=== PATIENT | male | born 1940 | race Caucasian/White ===

== ENCOUNTER → 2017-03-02 | Day surgery (SDC) | payer OTHER ==
[2017-03-01 08:59] VITALS: Ht 170.2 cm; Wt 100.0 kg
[~2017-03-02] VITALS: Ht 170.2 cm; Wt 100.0 kg
[~2017-03-02] MED LIST: ASPI81TA28 PO; ATOR-22 PO; CHOL1000 PO; DOXA1TAB86 PO; FENO48TA9 PO; FINA5TAB PO; INSDGI SC; IPRA1AER2 INH; LIDOCAINE HCL 2% 2 ML VIAL (20MG/ML) ONE; METF500T PO; METO-551 PO; MIDAZOLAM HCL 1 MG/ML 2ML VIAL ONE; MULT-190 PO; MULT-506 PO; NRN/300 PO; NVLG SC; PROPOFOL IV EMULSION 10 MG/ML 20 ML VIAL IV ONE; SODIUM CHLORIDE 0.9% 500ML 500 ML IV ONE
--- NOTE | 2017-03-02 12:55 | Endo History and Physical ---
History & Physical Date of Service: March 02, 2017. Chief Complaint: screening Referring Physician: Dr Randhawa History of Present Illness Scenning colonoscopy average risk Past Surgical History Hx Cardiac Surgery: Yes (HEART CATH X2, NO STENTS; CABG X2-3 VESSLES) Hx Internal Defibrillator: No Hx Pacemaker: No Hx Abdominal Surgery: Yes (EJ) Hx of Implantable Prosthesis: No Hx Post-Op Nausea and Vomiting: No Hx Cancer Surgery: No Hx Thoracic Surgery: No Hx Orthopedic: Yes (RT ANKLE SURGERY) Hx Urinary Tract Surgery: Yes (TURP X2) Family History None Social History Smoking Status: Former Smoker Hx Substance Use: No Hx Alcohol Use: Yes (QUIT "YEARS AGO WHEN I WAS YOUNGER") Allergies Coded Allergies: NO KNOWN DRUG ALLERGIES (Verified Allergy, Unknown, ., 03/01/17) [place] (Verified Allergy, Unknown, hives, 03/01/17) Current Medications Reported Home Medications Medications Dose Route/Sig Max Daily Dose Days Date Category Novolog (Insulin Aspart) 100 Units/Ml Inj 22 Units SC TIDM 03/01/17 Reported Lantus (Insulin Glargine) 100 Unit/Ml Inj 38 Units SC HS 03/01/17 Reported Combivent Respimat (Ipratropium-Albuterol) 1 Aer Aer 1 Puffs INH QID 03/01/17 Reported Aspirin Ec (Aspirin) 81 Mg Tab 81 Mg PO QAM 03/01/17 Reported Multivitamin (Multivitamins) Tab 1 Tab PO QAM 03/01/17 Reported Vitamin D3 (Cholecalciferol) 1,000 Unit Tab 1 Tab PO BID 03/01/17 Reported Tricor (Fenofibrate) 48 Mg Tab 48 Mg PO BID 03/01/17 Reported Lopressor (Metoprolol Tartrate) 50 Mg Tab 0.5 Tab PO BID 03/01/17 Reported Neurontin (Gabapentin) 300 Mg Cap 300 Mg PO BID 03/01/17 Reported Lipitor (Atorvastatin Calcium) 20 Mg Tab 20 Mg PO QAM 03/01/17 Reported Doxazosin Mesylate 4 Mg Tab 1 Tab PO BID 03/01/17 Reported Ocuvite Preservision (Multivitamins/Minerals) 1 Tab Tab 1 Tab PO QPM 01/25/14 Reported Glucophage (Metformin Hcl) 500 Mg Tab 500 Mg PO BID 01/25/14 Reported Proscar (Finasteride) 5 Mg Tab 5 Mg PO QAM 12/28/13 Reported Vital Signs Weight (Kilograms): 100 Height (Feet): 5 Height (Inches): 7 Date Time Temp Pulse Resp B/P Pulse Ox O2 Delivery O2 Flow Rate FiO2 03/02/17 12:13 36.5 114 22 154/97 94 Room Air Physical Exam General Appearance: WD/WN, no apparent distress Respiratory/Chest: Auscultation: breath sounds normal Cardiovascular: Heart Auscultation: RRR, no murmurs Abdomen: Inspection & Palpation: soft, no tenderness, guarding & rebound Assessment and Plan Cleared for colonoscopy.
--- NOTE | 2017-03-02 13:41 | GI REPORT ---
Procedure Date: 03/02/2017 12:18 PM Procedure: Colonoscopy Indications: Screening for colorectal malignant neoplasm Medicines: Monitored Anesthesia Care Complications: No immediate complications. Estimated blood loss: None. Estimated Blood Loss: Estimated blood loss: none. Procedure: Pre-Anesthesia Assessment: - Prior to the procedure, a History and Physical was performed, and patient medications, allergies and sensitivities were reviewed. The patient's tolerance of previous anesthesia was reviewed. - ASA Grade Assessment: III - A patient with severe systemic disease. After I obtained informed consent, the scope was passed under direct vision. Throughout the procedure, the patient's blood pressure, pulse, and oxygen saturations were monitored continuously. The scope was introduced through the anus and advanced to the cecum, identified by appendiceal orifice and ileocecal valve. The colonoscopy was performed with ease. The patient tolerated the procedure well. The quality of the bowel preparation was good. The bowel preparation used was split dose MIralax. Findings: Two sessile polyps were found in the cecum. The polyps were 3 to 6 mm in size. These polyps were removed with a cold and hot snare respectively. Resection and retrieval were complete. Three sessile polyps were found in the ascending colon. The polyps were 5 to 7 mm in size. These polyps were removed with a hot snare. Resection and retrieval were complete. A 2 mm polyp was found in the transverse colon. The polyp was sessile. The polyp was removed with a cold snare. Resection and retrieval were complete. A 4 mm polyp was found in the rectum. The polyp was sessile. The polyp was removed with a cold snare. Resection and retrieval were complete. Diverticula were found in the sigmoid colon and in the transverse colon. Impression: - Two 3 to 6 mm polyps in the cecum, removed with a hot snare. Resected and retrieved. - Three 5 to 7 mm polyps in the ascending colon, removed with a hot snare. Resected and retrieved. - One 2 mm polyp in the transverse colon, removed with a cold snare. Resected and retrieved. - One 4 mm polyp in the rectum, removed with a cold snare. Resected and retrieved. - Diverticulosis in the sigmoid colon and in the transverse colon. Recommendation: - Repeat colonoscopy for surveillance based on pathology results. - Continue present medications. - Discharge patient to home (with escort). Efrain Cerda M.D. Efrain Cerda MD 03/02/2017 1:40:36 PM This report has been signed electronically. Note Initiated On: 03/02/2017 12:18 PM I attest to the content of the Intraoperative Record and orders documented therein, exceptions below
--- NOTE | 2017-03-02 13:43 | Anesthesiology Progress Note ---
Anesthesia Post Op Note Date & Time March 02, 2017 at 13:43 Vital Signs Pain Intensity: 0 Vital Signs Past 12 Hours Date Time Temp Pulse Resp B/P Pulse Ox O2 Delivery O2 Flow Rate FiO2 03/02/17 13:29 107 20 112/60 97 Room Air 03/02/17 12:13 36.5 114 22 154/97 94 Room Air Notes Mental Status: alert / awake / arousable, participated in evaluation Pt Amnestic to Procedure: Yes Nausea / Vomiting: adequately controlled Pain: adequately controlled Airway Patency, RR, SpO2: stable & adequate BP & HR: stable & adequate Hydration State: stable & adequate Anesthetic Complications: no major complications apparent
--- NOTE | 2017-03-02 13:44 | Discharge Instructions ---
Endoscopy Patient Instructions Date / Procedure(s) Performed March 02, 2017. Colonoscopy Allergy Information Coded Allergies: NO KNOWN DRUG ALLERGIES (Verified Allergy, Unknown, ., 03/01/17) [place] (Verified Allergy, Unknown, hives, 03/01/17) Discharge Date / Findings March 02, 2017. Multiple colon polyps, removed. Diverticulosis. Medication Instructions Stopped Medication(s): Metformin Restart Stopped Medication(s): Resume all medications today. Provider Instructions Activity Restrictions - No exercising or heavy lifting for 24 hours. - Do not drink alcohol the day of the procedure. - Do not drive a car or operate machinery until the day after the procedure. - Do not make any important decisions or sign important papers in 24 hours after the procedure. Following Day: - Return to full activity which may include returning to work/school. Diet Start your diet with liquids and light foods (jello, soup, juice, toast). Then eat your usual diet if not nauseated. Treatment For Common After Affects For mild abdominal pain, bloating, or excessive gas: - Rest - Eat lightly - Lie on right side Follow-Up Information Follow-up with Dr Randhawa as scheduled Anesthesia Information What You Should Know You have had a procedure that required some medicine to reduce anxiety and discomfort. This treatment is called moderate sedation. After receiving the treatment, you may be sleepy, but you will be able to breathe on your own. The effects of the treatment may last for several hours. Follow these instructions along with Activity/Diet recommendations noted above: * Do NOT do anything where dizziness or clumsiness would be dangerous. * Rest quietly at home today, then you can be up and about tomorrow. * Have a responsible person stay with you the rest of today. * You may have had an I.V. today. If so, you may take the dressing off later today. Recommendations Call your doctor if: * Trouble breathing * Continuous vomiting for more than 24 hours * Temperature above 101 degrees * Severe abdominal pain or bloating * Pain not relieved by pain medicine ordered * There is increased drainage or redness from any incision * A large amount of rectal bleeding greater than 2-3 tablespoons. (If you had a polyp/s removed or have hemorrhoids, a small amount of blood - from the rectum is to be expected.) * You have any unanswered questions or concerns. IN THE EVENT OF A SERIOUS EMERGENCY, GO TO THE NEAREST EMERGENCY ROOM Your discharge instructions were prepared by provider Efrain Cerda. Patient Instructions Signature Page Mc Garcia Patient (or Guardian) Signature/Date: I have read and understand the instructions given to me by my caregivers. Caregiver/RN/Doctor Signature/Date: The above-named patient and/or guardian has received patient instructions on this date. + Original Patient Signature Page (only) stays with chart. Please make copy for patient.
[2017-03-02 14:03] VITALS: BP 120/66; PULSE 88; O2SAT 98
== END | disposition home or self-care (01) ==
LOC: C.GI 11:41
PROVIDERS: ATTEND Internal Medicine Gastroenterology
DX: Z12.11 Encounter for screening for malignant neoplasm of colon (principal); D12.0 Benign neoplasm of cecum; D12.2 Benign neoplasm of ascending colon; D12.3 Benign neoplasm of transverse colon; K62.1 Rectal polyp; K57.30 Diverticulosis of large intestine without perforation or abscess without bleeding; E11.22 Type 2 diabetes mellitus with diabetic chronic kidney disease; I12.9 Hypertensive chronic kidney disease with stage 1 through stage 4 chronic kidney disease, or unspecified chronic kidney disease; N18.9 Chronic kidney disease, unspecified; F32.9 Major depressive disorder, single episode, unspecified; J44.9 Chronic obstructive pulmonary disease, unspecified; Z87.891 Personal history of nicotine dependence; Z95.1 Presence of aortocoronary bypass graft; Z68.34 Body mass index [BMI] 34.0-34.9, adult; Z90.89 Acquired absence of other organs; Z79.4 Long term (current) use of insulin; Z79.82 Long term (current) use of aspirin; Z79.899 Other long term (current) drug therapy

== ENCOUNTER → 2017-04-01 | Outpatient (CLI) | payer OTHER ==
[~2017-04-01] MED LIST changes: -LIDOCAINE HCL 2% 2 ML VIAL (20MG/ML) ONE; -MIDAZOLAM HCL 1 MG/ML 2ML VIAL ONE; -PROPOFOL IV EMULSION 10 MG/ML 20 ML VIAL IV ONE; -SODIUM CHLORIDE 0.9% 500ML 500 ML IV ONE
[2017-04-01 12:10] LABS: BASO % 1.1 %; BASO ABS # 0.07 K/uL (0-0.2); COMPLETE YES; EOS % 12.5 %; HEMATOCRIT 40.3 % (42-52); IG% 0.3 %; LYMPH % 22.3 %; LYMPH ABS # 1.39 K/uL (1.2-3.4); MEAN CORPUSCULAR HEMOGLOBIN 30.5 pg (25-34); MEAN CORPUSCULAR HGB CONC 33.5 g/dl (32-36); MEAN PLATELET VOLUME 12.1 fL (7.4-10.4); MONO % 11.2 %; NEUT % 52.6 %; PLATELET COUNT 140 K/uL (130-400); RED BLOOD COUNT 4.43 M/uL (4.7-6.1); WHITE BLOOD COUNT 6.23 K/uL (4.8-10.8)
[2017-04-01 12:23] LABS: URINE APPEARANCE CLEAR (CLEAR); URINE BILIRUBIN NEG (NEG); URINE COLOR YELLOW; URINE NITRITE NEG (NEG); URINE PH 5.5 (4.5-7.5); URINE SPECIFIC GRAVITY 1.016 (1.000-1.030); UROBILINOGEN NEG (NEG); ZZUR CULT IF INDIC CLEAN CATCH NO
[2017-04-01 12:30] LABS: CALCIUM 9.6 mg/dl (8.5-10.1)
[2017-04-01 12:36] LABS: BLOOD UREA NITROGEN 33 mg/dl (7-18); BUN/CREATININE RATIO 17.6 (10-20); CARBON DIOXIDE 24 mmol/L (21-32); CHLORIDE 107 mmol/L (98-107); GLUCOSE 223 mg/dl (70-99); MAGNESIUM 1.7 mg/dl (1.8-2.4); POTASSIUM 5.2 mmol/L (3.5-5.1); SODIUM 140 mmol/L (136-145)
[2017-04-01 12:37] LABS: MANUAL MICROSCOPIC REQUIRED? NO; REVIEW REQ? NO
[2017-04-01 12:37] LABS: PHOSPHORUS 3.6 mg/dl (2.5-4.9)
[2017-04-01 12:49] LABS: URINE PROTIEN/CREAT RATIO 0.2 (0-0.2); URINE TOTAL PROTEIN 10.6 mg/dl (0-11.9)
== END | disposition home or self-care (01) ==
LOC: C.LABPVFM 10:37
PROVIDERS: ATTEND Internal Medicine Nephrology
DX: N18.3 Chronic kidney disease, stage 3 (moderate) (principal)

== ENCOUNTER → 2017-04-05 | Outpatient (CLI) | payer OTHER ==
--- NOTE | 2017-04-05 14:04 | DIAGNOSTIC IMAGING REPORT ---
CHEST 2 VIEWS ROUTINE CLINICAL HISTORY: R06.09 Dyspnea on [id number] dyspnea COMPARISON STUDY: 01/25/2014 FINDINGS: Mild emphysematous and chronic interstitial change. No acute infiltrate. Prior median sternotomy. Diaphragms smooth but somewhat flattened. IMPRESSION: Chronic and postoperative change. No acute process. Electronically signed by: Garry Ortiz M.D. 04/05/2017 2:02 PM Dictated Date/Time: 04/05/2017 2:02 PM
== END | disposition home or self-care (01) ==
LOC: C.RAD1850 13:52
PROVIDERS: ATTEND Internal Medicine Nephrology
DX: R06.09 Other forms of dyspnea (principal)

== ENCOUNTER → 2017-04-23 | Outpatient (CLI) | payer OTHER ==
[2017-04-23 17:46] LABS: BLOOD UREA NITROGEN 29 mg/dl (7-18); BUN/CREATININE RATIO 17.2 (10-20); CALCIUM 9.8 mg/dl (8.5-10.1); CARBON DIOXIDE 27 mmol/L (21-32); CHLORIDE 107 mmol/L (98-107); GLUCOSE 183 mg/dl (70-99); PHOSPHORUS 3.6 mg/dl (2.5-4.9); POTASSIUM 4.7 mmol/L (3.5-5.1); SODIUM 140 mmol/L (136-145)
== END | disposition home or self-care (01) ==
LOC: C.LABPVFM 11:30
PROVIDERS: ATTEND Internal Medicine Nephrology
DX: E87.5 Hyperkalemia (principal); N18.3 Chronic kidney disease, stage 3 (moderate)

== ENCOUNTER → 2017-06-04 | Outpatient (CLI) | payer OTHER ==
--- NOTE | 2017-06-04 10:43 | DIAGNOSTIC IMAGING REPORT ---
SINUSES MIN 3 VIEWS ROUTINE CLINICAL HISTORY: CHRONIC SINUSITIS sinusitis COMPARISON STUDY: None FINDINGS: Negative study. All major sinuses are clear. IMPRESSION: Negative study The above report was generated using voice recognition software. It may contain grammatical, syntax or spelling errors. Electronically signed by: Garry Ortiz M.D. 06/04/2017 10:42 AM Dictated Date/Time: 06/04/2017 10:38 AM
[2017-06-04 12:48] LABS: BASO % 0.9 %; BASO ABS # 0.05 K/uL (0-0.2); COMPLETE YES; EOS % 7.4 %; HEMATOCRIT 39.9 % (42-52); IG% 0.6 %; LYMPH % 30.1 %; LYMPH ABS # 1.63 K/uL (1.2-3.4); MEAN CELL VOLUME 89.1 fL (80-100); MEAN CORPUSCULAR HEMOGLOBIN 29.9 pg (25-34); MEAN CORPUSCULAR HGB CONC 33.6 g/dl (32-36); MONO % 9.8 %; NEUT % 51.2 %; PLATELET COUNT 154 K/uL (130-400); RED BLOOD COUNT 4.48 M/uL (4.7-6.1); WHITE BLOOD COUNT 5.42 K/uL (4.8-10.8)
[2017-06-04 12:57] LABS: ALT/SGPT 34 U/L (12-78); BLOOD UREA NITROGEN 24 mg/dl (7-18); BUN/CREATININE RATIO 13.9 (10-20); CALCIUM 9.3 mg/dl (8.5-10.1); CARBON DIOXIDE 27 mmol/L (21-32); CHLORIDE 107 mmol/L (98-107); GLUCOSE 175 mg/dl (70-99); POTASSIUM 4.6 mmol/L (3.5-5.1); SODIUM 139 mmol/L (136-145)
[2017-06-04 13:00] LABS: ALB/GLOB RATIO 1.2 (0.9-2); ALKALINE PHOSPHATASE 36 U/L (45-117); AST/SGOT 20 U/L (15-37); PARTIAL THROMBOPLASTIN RATIO 0.9; PROTHROMBIN TIME (PATIENT) 10.7 SECONDS (9.0-12.0)
== END | disposition home or self-care (01) ==
LOC: C.LABPVFM 10:11
PROVIDERS: ATTEND Internal Medicine Pulmonary Disease
DX: J32.9 Chronic sinusitis, unspecified (principal); J84.9 Interstitial pulmonary disease, unspecified

== ENCOUNTER 2017-06-07 07:25 | Day surgery (SDC) | payer OTHER ==
--- NOTE | 2017-05-31 10:52 | DIAGNOSTIC IMAGING REPORT ---
CT SCAN OF THE CHEST WITHOUT IV CONTRAST CLINICAL HISTORY: Interstitial lung disease. Cough and dyspnea. COMPARISON STUDY: Chest radiographs dated 04/05/2017. Abdominal CT dated 12/28/2013. TECHNIQUE: CT scan of the thorax was performed from the thoracic inlet to the upper abdomen. Images are reviewed in the axial, sagittal, and coronal planes. IV contrast was not administered for this examination. A dose lowering technique was utilized adhering to the principles of ALARA. CT DOSE: 629.71 mGycm FINDINGS: Thyroid: Imaged portions of the thyroid gland are normal in size and attenuation. Thoracic aorta: There is atherosclerotic calcification of the thoracic aorta, which is normal in caliber and demonstrates standard 3-vessel arch anatomy. Heart: The patient is status post midline sternotomy. The heart is normal in size and without pericardial effusion. The coronary arteries are densely calcified. The pulmonary trunk is normal in caliber. Lungs and pleural spaces: There is no airspace consolidation or pleural effusion. Minimal dependent atelectasis is observed. There is no convincing CT evidence of interstitial lung disease. There are tiny calcified granulomas. There is a 6 mm focus of nodularity within the upper tracheal wall seen on image #25. The trachea and central airways are otherwise clear. 3 mm left lower lobe nodules seen on image #232 and #254 are unchanged from 2014 and of doubtful significance. Mediastinum: There are scattered subcentimeter mediastinal lymph nodes. These are not pathologically enlarged by size criteria. Zohra: Not well assessed without IV contrast. Axillae: There is no axillary lymphadenopathy. Upper abdomen: There is a tiny hiatal hernia. The liver is steatotic. Cholecystectomy clips are noted. The partially imaged kidneys demonstrate cortical atrophy and there is scarring in the right upper pole. Small renal cysts are partially imaged on the left. Skeletal structures: The skeletal structures are osteopenic. Degenerative change is seen throughout the thoracic spine and in the shoulders. No lytic or blastic bony lesions are seen. IMPRESSION: 1. There is no airspace consolidation or pleural effusion. 2. There is no convincing CT evidence of interstitial lung disease as clinically queried. 3. There is a 6 cm focus of nodularity seen nondependently within the upper trachea. This likely represents adherent secretions. A nodule/polyp is not excluded. 4. Additional findings as above. Electronically signed by: Joe Weber M.D. 05/31/2017 10:50 AM Dictated Date/Time: 05/31/2017 10:43 AM
[~2017-06-07] VITALS: Ht 170.2 cm; Wt 99.9 kg
[2017-06-07] VITALS (23 sets, daily range): BP systolic 103–172; BP diastolic 61–82; PULSE 68–97; TEMP 36.5–36.7; O2SAT 88–97; Ht 170.2 cm; Wt 99.9 kg
[~2017-06-07 07:25] MED LIST changes: +SODIUM CHLORIDE 0.9% 1000ML 1,000 ML IV SCH
[2017-06-07] MEDS ORDERED: MIDAZOLAM HCL 1 MG/ML 2ML VIAL IV ONE (07:26)
[2017-06-07] MEDS ORDERED: FENTANYL CITRATE 100 MCG 2 ML CARP IV ONE (07:26)
--- NOTE | 2017-06-07 08:06 | History and Physical ---
History & Physical Date Jun 07, 2017. 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 Maxim Gan by Dr. Yoandy Randhawa/division of Nephrology for pulmonary evaluation. Patient has history of ischemic cardiomyopathy, diabetes mellitus, urinary retention, and stage IIIB A1 chronic kidney disease. He has become progressively more dyspneic with exertion over the past year with a dry nonproductive cough that has not responded to any therapy. He has been placed on 2 inhalers but gives us a Combivent Respimat that he has used without efficacy. He has become progressively more dyspneic with exertion over the past year with a dry nonproductive cough that has not responded to any therapy. He has been placed on 2 inhalers but gives us a Combivent Respimat that he has used without efficacy. He can only walk short distances before he becomes fatigued and extremely dyspnea. He has smoked a pack of cigarettes a day for 40 years having quit 15 years ago. 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 He also has had exposure to Agent Citra while in [place] and receives benefits for such. Chest x-ray on 04/05/2017 suggest emphysematous and chronic interstitial changes. This was in comparison to 2013. PFTs on 11/22/2015 revealed a forced vital capacity of 2.91 liters or 73 percent of predicted with an FEV1 of 1.99 liters or 65 percent of predicted with a ratio of 68 percent without a significant response to bronchodilator. CT Thorax (06/03/17) compared to CT ABD (12/28/2013) Stable 3mm & 7mm LLL nodules Sinus Imaging (06/04/17) WNL Past Medical/Surgical History Medical Problems: (1) Coronary artery disease Arthritis BPH with obstruction/lower urinary tract symptoms Chronic sinusitis Cough Diabetes mellitus with chronic kidney disease (Cr: 1.7) Dyspnea on exertion Gout Hypercholesterolemia Hypertension Incomplete emptying of bladder Interstitial lung disease Neurogenic bladder Peripheral neuropathy Phimosis Stage III chronic kidney disease Surgical Problems: S/P CABG (coronary artery bypass graft) Cholecystectomy Laparoscopic Foot Surgery Prostate Surgery Allergies Coded Allergies: NO KNOWN DRUG ALLERGIES (Verified Allergy, Unknown, ., 03/01/17) [place] (Verified Allergy, Unknown, hives, 03/01/17) Home Medications Scheduled Aspirin (Aspirin Ec), 81 MG PO QAM Atorvastatin (Lipitor), 20 MG PO QAM Cholecalciferol (Vitamin D3), 1 TAB PO BID Doxazosin Mesylate (Doxazosin Mesylate), 1 TAB PO BID Fenofibrate (Tricor), 48 MG PO BID Finasteride (Proscar), 5 MG PO QAM Gabapentin (Neurontin), 300 MG PO BID Insulin Aspart (Novolog), 22 UNITS SC TIDM Insulin Glargine (Lantus), 38 UNITS SC HS Ipratropium-Albuterol (Combivent Respimat), 1 PUFFS INH QID Metformin Hcl (Glucophage), 500 MG PO BID Metoprolol Tartrate (Lopressor), 0.5 TAB PO BID Multivitamin (Multivitamin), 1 TAB PO QAM Ocuvite Preservision (Ocuvite Preservision), 1 TAB PO QPM Physical Examination Skin: warm/dry, no rash Eyes: normal inspection, EOMI, sclerae normal ENT: normal ENT inspection, pharynx normal Head: normocephalic, atraumatic Neck: supple, no adenopathy, trachea midline Respiratory/Chest: + pertinent finding (Scattered wheeze with crackles at the bases) Cardiovascular: regular rate, rhythm, no edema, no murmur Abdomen / GI: normal bowel sounds, non tender Back: normal inspection Extremities: normal inspection, normal range of motion Neurologic/Psych: no motor/sensory deficits, alert, normal reflexes, oriented x 3 Diagnosis Chronic Cough Plan of Treatment Bronchoscopy with BAL and possible intra-bronchial biopsy
--- NOTE | 2017-06-07 08:46 | History & Physical Bridge Note ---
H&P Re-Evaluation Bridge Note: I have examined the patient, reviewed the History & Physical and in the interval since the performance of the History & Physical I have noted the following changes of clinical significance: No changes noted
--- NOTE | 2017-06-07 08:47 | Procedure Note ---
Pre-Mod Sedation Assessment General Date of Moderate Sedation: Jun 07, 2017. Vital Signs: Vital Signs Past 12 Hours Date Time Temp Pulse Resp B/P (MAP) Pulse Ox O2 Delivery O2 Flow Rate FiO2 06/07/17 08:13 36.5 75 20 155/67 (96) 95 Room Air Review Cardiovascular: regular rate, rhythm, no edema, no gallop, no JVD Abdomen: normal bowel sounds, non tender, soft, no organomegaly Lungs: + wheezing Airway Class: III Pre-Sedation Airway Assessment Oral Cavity: Dental Abnormalities Short Thick Neck: Yes Hx of Sleep Apnea: No Smoking Status: Former Smoker Mallampati Classification: Class III ASA Classification: Class III Procedure Planning Contraindications-for Mod Sed: None Yes Notes The planned sedation has been discussed with the patient and consent obtained. I have identified the patient, determined the appropriateness of sedation and have assessed the patient immediately prior to the procedure. All medicine(s) and interventions are by my order.
[2017-06-07] MEDS ORDERED: NURSING VERBAL MED ORDER ONE ×2 (09:00→10:00)
--- NOTE | 2017-06-07 09:47 | Bronchoscopy Procedure Note ---
Bronchoscopy Procedure Note Procedure: Bronchoscopy, conscious sedation, Consent: Obtained through the patient placed into the chart Pre-procedural diagnosis: Chronic cough Post-procedural diagnosis: Chronic cough, possible obstructive sleep apnea, possible EDAC Start time: 915 End time: 934 Total time: 19 minutes Analgesia: 2% liquid lidocaine: Via nebulizer 4% gel lidocaine: Via right naris 2% liquid lidocaine: Via bronchoscopy Sedation: Versed IV: 50 mg Fentanyl IV: 2 g Procedure: The Olympus video bronchoscope was used for this procedure and passed down through the oropharynx. Oropharynx/posterior pharynx: Anatomically within normal limits, notable for Mallampati 3 Retroflexion posterior naris: No signs of chronic rhinitis acute infection Glottis: Anatomically within normal limits Vocal cords: Anatomically within normal limits but patient did not perform proper abduction/abduction maneuvers Subglottis/trachea/Heather: Anatomically within normal limits Right bronchial tree: Right mainstem bronchus: Anatomically within normal limits Right upper lobe: Anatomically within normal limits Bronchus intermedius: Multiple tracheal ring hypertrophies Right middle lobe: Anatomically within normal limits Right lower lobe: Anatomically within normal limits Findings: Bronchus intermedius with ventricular hypertrophy Left bronchial tree: Left mainstem bronchus: Anatomically within normal limits Left upper lobe: Anatomically within normal limits Lingula: Anatomically within normal limits Left lower lobe: Anatomically within normal limits Findings: No significant findings noted Bronchial alveolar lavage: Right middle lobe EBL: None Complications: None Follow-up: In the [facility]
--- NOTE | 2017-06-07 09:47 | Procedure Note ---
Post-Moderate Sedation Plan General Date of Moderate Sedation Jun 07, 2017. Vital Signs: Vital Signs Past 12 Hours Date Time Temp Pulse Resp B/P (MAP) Pulse Ox O2 Delivery O2 Flow Rate FiO2 06/07/17 09:05 69 20 160/79 96 Room Air 06/07/17 08:13 36.5 75 20 155/67 (96) 95 Room Air Review - Discharge Plan Post Moderate Sedation Plan: On clinical assessment, the patient appears to have tolerated the conscious sedation without complications. Patient is recovering as anticipated. Patient will continue to be monitored by nursing and may be discharged when conscious sedation discharge criteria are met.
--- NOTE | 2017-06-07 09:49 | Discharge Instructions ---
Discharge Instructions Date of Service Jun 07, 2017. Admission Reason for Admission: Cough, Shortness Of Breath Discharge Discharge Diagnosis / Problem: chronic cough, bronchus intermedius tracheal hypertrophy, possible EDAC Discharge Goals Goal(s): Diagnostic testing Activity Recommendations Activity Limitations: resume your previous activity . Instructions / Follow-Up Instructions / Follow-Up Follow-up in the [facility] pulmonary clinic Current Hospital Diet Patient's current hospital diet: Discharge Diet Recommended Diet: Regular Diet Procedures Procedures Performed: Bronchoscopy, bronchial lavage, conscious sedation Pending Studies Studies pending at discharge: no Medical Emergencies . Who to Call and When: Medical Emergencies: If at any time you feel your situation is an emergency, please call 911 immediately. . Non-Emergent Contact Non-Emergency issues call your: Per Diem Rn . . "Provider Documentation" section prepared by Rigo Qureshi. . VTE Core Measure Inpt VTE Proph given/why not?: Treatment not indicated
[2017-06-07] MEDS ORDERED: FENTANYL CITRATE INJ 50 MCG/1 ML 2 ML VIAL IV SCH (10:30)
[2017-06-07] MEDS ORDERED: MIDAZOLAM HCL 5 MG/ML 1 ML VIAL IV SCH (10:30)
== END 2017-06-07 14:29 | disposition home or self-care (01) ==
LOC: C.ACU 07:25
PROVIDERS: ATTEND Internal Medicine Pulmonary Disease
DX: R05 Cough (principal); R09.02 Hypoxemia; I25.5 Ischemic cardiomyopathy; I25.10 Atherosclerotic heart disease of native coronary artery without angina pectoris; E11.22 Type 2 diabetes mellitus with diabetic chronic kidney disease; I12.9 Hypertensive chronic kidney disease with stage 1 through stage 4 chronic kidney disease, or unspecified chronic kidney disease; N18.3 Chronic kidney disease, stage 3 (moderate); N40.1 Benign prostatic hyperplasia with lower urinary tract symptoms; N31.9 Neuromuscular dysfunction of bladder, unspecified; E11.42 Type 2 diabetes mellitus with diabetic polyneuropathy; E78.00 Pure hypercholesterolemia, unspecified; J84.9 Interstitial pulmonary disease, unspecified; N47.1 Phimosis; M10.9 Gout, unspecified; Z95.1 Presence of aortocoronary bypass graft; Z79.82 Long term (current) use of aspirin; Z79.4 Long term (current) use of insulin; Z79.899 Other long term (current) drug therapy

== ENCOUNTER → 2017-07-14 | Outpatient (CLI) | payer OTHER ==
[~2017-07-14] MED LIST changes: -SODIUM CHLORIDE 0.9% 1000ML 1,000 ML IV SCH
--- NOTE | 2017-07-14 16:32 | DIAGNOSTIC IMAGING REPORT ---
R HAND MIN 3 VIEWS ROUTINE CLINICAL HISTORY: Hand pain, not arthralgia, right pain COMPARISON: None. DISCUSSION: Considerable degenerative change first carpometacarpal joint. Findings consistent with old avulsion base proximal phalanx fifth finger. Moderate degenerative change of all remaining osseous structures. No acute bony abnormalities identified. There is no evidence for soft tissue swelling. IMPRESSION: Considerable degenerative change as described. No acute process. The above report was generated using voice recognition software. It may contain grammatical, syntax or spelling errors. Electronically signed by: Garry Ortiz M.D. 07/14/2017 4:30 PM Dictated Date/Time: 07/14/2017 4:29 PM
== END | disposition home or self-care (01) ==
LOC: C.RADPV 16:08
PROVIDERS: ATTEND Nurse Practitioner Family
DX: M79.641 Pain in right hand (principal)

== ENCOUNTER → 2017-10-27 | Outpatient (CLI) | payer OTHER ==
[2017-10-27 17:40] LABS: BASO % 0.4 %; BASO ABS # 0.03 K/uL (0-0.2); EOS ABS # 0.08 K/uL (0-0.5); HEMATOCRIT 40.8 % (42-52); HEMOGLOBIN 13.6 g/dL (14.0-18.0); IG# 0.04 K/uL (0.00-0.02); LYMPH % 12.4 %; LYMPH ABS # 0.96 K/uL (1.2-3.4); MEAN CELL VOLUME 90.1 fL (80-100); MEAN CORPUSCULAR HGB CONC 33.3 g/dl (32-36); MEAN PLATELET VOLUME 12.4 fL (7.4-10.4); MONO % 8.1 %; MONO ABS # 0.63 K/uL (0.11-0.59); NEUT % 77.6 %; PLATELET COUNT 149 K/uL (130-400); RED CELL DISTRIBUTION WIDTH CV 13.7 % (11.5-14.5); WHITE BLOOD COUNT 7.74 K/uL (4.8-10.8)
[2017-10-27 17:55] LABS: ALBUMIN 3.7 gm/dl (3.4-5.0); BLOOD UREA NITROGEN 28 mg/dl (7-18); CALCIUM 9.2 mg/dl (8.5-10.1); CARBON DIOXIDE 23 mmol/L (21-32); CREATININE 1.84 mg/dl (0.60-1.40); GLUCOSE 227 mg/dl (70-99); POTASSIUM 4.6 mmol/L (3.5-5.1); SODIUM 138 mmol/L (136-145)
[2017-10-27 17:56] LABS: PHOSPHORUS 2.2 mg/dl (2.5-4.9)
== END | disposition home or self-care (01) ==
LOC: C.LABPVFM 12:50
PROVIDERS: ATTEND Internal Medicine Nephrology
DX: N18.3 Chronic kidney disease, stage 3 (moderate) (principal)

== ENCOUNTER → 2017-12-08 | Outpatient (CLI) | payer OTHER ==
--- NOTE | 2017-12-08 13:21 | DIAGNOSTIC IMAGING REPORT ---
L WRIST MIN 3 VIEWS ROUTINE CLINICAL HISTORY: WRIST PAIN L COMPARISON: None. DISCUSSION: No fractures or dislocations are visualized. There are advanced osteoarthritic changes the level the first carpometacarpal joint. There is a small metallic foreign body within the volar soft tissues at the distal radial level. IMPRESSION: 1. No acute fractures 2. 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 Metallic foreign body within the distal volar soft tissues Electronically signed by: Marquise Kumar M.D. 12/08/2017 1:20 PM Dictated Date/Time: 12/08/2017 1:19 PM
== END | disposition home or self-care (01) ==
LOC: C.RADPV 13:03
PROVIDERS: ATTEND Family Medicine
DX: M19.042 Primary osteoarthritis, left hand (principal)

== ENCOUNTER → 2018-01-31 | Outpatient (CLI) | payer OTHER ==
[2018-01-31 17:43] LABS: ALBUMIN 3.8 gm/dl (3.4-5.0); BLOOD UREA NITROGEN 26 mg/dl (7-18); CALCIUM 9.4 mg/dl (8.5-10.1); CARBON DIOXIDE 25 mmol/L (21-32); CREATININE 1.88 mg/dl (0.60-1.40); GLUCOSE 178 mg/dl (70-99); POTASSIUM 4.6 mmol/L (3.5-5.1); SODIUM 141 mmol/L (136-145)
[2018-01-31 17:50] LABS: PHOSPHORUS 3.5 mg/dl (2.5-4.9)
== END | disposition home or self-care (01) ==
LOC: C.LABPVFM 14:41
PROVIDERS: ATTEND Internal Medicine Nephrology
DX: N18.3 Chronic kidney disease, stage 3 (moderate) (principal); M10.9 Gout, unspecified

== ENCOUNTER → 2018-05-24 | Day surgery (SDC) | payer OTHER ==
[2018-05-17 12:03] VITALS: Ht 170.2 cm; Wt 59.1 kg
[~2018-05-24] VITALS: Ht 170.2 cm; Wt 59.1 kg
[~2018-05-24] MED LIST changes: +ALBUTEROL NEB INH; +KETAMINE HCL INJ 50 MG/ML 10 ML VIAL ONE; +LIDOCAINE HCL 2% 2 ML VIAL (20MG/ML) ONE; +LISI-725 PO; +MECL1TAB42 PO; +OXGN; +PROPOFOL IV EMULSION 10 MG/ML 20 ML VIAL ONE; +SODIUM CHLORIDE 0.9% 500ML 500 ML IV ONE
[2018-05-24 12:22] VITALS: TEMP 36.6
--- NOTE | 2018-05-24 13:20 | Endo History and Physical ---
History & Physical Date of Service: May 24, 2018. Chief Complaint: Hx of polyps Referring Physician: DAIJA Romero History of Present Illness 77 yo with hx of multiple colonic polyps for colonoscopy Past Surgical History Hx Cardiac Surgery: Yes (CABG 3 VESSELS 2002) Hx Internal Defibrillator: No Hx Pacemaker: No Hx Abdominal Surgery: Yes (LAP GB SURG) Hx of Implantable Prosthesis: No Hx Post-Op Nausea and Vomiting: Yes (PONV X 1) Hx Cancer Surgery: No Hx Thoracic Surgery: Yes (BRONCHOSCOPY) Hx Orthopedic: Yes (ORIF R ANKLE) Hx Urinary Tract Surgery: Yes (TURP BIPOLAR) Family History Colon CA Social History Smoking Status: Former Smoker Hx Substance Use: No Hx Alcohol Use: No Allergies Coded Allergies: NO KNOWN DRUG ALLERGIES (Verified Allergy, Unknown, NONE, 05/17/18) [place] (Verified Allergy, Unknown, hives, 06/07/17) Current Medications Reported Home Medications Medications Dose Route/Sig Max Daily Dose Days Date Category Zestril (Lisinopril) 20 Mg Tab 20 Mg PO QAM 05/17/18 Reported Meclizine Hcl 25 Mg Tab 12.5 Mg PO TID PRN 10 05/17/18 Reported Oxygen Gas 2 Liters NA CONT 05/17/18 Reported [Albuterol Neb] 1 Puff INH QAM 05/17/18 Reported Novolog (Insulin Aspart) 100 Units/Ml Inj 22 Units SC TIDM 03/01/17 Reported Lantus (Insulin Glargine) 100 Unit/Ml Inj 38 Units SC HS 03/01/17 Reported Combivent Respimat (Ipratropium-Albuterol) 1 Aer Aer 1 Puffs INH QID 03/01/17 Reported Aspirin Ec (Aspirin) 81 Mg Tab 81 Mg PO QAM 03/01/17 Reported Multivitamin (Multivitamins) Tab 1 Tab PO QAM 03/01/17 Reported Vitamin D3 (Cholecalciferol) 1,000 Unit Tab 1 Tab PO BID 03/01/17 Reported Tricor (Fenofibrate) 48 Mg Tab 48 Mg PO BID 03/01/17 Reported Lopressor (Metoprolol Tartrate) 50 Mg Tab 0.5 Tab PO BID 03/01/17 Reported Neurontin (Gabapentin) 300 Mg Cap 300 Mg PO TID 03/01/17 Reported Lipitor (Atorvastatin Calcium) 20 Mg Tab 20 Mg PO HS 03/01/17 Reported Doxazosin Mesylate 4 Mg Tab 1 Tab PO BID 03/01/17 Reported Ocuvite Preservision (Multivitamins/Minerals) 1 Tab Tab 1 Tab PO QPM 01/25/14 Reported Glucophage (Metformin Hcl) 500 Mg Tab 500 Mg PO BID 01/25/14 Reported Proscar (Finasteride) 5 Mg Tab 5 Mg PO QAM 12/28/13 Reported Vital Signs Weight (Kilograms): 59.09 Height (Feet): 5 Height (Inches): 7 Date Time Temp Pulse Resp B/P (MAP) Pulse Ox O2 Delivery O2 Flow Rate FiO2 05/24/18 12:22 36.6 80 18 152/78 (102) 97 Nasal Cannula 2 Physical Exam General Appearance: WD/WN, no apparent distress Respiratory/Chest: Respiratory effort: no dyspnea Auscultation: breath sounds normal Cardiovascular: Apical Impulse: not displaced Heart Auscultation: RRR, normal S2 Abdomen: Inspection & Palpation: soft, non-distended Assessment and Plan 77 yo presenting for colonoscopy for colon polyp history
--- NOTE | 2018-05-24 14:05 | GI REPORT ---
Patient Name: Mc Garcia Procedure Date: 05/24/2018 1:25 PM Date of : 1940 Admit Type: Outpatient Age: 77 Gender: Male Attending MD: Efra Braun MD Procedure: Colonoscopy Providers: Efra Braun MD Referring MD: Katlyn Mares Indications: High risk colon cancer surveillance: Personal history of colonic polyps Medicines: Monitored Anesthesia Care Complications: No immediate complications. Estimated blood loss: None. Estimated Blood Loss: Estimated blood loss: none. Procedure: Pre-Anesthesia Assessment: - Pre-Anesthesia Assessment: - Prior to the procedure, a History and Physical was performed, and patient medications, allergies and sensitivities were reviewed. The patient's tolerance of previous anesthesia was reviewed. Please see [facility] for complete details. - The risks and benefits of the procedure and the sedation options and risks were discussed with the patient. All questions were answered and informed consent was obtained. - Patient identification and proposed procedure were verified prior to the procedure by the physician and the nurse. The procedure was verified in the pre-procedure area in the procedure room. After obtaining informed consent, the endoscope was passed carefully and meticuously under direct vision and only advanced when the lumen was clearly identified, C02 insuflation was utilized throughout the entirity of the procedure. Throughout the procedure, the patient's blood pressure, pulse, and oxygen saturations were monitored continuously. After I obtained informed consent, the scope was passed under direct vision. Throughout the procedure, the patient's blood pressure, pulse, and oxygen saturations were monitored continuously. The scope was introduced through the anus and advanced to the cecum, identified by appendiceal orifice and ileocecal valve. The quality of the bowel preparation was fair. Findings: Two sessile polyps were found in the ascending colon. The polyps were 3 to 4 mm in size. These polyps were removed with a cold snare. Resection and retrieval were complete. A 3 mm polyp was found in the cecum. The polyp was sessile. The polyp was removed with a cold snare. Resection and retrieval were complete. Two sessile polyps were found in the transverse colon. The polyps were 3 to 4 mm in size. These polyps were removed with a cold snare. Resection and retrieval were complete. A 4 mm polyp was found in the sigmoid colon. The polyp was sessile. The polyp was removed with a cold snare. Resection and retrieval were complete. Multiple small-mouthed diverticula were found in the sigmoid colon. The terminal ileum appeared normal. The exam was otherwise without abnormality on direct and retroflexion views. Internal hemorrhoids were found during retroflexion. Impression: - Preparation of the colon was fair. - Two 3 to 4 mm polyps in the ascending colon, removed with a cold snare. Resected and retrieved. - One 3 mm polyp in the cecum, removed with a cold snare. Resected and retrieved. - Two 3 to 4 mm polyps in the transverse colon, removed with a cold snare. Resected and retrieved. - One 4 mm polyp in the sigmoid colon, removed with a cold snare. Resected and retrieved. - Diverticulosis in the sigmoid colon. - The examined portion of the ileum was normal. - The examination was otherwise normal on direct and retroflexion views. - Internal hemorrhoids. Recommendation: - Discharge patient to home (with escort). - Repeat colonoscopy for surveillance based on pathology results. - Return to referring physician as previously scheduled. Efra Braun MD 05/24/2018 2:04:37 PM This report has been signed electronically. Note Initiated On: 05/24/2018 1:25 PM Number of Addenda: 0 I attest to the content of the Intraoperative Record and orders documented therein, exceptions below {[id number]}
--- NOTE | 2018-05-24 14:10 | Anesthesiology Progress Note ---
Anesthesia Post Op Note Date & Time May 24, 2018 at 14:10 Vital Signs Vital Signs Past 12 Hours Date Time Temp Pulse Resp B/P (MAP) Pulse Ox O2 Delivery O2 Flow Rate FiO2 05/24/18 14:04 82 16 117/74 (88) 98 Nasal Cannula 2 05/24/18 12:22 36.6 80 18 152/78 (102) 97 Nasal Cannula 2 Notes Mental Status: alert / awake / arousable, participated in evaluation Pt Amnestic to Procedure: Yes Nausea / Vomiting: adequately controlled Pain: adequately controlled Airway Patency, RR, SpO2: stable & adequate BP & HR: stable & adequate Hydration State: stable & adequate Anesthetic Complications: no major complications apparent
[2018-05-24 14:34] VITALS: BP 146/71; PULSE 69; O2SAT 98
--- NOTE | 2018-05-24 15:05 | Discharge Instructions ---
Endoscopy Patient Instructions Date / Procedure(s) Performed May 24, 2018. Colonoscopy Allergy Information Coded Allergies: NO KNOWN DRUG ALLERGIES (Verified Allergy, Unknown, NONE, 05/17/18) [place] (Verified Allergy, Unknown, hives, 06/07/17) Discharge Date / Findings May 24, 2018. Findings: Two sessile polyps were found in the ascending colon. The polyps were 3 to 4 mm in size. These polyps were removed with a cold snare. Resection and retrieval were complete. A 3 mm polyp was found in the cecum. The polyp was sessile. The polyp was removed with a cold snare. Resection and retrieval were complete. Two sessile polyps were found in the transverse colon. The polyps were 3 to 4 mm in size. These polyps were removed with a cold snare. Resection and retrieval were complete. A 4 mm polyp was found in the sigmoid colon. The polyp was sessile. The polyp was removed with a cold snare. Resection and retrieval were complete. Multiple small-mouthed diverticula were found in the sigmoid colon. The terminal ileum appeared normal. The exam was otherwise without abnormality on direct and retroflexion views. Internal hemorrhoids were found during retroflexion. Impression: - Preparation of the colon was fair. - Two 3 to 4 mm polyps in the ascending colon, removed with a cold snare. Resected and retrieved. - One 3 mm polyp in the cecum, removed with a cold snare. Resected and retrieved. - Two 3 to 4 mm polyps in the transverse colon, removed with a cold snare. Resected and retrieved. - One 4 mm polyp in the sigmoid colon, removed with a cold snare. Resected and retrieved. - Diverticulosis in the sigmoid colon. - The examined portion of the ileum was normal. - The examination was otherwise normal on direct and retroflexion views. - Internal hemorrhoids. Recommendation: - Discharge patient to home (with escort). - Repeat colonoscopy for surveillance based on pathology results. - Return to referring physician as previously scheduled. Medication Instructions Stopped Medication(s): ASA Provider Instructions Activity Restrictions - No exercising or heavy lifting for 24 hours. - Do not drink alcohol the day of the procedure. - Do not drive a car or operate machinery until the day after the procedure. - Do not make any important decisions or sign important papers in 24 hours after the procedure. Following Day: - Return to full activity which may include returning to work/school. Diet Start your diet with liquids and light foods (jello, soup, juice, toast). Then eat your usual diet if not nauseated. Treatment For Common After Affects For mild abdominal pain, bloating, or excessive gas: - Rest - Eat lightly - Lie on right side Follow-Up Information Follow-up with DAIJA Romero as scheduled Anesthesia Information What You Should Know You have had a procedure that required some medicine to reduce anxiety and discomfort. This treatment is called moderate sedation. After receiving the treatment, you may be sleepy, but you will be able to breathe on your own. The effects of the treatment may last for several hours. Follow these instructions along with Activity/Diet recommendations noted above: * Do NOT do anything where dizziness or clumsiness would be dangerous. * Rest quietly at home today, then you can be up and about tomorrow. * Have a responsible person stay with you the rest of today. * You may have had an I.V. today. If so, you may take the dressing off later today. Recommendations Call your doctor if: * Trouble breathing * Continuous vomiting for more than 24 hours * Temperature above 101 degrees * Severe abdominal pain or bloating * Pain not relieved by pain medicine ordered * There is increased drainage or redness from any incision * A large amount of rectal bleeding greater than 2-3 tablespoons. (If you had a polyp/s removed or have hemorrhoids, a small amount of blood - from the rectum is to be expected.) * You have any unanswered questions or concerns. IN THE EVENT OF A SERIOUS EMERGENCY, GO TO THE NEAREST EMERGENCY ROOM Your discharge instructions were prepared by provider Efra Braun. Patient Instructions Signature Page Mc Garcia Patient (or Guardian) Signature/Date: I have read and understand the instructions given to me by my caregivers. Caregiver/RN/Doctor Signature/Date: The above-named patient and/or guardian has received patient instructions on this date. + Original Patient Signature Page (only) stays with chart. Please make copy for patient.
== END | disposition home or self-care (01) ==
LOC: C.GI 11:48
PROVIDERS: ATTEND Internal Medicine
DX: Z12.11 Encounter for screening for malignant neoplasm of colon (principal); D12.0 Benign neoplasm of cecum; D12.2 Benign neoplasm of ascending colon; D12.3 Benign neoplasm of transverse colon; D12.5 Benign neoplasm of sigmoid colon; K64.8 Other hemorrhoids; K57.30 Diverticulosis of large intestine without perforation or abscess without bleeding; Z86.010 Personal history of colon polyps; Z80.0 Family history of malignant neoplasm of digestive organs; E11.9 Type 2 diabetes mellitus without complications; J44.9 Chronic obstructive pulmonary disease, unspecified; I25.10 Atherosclerotic heart disease of native coronary artery without angina pectoris; K21.9 Gastro-esophageal reflux disease without esophagitis; I10 Essential (primary) hypertension; Z95.1 Presence of aortocoronary bypass graft; Z90.49 Acquired absence of other specified parts of digestive tract; Z79.82 Long term (current) use of aspirin; Z87.891 Personal history of nicotine dependence

== ENCOUNTER 2022-09-15 17:42 | Inpatient (IN) ==
[2022-09-15] MEDS ORDERED: FUROSEMIDE 40 MG/4 ML VIAL IV ONE (17:57)
--- NOTE | 2022-09-15 18:03 | Emergency Department Note ---
History of Present Illness General Chief complaint: Shortness of Breath/Dyspnea Stated complaint: SHORT OF BREATH/FLUID RETENTION Time Seen by Provider: 09/15/22 17:45 History of Present Illness 10-year-old male presents to the ED with a chief complaint of some increased weight gain for the past several days. He states that he has gained about 15 pounds or so. He states that his breathing seems to be worse especially with exertion. Also with lying down. No fevers. No cough. No additional complaints at this time. No chest pains. 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 He is currently on hydrochlorothiazide but no stronger diuretic. Home Medications Medication Instructions Recorded Confirmed Type ASPIRIN (ASPIRIN EC) 81 mg PO QAM ##0 03/01/17 04/02/22 History Insulin Aspart (NOVOLOG) 22 unit SC TIDM ##0 03/01/17 04/02/22 History METOPROLOL TARTRATE (LOPRESSOR) 0.5 tab PO BID ##0 03/01/17 04/02/22 History HOME O2 THERAPY (Oxygen) 2 liters NA CONT #0 BTLS 05/17/18 04/02/22 History ATORVASTATIN (LIPITOR) 40 mg PO HS ##0 05/22/21 04/02/22 History CHOLECALCIFEROL (VITAMIN D3) 2 tab PO DAILY ##0 05/22/21 04/02/22 History DOXAZOSIN MESYLATE 1 tab PO DAILY ##0 05/22/21 04/02/22 History GABAPENTIN (NEURONTIN) 300 mg PO BID ##0 05/22/21 04/02/22 History MECLIZINE HCL 12.5 mg PO Q6H PRN DIZZINESS 10 05/22/21 04/02/22 History days #15 tabs METFORMIN HCL (GLUCOPHAGE) 1,000 mg PO DAILY #0 tabs 05/22/21 04/02/22 History Ocuvite Preservision 1 tab PO BID ##0 05/22/21 04/02/22 History acetaminophen 325 mg tablet 650 mg PO DAILY PRN 05/22/21 04/02/22 History (Tylenol) bismuth subsalicylate 262 mg 2 tab PO Q30M PRN 05/22/21 04/02/22 History chewable tablet carbamide peroxide 6.5 % ear drops 5 drp otic (ear) BID ear wax 05/22/21 04/02/22 History carboxymethylcellulose sodium 0.5 1 drp ophthalmic (eye) BID 05/22/21 04/02/22 History % eye drops cinnamon bark 500 mg capsule 1,000 mg PO DAILY 05/22/21 04/02/22 History colchicine 0.6 mg capsule 0.6 mg PO DAILY PRN 05/22/21 04/02/22 History colloidal oatmeal 1 % topical applic topical DAILY PRN for dry 05/22/21 04/02/22 History cream (Eucerin Eczema Relief) skin diphenhydramine HCl 25 mg capsule 25 mg PO Q6H PRN 05/22/21 04/02/22 History (Allergy (diphenhydramine)) fluticasone propionate 50 2 spray intranasal DAILY 05/22/21 04/02/22 History mcg/actuation nasal spray,suspension (Allergy Relief (fluticasone)) glucosamine sulfate 500 mg tablet 500 mg PO DAILY 05/22/21 04/02/22 History (Glucosamine) glucose 4 gram chewable tablet 4 g PO Q15M PRN 05/22/21 04/02/22 History (Dex4 Glucose) guaifenesin 200 mg capsule 200 mg PO TID PRN 05/22/21 04/02/22 History ibuprofen 400 mg tablet 400 mg PO Q8H PRN 05/22/21 04/02/22 History ipratropium 20 mcg-albuterol 100 1 puff inhalation QID for SOB 05/22/21 04/02/22 History mcg/actuation mist for inhalation lisinopril 20 2 tab PO DAILY 05/22/21 04/02/22 History mg-hydrochlorothiazide 12.5 mg tablet loperamide 2 mg capsule 2 mg PO Q6H PRN 05/22/21 04/02/22 History loratadine 10 mg tablet (Allergy 10 mg PO DAILY 05/22/21 04/02/22 History Relief (loratadine)) magnesium oxide 420 mg tablet 420 mg PO DAILY 05/22/21 04/02/22 History mometasone-formoterol HFA 200 2 puff inhalation BID 05/22/21 04/02/22 History mcg-5 mcg/actuation aerosol inhaler omega-3 fatty acids 1,000 mg 1,000 mg PO BID 05/22/21 04/02/22 History capsule (Fish Oil Concentrate) omeprazole 20 mg capsule,delayed 20 mg PO BID 05/22/21 04/02/22 History release sodium chloride 0.65 % nasal spray 2 spray intranasal QID PRN 05/22/21 04/02/22 History tamsulosin 0.4 mg capsule 0.4 mg PO DAILY 05/22/21 04/02/22 History tiotropium 2.5 mcg-olodaterol 2.5 2 puff inhalation DAILY 05/22/21 04/02/22 History mcg/actuation mist for inhalation Insulin Glargine (Lantus) See Rx Instructions SC HS ##0 12/30/21 04/02/22 History amlodipine 2.5 mg tablet 2.5 mg PO DAILY #90 tabs 08/05/22 08/05/22 Rx Allergies Allergy/AdvReac Type Severity Reaction Status Date / Time No Known Drug Allergies Allergy Unknown NONE Verified 12/30/21 11:05 strawberry Allergy Unknown hives Verified 12/30/21 11:05 Past Med/Surg History Medical History Age-related macular degeneration Blindness BPH (benign prostatic hyperplasia) COPD (chronic obstructive pulmonary disease) Hyperlipidemia Insulin dependent diabetes mellitus Vertigo Surgical History History of open heart surgery 2002 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 Hx of cholecystectomy 01/29/2014 Social History Smoking Status: Never smoker Tobacco Type: Cigarettes Hx Alcohol Use: Yes Alcohol Intake Frequency: Monthly or Less Alcohol Intake Frequency Comment: socially drank alcohol, quit in 2002 Preferred Language: Irish marital status: current occupational status: retired How many Children do You have: 2 Feels Safe at Home: Yes Review of Systems A total of 10 systems reviewed and were otherwise negative Physical Exam Vital Signs Vital Signs - 24 hr 09/15/22 17:56 09/15/22 17:56 09/15/22 17:56 Temperature 36.5 C Temperature Source Oral Pulse Rate 76 Pulse Rhythm Regular Pulse Strength Normal Respiratory Rate 18 Respiratory Effort / Characteristics Non-Labored Labored Respiratory Depth Normal Respiratory Pattern Regular Blood Pressure 143/86 H Blood Pressure Mean 105 Blood Pressure Position Lying Pulse Oximetry 96 Oxygen Delivery Method Room Air Room Air Room Air Sepsis Recent Fever Within 48 Hours No Sepsis New/Unexplained Change in Mental Status No Sepsis Action Taken by Nursing No Action Required 09/15/22 17:56 09/15/22 17:56 Temperature Temperature Source Pulse Rate 80 Pulse Rhythm Regular Pulse Strength Respiratory Rate 18 18 Respiratory Effort / Characteristics Non-Labored Respiratory Depth Normal Respiratory Pattern Regular Blood Pressure Blood Pressure Mean Blood Pressure Position Pulse Oximetry 96 Oxygen Delivery Method Room Air Sepsis Recent Fever Within 48 Hours Sepsis New/Unexplained Change in Mental Status Sepsis Action Taken by Nursing CONSTITUTIONAL/VITAL SIGNS: Reviewed / noted above. GENERAL: Non-toxic in appearance. INTEGUMENTARY: Warm, dry, and [place]. HEAD: Normocephalic. EYES: without scleral icterus or trauma. ENT/OROPHARYNX: clear and moist. LYMPHADENOPATHY/NECK: Is supple without lymphadenopathy or meningismus. RESPIRATORY: Clear but diminished to auscultation bilaterally. No increased work of breathing. CARDIOVASCULAR: Regular rate and rhythm. GI/ABDOMEN: Soft and nontender. No organomegaly or pulsatile mass. Abdominal distention EXTREMITIES: Warm and well perfused. Pitting pedal edema bilateral BACK: No CVA tenderness. NEUROLOGICAL: Intact without focal deficits. PSYCHIATRIC: normal affect. MUSCULOSKELETAL: Normally developed with good muscle tone. TRIAGE NURSING DOCUMENTATION REVIEWED. Course Administered Medications Discontinued Medications Furosemide (Furosemide 40 Mg/4 Ml Vial) 40 mg IV ONE ONE Stop: 09/15/22 17:58 Last Admin: 09/15/22 18:21 Dose: 40 mg Documented By: Medical Decision Making Differential Diagnosis Differential includes congestive heart failure, fluid overload, cirrhosis, electrolyte abnormality, anemia, other Medical Records Attestation: I reviewed the patient's medical records. Home Medications Current Medication List: was personally reviewed by me Laboratory Data Attestation: I reviewed the patient's lab results. Result diagrams: 09/15/22 Unknown 09/15/22 Unknown Lab Results 09/15/22 09/15/22 09/15/22 Range/Units 20:35 20:54 Unknown WBC (4.8-10.8) K/ul RBC (4.63-6.08) M/uL Hgb (14.0-18.0) g/dl Hct (40.1-51.0) % MCV (80.0-100.0) fL MCH (25.0-34.0) pg MCHC (32.0-36.0) g/dL RDW Std Deviation (36.4-46.3) fL RDW Coeff of [place] (11.5-14.5) % Plt Count (130-400) K/uL MPV (9.4-12.4) fL Immature Gran % (Auto) % Neut % (Auto) % Lymph % (Auto) % [place] % (Auto) % Eos % (Auto) % Baso % (Auto) % Neut # (Auto) (1.4-6.5) K/uL Lymph # (Auto) (1.2-3.4) K/uL [place] # (Auto) (0.24-0.82) K/uL Eos # (Auto) (0-0.50) K/uL Baso # (Auto) (0-0.2) K/uL Immature Gran # (Auto) (0.00-0.02) K/uL Sodium 142 (136-145) mmol/L Potassium 5.4 H (3.5-5.1) mmol/L Chloride 109 H (98-107) mmol/L Carbon Dioxide 27 (21-32) mmol/L Anion Gap 6 (3-11) BUN 42 H (6-23) mg/dl Creatinine 2.67 H (0.6-1.4) mg/dl Est Cr Clr Drug Dosing 28.3 ml/min Est GFR ( Amer) 25.0 ml/min Est GFR (Non-Af Amer) 21.6 ml/min BUN/Creatinine Ratio 15.7 (10-20) Glucose 120 H (70-99(Fasting)) mg/dl Calcium 9.2 (8.5-10.1) mg/dl Magnesium 1.9 (1.7-2.4) mg/dl Total Bilirubin 0.4 (0.2-1.0) mg/dl AST 12 L (13-39) U/L ALT 15 (7-52) U/L Alkaline Phosphatase 58 (34-104) U/L Total Creatine Kinase 216 (30-223) U/L Troponin I High Sens 4.1 (0-20) pg/ml Total Protein 6.4 (6.0-8.3) gm/dl Albumin 3.8 (3.4-5.0) gm/dl Globulin 2.6 (2.5-4.0) gm/dl Albumin/Globulin Ratio 1.5 (0.9-2) Urine Color Yellow Urine Appearance Clear (Clear) Urine pH 5.5 (4.5-7.5) Ur Specific [place] 1.013 (1.000-1.030) Urine Protein 3+ H (Negative) Urine Glucose (UA) Negative (Negative) Urine Ketones Negative (Negative) Urine Blood Negative (Negative) Urine Nitrite Negative (Negative) Urine Bilirubin Negative (Negative) Urine Urobilinogen Negative (Negative) Ur Leukocyte Esterase Negative (Negative) Urine WBC (Auto) 0 (0-5) /hpf Urine RBC (Auto) 0-4 (0-4) /hpf U Hyaline Cast (Auto) 1-5 (0-5) /lpf U Epithel Cells (Auto) 0-5 (0-5) /lpf Urine Bacteria (Auto) Negative (Negative) SARS-CoV-2, RNA, NAAT NEGATIVE (NEGATIVE) 09/15/22 Range/Units Unknown WBC 4.93 (4.8-10.8) K/ul RBC 3.58 L (4.63-6.08) M/uL Hgb 10.6 L (14.0-18.0) g/dl Hct 33.9 L (40.1-51.0) % MCV 94.7 (80.0-100.0) fL MCH 29.6 (25.0-34.0) pg MCHC 31.3 L (32.0-36.0) g/dL RDW Std Deviation 48.9 H (36.4-46.3) fL RDW Coeff of [place] 14.2 (11.5-14.5) % Plt Count 125 L (130-400) K/uL MPV 12.6 H (9.4-12.4) fL Immature Gran % (Auto) 0.4 % Neut % (Auto) 66.4 % Lymph % (Auto) 15.2 % [place] % (Auto) 14.2 % Eos % (Auto) 3.2 % Baso % (Auto) 0.6 % Neut # (Auto) 3.27 (1.4-6.5) K/uL Lymph # (Auto) 0.75 L (1.2-3.4) K/uL [place] # (Auto) 0.70 (0.24-0.82) K/uL Eos # (Auto) 0.16 (0-0.50) K/uL Baso # (Auto) 0.03 (0-0.2) K/uL Immature Gran # (Auto) 0.02 (0.00-0.02) K/uL Sodium (136-145) mmol/L Potassium (3.5-5.1) mmol/L Chloride (98-107) mmol/L Carbon Dioxide (21-32) mmol/L Anion Gap (3-11) BUN (6-23) mg/dl Creatinine (0.6-1.4) mg/dl Est Cr Clr Drug Dosing ml/min Est GFR ( Amer) ml/min Est GFR (Non-Af Amer) ml/min BUN/Creatinine Ratio (10-20) Glucose (70-99(Fasting)) mg/dl Calcium (8.5-10.1) mg/dl Magnesium (1.7-2.4) mg/dl Total Bilirubin (0.2-1.0) mg/dl AST (13-39) U/L ALT (7-52) U/L Alkaline Phosphatase (34-104) U/L Total Creatine Kinase (30-223) U/L Troponin I High Sens (0-20) pg/ml Total Protein (6.0-8.3) gm/dl Albumin (3.4-5.0) gm/dl Globulin (2.5-4.0) gm/dl Albumin/Globulin Ratio (0.9-2) Urine Color Urine Appearance (Clear) Urine pH (4.5-7.5) Ur Specific [place] (1.000-1.030) Urine Protein (Negative) Urine Glucose (UA) (Negative) Urine Ketones (Negative) Urine Blood (Negative) Urine Nitrite (Negative) Urine Bilirubin (Negative) Urine Urobilinogen (Negative) Ur Leukocyte Esterase (Negative) Urine WBC (Auto) (0-5) /hpf Urine RBC (Auto) (0-4) /hpf U Hyaline Cast (Auto) (0-5) /lpf U Epithel Cells (Auto) (0-5) /lpf Urine Bacteria (Auto) (Negative) SARS-CoV-2, RNA, NAAT (NEGATIVE) Imaging Data Radiologist's Impression: Chest X-Ray 09/15/22 17:56 XR chest 1V portable CLINICAL HISTORY: weakness COMPARISON STUDY: Chest radiograph April 05, 2017. Chest CT May 31, 2017. FINDINGS: Median sternotomy wires are noted. Cardiac size is at upper limits of normal. There is no pneumothorax. Suspected small bilateral pleural effusions are present. Interstitial thickening is noted with hazy bibasilar opacities. IMPRESSION: Interstitial thickening with small bilateral pleural effusions and bibasilar opacities. Pulmonary edema is favored. An infectious process is considered less likely but could appear similar. Radiographic follow-up is recommended to ensure resolution. ACT 112: Negative or not required by law. Electronically signed by: Anastacio Aguilar M.D. 09/15/2022 6:48 PM ECG Data Attestation: I personally reviewed and interpreted this ECG as follows: Additional Comments: Twelve-lead EKG: Per my interpretation shows a normal sinus rhythm at a rate of 65. No ST elevation. No PVCs. Normal QTC. MDM Narrative 82-year-old male presents with a chief complaint of increased weight gain of 15 pounds in the past few days with some shortness of breath is worse with exertion. Ox saturation 98% on room air. Vital signs are stable. Hypertension. The CBC and chemistry panel was obtained. Unremarkable CBC. BUN is 14 creatinine is 2.67. This is above his baseline. Potassium is 5.4. Chest x-ray suggest pulmonary edema. An EKG shows a normal sinus rhythm rate of 65. The patient was treated with IV Lasix. He states that he did not urinate much at all. A bladder scan was performed. He is greater than 1 L urine in the bladder. Berg catheter was placed. The patient put out more than 2 L of urine. The patient was seen by the hospitalist for further evaluation and care Impression & Plan Fluid overload, Urinary retention, Congestive heart failure, Acute kidney injury Discharge Plan Visit Data Chief Complaint: Shortness of Breath/Dyspnea Stated Complaint: SHORT OF BREATH/FLUID RETENTION ED Provider: Yoandy Perea Discharge Problem: Fluid overload, Urinary retention, Congestive heart failure, Acute kidney injury Patient Disposition: Being Evaluated by Hospitalist Forms Stand Alone Forms: My [facility] [place] [employer] Prescriptions Prescriptions: No Action ASPIRIN (ASPIRIN EC) 81 MG tablet 81 mg PO QAM Qty: 0 METOPROLOL TARTRATE (LOPRESSOR) 50 MG tablet 0.5 tab PO BID Qty: 0 Insulin Aspart (NOVOLOG) 100 UNITS/ML INJECTION 22 unit SC TIDM Qty: 0 HOME O2 THERAPY (Oxygen) gas 2 liters NA CONT Qty: 0 ATORVASTATIN (LIPITOR) 20 MG tablet 40 mg PO HS Qty: 0 CHOLECALCIFEROL (VITAMIN D3) 1,000 UNIT tablet 2 tab PO DAILY Qty: 0 DOXAZOSIN MESYLATE 4 MG tablet 1 tab PO DAILY Qty: 0 GABAPENTIN (NEURONTIN) 300 MG capsule 300 mg PO BID Qty: 0 MECLIZINE HCL 25 MG tablet 12.5 mg PO Q6H PRN (Reason: DIZZINESS) 10 Days Qty: 15 Rx Instructions: Take 2 tab Q6H prn for vertigo METFORMIN HCL (GLUCOPHAGE) 500 MG tablet 1,000 mg PO DAILY Qty: 0 Ocuvite Preservision 1 TAB tablet 1 tab PO BID Qty: 0 Insulin Glargine (Lantus) 100 UNIT/ML INJECTION See Rx Instructions SC HS Qty: 0 Rx Instructions: 42 units SC at bedtime; lisinopril-hydrochlorothiazide 20-12.5 mg tablet 2 tab PO DAILY acetaminophen [Tylenol] 325 mg tablet 650 mg PO DAILY PRN bismuth subsalicylate 262 mg tablet,chewable 2 tab PO Q30M PRN Rx Instructions: do not exceed 16 tabs per 24 hrs cinnamon bark 500 mg capsule 1,000 mg PO DAILY diphenhydramine HCl [Allergy (diphenhydramine)] 25 mg capsule 25 mg PO Q6H PRN glucosamine sulfate [Glucosamine] 500 mg tablet 500 mg PO DAILY Rx Instructions: administer with a meal ibuprofen 400 mg tablet 400 mg PO Q8H PRN loperamide 2 mg capsule 2 mg PO Q6H PRN tamsulosin 0.4 mg capsule 0.4 mg PO DAILY sodium chloride 0.65 % spray,non-aerosol 2 spray intranasal QID PRN omeprazole 20 mg capsule,delayed release(DR/EC) 20 mg PO BID tiotropium-olodaterol 2.5-2.5 mcg/actuation mist 2 puff inhalation DAILY mometasone-formoterol 200-5 mcg/actuation HFA aerosol inhaler 2 puff inhalation BID magnesium oxide 420 mg tablet 420 mg PO DAILY loratadine [Allergy Relief (loratadine)] 10 mg tablet 10 mg PO DAILY Eucerin Eczema Relief 1 % cream topical DAILY PRN (Reason: for dry skin) guaifenesin 200 mg capsule 200 mg PO TID PRN glucose [Dex4 Glucose] 4 gram tablet,chewable 4 g PO Q15M PRN Rx Instructions: until symptoms of low blood sugar are controlled 4 tab prn for low blood sugar or blood sugars less than 70 fluticasone propionate [Allergy Relief (fluticasone)] 50 mcg/actuation spray,suspension 2 spray intranasal DAILY Rx Instructions: administer into each nostril omega-3 fatty acids [Fish Oil Concentrate] 1,000 mg capsule 1,000 mg PO BID colchicine 0.6 mg capsule 0.6 mg PO DAILY PRN Rx Instructions: take 2 tab within 12 hr of gout flare, then take 1 tab one hour later. Max 3 tab in one hr. carboxymethylcellulose sodium 0.5 % drops 1 drp ophthalmic (eye) BID carbamide peroxide 6.5 % drops 5 drp otic (ear) BID Rx Instructions: instill 5 drops in both ears bid for up to 4 days ipratropium-albuterol 20-100 mcg/actuation mist 1 puff inhalation QID Rx Instructions: space evenly during waking hours amlodipine 2.5 mg tablet 2.5 mg PO DAILY Qty: 90 3RF Referrals Referrals: Katlyn Joel PA-C [Primary Care Provider] -
[2022-09-15 18:14] LABS: Basophils # (auto) 0.03 K/uL (0-0.2); Basophils % (auto) 0.6 %; Eosinophils # (auto) 0.16 K/uL (0-0.50); Eosinophils % (auto) 3.2 %; Hematocrit (blood only) 33.9 % (40.1-51.0); Hemoglobin 10.6 g/dl (14.0-18.0); Immature Granulocytes # (auto) 0.02 K/uL (0.00-0.02); Immature Granulocytes % (auto) 0.4 %; Lymphocytes # (auto) 0.75 K/uL (1.2-3.4); Lymphocytes % (auto) 15.2 %; Mean Platelet Volume 12.6 fL (9.4-12.4); Monocytes % (auto) 14.2 %; Neutrophils # (auto) 3.27 K/uL (1.4-6.5); Neutrophils % (auto) 66.4 %; Platelet Count 125 K/uL (130-400); White Blood Count 4.93 K/ul (4.8-10.8)
[2022-09-15 18:36] LABS: Albumin Globulin Ratio 1.5 (0.9-2); Albumin Level 3.8 gm/dl (3.4-5.0); BUN Creatinine Ratio 15.7 (10-20); Bilirubin,Total 0.4 mg/dl (0.2-1.0); Calcium 9.2 mg/dl (8.5-10.1); Creatinine Clr Calc Pharmacy 28.3 ml/min; Est GFR (Non-African American) 21.6 ml/min; Globulin 2.6 gm/dl (2.5-4.0); Magnesium 1.9 mg/dl (1.7-2.4); Potassium 5.4 mmol/L (3.5-5.1); Total Protein 6.4 gm/dl (6.0-8.3)
[2022-09-15 18:41] LABS: Mean Corpuscular Hemoglobin 29.6 pg (25.0-34.0); Mean Corpuscular Hgb Conc 31.3 g/dL (32.0-36.0); Mean Corpuscular Volume 94.7 fL (80.0-100.0); RDW Coefficient of Variation 14.2 % (11.5-14.5); RDW Standard Deviation 48.9 fL (36.4-46.3); Red Blood Count 3.58 M/uL (4.63-6.08)
[2022-09-15 18:42] LABS: Troponin I High Sensitivity 4.1 pg/ml (0-20)
--- NOTE | 2022-09-15 18:49 | XRay Report ---
XR chest 1V portable CLINICAL HISTORY: weakness COMPARISON STUDY: Chest radiograph April 05, 2017. Chest CT May 31, 2017. FINDINGS: Median sternotomy wires are noted. Cardiac size is at upper limits of normal. There is no p neumothorax. Suspected small bilateral pleural effusions are present. Interstitial thickening is note d with hazy bibasilar opacities. IMPRESSION: Interstitial thickening with small bilateral pleural effusions and bibasilar opacities. Pulmonary edema is favored. An infectious process is considered less likely but could appear similar. Radiographic follow-up is recommended to ensure resolution. ACT 112: Negative or not required by law. Electronically signed by: Anastacio Aguilar M.D. 09/15/2022 6:48 PM
[2022-09-15 20:53] LABS: Appearance Urine Clear (Clear); Bacteria Urine Automated Negative (Negative); Bilirubin Urine Negative (Negative); Blood Urine Negative (Negative); Color Urine Yellow; Epithelial Cell Urine Auto 0-5 /lpf (0-5); Glucose Urine UA Negative (Negative); Ketones Urine Negative (Negative); Leukocyte Esterase Urine Negative (Negative); Nitrite Urine Negative (Negative); Protein Urine 3+ (Negative); RBC Urine Automated 0-4 /hpf (0-4); Specific Gravity Urine 1.013 (1.000-1.030); Urobilinogen Urine Negative (Negative); WBC Urine Automated 0 /hpf (0-5); pH Urine 5.5 (4.5-7.5)
--- NOTE | 2022-09-15 21:47 | History & Physical Report ---
Date of Service September 15, 2022 Assessment & Plan (1) Fluid overload: Plan: 82yo male presenting with progressive edema and SOB. Suspect acute exacerbation of CHF with fluid overload contributing. Patient reports his dry weight being approximately 248#. Presently 257# Lasix 40mg IV given in ER. Patient has had over 2L UOP thus far -Repeat chemistry in AM with spot redosing Lasix as needed -Monitor I/Os -Monitor daily weights (2) Urinary retention: Plan: Patient with urinary retention, over 2L output with Berg placement. Increase in BUN and Cr possibly secondary to obstructive uropathy -Maintain Berg for now -Monitor I/Os -Repeat chemistry in AM and BID -Renal dosing where needed -Avoid nephrotoxic agents (3) Chronic kidney disease, stage 4 (severe): Plan: With increase in BUN and Cr -Monitor renal function -Avoid nephrotoxic agents (4) Insulin dependent diabetes mellitus: Plan: Blood sugar = 120. Last HgbA1C in February 2022 = 7.5 -Lantus 15u BID -ISS -Goal blood sugar 110 - 140 (5) BPH (benign prostatic hyperplasia): Plan: Chronic. Urinary retention noted today. Berg in place -Continue Doxazosin and Flomax (6) Hyperlipidemia: Plan: Chronic. Stable -Continue Atorvastatin (7) Coronary artery disease: Plan: Chronic. Stable. Patient denies chest pain -Continue ASA and Atorvastatin -Continue Metoprolol -HOld Lisinopril for now (8) Hypertension: Plan: Blood pressure elevated presently -Continue Metoprolol -Holding Lisinopril and HCTZ for now -Monitor BP History of Present Illness Chief Complaint: SOB, COONEY, weight gain, edema, orthopnea Primary Care Provider: Katlyn Joel PA-C Mc Garcia is a pleasant 82yo male with history of DM, HTN, CAD s/p CABG and COPD presenting with several days of progressive SOB, COONEY and edema. He reports a 15# weight gain over the last several days. He feels increased swelling and distention in his legs, as well as scrotum and abdomen. His skin feels tight and somewhat painful. Patient has been using his home O2 continuously over the last 3 days. Patient reported that he started gaining weight after he was started on a new medication. He is uncertain of which medication (per chart review, possibly Amlodipine?). [facility] Patient had worsening shortness of breath today and called [facility] and was instructed to come to the ER. Patient afebrile, mildly hypertensive in the ER. Found to have abdominal distention. Berg catheter placed with return of nearly 2L of urine. Allergies Allergy/AdvReac Type Severity Reaction Status Date / Time No Known Drug Allergies Allergy Unknown NONE Verified 09/15/22 22:25 strawberry Allergy Unknown hives Verified 09/15/22 22:25 Home Medications Medication Instructions Recorded Confirmed Type acetaminophen 325 mg tablet 650 mg PO DAILY PRN as directed 05/22/21 09/15/22 History (Tylenol) carboxymethylcellulose sodium 0.5 1 drp OPB BID 05/22/21 09/15/22 History % eye drops colchicine 0.6 mg capsule See Rx Instructions .Route .COMPLEX 05/22/21 09/15/22 History glucosamine sulfate 500 mg tablet 500 mg PO DAILY 05/22/21 09/15/22 History (Glucosamine) ipratropium 20 mcg-albuterol 100 1 puff inhalation QID for SOB 05/22/21 09/15/22 History mcg/actuation mist for inhalation lisinopril 20 2 tab PO DAILY 05/22/21 09/15/22 History mg-hydrochlorothiazide 12.5 mg tablet loratadine 10 mg tablet (Allergy 10 mg PO DAILY 05/22/21 09/15/22 History Relief (loratadine)) magnesium oxide 420 mg tablet 420 mg PO DAILY 05/22/21 09/15/22 History omeprazole 20 mg capsule,delayed 20 mg PO BID 05/22/21 09/15/22 History release tamsulosin 0.4 mg capsule 0.4 mg PO DAILY 05/22/21 09/15/22 History aspirin 81 mg tablet,delayed 81 mg PO DAILY 09/15/22 09/15/22 History release atorvastatin 80 mg tablet 80 mg PO HS 09/15/22 09/15/22 History cholecalciferol (vitamin D3) 25 50 mcg PO DAILY 09/15/22 09/15/22 History mcg (1,000 unit) tablet cinnamon bark 500 mg capsule 1,000 mg PO DAILY 09/15/22 09/15/22 History (Cinnamon) doxazosin 4 mg tablet 4 mg PO DAILY 09/15/22 09/15/22 History fluticasone propionate 50 2 spray intranasal DAILY 09/15/22 09/15/22 History mcg/actuation nasal spray,suspension gabapentin 300 mg capsule 600 mg PO BID 09/15/22 09/15/22 History guaifenesin 200 mg tablet 400 mg PO TID PRN help thin mucous 09/15/22 09/15/22 History insulin aspart U-100 100 unit/mL 22 unit subcut TIDM 09/15/22 09/15/22 History (3 mL) subcutaneous pen (Novolog Flexpen U-100 Insulin aspart) insulin glargine 100 unit/mL (3 44 unit subcut HS 09/15/22 09/15/22 History mL) subcutaneous pen (Lantus Solostar U-100 Insulin) lanolin alcohols-mineral 1 applic topical Q OTHER DAY 09/15/22 09/15/22 History oil-w.petrolatum-ceresin topical cream (Eucerin topical cream) lidocaine 5 % topical ointment 1 applic topical BID 09/15/22 09/15/22 History meclizine 12.5 mg tablet 25 mg PO Q6 PRN Vertigo 09/15/22 09/15/22 History metoprolol tartrate 50 mg tablet 25 mg PO BID 09/15/22 09/15/22 History mometasone 220 mcg/actuation(60 1 inh inhalation BID 09/15/22 09/15/22 History doses) breath activated powder inhaler omega 8-uwe-pri-fish oil 1,000 mg 2 cap PO BID 09/15/22 09/15/22 History (120 mg-180 mg) capsule (Fish Oil) tiotropium 2.5 mcg-olodaterol 2.5 2 puff inhalation DAILY 09/15/22 09/15/22 History mcg/actuation mist for inhalation vit C 250 mg-vit E 90 mg-zinc 40 1 tab PO BID 09/15/22 09/15/22 History mg-copper 1 gq-bnfhsz-iudszn capsule (PreserVision AREDS-2) Past Med/Surg History Medical History Age-related macular degeneration Blindness BPH (benign prostatic hyperplasia) COPD (chronic obstructive pulmonary disease) Hyperlipidemia Insulin dependent diabetes mellitus Vertigo Surgical History History of open heart surgery 2002 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 Hx of cholecystectomy 01/29/2014 Social History Smoking Status: Never smoker Tobacco Type: Cigarettes Hx Alcohol Use: No Hx Substance Use: No Preferred Language: D[employer] [employer] Inspector Required: No Beliefs That Will Affect Care: None marital status: Current Living Situation: Alone Current Living Situation Comment: 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 How many Children do You have: 2 Other Information That Helps Us Care for You: No Feels Safe at Home: Yes Safety Concerns: Feels Safe At This Time Assistive Devices Comment: PRN O2 at home Review of Systems Review of Systems: All systems reviewed & are unremarkable except as noted in HPI & below Physical Exam Physical Exam: General: patient resting comfortably, NAD, non-toxic in appearance, AA&O x 4 Skin: warm, dry, intact, no rashes or lesions HEENT: NC/AT, PERRL, EOMI, anicteric sclera, conjunctiva without injection, external ear normal to inspection and nontender, nares patent, moist mucus membranes, dentition intact, no oropharyngeal lesions, neck supple, trachea midline, no LAD, no thyromegaly, no JVD Heart: +S1/S2, regular, no m/r/g Lungs: equal air entry bilaterally, crackles present in bilateral bases Abd: +BS, soft, NT/ND, no masses/organomegaly/ascites, +abdominal wall edema Ext: warm, 2+ pulses in UE/LE bilaterally, no clubbing/cyanosis, 2+ pitting edema of bilateral LE Neuro: nonfocal, patient AA&O x 4, speech intact, no facial droop, moving all extremities on command with equal strength 5/5 Results & Data Results & Data ([facility]) Vital Signs (Past 12 Hours) Vital Signs Temp Pulse Resp BP Pulse Ox O2 Del Method 09/15/22 17:56 80 18 96 Room Air 09/15/22 17:56 18 09/15/22 17:56 Room Air 09/15/22 17:56 Room Air 09/15/22 17:56 36.5 C 76 18 143/86 H 96 Room Air Laboratory Results Laboratory Results WBC 4.93 K/ul (4.8-10.8) 09/15/22 Unknown RBC 3.58 M/uL (4.63-6.08) L 09/15/22 Unknown Hgb 10.6 g/dl (14.0-18.0) L 09/15/22 Unknown Hct 33.9 % (40.1-51.0) L 09/15/22 Unknown MCV 94.7 fL (80.0-100.0) 09/15/22 Unknown MCH 29.6 pg (25.0-34.0) 09/15/22 Unknown MCHC 31.3 g/dL (32.0-36.0) L 09/15/22 Unknown RDW Std Deviation 48.9 fL (36.4-46.3) H 09/15/22 Unknown RDW Coeff of [place] 14.2 % (11.5-14.5) 09/15/22 Unknown Plt Count 125 K/uL (130-400) L 09/15/22 Unknown MPV 12.6 fL (9.4-12.4) H 09/15/22 Unknown Immature Gran % (Auto) 0.4 % 09/15/22 Unknown Neut % (Auto) 66.4 % 09/15/22 Unknown Lymph % (Auto) 15.2 % 09/15/22 Unknown [place] % (Auto) 14.2 % 09/15/22 Unknown Eos % (Auto) 3.2 % 09/15/22 Unknown Baso % (Auto) 0.6 % 09/15/22 Unknown Neut # (Auto) 3.27 K/uL (1.4-6.5) 09/15/22 Unknown Lymph # (Auto) 0.75 K/uL (1.2-3.4) L 09/15/22 Unknown [place] # (Auto) 0.70 K/uL (0.24-0.82) 09/15/22 Unknown Eos # (Auto) 0.16 K/uL (0-0.50) 09/15/22 Unknown Baso # (Auto) 0.03 K/uL (0-0.2) 09/15/22 Unknown Immature Gran # (Auto) 0.02 K/uL (0.00-0.02) 09/15/22 Unknown Sodium 142 mmol/L (136-145) 09/15/22 Unknown Potassium 5.4 mmol/L (3.5-5.1) H 09/15/22 Unknown Chloride 109 mmol/L (98-107) H 09/15/22 Unknown Carbon Dioxide 27 mmol/L (21-32) 09/15/22 Unknown Anion Gap 6 (3-11) 09/15/22 Unknown BUN 42 mg/dl (6-23) H 09/15/22 Unknown Creatinine 2.67 mg/dl (0.6-1.4) H 09/15/22 Unknown Est Cr Clr Drug Dosing 28.3 ml/min 09/15/22 Unknown Est GFR ( Amer) 25.0 ml/min 09/15/22 Unknown Est GFR (Non-Af Amer) 21.6 ml/min 09/15/22 Unknown BUN/Creatinine Ratio 15.7 (10-20) 09/15/22 Unknown Glucose 120 mg/dl (70-99(Fasting)) H 09/15/22 Unknown Calcium 9.2 mg/dl (8.5-10.1) 09/15/22 Unknown Magnesium 1.9 mg/dl (1.7-2.4) 09/15/22 Unknown Total Bilirubin 0.4 mg/dl (0.2-1.0) 09/15/22 Unknown AST 12 U/L (13-39) L 09/15/22 Unknown ALT 15 U/L (7-52) 09/15/22 Unknown Alkaline Phosphatase 58 U/L (34-104) 09/15/22 Unknown Total Creatine Kinase 216 U/L (30-223) 09/15/22 Unknown Troponin I High Sens 4.1 pg/ml (0-20) 09/15/22 Unknown Total Protein 6.4 gm/dl (6.0-8.3) 09/15/22 Unknown Albumin 3.8 gm/dl (3.4-5.0) 09/15/22 Unknown Globulin 2.6 gm/dl (2.5-4.0) 09/15/22 Unknown Albumin/Globulin Ratio 1.5 (0.9-2) 09/15/22 Unknown Urine Color Yellow 09/15/22 20:35 Urine Appearance Clear (Clear) 09/15/22 20:35 Urine pH 5.5 (4.5-7.5) 09/15/22 20:35 Ur Specific [place] 1.013 (1.000-1.030) 09/15/22 20:35 Urine Protein 3+ (Negative) H 09/15/22 20:35 Urine Glucose (UA) Negative (Negative) 09/15/22 20:35 Urine Ketones Negative (Negative) 09/15/22 20:35 Urine Blood Negative (Negative) 09/15/22 20:35 Urine Nitrite Negative (Negative) 09/15/22 20:35 Urine Bilirubin Negative (Negative) 09/15/22 20:35 Urine Urobilinogen Negative (Negative) 09/15/22 20:35 Ur Leukocyte Esterase Negative (Negative) 09/15/22 20:35 Urine WBC (Auto) 0 /hpf (0-5) 09/15/22 20:35 Urine RBC (Auto) 0-4 /hpf (0-4) 09/15/22 20:35 U Hyaline Cast (Auto) 1-5 /lpf (0-5) 09/15/22 20:35 U Epithel Cells (Auto) 0-5 /lpf (0-5) 09/15/22 20:35 Urine Bacteria (Auto) Negative (Negative) 09/15/22 20:35 SARS-CoV-2, RNA, NAAT NEGATIVE (NEGATIVE) 09/15/22 20:54 Impressions Chest X-Ray 09/15/22 17:56 XR chest 1V portable CLINICAL HISTORY: weakness COMPARISON STUDY: Chest radiograph April 05, 2017. Chest CT May 31, 2017. FINDINGS: Median sternotomy wires are noted. Cardiac size is at upper limits of normal. There is no pneumothorax. Suspected small bilateral pleural effusions are present. Interstitial thickening is noted with hazy bibasilar opacities. IMPRESSION: Interstitial thickening with small bilateral pleural effusions and bibasilar opacities. Pulmonary edema is favored. An infectious process is considered less likely but could appear similar. Radiographic follow-up is recommended to ensure resolution. ACT 112: Negative or not required by law. Electronically signed by: Anastacio Aguilar M.D. 09/15/2022 6:48 PM PG Care Time/CCT Total # of Minutes Spent Total Time Spent with Patient: Total time spent is greater than 50% in coordination of care (as documented) at patient's floor/unit and/or counseling patient: Coding Level of Care Code 38821 Initial Inpt Care Lvl 3 Diagnoses Fluid overload E87.70 Urinary retention R33.9 Chronic kidney disease, stage 4 (severe) N18.4 Insulin dependent diabetes mellitus BPH (benign prostatic hyperplasia) N40.0 Hyperlipidemia E78.5 Coronary artery disease I25.10 Hypertension I10
[2022-09-16] MEDS ORDERED: ONDANSETRON INJ 2 MG/ML 2 ML VIAL IV PRN (00:16)
[2022-09-16] MEDS ORDERED: GLUCOSE 10 TAB/TUBE PO PRN (00:16)
[2022-09-16] MEDS ORDERED: DEXTROSE 50% 50 ML SYRINGE IV PRN (00:16)
[2022-09-16] MEDS ORDERED: GLUCOSE 40% GEL 15 GM TUBE PO PRN (00:16)
[2022-09-16] MEDS ORDERED: ACETAMINOPHEN 325 MG TAB PO PRN (00:16)
[2022-09-16] MEDS ORDERED: GLUCAGON FOR INJ 1 MG VIAL SQ PRN (00:16)
[2022-09-16] MEDS ORDERED: CARBOHYDRATES FOR HYPOGLYCEMIA PO PRN (00:16)
[2022-09-16] MEDS: FLUTICASONE FUROATE 200MCG 14 PUFFS/INHALER INH SCH (08:32)
[2022-09-16] MEDS: LORATADINE 10 MG TAB PO SCH (08:33)
[2022-09-16] MEDS: ASPIRIN 81 MG ECTAB PO SCH (08:33)
[2022-09-16] MEDS: PANTOprazole 40 MG TAB PO SCH ×2 (08:34→18:25)
[2022-09-16] MEDS: UMECLIDINIUM/VILANTEROL 62.5/25MCG 7 PUFFS/INHALER INH SCH (08:34)
[2022-09-16] MEDS: METOPROLOL TARTRATE 25 MG TAB PO SCH ×2 (08:34→20:35)
[2022-09-16] MEDS: FLUTICASONE PROPIONATE NA SPR 16 GM BTL SCH (08:35)
[2022-09-16] MEDS: GABAPENTIN 300 MG CAP PO SCH ×2 (08:35→20:35)
[2022-09-16] MEDS: INSULIN ASPART PER UNIT SC SCH ×4 (08:42→21:12)
[2022-09-16] MEDS: LANTUS PER UNIT CHARGE SQ SCH ×2 (08:45→21:12)
[2022-09-16] MEDS ORDERED: MOMETASONE INH SCH (09:00)
[2022-09-16] MEDS ORDERED: TIOTROPIUM OLODATEROL INH SCH (09:00)
[2022-09-16] MEDS ORDERED: [UNRECOGNIZED DRUG - OTHER] INH SCH (09:00)
[2022-09-16] MEDS ORDERED: IPRATROPIUM BROMIDE/ALBUTEROL respimat INH INH SCH (09:00)
[2022-09-16] MEDS ORDERED: ACTUATION MIST INH SCH (09:00)
[2022-09-16] MEDS ORDERED: DOXAZosin MESYLATE 4 MG TAB PO SCH (09:00)
[2022-09-16] MEDS ORDERED: TAMSULOSIN HCL 0.4 MG CAP PO SCH (09:00)
[2022-09-16 09:36] LABS: Hematocrit (blood only) 33.1 % (40.1-51.0); Hemoglobin 10.4 g/dl (14.0-18.0); Mean Corpuscular Hemoglobin 29.1 pg (25.0-34.0); Mean Corpuscular Hgb Conc 31.4 g/dL (32.0-36.0); Mean Corpuscular Volume 92.5 fL (80.0-100.0); Mean Platelet Volume 12.7 fL (9.4-12.4); Platelet Count 127 K/uL (130-400); RDW Coefficient of Variation 14.3 % (11.5-14.5); RDW Standard Deviation 48.5 fL (36.4-46.3); Red Blood Count 3.58 M/uL (4.63-6.08); White Blood Count 5.84 K/ul (4.8-10.8)
[2022-09-16] MEDS: Albuterol HFA 8 GM Inhaler (Combivent Respimat P&T Subs) INH SCH ×4 (09:50→19:15)
[2022-09-16] MEDS: Ipratropium HFA Inhaler (Combivent Respimat P&T Subs) INH SCH ×4 (09:50→19:15)
[2022-09-16 10:05] LABS: Est GFR (African American) 25.6 ml/min; Est GFR (Non-African American) 22.1 ml/min; Potassium 5.1 mmol/L (3.5-5.1)
--- NOTE | 2022-09-16 12:58 | Electrocardiogram Report ---
Test Reason : Blood Pressure : / mmHG Vent. Rate : 065 BPM Atrial Rate : 065 BPM P-R Int : 162 ms QRS Dur : 096 ms QT Int : 406 ms P-R-T Axes : 027 048 072 degrees QTc Int : 422 ms Normal sinus rhythm Low voltage QRS Borderline ECG When compared with ECG of 25-JAN-2014 12:01, No significant change was found Confirmed by Fan Briggs ([id number] on 09/16/2022 12:57:46 PM Referred By: REFERRED SELF Confirmed By:Winston Briggs
[2022-09-16] MEDS ORDERED: FUROSEMIDE 40 MG/4 ML VIAL IV ONE (14:06)
--- NOTE | 2022-09-16 16:40 | Hospitalist Progress Note ---
Date of Service September 16, 2022 Assessment & Plan (1) Fluid overload: Plan: 82yo male presenting with progressive edema and SOB. Suspect acute exacerbation due to urinary retention. Patient reports his dry weight being approximately 248lb. Admission weight 257lb Lasix 40mg IV given in ER. -3L yesterday. Given continued hypervolemia and stable Cr/BUN will dose additional Lasix 40mg IV today -Monitor I/Os -Monitor daily weights (2) Urinary retention: Plan: Patient with urinary retention, over 2L output with Berg placement. Increase in BUN and Cr possibly secondary to obstructive uropathy -Maintain Berg for now. On tamsulosin and doxazosin? HIM request placed for [employer] med list. Will increase his usual doxazosin and hold tamsulosin for now. -Monitor I/Os -Follow up with urology as outpatient (3) Chronic kidney disease, stage 4 (severe): Plan: With increase in BUN and Cr suspect due to urinary retention -Monitor renal function -Avoid nephrotoxic agents (4) Insulin dependent diabetes mellitus: Plan: Last HgbA1C in February 2022 = 7.5. HbA1C with AM labs -Lantus 15u BID -Novolog: --Goal BSG Range: Low 110_mg/dL, High 140_mg/dL --Correction Factor: 25_mg/dL/unit --Carbohydrate ratio = _13_ g/unit --BSGs ACHS if eating, q6h if npo (5) BPH (benign prostatic hyperplasia): Plan: Chronic. Urinary retention noted today. Berg in place -Increase Doxazosin and hold flomax as they are essentially the same medications (6) Hyperlipidemia: Plan: Chronic. Stable -Continue Atorvastatin (7) Coronary artery disease: Plan: Chronic. Stable. Patient denies chest pain -Continue ASA and Atorvastatin -Continue Metoprolol -Hold Lisinopril for now (8) Hypertension: Plan: Blood pressure elevated presently -Continue Metoprolol -Holding Lisinopril and HCTZ for now -Lasix as above Admission and Anticipated Discharge Date Admission Date: September 15, 2022 Subjective Reports significant improvement in his shortness of breath and abdominal distension after catheter placed. No change in his leg swelling which is far from his baseline. No fever or chills. Unable to tell me his medications and asks me to contact the [employer] in [facility] [place] but no answer on number on google. Will place HIM request for this. No cough. On oxygen PRN at home on exertion but not at rest. Currently on 2LPM O2 Review of Systems Review of Systems: All systems reviewed & are unremarkable except as noted in Subjective Physical Exam Constitutional: WD/WN, vitals as above Respiratory: normal respiratory effort; no respiratory distress Auscultation: + diminished lung sounds (bibasal); no crackles, no rales, no rhonchi and no wheezes Cardiovascular: Rate/Rhythm: regular rate and regular rhythm Extremities: + pedal edema (2+ bilateral equal) Gastrointestinal (Abdomen): normal bowel sounds, soft, nontender, no hepatosplenomegaly Inspection/Auscultation: + abdomen distended Psychiatric: A+Ox3, euthymic affect Results & Data Results & Data ([facility]) Vital Signs (Past 12 Hours) Vital Signs Temp Pulse Resp BP Pulse Ox O2 Del Method O2 Flow Rate 09/16/22 15:41 63 18 94 Nasal Cannula 1 09/16/22 15:35 36.6 C 59 L 16 160/71 H 96 Nasal Cannula 2 09/16/22 08:32 Nasal Cannula 09/16/22 10:37 68 18 96 Room Air 09/16/22 08:05 36.8 C 63 16 146/68 H 95 Nasal Cannula 2 PG Care Time/CCT Total # of Minutes Spent Total Time Spent with Patient: Total time spent is greater than 50% in coordination of care (as documented) at patient's floor/unit and/or counseling patient: Coding Level of Care Code 92734 Subseq Hosp Care Lvl 2 Diagnoses Fluid overload E87.70 Urinary retention R33.9 Chronic kidney disease, stage 4 (severe) N18.4 Insulin dependent diabetes mellitus BPH (benign prostatic hyperplasia) N40.0 Hyperlipidemia E78.5 Coronary artery disease I25.10 Hypertension I10
[2022-09-16] MEDS: ATORVASTATIN 40 MG TAB PO SCH (20:35)
[2022-09-16] MEDS: DOXAZosin MESYLATE 4 MG TAB PO SCH (20:35)
[2022-09-17] MEDS: Albuterol HFA 8 GM Inhaler (Combivent Respimat P&T Subs) INH SCH ×4 (05:21→19:45)
[2022-09-17] MEDS: Ipratropium HFA Inhaler (Combivent Respimat P&T Subs) INH SCH ×4 (05:21→19:45)
[2022-09-17 08:49] LABS: BUN Creatinine Ratio 16.1 (10-20); Calcium 9.2 mg/dl (8.5-10.1); Creatinine Clr Calc Pharmacy 28.8 ml/min; Est GFR (African American) 26.6 ml/min; Est GFR (Non-African American) 22.9 ml/min; Potassium 4.3 mmol/L (3.5-5.1)
[2022-09-17] MEDS: GABAPENTIN 300 MG CAP PO SCH ×2 (09:06→21:07)
[2022-09-17] MEDS: PANTOprazole 40 MG TAB PO SCH ×2 (09:06→16:54)
[2022-09-17] MEDS: METOPROLOL TARTRATE 25 MG TAB PO SCH ×2 (09:06→21:07)
[2022-09-17] MEDS: LORATADINE 10 MG TAB PO SCH (09:07)
[2022-09-17] MEDS: UMECLIDINIUM/VILANTEROL 62.5/25MCG 7 PUFFS/INHALER INH SCH (09:07)
[2022-09-17] MEDS: FLUTICASONE FUROATE 200MCG 14 PUFFS/INHALER INH SCH (09:07)
[2022-09-17] MEDS: DOXAZosin MESYLATE 4 MG TAB PO SCH ×2 (09:07→21:41)
[2022-09-17] MEDS: ASPIRIN 81 MG ECTAB PO SCH (09:07)
[2022-09-17] MEDS: FLUTICASONE PROPIONATE NA SPR 16 GM BTL SCH (09:09)
[2022-09-17] MEDS: LANTUS PER UNIT CHARGE SQ SCH ×2 (09:12→21:04)
[2022-09-17] MEDS: INSULIN ASPART PER UNIT SC SCH ×4 (09:12→21:03)
[2022-09-17 09:18] LABS: Estimated Average Glucose 148 mg/dl; Hemoglobin A1C 6.8 % (4.5-5.6)
[2022-09-17] MEDS ORDERED: HEPARIN SOD 5,000 UNIT/0.5 ML VIAL SQ STA (17:19)
[2022-09-17] MEDS ORDERED: FUROSEMIDE 40 MG/4 ML VIAL IV ONE (17:21)
--- NOTE | 2022-09-17 19:48 | Hospitalist Progress Note ---
Date of Service September 17, 2022 Assessment & Plan (1) Fluid overload: Plan: 82yo male presenting with progressive edema and SOB. Suspect acute exacerbation due to urinary retention. Patient reports his dry weight being approximately 248lb. Admission weight 257lb Lasix 40mg IV given in ER. Continues to be hypervolemic on 09/17 and stable Cr/BUN will dose additional Lasix 40mg IV on 09/17 -Monitor I/Os -Monitor daily weights (2) Urinary retention: Plan: Patient with urinary retention, over 2L output with Berg placement. Increase in BUN and Cr possibly secondary to obstructive uropathy -Maintain Berg for now. On tamsulosin and doxazosin? HIM request placed for [employer]. Will increase his usual doxazosin and hold tamsulosin for now. -Monitor I/Os -Follow up with urology as outpatient (3) Chronic kidney disease, stage 4 (severe): Plan: With increase in BUN and Cr suspect due to urinary retention -Monitor renal function -Avoid nephrotoxic agents (4) Insulin dependent diabetes mellitus: Plan: Last HgbA1C in February 2022 = 7.5. HbA1C with AM labs -Lantus 15u BID -Novolog: --Goal BSG Range: Low 110_mg/dL, High 140_mg/dL --Correction Factor: 25_mg/dL/unit --Carbohydrate ratio = _13_ g/unit --BSGs ACHS if eating, q6h if npo (5) BPH (benign prostatic hyperplasia): Plan: Chronic. Urinary retention noted today. Berg in place -Increase Doxazosin and hold flomax as they are essentially the same medications (6) Hyperlipidemia: Plan: Chronic. Stable -Continue Atorvastatin (7) Coronary artery disease: Plan: Chronic. Stable. Patient denies chest pain -Continue ASA and Atorvastatin -Continue Metoprolol -Hold Lisinopril for now (8) Hypertension: Plan: Blood pressure elevated presently -Continue Metoprolol -Holding Lisinopril and HCTZ for now -Lasix as above Admission and Anticipated Discharge Date Admission Date: September 15, 2022 Subjective 82 yo male reports mild improvement in regards to his breathing. Review of Systems Review of Systems: All systems reviewed & are unremarkable except as noted in HPI & below Physical Exam Physical Exam: Constitutional: WD/WN, vitals as above Respiratory: normal respiratory effort; no respiratory distress Auscultation: + diminished lung sounds (bibasal); no crackles, no rales, no rhonchi and no wheezes Cardiovascular: Rate/Rhythm: regular rate and regular rhythm Extremities: + pedal edema (2+ bilateral equal) Gastrointestinal (Abdomen): normal bowel sounds, soft, nontender, no hepatosplenomegaly Inspection/Auscultation: + abdomen distended Psychiatric: A+Ox3, euthymic affect Results & Data Results & Data ([facility]) Vital Signs (Past 12 Hours) Vital Signs Temp Pulse Resp BP Pulse Ox O2 Del Method O2 Flow Rate 09/17/22 15:39 64 18 97 Nasal Cannula 1 09/17/22 15:34 36.9 C 79 18 179/48 H 96 Nasal Cannula 2 09/17/22 12:15 64 18 95 Room Air 09/17/22 08:57 Nasal Cannula 2 09/17/22 07:56 37.2 C 72 18 145/82 H 93 Room Air PG Care Time/CCT Total # of Minutes Spent Total Time Spent with Patient: Total time spent is greater than 50% in coordination of care (as documented) at patient's floor/unit and/or counseling patient: Coding Level of Care Code 87884 Subseq Hosp Care Lvl 2 Diagnoses Fluid overload E87.70 Urinary retention R33.9 Chronic kidney disease, stage 4 (severe) N18.4 Insulin dependent diabetes mellitus BPH (benign prostatic hyperplasia) N40.0 Hyperlipidemia E78.5 Coronary artery disease I25.10 Hypertension I10 Time Spent (min) 25
[2022-09-17] MEDS: ATORVASTATIN 40 MG TAB PO SCH (21:04)
[2022-09-18] MEDS ORDERED: MELATONIN 3 MG TAB PO ONE (01:55)
[2022-09-18] MEDS: Ipratropium HFA Inhaler (Combivent Respimat P&T Subs) INH SCH ×4 (05:51→18:10)
[2022-09-18] MEDS: Albuterol HFA 8 GM Inhaler (Combivent Respimat P&T Subs) INH SCH ×4 (05:51→18:11)
[2022-09-18] MEDS: METOPROLOL TARTRATE 25 MG TAB PO SCH ×2 (08:55→20:12)
[2022-09-18] MEDS: DOXAZosin MESYLATE 4 MG TAB PO SCH ×2 (08:55→20:11)
[2022-09-18] MEDS: ASPIRIN 81 MG ECTAB PO SCH (08:55)
[2022-09-18] MEDS: LORATADINE 10 MG TAB PO SCH (08:55)
[2022-09-18] MEDS: FLUTICASONE PROPIONATE NA SPR 16 GM BTL SCH (08:56)
[2022-09-18] MEDS: UMECLIDINIUM/VILANTEROL 62.5/25MCG 7 PUFFS/INHALER INH SCH (08:56)
[2022-09-18] MEDS: HEPARIN SOD 5,000 UNIT/0.5 ML VIAL SQ SCH ×3 (08:56→20:13)
[2022-09-18] MEDS: FLUTICASONE FUROATE 200MCG 14 PUFFS/INHALER INH SCH (08:56)
[2022-09-18] MEDS: PANTOprazole 40 MG TAB PO SCH ×2 (08:56→18:03)
[2022-09-18] MEDS: GABAPENTIN 300 MG CAP PO SCH ×2 (08:56→20:12)
[2022-09-18] MEDS: INSULIN ASPART PER UNIT SC SCH ×4 (08:59→20:12)
[2022-09-18] MEDS: LANTUS PER UNIT CHARGE SQ SCH ×2 (08:59→20:13)
[2022-09-18 09:04] LABS: Hematocrit (blood only) 34.2 % (40.1-51.0); Hemoglobin 11.1 g/dl (14.0-18.0); Mean Corpuscular Hemoglobin 29.5 pg (25.0-34.0); Mean Corpuscular Hgb Conc 32.5 g/dL (32.0-36.0); Mean Platelet Volume 12.2 fL (9.4-12.4); Platelet Count 146 K/uL (130-400); RDW Coefficient of Variation 13.9 % (11.5-14.5); RDW Standard Deviation 46.4 fL (36.4-46.3); Red Blood Count 3.76 M/uL (4.63-6.08); White Blood Count 5.81 K/ul (4.8-10.8)
[2022-09-18 09:25] LABS: BUN Creatinine Ratio 14.4 (10-20); Calcium 9.4 mg/dl (8.5-10.1); Creatinine Clr Calc Pharmacy 27.7 ml/min; Est GFR (African American) 25.4 ml/min; Est GFR (Non-African American) 21.9 ml/min; Potassium 4.2 mmol/L (3.5-5.1)
--- NOTE | 2022-09-18 12:14 | XRay Report ---
XR chest 2V PA/lateral CLINICAL HISTORY: hypoxia COMPARISON STUDY: Chest radiograph September 15, 2022. FINDINGS: Median sternotomy wires and mediastinal surgical clips are incidentally noted. Cardiomegaly is unchanged. There is no pneumothorax. Interstitial thickening has improved. Small bilateral pleura l effusions and bibasilar opacities have improved as well. There is no lobar consolidation. IMPRESSION: Cardiomegaly. Interval improvement suspected pulmonary edema with small bilateral pleura l effusions and bibasilar opacities. ACT 112: Negative or not required by law. Electronically signed by: Anastacio Aguilar M.D. 09/18/2022 12:13 PM
[2022-09-18] MEDS ORDERED: FUROSEMIDE 40 MG/4 ML VIAL IV ONE (14:14)
--- NOTE | 2022-09-18 19:27 | XCELERA ---
[id number]
[2022-09-18] MEDS: ATORVASTATIN 40 MG TAB PO SCH (20:11)
--- NOTE | 2022-09-18 21:30 | Hospitalist Progress Note ---
Date of Service September 18, 2022 Assessment & Plan (1) Fluid overload: Plan: 82yo male presenting with progressive edema and SOB. Suspect acute exacerbation due to urinary retention. Patient reports his dry weight being approximately 248lb. Admission weight 257lb Lasix 40mg IV given in ER. Continues to be hypervolemic on 09/17 and stable Cr/BUN will dose additional Lasix 40mg IV on 09/17 -ordered an additional dose of lasix on 09/18 -Monitor I/Os -Monitor daily weights (2) Urinary retention: Plan: Patient with urinary retention, over 2L output with Berg placement. Increase in BUN and Cr possibly secondary to obstructive uropathy -Maintain Berg for now. On tamsulosin and doxazosin? HIM request placed for [facility] [facility] list. Will increase his usual doxazosin and hold tamsulosin for now. -Monitor I/Os -Follow up with urology as outpatient (3) Chronic kidney disease, stage 4 (severe): Plan: With increase in BUN and Cr suspect due to urinary retention -Monitor renal function -Avoid nephrotoxic agents (4) Insulin dependent diabetes mellitus: Plan: Last HgbA1C in February 2022 = 7.5. HbA1C with AM labs -Lantus 15u BID -Novolog: --Goal BSG Range: Low 110_mg/dL, High 140_mg/dL --Correction Factor: 25_mg/dL/unit --Carbohydrate ratio = _13_ g/unit --BSGs ACHS if eating, q6h if npo (5) BPH (benign prostatic hyperplasia): Plan: Chronic. Urinary retention noted today. Berg in place -Increase Doxazosin and hold flomax as they are essentially the same medications (6) Hyperlipidemia: Plan: Chronic. Stable -Continue Atorvastatin (7) Coronary artery disease: Plan: Chronic. Stable. Patient denies chest pain -Continue ASA and Atorvastatin -Continue Metoprolol -Hold Lisinopril for now (8) Hypertension: Plan: Blood pressure elevated presently -Continue Metoprolol -Holding Lisinopril and HCTZ for now -Lasix as above Admission and Anticipated Discharge Date Admission Date: September 15, 2022 Subjective 82 yo male reports feeling better. Patient is breathing better. Review of Systems Review of Systems: All systems reviewed & are unremarkable except as noted in HPI & below Physical Exam Physical Exam: Constitutional: WD/WN, vitals as above Respiratory: normal respiratory effort; no respiratory distress Auscultation: + diminished lung sounds (bibasal); no crackles, no rales, no rhonchi and no wheezes Cardiovascular: Rate/Rhythm: regular rate and regular rhythm Extremities: decreased pedal edema. Gastrointestinal (Abdomen): normal bowel sounds, soft, nontender, no hepatosplenomegaly Inspection/Auscultation: + abdomen distended Psychiatric: A+Ox3, euthymic affect Results & Data Results & Data ([facility]) Vital Signs (Past 12 Hours) Vital Signs Temp Pulse Resp BP Pulse Ox O2 Del Method O2 Flow Rate 09/18/22 20:00 Room Air 09/18/22 18:11 75 16 93 Room Air 09/18/22 16:28 36.5 C 83 16 162/73 H 92 Room Air 09/18/22 14:48 75 18 97 Nasal Cannula 2 09/18/22 10:57 68 18 93 Room Air PG Care Time/CCT Total # of Minutes Spent Total Time Spent with Patient: Total time spent is greater than 50% in coordination of care (as documented) at patient's floor/unit and/or counseling patient: Coding Level of Care Code 58314 Subseq Hosp Care Lvl 2 Diagnoses Fluid overload E87.70 Urinary retention R33.9 Chronic kidney disease, stage 4 (severe) N18.4 Insulin dependent diabetes mellitus BPH (benign prostatic hyperplasia) N40.0 Hyperlipidemia E78.5 Coronary artery disease I25.10 Hypertension I10 Time Spent (min) 25
[2022-09-19] MEDS: HEPARIN SOD 5,000 UNIT/0.5 ML VIAL SQ SCH ×3 (05:45→20:02)
[2022-09-19] MEDS: Ipratropium HFA Inhaler (Combivent Respimat P&T Subs) INH SCH ×4 (07:56→20:14)
[2022-09-19] MEDS: Albuterol HFA 8 GM Inhaler (Combivent Respimat P&T Subs) INH SCH ×4 (07:56→20:14)
[2022-09-19] MEDS: ASPIRIN 81 MG ECTAB PO SCH (08:38)
[2022-09-19] MEDS: UMECLIDINIUM/VILANTEROL 62.5/25MCG 7 PUFFS/INHALER INH SCH (08:38)
[2022-09-19] MEDS: DOXAZosin MESYLATE 4 MG TAB PO SCH ×2 (08:38→20:00)
[2022-09-19] MEDS: GABAPENTIN 300 MG CAP PO SCH ×2 (08:38→20:00)
[2022-09-19] MEDS: FLUTICASONE PROPIONATE NA SPR 16 GM BTL SCH (08:38)
[2022-09-19] MEDS: PANTOprazole 40 MG TAB PO SCH ×2 (08:38→17:57)
[2022-09-19] MEDS: LORATADINE 10 MG TAB PO SCH (08:38)
[2022-09-19] MEDS: METOPROLOL TARTRATE 25 MG TAB PO SCH ×2 (08:38→20:01)
[2022-09-19] MEDS: FLUTICASONE FUROATE 200MCG 14 PUFFS/INHALER INH SCH (08:40)
[2022-09-19] MEDS: INSULIN ASPART PER UNIT SC SCH ×4 (09:14→20:08)
[2022-09-19] MEDS: LANTUS PER UNIT CHARGE SQ SCH ×2 (09:15→20:08)
[2022-09-19 09:43] LABS: BUN Creatinine Ratio 17.5 (10-20); Calcium 9.3 mg/dl (8.5-10.1); Creatinine Clr Calc Pharmacy 29.1 ml/min; Est GFR (African American) 26.8 ml/min; Est GFR (Non-African American) 23.2 ml/min; Potassium 4.2 mmol/L (3.5-5.1)
[2022-09-19] MEDS ORDERED: FUROSEMIDE 40 MG/4 ML VIAL IV STA (14:07)
[2022-09-19] MEDS: ATORVASTATIN 40 MG TAB PO SCH (20:01)
--- NOTE | 2022-09-19 23:24 | Hospitalist Progress Note ---
Date of Service September 19, 2022 Assessment & Plan (1) Fluid overload: Plan: 82yo male presenting with progressive edema and SOB. Suspect acute exacerbation due to urinary retention. Patient reports his dry weight being approximately 248lb. Admission weight 257lb Lasix 40mg IV given in ER. Continues to be hypervolemic on 09/17 and stable Cr/BUN will dose additional Lasix 40mg IV on 09/17 -ordered an additional dose of IV lasix on 09/19 -Monitor I/Os -Monitor daily weights -removed jovel cathter, will assess his urine output (2) Urinary retention: Plan: Patient with urinary retention, over 2L output with Jovel placement. Increase in BUN and Cr possibly secondary to obstructive uropathy -Maintain Jovel for now. On tamsulosin and doxazosin? HIM request placed for [employer]. Will increase his usual doxazosin and hold tamsulosin for now. -Monitor I/Os -Follow up with urology as outpatient (3) Chronic kidney disease, stage 4 (severe): Plan: With increase in BUN and Cr suspect due to urinary retention -Monitor renal function -Avoid nephrotoxic agents (4) Insulin dependent diabetes mellitus: Plan: Last HgbA1C in February 2022 = 7.5. HbA1C with AM labs -Lantus 15u BID -Novolog: --Goal BSG Range: Low 110_mg/dL, High 140_mg/dL --Correction Factor: 25_mg/dL/unit --Carbohydrate ratio = _13_ g/unit --BSGs ACHS if eating, q6h if npo (5) BPH (benign prostatic hyperplasia): Plan: Chronic. Urinary retention noted today. Jovel in place -Increase Doxazosin and hold flomax as they are essentially the same medications (6) Hyperlipidemia: Plan: Chronic. Stable -Continue Atorvastatin (7) Coronary artery disease: Plan: Chronic. Stable. Patient denies chest pain -Continue ASA and Atorvastatin -Continue Metoprolol -Hold Lisinopril for now (8) Hypertension: Plan: Blood pressure elevated presently -Continue Metoprolol -Holding Lisinopril and HCTZ for now -Lasix as above Admission and Anticipated Discharge Date Admission Date: September 15, 2022 Subjective 82 yo male reports feeling well. Review of Systems Review of Systems: All systems reviewed & are unremarkable except as noted in HPI & below Physical Exam Physical Exam: Constitutional: WD/WN, vitals as above Respiratory: normal respiratory effort; no respiratory distress Auscultation: + diminished lung sounds (bibasal); no crackles, no rales, no rhonchi and no wheezes Cardiovascular: Rate/Rhythm: regular rate and regular rhythm Extremities: decreased pedal edema. Gastrointestinal (Abdomen): normal bowel sounds, soft, nontender, no hepatosplenomegaly Inspection/Auscultation: + abdomen distended Psychiatric: A+Ox3, euthymic affect Results & Data Results & Data ([facility]) Vital Signs (Past 12 Hours) Vital Signs Temp Pulse Pulse Pulse Resp BP Pulse Ox 09/19/22 22:26 36.5 C 85 18 163/73 H 94 09/19/22 21:04 09/19/22 19:50 82 18 96 09/19/22 16:00 36.6 C 77 20 136/73 95 09/19/22 15:32 80 16 97 O2 Del Method O2 Flow Rate 09/19/22 22:26 Room Air 09/19/22 21:04 Room Air 09/19/22 19:50 Nasal Cannula 2 09/19/22 16:00 Nasal Cannula 1.5 09/19/22 15:32 Nasal Cannula 1 PG Care Time/CCT Total # of Minutes Spent Total Time Spent with Patient: Total time spent is greater than 50% in coordination of care (as documented) at patient's floor/unit and/or counseling patient: Coding Level of Care Code 32261 Subseq Hosp Care Lvl 2 Diagnoses Fluid overload E87.70 Urinary retention R33.9 Chronic kidney disease, stage 4 (severe) N18.4 Insulin dependent diabetes mellitus BPH (benign prostatic hyperplasia) N40.0 Hyperlipidemia E78.5 Coronary artery disease I25.10 Hypertension I10
[2022-09-20] MEDS ORDERED: diazePAM 2 MG TABLET PO ONE ×2 (05:42→10:54)
[2022-09-20] MEDS: HEPARIN SOD 5,000 UNIT/0.5 ML VIAL SQ SCH ×2 (05:59→15:03)
--- NOTE | 2022-09-20 06:23 | Communication Note ---
Date of Service: September 20, 2022 worsening urinary retention overnight, bladder scanning for >1L no urge, no pain throughout the night and on bedside history straight cath was attempted 2x by nursing with no success he was then given valium 2mg po with his permission with an objective of relieving anxiety and relaxing muscles -- successful straight cath with coude yielding >950cc with 750cc PVR urology consulted given ongoing urinary retention while here -- noted he is on alpha blockers at present
[2022-09-20] MEDS: Albuterol HFA 8 GM Inhaler (Combivent Respimat P&T Subs) INH SCH ×3 (07:42→15:01)
[2022-09-20] MEDS: Ipratropium HFA Inhaler (Combivent Respimat P&T Subs) INH SCH ×3 (07:42→15:00)
--- NOTE | 2022-09-20 08:53 | Urology Consultation ---
Date of Consultation September 20, 2022 Assessment & Plan (1) Urinary retention: He appears to have chronic urinary retention. I would recommend he continue tamsulosin and suggest that he start finasteride 5 mg daily. If he is able to get up out of bed and ambulate, he may be able to urinate somewhat more nor jayy, however I suspect he will have persistent elevated PVRs. I recommend bladder scanning after every void or every 6 hours and straight cathing for volumes greater than 300 mL. If he does not tolerate straight catheterization, Berg catheter could be replaced. We discussed that further evaluation could be performed in the office with cystoscopy. Depending on findings, there may be a role to repeat an outlet procedure such as a TURP or Rezum. He expressed understanding and was willing to proceed with this plan. (2) Acute kidney injury: With the atrophy seen on the ultrasound from 2020, I suspect his INGRID is related to progressive renal atrophy. There is, however, a possibility this is related to outlet obstruction. I would recommend renal ultrasound to further evaluate the kidneys for hydronephrosis or ongoing renal atrophy. Plan -Recommend obtaining a retroperitoneal ultrasound to evaluate for hydronephrosis -Bladder scan after every void or every 6 hours, straight cath for volumes >300 ml -If he does not tolerate straight caths, Berg can be replaced. -Consider starting finasteride, 5 mg daily. Continue tamsulosin History of Present Illness Attending Physician: Garth Smart History of Present Illness This is an 82-year-old male currently admitted to the hospital with suspected CHF exacerbation. While in the hospital he had a catheter until 09/19/2022 for high PVR/incomplete emptying. The catheter was removed on 09/19 and he was unable to void. Straight catheterization was attempted and eventually successful for approximately 1 L of urine output. Urology was consulted for evaluation of urinary retention. He reports that he has seen urology in the past and had an outlet procedure, likely a TURP several years ago. He does not currently follow-up with a urologist. He is currently on tamsulosin and doxazosin, it does not appear that he is on finasteride. He reports a sense of several years of incomplete emptying. He does not typically strain to void. Family history is noncontributory. Labs reviewed: Urinalysis from 09/15/2022, negative for nitrites, leukocyte esterase, negative bacteria, negative blood. Creatinine (09/19/2022 was 2.5, in October, it was 2.1, back in 2018 it was 1.84). He had a renal ultrasound performed in May,. I reviewed these images. He has bilateral renal atrophy. There was no hydronephrosis at that time. There were some small renal cysts. His bladder was somewhat large, but no tumors or suspicious masses were seen. Allergies Allergy/AdvReac Type Severity Reaction Status Date / Time No Known Drug Allergies Allergy Unknown NONE Verified 09/15/22 22:25 strawberry Allergy Unknown hives Verified 09/15/22 22:25 Home Medications Medication Instructions Recorded Confirmed Type acetaminophen 325 mg tablet 650 mg PO DAILY PRN as directed 05/22/21 09/15/22 History (Tylenol) carboxymethylcellulose sodium 0.5 1 drp OPB BID 05/22/21 09/15/22 History % eye drops colchicine 0.6 mg capsule See Rx Instructions .Route .COMPLEX 05/22/21 09/15/22 History glucosamine sulfate 500 mg tablet 500 mg PO DAILY 05/22/21 09/15/22 History (Glucosamine) ipratropium 20 mcg-albuterol 100 1 puff inhalation QID for SOB 05/22/21 09/15/22 History mcg/actuation mist for inhalation lisinopril 20 2 tab PO DAILY 05/22/21 09/15/22 History mg-hydrochlorothiazide 12.5 mg tablet loratadine 10 mg tablet (Allergy 10 mg PO DAILY 05/22/21 09/15/22 History Relief (loratadine)) magnesium oxide 420 mg tablet 420 mg PO DAILY 05/22/21 09/15/22 History omeprazole 20 mg capsule,delayed 20 mg PO BID 05/22/21 09/15/22 History release tamsulosin 0.4 mg capsule 0.4 mg PO DAILY 05/22/21 09/15/22 History aspirin 81 mg tablet,delayed 81 mg PO DAILY 09/15/22 09/15/22 History release atorvastatin 80 mg tablet 80 mg PO HS 09/15/22 09/15/22 History cholecalciferol (vitamin D3) 25 50 mcg PO DAILY 09/15/22 09/15/22 History mcg (1,000 unit) tablet cinnamon bark 500 mg capsule 1,000 mg PO DAILY 09/15/22 09/15/22 History (Cinnamon) doxazosin 4 mg tablet 4 mg PO DAILY 09/15/22 09/15/22 History fluticasone propionate 50 2 spray intranasal DAILY 09/15/22 09/15/22 History mcg/actuation nasal spray,suspension gabapentin 300 mg capsule 600 mg PO BID 09/15/22 09/15/22 History guaifenesin 200 mg tablet 400 mg PO TID PRN help thin mucous 09/15/22 09/15/22 History insulin aspart U-100 100 unit/mL 22 unit subcut TIDM 09/15/22 09/15/22 History (3 mL) subcutaneous pen (Novolog Flexpen U-100 Insulin aspart) insulin glargine 100 unit/mL (3 44 unit subcut HS 09/15/22 09/15/22 History mL) subcutaneous pen (Lantus Solostar U-100 Insulin) lanolin alcohols-mineral 1 applic topical Q OTHER DAY 09/15/22 09/15/22 History oil-w.petrolatum-ceresin topical cream (Eucerin topical cream) lidocaine 5 % topical ointment 1 applic topical BID 09/15/22 09/15/22 History meclizine 12.5 mg tablet 25 mg PO Q6 PRN Vertigo 09/15/22 09/15/22 History metoprolol tartrate 50 mg tablet 25 mg PO BID 09/15/22 09/15/22 History mometasone 220 mcg/actuation(60 1 inh inhalation BID 09/15/22 09/15/22 History doses) breath activated powder inhaler omega 0-yco-rxg-fish oil 1,000 mg 2 cap PO BID 09/15/22 09/15/22 History (120 mg-180 mg) capsule (Fish Oil) tiotropium 2.5 mcg-olodaterol 2.5 2 puff inhalation DAILY 09/15/22 09/15/22 History mcg/actuation mist for inhalation vit C 250 mg-vit E 90 mg-zinc 40 1 tab PO BID 09/15/22 09/15/22 History mg-copper 1 [id number]-voofhq capsule (PreserVision AREDS-2) furosemide 40 mg tablet 40 mg PO Q OTHER DAY #30 tabs 09/19/22 Rx lisinopril 10 mg tablet 10 mg PO PM #30 tabs 12/03/22 Rx Patient History Medical History Age-related macular degeneration Blindness BPH (benign prostatic hyperplasia) COPD (chronic obstructive pulmonary disease) Hyperlipidemia Insulin dependent diabetes mellitus Vertigo Surgical History History of open heart surgery 2002 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 Hx of cholecystectomy 01/29/2014 Social History Smoking Status: Never smoker Tobacco Type: Cigarettes Hx Alcohol Use: No Hx Substance Use: No Preferred Language: Pry[place]in[place] Communication Ability: Effective Visual Educator Required: No Beliefs That Will Affect Care: None marital status: Single Current Living Situation: Alone Current Living Situation Comment: pt has caretakers come in 2x/week 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 Physical Exam Constitutional: well developed and well nourished; no acute distress Eyes: + anicteric sclerae; pupils not irregular Respiratory: Breathing comfortably on supplemental oxygen by nasal cannula Cardiovascular: well perfused Gastrointestinal (Abdomen): Inspection/Auscultation: abdomen normal to inspection; abdomen not distended Musculoskeletal: Extremities: extremities normal to inspection Skin: normal turgor; no rashes and no lesions Neurologic: moves all extremities and awake Psychiatric: Orientation: alert and oriented x 3 Results & Data ([facility]) Vital Signs (Past 12 Hours) Vital Signs Temp Pulse Pulse Resp BP Pulse Ox O2 Del Method 09/20/22 08:00 Nasal Cannula 09/20/22 07:42 88 16 96 Nasal Cannula 09/20/22 07:18 36.9 C 89 20 155/75 H 95 Nasal Cannula 09/19/22 22:26 36.5 C 85 18 163/73 H 94 Room Air 09/19/22 21:04 Room Air O2 Flow Rate 09/20/22 08:00 2 09/20/22 07:42 2 09/20/22 07:18 1 09/19/22 22:26 09/19/22 21:04 PG Care Time/CCT Total # of Minutes Spent Total Time Spent with Patient: Total time spent is greater than 50% in coordination of care (as documented) at patient's floor/unit and/or counseling patient: Coding Level of Care Code 03839 Initial Inpt Care Lvl 2 Diagnoses Urinary retention R33.9 Acute kidney injury N17.9
[2022-09-20] MEDS: DOXAZosin MESYLATE 4 MG TAB PO SCH (08:54)
[2022-09-20] MEDS: METOPROLOL TARTRATE 25 MG TAB PO SCH (08:55)
[2022-09-20] MEDS: LORATADINE 10 MG TAB PO SCH (08:55)
[2022-09-20] MEDS: GABAPENTIN 300 MG CAP PO SCH (08:55)
[2022-09-20] MEDS: ASPIRIN 81 MG ECTAB PO SCH (08:56)
[2022-09-20] MEDS: UMECLIDINIUM/VILANTEROL 62.5/25MCG 7 PUFFS/INHALER INH SCH (08:56)
[2022-09-20] MEDS: FLUTICASONE FUROATE 200MCG 14 PUFFS/INHALER INH SCH (08:56)
[2022-09-20] MEDS: PANTOprazole 40 MG TAB PO SCH (08:56)
[2022-09-20] MEDS: FLUTICASONE PROPIONATE NA SPR 16 GM BTL SCH (08:57)
[2022-09-20] MEDS: LANTUS PER UNIT CHARGE SQ SCH (08:58)
[2022-09-20] MEDS: INSULIN ASPART PER UNIT SC SCH ×2 (08:58→12:58)
[2022-09-20 09:40] LABS: Hematocrit (blood only) 35.8 % (40.1-51.0); Hemoglobin 11.6 g/dl (14.0-18.0); Mean Corpuscular Hemoglobin 29.1 pg (25.0-34.0); Mean Corpuscular Hgb Conc 32.4 g/dL (32.0-36.0); Mean Corpuscular Volume 89.9 fL (80.0-100.0); Mean Platelet Volume 12.2 fL (9.4-12.4); Platelet Count 139 K/uL (130-400); RDW Coefficient of Variation 13.5 % (11.5-14.5); RDW Standard Deviation 44.1 fL (36.4-46.3); Red Blood Count 3.98 M/uL (4.63-6.08); White Blood Count 6.05 K/ul (4.8-10.8)
[2022-09-20 10:18] LABS: BUN Creatinine Ratio 18.8 (10-20); Calcium 9.2 mg/dl (8.5-10.1); Creatinine Clr Calc Pharmacy 28.1 ml/min; Est GFR (African American) 27.1 ml/min; Est GFR (Non-African American) 23.4 ml/min; Potassium 4.2 mmol/L (3.5-5.1)
[2022-09-20] MEDS ORDERED: FINASTERIDE 5 MG TAB PO SCH (10:45)
--- NOTE | 2022-09-26 23:26 | Discharge Summary ---
Date of Service September 20, 2022 Admission HPI Per Admitting Provider Mc Garcia is a pleasant 82yo male with history of DM, HTN, CAD s/p CABG and COPD presenting with several days of progressive SOB, COONEY and edema. He reports a 15# weight gain over the last several days. He feels increased swelling and distention in his legs, as well as scrotum and abdomen. His skin feels tight and somewhat painful. Patient has been using his home O2 continuously over the last 3 days. Patient reported that he started gaining weight after he was started on a new medication. He is uncertain of which medication (per chart review, possibly Amlodipine?). This medication has since been discontinued by the [facility]. Patient had worsening shortness of breath today and called the [facility] nurse and was instructed to come to the ER. Patient afebrile, mildly hypertensive in the ER. Found to have abdominal distention. Jovel catheter placed with return of nearly 2L of urine. Principal Diagnosis fluid overload Discharge Exam Constitutional: WD/WN, vitals as above Respiratory: normal respiratory effort; no respiratory distress Auscultation: + diminished lung sounds (bibasal); no crackles, no rales, no rhonchi and no wheezes Cardiovascular: Rate/Rhythm: regular rate and regular rhythm Extremities: decreased pedal edema. Gastrointestinal (Abdomen): normal bowel sounds, soft, nontender, no hepatosplenomegaly Inspection/Auscultation: + abdomen distended Psychiatric: A+Ox3, euthymic affect Discharge Data Allergies Allergy/AdvReac Type Severity Reaction Status Date / Time No Known Drug Allergies Allergy Unknown NONE Verified 09/15/22 22:25 strawberry Allergy Unknown hives Verified 09/15/22 22:25 Consultations 09/15/22 20:48 ED Decision to Admit Stat 09/16/22 14:08 HIM [Consult Health Information Management] Routine 09/20/22 06:21 Consult Urology Routine Hospital Course (1) Fluid overload: 82yo male presenting with progressive edema and SOB. Suspect acute exacerbation due to urinary retention. Patient reports his dry weight being approximately 248lb. Admission weight 257lb treated with IV diuretics. discharge weight 237 -failed voiding trial. will discharge with jovel cathter, patient will followup with urology as an outpatient. will add finasteride. (2) Urinary retention: Patient with urinary retention, over 2L output with Jovel placement. Increase in BUN and Cr possibly secondary to obstructive uropathy -Maintain Jovel for now. On tamsulosin and doxazosin? HIM request placed for [employer] med list. Will increase his usual doxazosin and hold tamsulosin for now. -Monitor I/Os -Follow up with urology as outpatient (3) Chronic kidney disease, stage 4 (severe): With increase in BUN and Cr suspect due to urinary retention -Monitor renal function -Avoid nephrotoxic agents (4) Insulin dependent diabetes mellitus: Last HgbA1C in February 2022 = 7.5. HbA1C with AM labs -resume home meds (5) BPH (benign prostatic hyperplasia): Chronic. Urinary retention noted today. Jovel in place -will defer to PCP if patient should hold flomax. (6) Hyperlipidemia: Chronic. Stable -Continue Atorvastatin (7) Coronary artery disease: Chronic. Stable. Patient denies chest pain -Continue ASA and Atorvastatin -Continue Metoprolol (8) Hypertension: Blood pressure elevated presently -Continue Metoprolol -Lasix as above Total Time Total Time Spent Total Time Spent (In Minutes): 35 Discharge Plan Discharge Items Patient Disposition: Home - Self-Care Reason For Visit: SOB Discharge Diagnosis: fluid overload Activity: Resume your previous activity Non-emergency contact: Primary Care Provider Call non-emergency contact if: you have any medication questions Follow-up/Referrals: Katlyn Joel PA-C [Primary Care Provider] - Diet: Carb Consistent or DM2 and Low Sodium (2gm) Addtl Attending Provider Instructions: Urology will call you for a followup appointment Recommend checking blood work in 1 week to reassess your kidney numbers : BMP. Recommend close followup with your PCP in 1 week. Loop Diuretic Sliding Scale (uses daily weights) Based on weight variation from maintenance weight Weight gain 1-3 pounds: No change to Diuretic dose Weight gain 3-5 pounds: Take extra Diuretic dose and let your doctor know Weight gain >5 pounds: Call your doctor immediately Call your doctor if any of the following symptoms or problems start or get worse: * Shortness of breath or difficulty breathing * Wake up at night short of breath * Chest pain * Cough * Swelling of your hands, fee, or legs * More fatigued or tired with your normal activity * Palpitations - sudden fast heart beats WEIGHT * Weigh yourself every morning after using the bathroom. * Use the same scale. * Wear the same amount of clothing. * Write your weight down on your chart. * Call your doctor if you gain more than 2-3 pounds in 1-2 days. MEDICATIONS * Use this discharge instruction sheet for instructions. * Take your medications at the time your doctor ordered. * Do not skip a dose of your medicines. * If you miss a dose of medicine, take as soon as possible, but DO NOT DOUBLE A DOSE. * Read your medicine information when you get home. * Know all of the side effects of your medicine. * Call your doctor's office if you have any side effects. * Be sure all of your doctors know what medicine and herbs you take (including cold, flu, and herbal medicine). * Pain Medicine: If you do not get relief from your pain, please call your doctor for help. Take the following with you to your follow-up doctor appointments: * Weight Chart * Medication List * List of questions Do not drink excessive alcohol, beer or wine. Pending Studies at Discharge: No Stand-Alone Forms: My [facility] [employer], Smoking Cessation Medications and DC Order Prescriptions: New lisinopril 10 mg tablet 10 mg PO PM Qty: 30 0RF furosemide 40 mg tablet 40 mg PO Q OTHER DAY Qty: 30 0RF finasteride 5 mg tablet 5 mg PO DAILY Qty: 30 0RF Continued acetaminophen [Tylenol] 325 mg tablet 650 mg PO DAILY PRN (Reason: as directed) glucosamine sulfate [Glucosamine] 500 mg tablet 500 mg PO DAILY Rx Instructions: administer with a meal tamsulosin 0.4 mg capsule 0.4 mg PO DAILY omeprazole 20 mg capsule,delayed release(DR/EC) 20 mg PO BID Rx Instructions: take 30 min before a meal magnesium oxide 420 mg tablet 420 mg PO DAILY loratadine [Allergy Relief (loratadine)] 10 mg tablet 10 mg PO DAILY colchicine 0.6 mg capsule See Rx Instructions .ROUTE .COMPLEX Rx Instructions: take 1 tablet by mouth every day as directed. take 2 tablets within 12 hours of gout flare, then take 1 tablet 1 hour latermax 3 tablets in 1 hour after the initial tablets on day 1 then starting day #2 take 1 tablet daily for 5 days for gout carboxymethylcellulose sodium 0.5 % drops 1 drp OPB BID ipratropium-albuterol 20-100 mcg/actuation mist 1 puff inhalation QID Rx Instructions: space evenly during waking hours doxazosin 4 mg Tablet 4 mg PO DAILY cholecalciferol (vitamin D3) 25 mcg (1,000 unit) Tablet 50 mcg PO DAILY atorvastatin 80 mg Tablet 80 mg PO HS aspirin 81 mg Tablet,Delayed Release (Dr/Ec) 81 mg PO DAILY gabapentin 300 mg Capsule 600 mg PO BID fluticasone propionate 50 mcg/actuation [place],Suspension 2 spray INTRANASAL DAILY Rx Instructions: administer into each nostril omega 5-jxw-lei-fish oil [Fish Oil] 1,000 mg (120 mg-180 mg) Capsule 2 cap PO BID mometasone 220 mcg/ actuation (60) Aerosol Powdr Breath Activated 1 inh INHALATION BID cinnamon bark [Cinnamon] 500 mg Capsule 1,000 mg PO DAILY tiotropium-olodaterol 2.5-2.5 mcg/actuation Mist 2 puff INHALATION DAILY meclizine 12.5 mg Tablet 25 mg PO Q6 PRN (Reason: Vertigo) metoprolol tartrate 50 mg Tablet 25 mg PO BID PreserVision AREDS-2 250-90-40-1 mg Capsule 1 tab PO BID insulin aspart U-100 [Novolog Flexpen U-100 Insulin] 100 unit/mL (3 mL) Insu joe Pen 22 unit SUBCUT TIDM insulin glargine [Lantus Solostar U-100 Insulin] 100 unit/mL (3 mL) Insulin Pen 44 unit SUBCUT HS lidocaine 5 % Ointment 1 applic TOPICAL BID guaifenesin 200 mg Tablet 400 mg PO TID PRN (Reason: help thin mucous) Eucerin Cream 1 applic TOPICAL Q OTHER DAY Rx Instructions: apply small amount to dry skin Discontinued lisinopril-hydrochlorothiazide 20-12.5 mg tablet 2 tab PO DAILY Discharge Orders: Discharge Order (Routine); Ordered 09/20/22 Ordered By: Garth Scott/Other Patient Handouts: Managing Type 2 Diabetes, [facility] for Diabetes Admission Data Admit Date/Time: 09/15/22 21:46 Attending Provider: Garth Smart Admit Provider: Michelle Gunter Primary Care Provider: Katlyn Joel Other Providers: Michelle Gunter ; [facility] ; Ran Cheng ; Matt Mccullough ; Fan Marquez ; Dunia Chen ; Vijay Bhakta ; Jeanine Robertson ; Emily Stark ; Tremaine Cantu ; Genny Gallagher ; Ksenia Braxton ; Rigo Anderson ; Prasanth Florian Other Interventions: Discharge Summary Assessment (RN) Last Done: 09/20/22 14:43 Coding Level of Care Code D/C DAY MANAGEMENT >30 MINS Diagnoses Fluid overload E87.70 Urinary retention R33.9 Chronic kidney disease, stage 4 (severe) N18.4 Insulin dependent diabetes mellitus BPH (benign prostatic hyperplasia) N40.0 Hyperlipidemia E78.5 Coronary artery disease I25.10 Hypertension I10
== END 2022-09-20 15:53 | disposition home or self-care (01) | DRG 641 ==
LOC: ED 17:42 → SUATTDRO 21:46 → 3N 21:46

== ENCOUNTER 2024-06-19 02:36 | Inpatient (IN) ==
[2024-06-19 03:17] LABS: HCO3 VBG 27 mmol/L; Oxygen Saturation VBG 91.2 %; PCO2 VBG 44 mmHg (38-50); PO2 VBG 65 mmHg
[2024-06-19 03:25] LABS: Basophils # (auto) 0.02 K/uL (0.00-0.20); Basophils % (auto) 0.2 %; Eosinophils # (auto) 0.09 K/uL (0.00-0.50); Hematocrit (blood only) 31.4 % (42.0-52.0); Immature Granulocytes # (auto) 0.04 K/uL (0.01-0.20); Immature Granulocytes % (auto) 0.4 %; Lymphocytes # (auto) 0.68 K/uL (1.20-3.40); Lymphocytes % (auto) 7.3 %; Mean Corpuscular Hemoglobin 29.7 pg (25.0-34.0); Mean Corpuscular Hgb Conc 31.8 g/dL (32.0-36.0); Mean Corpuscular Volume 93.2 fL (80.0-100.0); Mean Platelet Volume 12.1 fL (9.4-12.4); Monocytes # (auto) 1.47 K/uL (0.11-0.59); Monocytes % (auto) 15.7 %; Neutrophils # (auto) 7.04 K/uL (1.40-6.50); Neutrophils % (auto) 75.4 %; Platelet Count 100 K/uL (130-400); RDW Coefficient of Variation 14.4 % (11.5-14.5); RDW Standard Deviation 48.4 fL (36.4-46.3); Red Blood Count 3.37 M/uL (4.70-6.10); White Blood Count 9.34 K/ul (4.8-10.8)
[2024-06-19 03:38] LABS: Appearance Urine Turbid (Clear); Bacteria Urine Automated 4+ (None Seen); Bilirubin Urine Negative (Negative); Blood Urine 2+ (Negative); Color Urine Yellow; Epithelial Cell Urine Auto 0-2 /hpf (0-2); Glucose Urine UA Negative (Negative); Ketones Urine Negative (Negative); Leukocyte Esterase Urine 3+ (Negative); Nitrite Urine Negative (Negative); Protein Urine 4+ (Negative); Specific Gravity Urine 1.019 (1.000-1.030); Urobilinogen Urine Negative (Negative); WBC Urine Automated >50 /hpf (0-5)
[2024-06-19 03:41] LABS: Albumin Level 3.5 gm/dl (3.4-5.0); BUN Creatinine Ratio 11.3 (10-20); Bilirubin Direct 0.1 mg/dl (0-0.2); Bilirubin,Total 0.4 mg/dl (0.2-1.0); Calcium 8.2 mg/dl (8.6-10.3); Creatinine Clr Calc Pharmacy 20.2 ml/min; Est GFR (African American) 18.2 ml/min; Est GFR (Non-African American) 15.7 ml/min; Magnesium 1.7 mg/dl (1.7-2.4); Potassium 4.5 mmol/L (3.5-5.1); Total Protein 6.1 gm/dl (6.0-8.3)
[2024-06-19 03:52] LABS: Troponin I High Sensitivity 108.1 pg/ml (0-20)
[2024-06-19] MEDS: CEFEPIME 2,000 MG/20 ML VIAL IV STA (04:06)
[2024-06-19] MEDS: SODIUM CHLORIDE 0.9% 500 ML IV SCH (04:06)
[2024-06-19 04:08] LABS: Adenovirus PCR Not Detected (NotDetected); Bordetella parapertussis PCR Not Detected (NotDetected); Bordetella pertussis PCR Not Detected (NotDetected); Chlamydia pneumoniae PCR Not Detected (NotDetected); Coronavirus 229E PCR Not Detected (NotDetected); Coronavirus CoV-2 (COVID19)PCR Not Detected (NotDetected); Coronavirus HKU1 PCR Not Detected (NotDetected); Coronavirus NL63 PCR Not Detected (NotDetected); Coronavirus OC43PCR Not Detected (NotDetected); Human Metapneumovirus PCR Not Detected (NotDetected); Influenza A PCR Not Detected (NotDetected); Influenza B PCR Not Detected (NotDetected); Mycoplasma pneumoniae PCR Not Detected (NotDetected); Parainfluenza Virus 1 PCR Not Detected (NotDetected); Parainfluenza Virus 2 PCR Not Detected (NotDetected); Parainfluenza Virus 3 PCR Not Detected (NotDetected); Parainfluenza Virus 4 PCR Not Detected (NotDetected); Respiratory Syncytial VirusPCR Not Detected (NotDetected); Rhinovirus/Enterovirus PCR Not Detected (NotDetected)
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
--- NOTE | 2024-06-19 05:51 | CT Scan Report ---
Exam(s): CT ABDOMEN + PELVIS Without Contrast EXAM: CT Abdomen and Pelvis Without Intravenous Contrast CLINICAL HISTORY: Reason for exam: ember, uti. TECHNIQUE: Axial computed tomography images of the abdomen and pelvis without intravenous contrast. Automated exposure control was utilized for the study. A dose lowering technique was utilized adhering to the principles of ALARA. COMPARISON: No relevant prior studies available. FINDINGS: Limitations: Limited evaluation in the absence of contrast. Lung bases: Coronary artery calcifications. Sternotomy changes. ABDOMEN: Liver: Unremarkable. Gallbladder and bile ducts: Cholecystectomy changes. No ductal dilation. Pancreas: Unremarkable. No ductal dilation. Spleen: Unremarkable. No splenomegaly. Adrenals: Unremarkable. No mass. Kidneys and ureters: No evidence of radiopaque renal calculi or signs of collecting system dilatation. Atrophic appearance of the right kidney. Cortical defects in the kidneys which likely relate to sequela of prior infection. Simple bilateral renal cysts. No follow-up of these simple cysts is necessary. Stomach and bowel: No evidence of bowel obstruction. No mucosal thickening. PELVIS: Appendix: Normal appendix. Bladder: Diffuse bladder wall thickening with intervening Berg and gas in the bladder dome. Findings may be due to recent placement with decompression. Cystitis is also possible. Consider correlation with laboratory values. No stones. Reproductive: Unremarkable as visualized. ABDOMEN and PELVIS: Intraperitoneal space: Unremarkable. No free air. No significant fluid collection. Bones/joints: Degenerative changes in the spine. 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 No acute fracture. No dislocation. Soft tissues: Unremarkable. Vasculature: Atherosclerotic disease. No abdominal aortic aneurysm. Lymph nodes: Unremarkable. No enlarged lymph nodes. IMPRESSION: 1. Limited evaluation in the absence of contrast. 2. No evidence of radiopaque renal calculi or signs of collecting system dilatation. 3. Diffuse bladder wall thickening with intervening Berg and gas in the bladder dome. Findings may be due to recent placement with decompression. Cystitis is also possible. Consider correlation with laboratory values. 4. No other acute findings. 5. Incidental findings as described. Electronically signed by: Felix Ng MD 06/19/24 05:50 AM
[2024-06-19] MEDS ORDERED: ALBUT/IPRATROP 3MG/0.5MG NEB 3 ML VIAL NEB PRN ×2 (06:19→08:27)
--- NOTE | 2024-06-19 06:28 | Emergency Department Note ---
Impression & Plan Dyspnea, INGRID (acute kidney injury), Acute UTI (urinary tract infection), Elevated troponin ED Provider Note ED Provider Note NAME: NAYA DOHERTY AGE:83 SEX: Male : 1940 ARRIVES VIA: EMS INFORMANT: Patient ED PROVIDER(s): Kym Mcleod DO CHIEF COMPLAINT: Shortness of breath, fatigue, fever HPI: This is an 83-year-old male presents emergency room via EMS due to concern for increased fatigue and weakness, increased shortness of breath, and fever. Patient states symptoms began yesterday as he began noticing that he was more fatigued than usual. States he had a slight drop in his appetite but was still eating and drinking and taking his usual medications. He states he then noticed yesterday evening that he had chills to the point where his teeth were chattering. He states he did not take his temperature at home. He denies any known sick contacts or recent illness. EMS called prior to arrival and reported patient had a temperature upon their arrival of 102.7 F, was hypertensive, was initially 89% on room air however oxygen came up to the mid 90s on 2 L via nasal cannula. He was noted to be tachycardic. Patient given Tylenol en route as well as nitro which seemed to help his breathing. Patient states he does take Lasix daily. He states he also has an indwelling Berg catheter that he only empties "as needed". Patient states he has had a prior CABG, and does follow with cardiology through [facility]. He states he was told several months ago he did have additional blockages however he was not a surgical candidate. PAST MEDICAL HISTORY:See Below PAST SURGICAL HISTORY:See Below FAMILY HISTORY:See Below SOCIAL HISTORY:See Below HOME MEDICATIONS:See Below ALLERGIES:See Below VITALS:See Below PHYSICAL EXAMINATION: GENERAL: alert, well appearing, well nourished, no distress, non-toxic EYE EXAM: normal conjunctiva, PERRL and EOM's grossly intact OROPHARYNX: no exudate, no erythema, lips, buccal mucosa, and tongue normal and mucous membranes are dry NECK: supple, no nuchal rigidity, no adenopathy, non-tender LUNGS: Decreased to auscultation. Normal chest wall mechanics, no w/r/r, nasal cannula in place HEART: no murmurs, S1 normal and S2 normal, well-healed midline sternotomy scar ABDOMEN: abdomen soft, non-tender, normo-active bowel sounds, no masses, no rebound or guarding. : Catheter noted, no attached bag BACK: Back is symmetrical on inspection and there is no deformity, no midline tenderness, no CVA tenderness. SKIN: no rashes, petechiae, orbruising UPPER EXTREMITIES: upper extremities are grossly normal. FROM, nml pulses b/l. LOWER EXTREMITIES: 1+ b/l pitting edema. FROM, nml pulses b/l. NEURO EXAM: Normal sensorium, cranial nerves II-XII grossly intact, normal speech, no facial droop,nogross weakness of arms, no gross weakness of legs. Gross sensation intact. No ataxia. Vital Signs: reviewed and remarkable Differential Diagnosis: pneumonia, bronchitis, COPD/Asthma exacerbation, pneumothorax, pulmonary embolism, congestive heart failure, acute coronary syndrome, as well as others were considered MEDICAL DECISION MAKING: This is an 83-year-old male presents emergency department via EMS due to concern for shortness of breath. Patient also noted to be febrile in the field as well as significantly hypertensive. He was given Tylenol and nitro prehospital with improvement of her symptoms. On arrival here patient borderline febrile but improved compared to that recorded by EMS. Patient still hypertensive although improved compared to EMS readings additionally. Patient reported feeling improved and stated his breathing was better as was his chest pain. Patient was maintained on oxygen via nasal cannula in order to maintain oxygen saturations in the low to mid 90s, however patient does not routinely wear oxygen at home. Labs drawn and sent, IV established, EKG and chest x-ray performed at bedside interpreted by me and patient monitored on telemetry. Due to concern for fever, blood culture was obtained additionally. Patient did not receive 30 mL/KG of IV fluids per sepsis guidelines due to history of congestive heart failure and chronic kidney disease and concern for evolving pulmonary edema. Chest x-ray did not show significant evolving pulmonary edema and EKG without significant acute change. Patient started on very low gentle IV fluid hydration. Patient was noted to have an indwelling Berg catheter which he drains periodically at home. A specimen from this was sent and does appear to be the source of his infection. Patient continued to feel improved here with fever control. Patient's nasal swab for viral respiratory panel was negative. Patient noted to have acute kidney injury on top of his chronic kidney disease. Patient remained hypertensive in the emergency department however improving without any additional medication. Patient noted to have an elevated troponin additionally and does have a history of coronary artery disease and CABG. It is unclear if this is from infection, additional insult to his kidney function, or demand given his history of CAD and increased work of breathing earlier this evening. Patient covered with IV antibiotics after review of prior urine cultures. He was sent for CT of the abdomen pelvis additionally to rule out other obstructive uropathy or evidence of ascending infection. CT was reassuring. Case discussed with the hospitalist team for additional evaluation and management. I suspect some of patient's initial dyspnea related to the tachypnea from his fever and increased work of breathing due to history of COPD additionally. Consultation(s): 0335: Discussed with Dr. Gonzales for additional evaluation and mgmt. ER Treatment Provided: See below Diagnostics Interpreted By Me: -ECG: Sinus tachycardia at 105, normal axis, normal intervals, ST depression noted V3 through V6, as well as II and aVF -Cardiac Monitoring: An order was placed for continuous cardiac monitoring. The monitor shows a rate of 88 with normal sinus rhythm. -Laboratory studies: As stated above and show below. -Imaging studies: X-ray Chest: A single view study of the chest was reviewed and was negative for focal infiltrate, effusion, or wide mediastinum. Cardiomegaly noted, midline sternotomy wires, increased interstitial markings bilaterally however similar compared to prior Triage Nursing Note Reviewed Prior/Outside Records Reviewed Critical Care: Critical care of 39 min performed to assess and manage high likelihood of life- threatening sepsis, involving labs and imaging performed with assessment to evaluate fever and dyspnea diagnosis with frequent reassessment. This time includes bedside time, treatment discussions with patient/family/consultants, documentation time and excludes procedure time. Past Med/Surg History Problem List (Updated 06/19/24 @ 14:51 by Jeff Fuentes MD) Chronic heart failure with preserved ejection fraction Elevated troponin (Acute) Acute UTI (urinary tract infection) (Acute) INGRID (acute kidney injury) (Acute) Dyspnea (Acute) Chronic indwelling Berg catheter BPH loc w urin obs/LUTS NSTEMI (non-ST elevated myocardial infarction) Cardiomyopathy Acute kidney injury superimposed on CKD Sepsis due to urinary tract infection Fluid overload (Acute) Urinary retention (Acute) Congestive heart failure (Acute) Acute kidney injury (Acute) Vitamin D deficiency Chronic kidney disease, stage 4 (severe) BPH (benign prostatic hyperplasia) Age-related macular degeneration Vertigo Insulin dependent diabetes mellitus Blindness COPD (chronic obstructive pulmonary disease) Hyperlipidemia Coronary artery disease (Chronic) Diabetes (Chronic) Hypertension (Chronic) Abdominal pain (Acute) Acute cholecystitis (Acute 12/28/13) Urinary retention (Acute) Medical History Macular degeneration Surgical History History of open heart surgery 2002 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 Hx of cholecystectomy 01/29/2014 Social History Smoking Status: Former smoker Tobacco Type: Cigarettes Hx Alcohol Use: No Hx Substance Use: No Preferred Language: Italian Communication Ability: Effective Visual Impairment: Limited Hearing Ability: Normal Medical Associate Required: Yes Beliefs That Will Affect Care: None marital status: Single Current Living Situation: Alone Current Living Situation Comment: 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 How many Children do You have: 2 Other Information That Helps Us Care for You: No Feels Safe at Home: Yes and Hesitant to Answer Safety Concerns: Feels Safe At This Time Diet: diabetic caffeine: Yes Physical Activity Frequency: Does not Exercise Do you think of yourself as: straight/heterosexual Gender Identity: Male Assistive Devices: Cane, Glasses, Oxygen - Continuous and Walker Allergies Allergies Allergy/AdvReac Type Severity Reaction Status Date / Time strawberry Allergy Intermediate hives Verified 06/19/24 02:54 Home Meds Home Medications Medication Instructions Recorded Confirmed carboxymethylcellulose sodium 0.5 1 drp OPB BID 05/22/21 06/19/24 % eye drops colchicine 0.6 mg capsule See Rx Instructions .Route .COMPLEX 05/22/21 06/19/24 loratadine 10 mg tablet (Allergy 10 mg PO Q OTHER DAY 05/22/21 06/19/24 Relief (loratadine)) magnesium oxide 420 mg tablet 420 mg PO DAILY 05/22/21 06/19/24 omeprazole 20 mg capsule,delayed 20 mg PO BID 05/22/21 06/19/24 release aspirin 81 mg tablet,delayed 81 mg PO DAILY 09/15/22 06/19/24 release atorvastatin 80 mg tablet 80 mg PO HS 09/15/22 06/19/24 doxazosin 4 mg tablet 4 mg PO DAILY 09/15/22 06/19/24 fluticasone propionate 50 2 spray intranasal DAILY 09/15/22 06/19/24 mcg/actuation nasal spray,suspension gabapentin 300 mg capsule 300 mg PO BID 09/15/22 06/19/24 guaifenesin 200 mg tablet 400 mg PO TID PRN help thin mucous 09/15/22 06/19/24 insulin aspart U-100 100 unit/mL 22 unit subcut TIDM 09/15/22 06/19/24 (3 mL) subcutaneous pen (Novolog FlexPen U-100 Insulin aspart) meclizine 12.5 mg tablet 25 mg PO Q6H PRN Vertigo 09/15/22 06/19/24 mometasone 220 mcg/actuation(60 1 inh inhalation BID 09/15/22 06/19/24 doses) breath activated powder inhaler omega 9-hig-pdo-fish oil 1,000 mg 2 cap PO BID 09/15/22 06/19/24 (120 mg-180 mg) capsule (Fish Oil) tiotropium 2.5 mcg-olodaterol 2.5 2 puff inhalation DAILY 09/15/22 06/19/24 mcg/actuation mist for inhalation vit C 250 mg-vit E 90 mg-zinc 40 1 tab PO BID 09/15/22 06/19/24 mg-copper 1 gu-mmyyyy-yustpy capsule (PreserVision AREDS-2) carvedilol 25 mg tablet 12.5 mg PO BID 01/19/24 06/19/24 furosemide 80 mg tablet 80 mg PO DAILY 01/19/24 06/19/24 glucose 4 gram chewable tablet 4 g PO UD PRN hypoglycemia 01/19/24 06/19/24 zinc oxide 20 % topical ointment 1 applic topical DAILY PRN Penile 01/19/24 06/19/24 Irritation/Excoriation albuterol sulfate 90 mcg/actuation 2 puff inhalation Q4H PRN 02/14/24 06/19/24 aerosol inhaler Shortness Of Breath Or Wheezing cholecalciferol (vitamin D3) 25 50 mcg PO DAILY 02/14/24 06/19/24 mcg (1,000 unit) capsule furosemide 40 mg tablet 40 mg PO Q OTHER DAY 02/14/24 06/19/24 levofloxacin 250 mg tablet 250 mg PO DAILY 02/14/24 06/19/24 lidocaine 5 % topical cream 1 applic topical BID PRN Pain 02/14/24 06/19/24 lisinopril 10 mg tablet 10 mg PO DAILY 02/14/24 06/19/24 metoprolol tartrate 50 mg tablet 50 mg PO BID 02/14/24 06/19/24 insulin glargine-yfgn 100 unit/mL 46 unit subcut HS 03/14/24 06/19/24 (3 mL) subcutaneous pen Results & Data (ED) Vital Signs Vital Signs - 24 hr 06/19/24 02:37 06/19/24 02:42 06/19/24 03:05 Temperature 37.8 C H Temperature Source Oral Pulse Rate 104 H 105 H Pulse Rate [Right] Respiratory Rate 16 Respiratory Effort / Characteristics Non-Labored Spontaneous Respiratory Depth Normal Blood Pressure [Right Arm] Blood Pressure Mean [Right Arm] Pulse Oximetry 92 Oxygen Delivery Method Room Air Room Air Oxygen Flow Rate Sepsis Recent Fever Within 48 Hours Yes Sepsis New/Unexplained Change in Mental Status No Sepsis Action Taken by Nursing No Action Required 06/19/24 03:23 06/19/24 03:34 06/19/24 05:36 Temperature 37.1 C Temperature Source Oral Pulse Rate Pulse Rate [Right] 93 H 80 Respiratory Rate 18 21 Respiratory Effort / Characteristics Non-Labored Spontaneous Respiratory Depth Normal Blood Pressure [Right Arm] 153/71 H 161/70 H Blood Pressure Mean [Right Arm] 98 100 Pulse Oximetry 95 99 Oxygen Delivery Method Room Air Room Air Oxygen Flow Rate Sepsis Recent Fever Within 48 Hours Sepsis New/Unexplained Change in Mental Status Sepsis Action Taken by Nursing 06/19/24 06:00 Temperature Temperature Source Pulse Rate Pulse Rate [Right] 82 Respiratory Rate 16 Respiratory Effort / Characteristics Respiratory Depth Blood Pressure [Right Arm] 178/89 H Blood Pressure Mean [Right Arm] 118 Pulse Oximetry 96 Oxygen Delivery Method Nasal Cannula Oxygen Flow Rate 2 Sepsis Recent Fever Within 48 Hours Sepsis New/Unexplained Change in Mental Status Sepsis Action Taken by Nursing Laboratory Data 06/20/24 04:20 06/20/24 04:20 Lab Results 06/19/24 06/19/24 06/19/24 Range/Units 02:53 03:00 03:44 WBC 9.34 (4.8-10.8) K/ul RBC 3.37 L (4.70-6.10) M/uL Hgb 10.0 L (14.0-18.0) g/dl Hct 31.4 L (42.0-52.0) % MCV 93.2 (80.0-100.0) fL MCH 29.7 (25.0-34.0) pg MCHC 31.8 L (32.0-36.0) g/dL RDW Std Deviation 48.4 H (36.4-46.3) fL RDW Coeff of Mariana 14.4 (11.5-14.5) % Plt Count 100 L (130-400) K/uL MPV 12.1 (9.4-12.4) fL Immature Gran % (Auto) 0.4 % Neut % (Auto) 75.4 % Lymph % (Auto) 7.3 % [place] % (Auto) 15.7 % Eos % (Auto) 1.0 % Baso % (Auto) 0.2 % Neut # (Auto) 7.04 H (1.40-6.50) K/uL Lymph # (Auto) 0.68 L (1.20-3.40) K/uL [place] # (Auto) 1.47 H (0.11-0.59) K/uL Eos # (Auto) 0.09 (0.00-0.50) K/uL Baso # (Auto) 0.02 (0.00-0.20) K/uL Immature Gran # (Auto) 0.04 (0.01-0.20) K/uL VBG pH 7.40 (7.36-7.41) VBG pCO2 44 (38-50) mmHg VBG pO2 65 mmHg VBG HCO3 27 mmol/L VBG O2 Saturation 91.2 % VBG Base Excess 2.0 mEq/L Sodium 143 (136-145) mmol/L Potassium 4.5 (3.5-5.1) mmol/L Chloride 109 H (98-107) mmol/L Carbon Dioxide 26 (21-32) mmol/L Anion Gap 8 (3-11) BUN 39 H (6-23) mg/dl Creatinine 3.46 H (0.6-1.4) mg/dl Est Cr Clr Drug Dosing 20.2 ml/min Est GFR ( Amer) 18.2 ml/min Est GFR (Non-Af Amer) 15.7 ml/min BUN/Creatinine Ratio 11.3 (10-20) Glucose 182 H (70-99(Fasting)) mg/dl Lactate 1.1 (0.4-2.0) mmol/L Calcium 8.2 L (8.6-10.3) mg/dl Magnesium 1.7 (1.7-2.4) mg/dl Total Bilirubin 0.4 (0.2-1.0) mg/dl Direct Bilirubin 0.1 (0-0.2) mg/dl AST 10 L (13-39) U/L ALT 13 (7-52) U/L Alkaline Phosphatase 54 (34-104) U/L Troponin I High Sens 108.1 H* (0-20) pg/ml B-Natriuretic Peptide 279 H (0-100) pg/ml Total Protein 6.1 (6.0-8.3) gm/dl Albumin 3.5 (3.4-5.0) gm/dl Procalcitonin 0.56 H (0-0.5) ng/ml Urine Color Yellow Urine Appearance Turbid A (Clear) Urine pH 6.0 (4.5-7.5) Ur Specific [place] 1.019 (1.000-1.030) Urine Protein 4+ H (Negative) Urine Glucose (UA) Negative (Negative) Urine Ketones Negative (Negative) Urine Blood 2+ H (Negative) Urine Nitrite Negative (Negative) Urine Bilirubin Negative (Negative) Urine Urobilinogen Negative (Negative) Ur Leukocyte Esterase 3+ H (Negative) Urine WBC (Auto) >50 H (0-5) /hpf Urine RBC (Auto) 11-20 H (0-2) /hpf U Hyaline Cast (Auto) 3-5 H (0-2) /lpf U Epithel Cells (Auto) 0-2 (0-2) /hpf Urine Bacteria (Auto) 4+ H (None Seen) Adenovirus (PCR) Not Detected (NotDetected) B. pertussis DNA (PCR) Not Detected (NotDetected) B.parapertussis DNA PCR Not Detected (NotDetected) C. pneumoniae DNA (PCR) Not Detected (NotDetected) Coronavirus OC43 (PCR) Not Detected (NotDetected) Coronavirus HKU1 (PCR) Not Detected (NotDetected) Coronavirus 229E (PCR) Not Detected (NotDetected) SARS-CoV-2 (PCR) Not Detected (NotDetected) Coronavirus NL63 (PCR) Not Detected (NotDetected) Enterobacterales (PCR) DETECTED A (NotDetected) Human Metapneumovir PCR Not Detected (NotDetected) Influenza Type A (PCR) Not Detected (NotDetected) Influenza Type B (PCR) Not Detected (NotDetected) Klebsiella oxytoca PCR DETECTED A (NotDetected) M. pneumoniae (PCR) Not Detected (NotDetected) Parainfluenza 1 (PCR) Not Detected (NotDetected) Parainfluenza 2 (PCR) Not Detected (NotDetected) Parainfluenza 3 (PCR) Not Detected (NotDetected) Parainfluenza 4 (PCR) Not Detected (NotDetected) RSV (PCR) Not Detected (NotDetected) Entero/Rhino (PCR) Not Detected (NotDetected) mcr-1 Colistin Res Gene PCR Not Detected (NotDetected) blaIMP Car res Gene PCR Not Detected (NotDetected) KPC-Carbap Res Gene PCR Not Detected (NotDetected) blaNDM Car Res Gene PCR Not Detected (NotDetected) OXA-48 Carbapenem Resis Gene (PCR) Not Detected (NotDetected) blaVIM Car Res Gene PCR Not Detected (NotDetected) CTX-M Gene Resistance (PCR) Not Detected (NotDetected) Bld Cult ID Panel PCR See PCR Comment (NotDetected) Administered Medications Acetaminophen (Acetaminophen 325 Mg Tab) 650 mg PO Q4H PRN PRN Reason: Pain or Fever Stop: 07/19/24 08:26 Last Admin: 06/19/24 15:23 Dose: 650 mg Documented By: MAGDI Aspirin (Aspirin 81 Mg Ectab) 81 mg PO DAILY [facility] Stop: 07/19/24 08:59 Last Admin: 06/20/24 08:22 Dose: 81 mg Documented By: Admin: 06/19/24 09:42 Dose: 81 mg Documented By: MAGDI Atorvastatin Calcium (Atorvastatin 40 Mg Tab) 80 mg PO HS [facility] Stop: 07/19/24 20:59 Last Admin: 06/19/24 20:41 Dose: 80 mg Documented By: JULIÁN Benzocaine (Benzocaine 20% (Orajel) 11.9 Gm Tube) 1 appln MT TID PRN PRN Reason: oral pain Stop: 07/19/24 15:21 Last Admin: 06/19/24 15:54 Dose: 1 appln Documented By: MAGDI Carvedilol (Carvedilol 25 Mg Tab) 25 mg PO BIDM [facility] Stop: 07/19/24 16:59 Last Admin: 06/20/24 08:22 Dose: 25 mg Documented By: Admin: 06/19/24 16:26 Dose: 25 mg Documented By: MAGDI Doxazosin Mesylate (Doxazosin Mesylate 4 Mg Tab) 4 mg PO DAILY [facility] Stop: 07/19/24 08:59 Last Admin: 06/20/24 08:22 Dose: 4 mg Documented By: Admin: 06/19/24 09:43 Dose: 4 mg Documented By: MAGDI Fluticasone Furoate (Fluticasone Furoate 200mcg 14 Puffs/Inhaler) 1 puffs INH DAILY [facility]; Protocol Stop: 07/19/24 08:59 Last Admin: 06/20/24 08:24 Dose: 1 puffs Documented By: Admin: 06/19/24 09:44 Dose: 1 puffs Documented By: MAGDI Fluticasone Propionate (Fluticasone Propionate Na Spr 16 Gm Btl) 2 sprays MARK DAILY [facility] Stop: 07/19/24 08:59 Last Admin: 06/20/24 08:24 Dose: 2 sprays Documented By: Admin: 06/19/24 09:44 Dose: 2 sprays Documented By: MAGDI Gabapentin (Gabapentin 300 Mg Cap) 300 mg PO QAM [facility] Stop: 07/20/24 08:59 Last Admin: 06/20/24 08:23 Dose: 300 mg Documented By: NADIR Guaifenesin (Guaifenesin 200 Mg Tab) 400 mg PO TID PRN PRN Reason: help thin mucous Stop: 07/19/24 08:26 Last Admin: 06/19/24 20:41 Dose: 400 mg Documented By: JULIÁN Heparin Sodium (Porcine) (Heparin Sod 5,000 Unit/0.5 Ml Vial) 5,000 units SQ Q12 [facility] Stop: 07/20/24 08:59 Last Admin: 06/20/24 08:41 Dose: 5,000 units Documented By: NADIR Cefepime HCl 1,000 mg/ Syringe 10 mls @ 5 mls/min IV Q12H [facility] Stop: 06/29/24 15:59 Last Admin: 06/20/24 04:32 Dose: 5 mls/min Documented By: Admin: 06/19/24 15:23 Dose: 5 mls/min Documented By: MAGDI Insulin Aspart (Insulin Aspart Per Unit Charge) 0 units SC ACHS [facility] Stop: 07/19/24 08:26 Last Admin: 06/20/24 08:21 Dose: 8 units Documented By: NADIR Co-signed By: UZMA Admin: 06/19/24 20:40 Dose: 3 units Documented By: JULIÁN Co-signed By: MANJIT Admin: 06/19/24 16:25 Dose: 13 units Documented By: MAGDI Co-signed By: RAFA Admin: 06/19/24 12:33 Dose: 7 units Documented By: MAGDI Co-signed By: STEFFI Admin: 06/19/24 09:49 Dose: 4 units Documented By: MAGDI Co-signed By: FLORENCIA Insulin Glargine (Lantus Per Unit Charge) 45 units SC HS [facility] Stop: 07/19/24 15:44 Last Admin: 06/19/24 16:26 Dose: 45 units Documented By: MAGDI Co-signed By: RAFA Loratadine (Loratadine 10 Mg Tab) 10 mg PO Q2D [facility] Stop: 07/20/24 08:59 Last Admin: 06/20/24 08:23 Dose: 10 mg Documented By: NADIR Magnesium Oxide (Magnesium Oxide 400 Mg Tab) 400 mg PO DAILY [facility] Stop: 07/19/24 08:59 Last Admin: 06/20/24 08:23 Dose: 400 mg Documented By: Admin: 06/19/24 09:45 Dose: 400 mg Documented By: MAGDI Multivitamins/Minerals (Cerovite Adv Formula Tab) 1 tab PO DAILY [facility] Stop: 07/20/24 08:59 Last Admin: 06/20/24 08:23 Dose: 1 tab Documented By: NADIR Ondansetron HCl (Ondansetron Inj 2 Mg/Ml 2 Ml Vial) 4 mg IV Q6H PRN PRN Reason: Nausea And Vomiting Stop: 07/20/24 01:46 Last Admin: 06/20/24 02:03 Dose: 4 mg Documented By: MaximT Oxycodone HCl (Oxycodone Hcl Ir 5 Mg Tab (Immediate Release)) 5 mg PO Q6H PRN PRN Reason: moderate-severe Pain Stop: 07/03/24 15:21 Last Admin: 06/19/24 21:10 Dose: 5 mg Documented By: MaximT Pantoprazole Sodium (Pantoprazole 40 Mg Tab) 40 mg PO BID [facility]; Protocol Stop: 07/19/24 08:59 Last Admin: 06/20/24 08:24 Dose: 40 mg Documented By: Admin: 06/19/24 20:41 Dose: 40 mg Documented By: Admin: 06/19/24 09:45 Dose: 40 mg Documented By: MAGDI Umeclidinium/Vilanterol (Umeclidinium/Vilanterol 62.5/25mcg 7 Puffs/Inhaler) 1 puffs INH DAILY [facility]; Protocol Stop: 07/19/24 08:59 Last Admin: 06/20/24 08:24 Dose: 1 puffs Documented By: Admin: 06/19/24 09:44 Dose: 1 puffs Documented By: MAGDI Vitamin D (Cholecalciferol 25 Mcg (1000 Units) Tab) 50 mcg PO DAILY [facility] Stop: 07/19/24 08:59 Last Admin: 06/20/24 08:22 Dose: 50 mcg Documented By: Admin: 06/19/24 09:43 Dose: 50 mcg Documented By: MAGDI Discontinued Medications Carvedilol (Carvedilol 12.5 Mg Tab) 12.5 mg PO BIDM [facility] Stop: 07/19/24 08:59 Last Admin: 06/19/24 09:42 Dose: 12.5 mg Documented By: MAGDI Enoxaparin Sodium (Enoxaparin Inj 30 Mg/0.3 Ml Syr) 30 mg SQ Q24H [facility] Stop: 07/19/24 08:59 Last Admin: 06/19/24 09:43 Dose: 30 mg Documented By: MAGDI Gabapentin (Gabapentin 300 Mg Cap) 300 mg PO BID [facility] Stop: 07/19/24 08:59 Last Admin: 06/19/24 09:46 Dose: 300 mg Documented By: MAGDI Hydralazine HCl (Hydralazine Hcl 20 Mg/Ml Vial) 10 mg IV NOW STA Stop: 06/19/24 17:28 Last Admin: 06/19/24 17:41 Dose: 10 mg Documented By: MAGDI Cefepime HCl (Maxipime) 2,000 mg in 20 mls @ 5 mls/min IV NOW STA; Protocol Stop: 06/19/24 04:01 Last Admin: 06/19/24 04:06 Dose: 5 mls/min Documented By: YASIR Sodium Chloride (Nss) 500 mls @ 80 mls/hr IV .Q6H15M [facility] Stop: 07/19/24 04:14 Last Infusion: 06/19/24 09:09 Dose: Infused Documented By: Infusion: 06/19/24 09:06 Dose: 0 mls/hr Documented By: Admin: 06/19/24 04:06 Dose: 80 mls/hr Documented By: YASIR Sodium Chloride (Nss) 1,000 mls @ 80 mls/hr IV .[id number] [facility] Stop: 06/20/24 09:26 Last Infusion: 06/20/24 07:33 Dose: Infused Documented By: Admin: 06/19/24 18:07 Dose: 80 mls/hr Documented By: Infusion: 06/19/24 18:06 Dose: Infused Documented By: Admin: 06/19/24 08:48 Dose: 80 mls/hr Documented By: MAGDI Metoprolol Tartrate (Metoprolol Tartrate 50 Mg Tab) 50 mg PO BID [facility] Stop: 07/19/24 08:59 Last Admin: 06/19/24 09:45 Dose: 50 mg Documented By: MAGDI Imaging Data Radiologist's Impression: Abdomen/Pelvis CT 06/19/24 04:22 Exam(s): CT ABDOMEN + PELVIS Without Contrast EXAM: CT Abdomen and Pelvis Without Intravenous Contrast CLINICAL HISTORY: Reason for exam: ingrid, uti. TECHNIQUE: Axial computed tomography images of the abdomen and pelvis without intravenous contrast. Automated exposure control was utilized for the study. A dose lowering technique was utilized adhering to the principles of ALARA. COMPARISON: No relevant prior studies available. FINDINGS: Limitations: Limited evaluation in the absence of contrast. Lung bases: Coronary artery calcifications. Sternotomy changes. ABDOMEN: Liver: Unremarkable. Gallbladder and bile ducts: Cholecystectomy changes. No ductal dilation. Pancreas: Unremarkable. No ductal dilation. Spleen: Unremarkable. No splenomegaly. Adrenals: Unremarkable. No mass. Kidneys and ureters: No evidence of radiopaque renal calculi or signs of collecting system dilatation. Atrophic appearance of the right kidney. Cortical defects in the kidneys which likely relate to sequela of prior infection. Simple bilateral renal cysts. No follow-up of these simple cysts is necessary. Stomach and bowel: No evidence of bowel obstruction. No mucosal thickening. PELVIS: Appendix: Normal appendix. Bladder: Diffuse bladder wall thickening with intervening Berg and gas in the bladder dome. Findings may be due to recent placement with decompression. Cystitis is also possible. Consider correlation with laboratory values. No stones. Reproductive: Unremarkable as visualized. ABDOMEN and PELVIS: Intraperitoneal space: Unremarkable. No free air. No significant fluid collection. Bones/joints: Degenerative changes in the spine. 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 No acute fracture. No dislocation. Soft tissues: Unremarkable. Vasculature: Atherosclerotic disease. No abdominal aortic aneurysm. Lymph nodes: Unremarkable. No enlarged lymph nodes. IMPRESSION: 1. Limited evaluation in the absence of contrast. 2. No evidence of radiopaque renal calculi or signs of collecting system dilatation. 3. Diffuse bladder wall thickening with intervening Berg and gas in the bladder dome. Findings may be due to recent placement with decompression. Cystitis is also possible. Consider correlation with laboratory values. 4. No other acute findings. 5. Incidental findings as described. Electronically signed by: Felix Ng MD 06/19/24 05:50 AM Discharge Plan Visit Data Chief Complaint: Fever Stated Complaint: SHORTNESS OF BREATH, ABD DISTENSION, CHF/COPD ED Provider: Kym Mcleod Discharge Problem: Dyspnea, INGRID (acute kidney injury), Acute UTI (urinary tract infection), Elevated troponin Patient Disposition: Admitted As Inpatient Discharge Instructions Interventions: ED Discharge Assessment Last Done: 06/19/24 07:48
[2024-06-19] MEDS ORDERED: ALBUTEROL HFA 8 GM INHALER INH PRN (08:27)
[2024-06-19] MEDS ORDERED: GLUCAGON FOR INJ 1 MG VIAL SQ PRN (08:27)
[2024-06-19] MEDS ORDERED: MECLIZINE HCL 25 MG TAB PO PRN (08:27)
[2024-06-19] MEDS ORDERED: GLUCOSE 40% GEL 15 GM TUBE PO PRN (08:27)
[2024-06-19] MEDS ORDERED: GLUCOSE 10 TAB/TUBE PO PRN (08:27)
[2024-06-19] MEDS ORDERED: CARBOHYDRATES FOR HYPOGLYCEMIA PO PRN (08:27)
[2024-06-19] MEDS ORDERED: DEXTROSE 50% 50 ML SYRINGE IV PRN (08:27)
--- NOTE | 2024-06-19 08:30 | XRay Report ---
XR chest 1V portable HISTORY: Sepsis COMPARISON: Chest 09/18/2022. FINDINGS: No pneumothorax. No pleural effusions. The cardiac silhouette is normal in size. There are poststernotomy changes and aortic knob calcifications. There is mild central pulmonary vascular conge stion without overt edema. No focal lung consolidations to suggest a pneumonia. IMPRESSION: Mild central pulmonary vascular congestion without overt edema. ACT 112: Negative or not required by law. Electronically signed by: Cristhian Paulino M.D. 06/19/2024 8:29 AM
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
[2024-06-19] MEDS: SODIUM CHLORIDE 0.9% 1,000 ML IV SCH (08:48)
[2024-06-19] MEDS ORDERED: LIDOCAINE 4% CREAM 15 GM TUBE EXT PRN (08:55)
[2024-06-19] MEDS ORDERED: ARTIFICIAL TEARS OPB PRN (08:56)
[2024-06-19] MEDS ORDERED: lisinopril 10 MG TAB PO SCH (09:00)
[2024-06-19] MEDS: carvediloL 12.5 MG TAB PO SCH (09:42)
[2024-06-19] MEDS: ASPIRIN 81 MG ECTAB PO SCH (09:42)
[2024-06-19] MEDS: CHOLECALCIFEROL 25 MCG (1000 UNITS) TAB PO SCH (09:43)
[2024-06-19] MEDS: ENOXAPARIN INJ 30 MG/0.3 ML SYR SQ SCH (09:43)
[2024-06-19] MEDS: DOXAZosin MESYLATE 4 MG TAB PO SCH (09:43)
[2024-06-19] MEDS: FLUTICASONE PROPIONATE NA SPR 16 GM BTL NAE SCH (09:44)
[2024-06-19] MEDS: UMECLIDINIUM/VILANTEROL 62.5/25MCG 7 PUFFS/INHALER INH SCH (09:44)
[2024-06-19] MEDS: FLUTICASONE FUROATE 200MCG 14 PUFFS/INHALER INH SCH (09:44)
[2024-06-19] MEDS: PANTOprazole 40 MG TAB PO SCH (09:45)
[2024-06-19] MEDS: METOPROLOL TARTRATE 50 MG TAB PO SCH (09:45)
[2024-06-19] MEDS: MAGNESIUM OXIDE 400 MG TAB PO SCH (09:45)
[2024-06-19] MEDS: GABAPENTIN 300 MG CAP PO SCH (09:46)
--- NOTE | 2024-06-19 09:48 | Cardiology Consultation ---
Date of Consultation June 19, 2024 Assessment & Plan (1) NSTEMI (non-ST elevated myocardial infarction): (2) Coronary artery disease: (3) S/P CABG (coronary artery bypass graft): (4) Elevated troponin: (5) Chronic heart failure with preserved ejection fraction: (6) Sepsis due to urinary tract infection: (7) Hypertension: Plan ASSESSMENT/PLAN: 1. NSTEMI/elevated troponin: He did not present with acute coronary syndrome, but rather signs/symptoms from UTI/sepsis. Recent cardiac catheterization for which revascularization was not necessary as he has patent bypass grafts. Continue medical therapy for underlying CAD. Further ischemic evaluation is not necessary. Elevated troponin likely due to demand ischemia in the setting of infection and also hypertension. Echo ordered by hospitalist service, pending review. 2. CAD s/p CABG x 2: No angina. Patent bypass grafts based on cardiac catheterization done earlier this year at outside facility. Continue aspirin 81 mg daily. Continue high intensity statin therapy. 3. Hypertension: Blood pressure elevated. According to [facility] records, metoprolol was being transition to carvedilol. Would recommend discontinuation of metoprolol and can further titrate carvedilol as necessary. Can use amlodipine as necessary. ASTON inhibitor currently on hold given INGRID. 4. Chronic heart failure with preserved EF: He is not hypervolemic on examination. Outpatient diuretic currently on hold given INGRID. Low-sodium diet. Strict I's and O's. No SGLT2 inhibitor given INGRID and UTI. 5. Sepsis/UTI: As per primary hospitalist service. 6. Disposition: Cardiology will sign off. Please call with any other questions or concerns. Follow-up with his primary director ship through the [facility] system. Patient care communicated with primary hospitalist, Dr. Tom. Dr. Briggs will be covering tomorrow if further assistance is needed. Thank you for allowing me to participate in the care of your patient. Please call for any other questions or concerns. Sincerely, Zhang Fuentes M.D. History of Present Illness Reason for Consultation: NSTEMI, abnormal ECG, sepsis Requesting Physician: Alexis Gonzales MD Attending Physician: Kendal Tom MD History of Present Illness Mr. Garcia is a very pleasant 83-year-old gentleman with a history significant for CAD s/p CABG x 2, heart failure with preserved EF, hypertension, dyslipidemia, CKD, diabetes, macular degeneration, legally blind (totally blind left eye with 50% visual loss in the right), peripheral neuropathy, COPD, and BPH with urinary obstruction [facility]. He has had the following studies/procedures: 1. CABG 04/01/2004 (MCHUGH to LAD. Radial graft to right PDA (s/p left radial artery harvest). 2. Echo 09/08/2023 [facility]: Normal LV systolic function and wall motion. EF 60 to 65%. Moderate left atrial dilation. Trace AI. 3. Myocardial perfusion study 11/18/2023: Mild apical ischemia. 4. Cardiac cath 12/09/2023 LAD 40%. OM1 30%. OM 270% (very small vessel). RCA 90% with diffuse disease. Patent MCHUGH to LAD. Patent radial to PDA. PCWP 25; CO 4.4; CI 2.1. He was admitted on 06/19/2024 for sepsis due to UTI. On 06/18/2024, he reports having fevers as high as 102 F with shaking chills, shortness of breath, and nausea but no vomiting. He felt very tired/worn out. He was not certain if he had edema. He denied chest discomfort. He is not aware if he has issues such as hematuria, hematochezia, or melena. He denies syncope or palpitations. He has a history of left-sided chest discomfort with exertion and associated shortness of breath and has undergone evaluation from an outside facility as noted above. He is not sure of his medications. [facility] and states that a nurse visits him on a monthly basis to take care of his indwelling urinary catheter and at that time fills his daily medication boxes. Review of systems: As above. Review of systems otherwise negative/unremarkable. Family history: Father had CAD. Social history: Quit smoking approximately 25 years ago. Denies alcohol or drug abuse. and his ex- has since . Had a son and a daughter but his daughter at 52 with a blood disorder, similar to her mother's. His son is not active in his life. He lives alone. He was unaccompanied. Allergies Allergy/AdvReac Type Severity Reaction Status Date / Time strawberry Allergy Intermediate hives Verified 06/19/24 02:54 Home Medications Medication Instructions Recorded Confirmed Type carboxymethylcellulose sodium 0.5 1 drp OPB BID 05/22/21 06/19/24 History % eye drops colchicine 0.6 mg capsule See Rx Instructions .Route .COMPLEX 05/22/21 06/19/24 History loratadine 10 mg tablet (Allergy 10 mg PO Q OTHER DAY 05/22/21 06/19/24 History Relief (loratadine)) magnesium oxide 420 mg tablet 420 mg PO DAILY 05/22/21 06/19/24 History omeprazole 20 mg capsule,delayed 20 mg PO BID 05/22/21 06/19/24 History release aspirin 81 mg tablet,delayed 81 mg PO DAILY 09/15/22 06/19/24 History release atorvastatin 80 mg tablet 80 mg PO HS 09/15/22 06/19/24 History doxazosin 4 mg tablet 4 mg PO DAILY 09/15/22 06/19/24 History fluticasone propionate 50 2 spray intranasal DAILY 09/15/22 06/19/24 History mcg/actuation nasal spray,suspension gabapentin 300 mg capsule 300 mg PO BID 09/15/22 06/19/24 History guaifenesin 200 mg tablet 400 mg PO TID PRN help thin mucous 09/15/22 06/19/24 History insulin aspart U-100 100 unit/mL 22 unit subcut TIDM 09/15/22 06/19/24 History (3 mL) subcutaneous pen (Novolog FlexPen U-100 Insulin aspart) meclizine 12.5 mg tablet 25 mg PO Q6H PRN Vertigo 09/15/22 06/19/24 History mometasone 220 mcg/actuation(60 1 inh inhalation BID 09/15/22 06/19/24 History doses) breath activated powder inhaler omega 8-sjw-ban-fish oil 1,000 mg 2 cap PO BID 09/15/22 06/19/24 History (120 mg-180 mg) capsule (Fish Oil) tiotropium 2.5 mcg-olodaterol 2.5 2 puff inhalation DAILY 09/15/22 06/19/24 History mcg/actuation mist for inhalation vit C 250 mg-vit E 90 mg-zinc 40 1 tab PO BID 09/15/22 06/19/24 History mg-copper 1 so-naqcth-izmbxt capsule (PreserVision AREDS-2) carvedilol 25 mg tablet 12.5 mg PO BID 01/19/24 06/19/24 History furosemide 80 mg tablet 80 mg PO DAILY 01/19/24 06/19/24 History glucose 4 gram chewable tablet 4 g PO UD PRN hypoglycemia 01/19/24 06/19/24 History zinc oxide 20 % topical ointment 1 applic topical DAILY PRN Penile 01/19/24 06/19/24 History Irritation/Excoriation albuterol sulfate 90 mcg/actuation 2 puff inhalation Q4H PRN 02/14/24 06/19/24 History aerosol inhaler Shortness Of Breath Or Wheezing cholecalciferol (vitamin D3) 25 50 mcg PO DAILY 02/14/24 06/19/24 History mcg (1,000 unit) capsule furosemide 40 mg tablet 40 mg PO Q OTHER DAY 02/14/24 06/19/24 History levofloxacin 250 mg tablet 250 mg PO DAILY 02/14/24 06/19/24 History lidocaine 5 % topical cream 1 applic topical BID PRN Pain 02/14/24 06/19/24 History lisinopril 10 mg tablet 10 mg PO DAILY 02/14/24 06/19/24 History metoprolol tartrate 50 mg tablet 50 mg PO BID 02/14/24 06/19/24 History insulin glargine-yfgn 100 unit/mL 46 unit subcut HS 03/14/24 06/19/24 History (3 mL) subcutaneous pen Problem List (Updated 06/19/24 @ 14:51 by Jeff Fuentes MD) Chronic heart failure with preserved ejection fraction Elevated troponin (Acute) Acute UTI (urinary tract infection) (Acute) INGRID (acute kidney injury) (Acute) Dyspnea (Acute) Chronic indwelling Berg catheter BPH loc w urin obs/LUTS NSTEMI (non-ST elevated myocardial infarction) Cardiomyopathy Acute kidney injury superimposed on CKD Sepsis due to urinary tract infection Fluid overload (Acute) Urinary retention (Acute) Congestive heart failure (Acute) Acute kidney injury (Acute) Vitamin D deficiency Chronic kidney disease, stage 4 (severe) BPH (benign prostatic hyperplasia) Age-related macular degeneration Vertigo Insulin dependent diabetes mellitus Blindness COPD (chronic obstructive pulmonary disease) Hyperlipidemia Coronary artery disease (Chronic) Diabetes (Chronic) Hypertension (Chronic) Abdominal pain (Acute) Acute cholecystitis (Acute 12/28/13) Urinary retention (Acute) Patient History Medical History Macular degeneration Surgical History History of open heart surgery 2002 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 Hx of cholecystectomy 01/29/2014 Social History Smoking Status: Former smoker Tobacco Type: Cigarettes Hx Alcohol Use: No Hx Substance Use: No Preferred Language: Bots[place] Communication Ability: Effective Visual Impairment: Limited Hearing Ability: Normal Weaver Apprentice Required: Yes Beliefs That Will Affect Care: None marital status: Single Current Living Situation: Alone Current Living Situation Comment: pt has caretakers come in 2x/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 Alert. HEENT: Anicteric sclera. Neck: Thick neck. No bruits. Normal carotid upstrokes bilaterally. Cardiac: Regular. Normal S1-S2. No murmurs, rubs, or gallops. Pulmonary: Clear to auscultation bilaterally without wheezes, rales, or rhonchi. Abdomen: Soft, nontender, nondistended, with normoactive bowel sounds. No bruits noted. Extremities: 2+ right radial pulse. s/p left radial artery harvest. 1+ posterior tibialis pulses bilaterally. Trace bilateral lower extremity edema. No cyanosis. Results & Data Vital Signs (Past 12 Hours) Vital Signs Temp Pulse Pulse Resp BP BP Pulse Ox 06/19/24 08:33 37.1 C 06/19/24 08:30 84 06/19/24 08:27 06/19/24 08:21 80 18 171/71 H 94 06/19/24 08:18 84 24 96 06/19/24 08:15 09/02/24 08:00 84 06/19/24 07:30 82 16 197/90 H 99 06/19/24 06:00 82 16 178/89 H 96 06/19/24 05:36 80 21 161/70 H 99 06/19/24 03:34 37.1 C 06/19/24 03:23 93 H 18 153/71 H 95 06/19/24 03:05 92 06/19/24 02:42 105 H 06/19/24 02:37 37.8 C H 104 H 16 Pulse Ox O2 Del Method O2 Del Method O2 Flow Rate O2 Flow Rate 06/19/24 08:33 06/19/24 08:30 06/19/24 08:27 100 Nasal Cannula 2 06/19/24 08:21 Nasal Cannula 2 06/19/24 08:18 06/19/24 08:15 Nasal Cannula 2 06/19/24 08:00 06/19/24 07:30 Nasal Cannula 2 06/19/24 06:00 Nasal Cannula 2 06/19/24 05:36 Room Air 06/19/24 03:34 06/19/24 03:23 Room Air 06/19/24 03:05 Room Air 06/19/24 02:42 06/19/24 02:37 Room Air Intake & Output 06/17/24 06/18/24 06/19/24 06/20/24 06:59 06:59 06:59 06:59 Intake Total 120 / 120 1200 / 1200 Output Total 1225 / 1225 Balance 120 / -605 -25 / -25 Weight 250 lb 14.177 oz 242 lb 8.136 oz Laboratory Results Laboratory Results - last 24 hr 06/19/24 06/19/24 06/19/24 02:53 03:00 03:44 WBC 9.34 RBC 3.37 L Hgb 10.0 L Hct 31.4 L MCV 93.2 MCH 29.7 MCHC 31.8 L RDW Std Deviation 48.4 H RDW Coeff of Mariana 14.4 Plt Count 100 L MPV 12.1 Immature Gran % (Auto) 0.4 Neut % (Auto) 75.4 Lymph % (Auto) 7.3 Leon % (Auto) 15.7 Eos % (Auto) 1.0 Baso % (Auto) 0.2 Neut # (Auto) 7.04 H Lymph # (Auto) 0.68 L Leon # (Auto) 1.47 H Eos # (Auto) 0.09 Baso # (Auto) 0.02 Immature Gran # (Auto) 0.04 VBG pH 7.40 VBG pCO2 44 VBG pO2 65 VBG HCO3 27 VBG O2 Saturation 91.2 VBG Base Excess 2.0 Sodium 143 Potassium 4.5 Chloride 109 H Carbon Dioxide 26 Anion Gap 8 BUN 39 H Creatinine 3.46 H Est Cr Clr Drug Dosing 20.2 Est GFR ( Amer) 18.2 Est GFR (Non-Af Amer) 15.7 BUN/Creatinine Ratio 11.3 Glucose 182 H POC Glucose Lactate 1.1 Calcium 8.2 L Magnesium 1.7 Total Bilirubin 0.4 Direct Bilirubin 0.1 AST 10 L ALT 13 Alkaline Phosphatase 54 Troponin I High Sens 108.1 H* B-Natriuretic Peptide 279 H Total Protein 6.1 Albumin 3.5 Procalcitonin 0.56 H Urine Color Yellow Urine Appearance Turbid A Urine pH 6.0 Ur Specific Mccaulley 1.019 Urine Protein 4+ H Urine Glucose (UA) Negative Urine Ketones Negative Urine Blood 2+ H Urine Nitrite Negative Urine Bilirubin Negative Urine Urobilinogen Negative Ur Leukocyte Esterase 3+ H Urine WBC (Auto) >50 H Urine RBC (Auto) 11-20 H U Hyaline Cast (Auto) 3-5 H U Epithel Cells (Auto) 0-2 Urine Bacteria (Auto) 4+ H Nasal Screen MRSA (PCR) Adenovirus (PCR) Not Detected B. pertussis DNA (PCR) Not Detected B.parapertussis DNA PCR Not Detected C. pneumoniae DNA (PCR) Not Detected Coronavirus OC43 (PCR) Not Detected Coronavirus HKU1 (PCR) Not Detected Coronavirus 229E (PCR) Not Detected SARS-CoV-2 (PCR) Not Detected Coronavirus NL63 (PCR) Not Detected Human Metapneumovir PCR Not Detected Influenza Type A (PCR) Not Detected Influenza Type B (PCR) Not Detected M. pneumoniae (PCR) Not Detected Parainfluenza 1 (PCR) Not Detected Parainfluenza 2 (PCR) Not Detected Parainfluenza 3 (PCR) Not Detected Parainfluenza 4 (PCR) Not Detected RSV (PCR) Not Detected Entero/Rhino (PCR) Not Detected 06/19/24 06/19/24 06/19/24 05:19 08:15 08:57 WBC RBC Hgb Hct MCV MCH MCHC RDW Std Deviation RDW Coeff of Mariana Plt Count MPV Immature Gran % (Auto) Neut % (Auto) Lymph % (Auto) Leon % (Auto) Eos % (Auto) Baso % (Auto) Neut # (Auto) Lymph # (Auto) Leon # (Auto) Eos # (Auto) Baso # (Auto) Immature Gran # (Auto) VBG pH VBG pCO2 VBG pO2 VBG HCO3 VBG O2 Saturation VBG Base Excess Sodium Potassium Chloride Carbon Dioxide Anion Gap BUN Creatinine Est Cr Clr Drug Dosing Est GFR ( Amer) Est GFR (Non-Af Amer) BUN/Creatinine Ratio Glucose POC Glucose 174 H Lactate Calcium Magnesium Total Bilirubin Direct Bilirubin AST ALT Alkaline Phosphatase Troponin I High Sens 123.1 H* 160.6 H* D B-Natriuretic Peptide Total Protein Albumin Procalcitonin Urine Color Urine Appearance Urine pH Ur Specific [place] Urine Protein Urine Glucose (UA) Urine Ketones Urine Blood Urine Nitrite Urine Bilirubin Urine Urobilinogen Ur Leukocyte Esterase Urine WBC (Auto) Urine RBC (Auto) U Hyaline Cast (Auto) U Epithel Cells (Auto) Urine Bacteria (Auto) Nasal Screen MRSA (PCR) Pending Adenovirus (PCR) B. pertussis DNA (PCR) B.parapertussis DNA PCR C. pneumoniae DNA (PCR) Coronavirus OC43 (PCR) Coronavirus HKU1 (PCR) Coronavirus 229E (PCR) SARS-CoV-2 (PCR) Coronavirus NL63 (PCR) Human Metapneumovir PCR Influenza Type A (PCR) Influenza Type B (PCR) M. pneumoniae (PCR) Parainfluenza 1 (PCR) Parainfluenza 2 (PCR) Parainfluenza 3 (PCR) Parainfluenza 4 (PCR) RSV (PCR) Entero/Rhino (PCR) Diagnostic Findings Labs reviewed and notable for mildly elevated high-sensitivity troponin, initially 108 and trended upward to 160; mildly elevated BNP; abnormal renal function, above baseline, normal potassium, nonelevated transaminase levels, chr onic anemia, mild thrombocytopenia. ECG personally reviewed 06/19/2024: Sinus tachycardia [address]/T wave abnormality. History and physical report reviewed. CT abdomen/pelvis 06/19/2024: Diffuse bladder wall thickening per radiology. Outside echo report reviewed as noted above in HPI. Outside cath report reviewed as noted above in HPI. Medications Administered Current Inpatient Medications Acetaminophen (Acetaminophen 325 Mg Tab) 650 mg PO Q4H PRN PRN Reason: Pain or Fever Stop: 07/19/24 08:26 Albuterol (Albut/Ipratrop 3mg/0.5mg Neb 3 Ml Vial) 3 ml NEB Q2H PRN; Protocol PRN Reason: dyspnea Stop: 07/19/24 06:18 Albuterol (Albuterol Hfa 8 Gm Inhaler) 2 puffs INH Q4H PRN PRN Reason: Shortness Of Breath Or Wheezing Stop: 07/19/24 08:26 Albuterol (Albut/Ipratrop 3mg/0.5mg Neb 3 Ml Vial) 3 ml NEB Q2H PRN; Protocol PRN Reason: dyspnea Stop: 07/19/24 08:26 Artificial Tears (Artificial Tears) 1 drops OPB Q4H PRN; Protocol PRN Reason: Dryness Stop: 07/19/24 08:55 Aspirin (Aspirin 81 Mg Ectab) 81 mg PO DAILY AUDRA Stop: 07/19/24 08:59 Atorvastatin Calcium (Atorvastatin 40 Mg Tab) 80 mg PO HS AUDRA Stop: 07/19/24 20:59 Carvedilol (Carvedilol 12.5 Mg Tab) 12.5 mg PO BIDM AUDRA Stop: 07/19/24 08:59 Dextrose (Dextrose 50% 50 Ml Syringe) 25 - 50 ml IV UD PRN; Protocol PRN Reason: Hypoglycemia Protocol Stop: 07/19/24 08:26 Doxazosin Mesylate (Doxazosin Mesylate 4 Mg Tab) 4 mg PO DAILY AUDRA Stop: 07/19/24 08:59 Enoxaparin Sodium (Enoxaparin Inj 30 Mg/0.3 Ml Syr) 30 mg SQ Q24H AUDRA Stop: 07/19/24 08:59 Fluticasone Furoate (Fluticasone Furoate 200mcg 14 Puffs/Inhaler) 1 puffs INH DAILY AUDRA; Protocol Stop: 07/19/24 08:59 Fluticasone Propionate (Fluticasone Propionate Na Spr 16 Gm Btl) 2 sprays MRAK DAILY AUDRA Stop: 07/19/24 08:59 Gabapentin (Gabapentin 300 Mg Cap) 300 mg PO BID AUDRA Stop: 07/19/24 08:59 Glucagon (Glucagon For Inj 1 Mg Vial) 1 mg SQ UD PRN; Protocol PRN Reason: Hypoglycemia Protocol Stop: 07/19/24 08:26 Glucose (Glucose 40% Gel 15 Gm Tube) 15 - 30 gm PO UD PRN; Protocol PRN Reason: Hypoglycemia Protocol Stop: 07/19/24 08:26 Glucose (Glucose 10 Tab/Tube) 4 - 8 tab PO UD PRN; Protocol PRN Reason: Hypoglycemia Treatment Stop: 07/19/24 08:26 Guaifenesin (Guaifenesin 200 Mg Tab) 400 mg PO TID PRN PRN Reason: help thin mucous Stop: 07/19/24 08:26 Sodium Chloride (Nss) 1,000 mls @ 80 mls/hr IV .[id number] AUDRA Stop: 06/19/24 20:56 Last Admin: 06/19/24 08:48 Dose: 80 mls/hr Cefepime HCl 1,000 mg/ Syringe 10 mls @ 5 mls/min IV Q12H AUDRA Stop: 06/29/24 15:59 Insulin Aspart (Insulin Aspart Per Unit Charge) 0 units SC ACHS AUDRA Stop: 07/19/24 08:26 Insulin Glargine (Lantus Per Unit Charge) 35 units SC HS AUDRA Stop: 07/19/24 20:59 Lidocaine (Lidocaine 4% Cream 15 Gm Tube) 1 appln EXT BID PRN; Protocol PRN Reason: Pain Stop: 07/19/24 08:54 Loratadine (Loratadine 10 Mg Tab) 10 mg PO Q2D AUDRA Stop: 07/20/24 08:59 Magnesium Oxide (Magnesium Oxide 400 Mg Tab) 400 mg PO DAILY AUDRA Stop: 07/19/24 08:59 Meclizine HCl (Meclizine Hcl 25 Mg Tab) 25 mg PO Q6H PRN PRN Reason: Vertigo Stop: 07/19/24 08:26 Metoprolol Tartrate (Metoprolol Tartrate 50 Mg Tab) 50 mg PO BID AUDRA Stop: 07/19/24 08:59 Miscellaneous (Carbohydrates For Hypoglycemia ) 15 - 30 gm PO UD PRN PRN Reason: Hypoglycemia Protocol Stop: 07/19/24 08:26 Multivitamins/Minerals (Cerovite Adv Formula Tab) 1 tab PO DAILY AUDRA Stop: 07/20/24 08:59 Pantoprazole Sodium (Pantoprazole 40 Mg Tab) 40 mg PO BID AUDRA; Protocol Stop: 07/19/24 08:59 Petrolatum (Butt Paste (Zinc Oxide 16%) 171 Appln/57 Gm Jar) 1 appln EXT DAILY PRN PRN Reason: Penile Irritation/Excoriation Stop: 07/19/24 09:01 Umeclidinium/Vilanterol (Umeclidinium/Vilanterol 62.5/25mcg 7 Puffs/Inhaler) 1 puffs INH DAILY AUDRA; Protocol Stop: 07/19/24 08:59 Vitamin D (Cholecalciferol 25 Mcg (1000 Units) Tab) 50 mcg PO DAILY AUDRA Stop: 07/19/24 08:59 PG Care Time/CCT Total # of Minutes Spent Total Time Spent with Patient: Total time spent is greater than 50% in coordination of care (as documented) at patient's floor/unit and/or counseling patient: Coding Level of Care Code 04057 INT INP/OBS CARE 3/75MIN Diagnoses NSTEMI (non-ST elevated myocardial infarction) I21.4 Coronary artery disease I25.10 S/P CABG (coronary artery bypass graft) Z95.1 Elevated troponin R79.89 Chronic heart failure with preserved ejection fraction I50.32 Sepsis due to urinary tract infection A41.9; N39.0 Hypertension I10
[2024-06-19] MEDS: INSULIN ASPART PER UNIT CHARGE SC SCH (09:49)
--- NOTE | 2024-06-19 15:05 | History & Physical Bridge Note ---
Date of Service June 19, 2024 History & Physical Bridge Note I have examined the patient, reviewed the History & Physical and in the interval since the performance of the History & Physical I have noted the following changes of clinical significance: Pt having myalgias all over and reports he had significant chills at home prior to admission. Asking for pain medication. ALso with a sore on right side of tongue x 2 days-asking for pain med for that. Alejo exchanged on admission-counseled on not clamping his Alejo and using a leg bag instead when out and about. BPs have been elevated and Coreg uptitrated by Cardiology, metoprolol stopped given duplicate medicine. Gets what sounds like stable angina at times but had cath in 11/2023 with patent bypass grafts. Vitals reviewed NAD, AAOx3 Right tongue with 5mm white ulceration on side RRR no mgr CTAB no wcr ABd +BS soft NT mild distension Ext no edema SKin no rashes -Alejo inplace with clear yellow urine serial trop reviewed, repeat BMP this afternoon pending 83 yo male here with sepsis, POA, UTI, and INGRID on CKD stage 4, myocardial demand ischemia Continue current abx, follow cultures, Alejo exchanged and counseled on not clamping Alejo at home-can use leg bag instead ECHO pending, increasing Coreg dose for accelerated HTN Appreciate Cardiology and Nephrology consults COntinue 1LNC and follow repeat BMP Add oxycodone prn mod-severe myalgias, continue tylenol for mild pain Add OraJel for right tongue ulcer Will need PT/OT evals
[2024-06-19] MEDS: CEFEPIME 1,000 MG in SYRINGE 0 ML IV SCH (15:23)
[2024-06-19] MEDS: ACETAMINOPHEN 325 MG TAB PO PRN (15:23)
[2024-06-19 15:33] LABS: BUN Creatinine Ratio 10.8 (10-20); Calcium 8.2 mg/dl (8.6-10.3); Creatinine Clr Calc Pharmacy 17.7 ml/min; Est GFR (African American) 15.8 ml/min; Est GFR (Non-African American) 13.6 ml/min; Potassium 4.3 mmol/L (3.5-5.1)
--- NOTE | 2024-06-19 15:37 | XCELERA ---
[id number] [id number]
[2024-06-19] MEDS: BENZOCAINE 20% (ORAJEL) 11.9 GM TUBE MT PRN (15:54)
[2024-06-19] MEDS: LANTUS PER UNIT CHARGE SC SCH (16:26)
[2024-06-19] MEDS: carvediloL 25 MG TAB PO SCH (16:26)
[2024-06-19] MEDS ORDERED: CEFEPIME 2,000 MG in SYRINGE 0 ML IV SCH (16:30)
[2024-06-19] MEDS: hydrALAZINE HCL 20 MG/ML VIAL IV STA (17:41)
[2024-06-19 18:31] LABS: A calco-baum cmplx NotReported Not Detected (NotDetected); Bact fragilis Not Reported Not Detected (NotDetected); Blood Culture Id Panel See PCR Comment (NotDetected); C auris Not Reported Not Detected (NotDetected); CTX-M Resistant Gene Not Detected (NotDetected); Calbicans Not Reported Not Detected (NotDetected); Candida glabrata Not Reported Not Detected (NotDetected); Candida krusei Not Reported Not Detected (NotDetected); Cneoformans/gatti Not Reported Not Detected (NotDetected); Cparapsilosis Not Reported Not Detected (NotDetected); E cloacae compx Not Reported Not Detected (NotDetected); Efaecalis Not Reported Not Detected (NotDetected); Efaecium Not Reported Not Detected (NotDetected); Enterobacterales Not Reported DETECTED (NotDetected); Escherichia coli Not Reported Not Detected (NotDetected); H influenzae Not Reported Not Detected (NotDetected); IMP Resistant Gene Not Detected (NotDetected); K aerogenes Not Reported Not Detected (NotDetected); KPC Resistant Gene Not Detected (NotDetected); Koxytoca Not Reported DETECTED (NotDetected); Kpneumoniae grp Not Reported Not Detected (NotDetected); Lmonocyt Not Reported Not Detected (NotDetected); N meningitidis Not Reported Not Detected (NotDetected); NDM Resistant Gene Not Detected (NotDetected); OXA 48 Like Resistant Gene Not Detected (NotDetected); P aeruginosa Not Reported Not Detected (NotDetected); Proteus spp Not Reported Not Detected (NotDetected); Salmonella spp Not Reported Not Detected (NotDetected); Staph lugdunensis Not Reported Not Detected (NotDetected); Staph spp. Not Reported Not Detected (NotDetected); Staphaureus Not Reported Not Detected (NotDetected); Staphepi Not Reported Not Detected (NotDetected); Stenmaltophilia Not Reported Not Detected (NotDetected); Strep agal(GrpB) Not Reported Not Detected (NotDetected); Strep pneum Not Reported Not Detected (NotDetected); Strep pyog (GrpA) Not Reported Not Detected (NotDetected); Strep spp Not Reported Not Detected (NotDetected); VIM Resistant Gene Not Detected (NotDetected); mcr-1 Colistin Resistant Gene Not Detected (NotDetected)
[2024-06-19 18:42] LABS: Enterobacterales DETECTED (NotDetected)
[2024-06-19] MEDS: guaiFENesin 200 MG TAB PO PRN (20:41)
[2024-06-19] MEDS: ATORVASTATIN 40 MG TAB PO SCH (20:41)
[2024-06-19] MEDS ORDERED: LANTUS PER UNIT CHARGE SC SCH (21:00)
[2024-06-19] MEDS: oxyCODONE HCL IR 5 MG TAB (IMMEDIATE RELEASE) PO PRN (21:10)
--- NOTE | 2024-06-19 21:32 | Electrocardiogram Report ---
Test Reason : Blood Pressure : */* mmHG Vent. Rate : 105 BPM Atrial Rate : 105 BPM P-R Int : 162 ms QRS Dur : 92 ms QT Int : 350 ms P-R-T Axes : 53 77 83 degrees QTcB Int : 462 ms Sinus tachycardia Nonspecific ST and T wave abnormality Abnormal ECG When compared with ECG of 15-Sep-2022 17:51, Vent. rate has increased by [address] now depressed in Anterolateral leads Confirmed by Jeff Fuentes ([id number]) on 06/19/2024 9:32:22 PM Referred By: REFERRED SELF Confirmed By: Jeff Fuentes
[2024-06-20] MEDS: ONDANSETRON INJ 2 MG/ML 2 ML VIAL IV PRN (02:03)
[2024-06-20 04:59] LABS: Albumin Globulin Ratio 1.2 (0.9-2); Albumin Level 3.2 gm/dl (3.4-5.0); Bilirubin,Total 0.5 mg/dl (0.2-1.0); Calcium 8.4 mg/dl (8.6-10.3); Creatinine Clr Calc Pharmacy 18.3 ml/min; Est GFR (African American) 16.5 ml/min; Est GFR (Non-African American) 14.2 ml/min; Globulin 2.6 gm/dl (2.5-4.0); Potassium 4.4 mmol/L (3.5-5.1); Total Protein 5.8 gm/dl (6.0-8.3)
[2024-06-20 05:31] LABS: Hematocrit (blood only) 27.9 % (42.0-52.0); Mean Corpuscular Hemoglobin 29.7 pg (25.0-34.0); Mean Corpuscular Hgb Conc 32.3 g/dL (32.0-36.0); Mean Corpuscular Volume 92.1 fL (80.0-100.0); Mean Platelet Volume 12.7 fL (9.4-12.4); Platelet Count 91 K/uL (130-400); RDW Coefficient of Variation 14.5 % (11.5-14.5); RDW Standard Deviation 48.8 fL (36.4-46.3); Red Blood Count 3.03 M/uL (4.70-6.10); White Blood Count 9.11 K/ul (4.8-10.8)
[2024-06-20 05:32] LABS: Basophils # (auto) 0.03 K/uL (0.00-0.20); Basophils % (auto) 0.3 %; Eosinophils # (auto) 0.11 K/uL (0.00-0.50); Eosinophils % (auto) 1.2 %; Immature Granulocytes # (auto) 0.06 K/uL (0.01-0.20); Immature Granulocytes % (auto) 0.7 %; Lymphocytes # (auto) 0.96 K/uL (1.20-3.40); Lymphocytes % (auto) 10.5 %; Monocytes # (auto) 1.14 K/uL (0.11-0.59); Monocytes % (auto) 12.5 %; Neutrophils # (auto) 6.81 K/uL (1.40-6.50); Neutrophils % (auto) 74.8 %; Platelet Estimate Decreased (Normal); Polychromasia 1+
[2024-06-20 07:50] LABS: Estimated Average Glucose 197 mg/dl; Hemoglobin A1C 8.5 % (4.5-5.6)
[2024-06-20] MEDS: LORATADINE 10 MG TAB PO SCH (08:23)
[2024-06-20] MEDS: CEROVITE ADV FORMULA TAB PO SCH (08:23)
[2024-06-20] MEDS: GABAPENTIN 300 MG CAP PO SCH (08:23)
[2024-06-20] MEDS: HEPARIN SOD 5,000 UNIT/0.5 ML VIAL SQ SCH (08:41)
--- NOTE | 2024-06-20 11:24 | Nephrology Progress Note ---
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 Initially started on IV fluid which was stopped yesterday. Now continued on cefepime. On admission creatinine was 3.5 with baseline creatinine 2.5, creatinine peaked to 3.9 which slightly improved to 3.8 this morning. IV fluid was stopped. Blood pressure has been running high, lisinopril has been on hold. Troponin was mildly elevated, evaluated by cardiology, thought to be demand ischemia in the setting of sepsis. 2D echo showed normal ejection fraction. Overall reports feeling better this morning. Blood pressure remain elevated. Has been having decent urine output. -- Continue to monitor blood pressure, as IV fluid was stopped hopefully blood pressure will improve, if not, recommend starting on amlodipine 5 mg daily. Continue to hold lisinopril for now. If kidney function continues to improve, will consider restarting back on lisinopril. -- Monitor intake and output. Admission and Anticipated Discharge Date Admission Date: June 19, 2024 Braulio Bentley was seen and evaluated this morning. Overall he reports feeling well, denies shortness of breath or chest pain. No fever or chills. Reports decent appetite. Has Berg catheter in place with decent urine output. Blood pressure continues to be quite elevated. Review of Systems Review of Systems: Detailed review of system was done and pertinent positives and negatives are mentioned above. Physical Exam Constitutional: WD/WN, vitals as above no acute distress Neck: normal visual inspection Respiratory: Auscultation: lungs clear to auscultation bilaterally Cardiovascular: Rate/Rhythm: regular rate and regular rhythm Heart Sounds: normal S1 and normal S2 Extremities: + edema Gastrointestinal (Abdomen): Inspection/Auscultation: + abdomen distended and normal bowel sounds Percussion/Palpation: abdomen soft; abdomen nontender and no guarding Skin: no rashes, warm and dry Neurologic: no focal motor deficits and not confused Psychiatric: Orientation: alert and oriented x 3 Results & Data Vital Signs (Past 12 Hours) Vital Signs Temp Pulse Pulse Resp BP Pulse Ox O2 Del Method 06/20/24 11:07 36.8 C 87 21 185/72 H 97 Nasal Cannula 06/20/24 08:00 82 06/20/24 08:00 36.7 C 06/20/24 07:25 77 17 154/99 H 97 Nasal Cannula 06/20/24 02:45 37.5 C 77 18 160/58 H 97 Nasal Cannula 06/20/24 00:00 78 06/19/24 23:20 37.3 C 79 22 184/79 H 96 Room Air O2 Flow Rate 06/20/24 11:07 2 06/20/24 08:00 06/20/24 08:00 06/20/24 07:25 2 06/20/24 02:45 2 06/20/24 00:00 06/19/24 23:20 PG Care Time/CCT Total # of Minutes Spent Total Time Spent with Patient: Total time spent is greater than 50% in coordination of care (as documented) at patient's floor/unit and/or counseling patient: Coding Level of Care Code 59948 SUB INP/OBS CARE 2/35MIN Diagnoses INGRID (acute kidney injury) N17.9 Acute UTI (urinary tract infection) N39.0 Chronic indwelling Berg catheter Z97.8 Sepsis due to urinary tract infection A41.9; N39.0 Chronic heart failure with preserved ejection fraction I50.32
[2024-06-20] MEDS: SODIUM CHLORIDE 0.9% 1,000 ML IV SCH (15:27)
--- NOTE | 2024-06-20 15:43 | Hospitalist Progress Note ---
Date of Service June 20, 2024 Assessment & Plan (1) Sepsis due to urinary tract infection: Plan: Present on admission. Bacteremia noted with gram-negative bacilli. Gram- negative bacilli also present in urine culture. Await final identification and sensitivities. Continue cefepime for now, day 2. (2) Acute kidney injury superimposed on CKD: Plan: Monitor intake and output. Serial labs. Continue IV fluids for now (3) NSTEMI (non-ST elevated myocardial infarction): Plan: Ruled out. Mild troponin elevation appears to be due to demand ischemia. Cardiology consultation and recommendations appreciated. Telemetry (4) Urinary retention: Plan: Berg catheter in place. No hematuria (5) Chronic kidney disease, stage 4 (severe): Plan: Monitor intake and output. Serial labs (6) Insulin dependent diabetes mellitus: Plan: ADA diet. Sliding scale coverage. (7) COPD (chronic obstructive pulmonary disease): Plan: Stable. Continue current medical management (8) Coronary artery disease: Plan: Stable. History of coronary artery bypass grafting. Continue current medical management (9) Hypertension: Plan: Stable. Lisinopril is currently on hold due to acute kidney injury. (10) BPH loc w urin obs/LUTS: Plan: With chronic indwelling Berg catheter. CAUTI present on admission. Gram- negative bacilli isolated Plan Hopeful discharge to home on oral antibiotic within the next 48 to 72 hours. Admission and Anticipated Discharge Date Admission Date: June 19, 2024 Subjective Alert and oriented. No acute problems. He is complaining of constipation. MiraLAX has been ordered. Glucose is elevated due to acute infection. Sliding- scale coverage has been adjusted. Blood cultures and urine cultures both positive for gram-negative bacilli. He remains on cefepime, day 2. Will await final identification and sensitivities and tailor antibiotics accordingly. Nephrology consultation and recommendations appreciated. Lisinopril is currently on hold. Creatinine remains elevated at 3.7. Baseline creatinine is around 2.5. Continue IV fluids for now. Cardiology consultation noted. He appears to have demand ischemia causing mild elevation of troponin. No evidence of acute coronary syndrome. Review of Systems 2 Review of Systems: Constitutionalno fever or chills ENTno blurred vision, no double vision, no epistaxis, no sore throat Respiratoryno cough, no wheezing, no shortness of breath Cardiacno palpitations, no chest pain, no syncope Gia nausea, vomiting, diarrhea, melena, hematochezia GUno urinary retention, no urinary incontinence, no dysuria, no hematuria Musculoskeletalno joint pain, no muscle tenderness GYNchronic Berg catheter in place Skinno bruising, no rashes, no pruritus Neurono isolated weakness, no paresthesia, no weakness Psychno depression, no anxiety Physical Exam 2 Physical Exam: General-alert and oriented x3, no fever, no chills HEENT-head atraumatic and normocephalic, pupils equal and reactive to light, extraocular muscles intact. Legally blind Neck-no lymphadenopathy or thyromegaly, trachea midline Chest-clear to auscultation. No rales, wheezing or rhonchi Cardiac-regular rate and rhythm, normal S1 and S2 Abdomen-normal bowel sounds, no hepatosplenomegaly GUFoley catheter in place. No hematuria Extremities-no cyanosis, clubbing, or edema Neuro-cranial nerves II through XII intact, motor and sensory function within normal limits, strength symmetrical, no focal deficits Psych-normal affect, normal mood Results & Data Results & Data Vital Signs (Past 12 Hours) Vital Signs Temp Pulse Pulse Resp BP Pulse Ox Pulse Ox 06/20/24 13:42 97 06/20/24 11:07 36.8 C 87 21 185/72 H 97 06/20/24 08:00 06/20/24 08:00 82 06/20/24 08:00 36.7 C 06/20/24 07:25 77 17 154/99 H 97 O2 Del Method O2 Flow Rate O2 Flow Rate 06/20/24 13:42 2 06/20/24 11:07 Nasal Cannula 2 06/20/24 08:00 Nasal Cannula 2 06/20/24 08:00 06/20/24 08:00 06/20/24 07:25 Nasal Cannula 2 Laboratory Results 06/20/24 04:20 06/20/24 04:20 PG Care Time/CCT Total # of Minutes Spent Total Time Spent with Patient: Total time spent is greater than 50% in coordination of care (as documented) at patient's floor/unit and/or counseling patient: Coding Level of Care Code 31867 SUB INP/OBS CARE 3/50MIN Diagnoses Sepsis due to urinary tract infection A41.9; N39.0 Acute kidney injury superimposed on CKD N17.9; N18.9 NSTEMI (non-ST elevated myocardial infarction) I21.4 Urinary retention R33.9 Chronic kidney disease, stage 4 (severe) N18.4 Insulin dependent diabetes mellitus COPD (chronic obstructive pulmonary disease) J44.9 Coronary artery disease I25.10 Hypertension I10 BPH loc w urin obs/LUTS N40.1
[2024-06-20] MEDS: POLYETHYLENE (MIRALAX) 17 GM PACK PO SCH (16:25)
--- NOTE | 2024-06-20 17:55 | Electrocardiogram Report ---
Test Reason : Blood Pressure : */* mmHG Vent. Rate : 78 BPM Atrial Rate : 78 BPM P-R Int : 166 ms QRS Dur : 88 ms QT Int : 396 ms P-R-T Axes : 41 59 64 degrees QTcB Int : 451 ms Sinus rhythm with Premature atrial complexes Nonspecific ST abnormality Abnormal ECG When compared with ECG of 19-Jun-2024 02:41, Premature atrial complexes are now Present Confirmed by Fan Briggs ([id number] on 06/20/2024 5:54:52 PM Referred By: REFERRED SELF Confirmed By: Fan Briggs
[2024-06-21 04:49] LABS: Basophils # (auto) 0.03 K/uL (0.00-0.20); Basophils % (auto) 0.4 %; Eosinophils # (auto) 0.28 K/uL (0.00-0.50); Eosinophils % (auto) 4.1 %; Hematocrit (blood only) 28.8 % (42.0-52.0); Hemoglobin 9.1 g/dl (14.0-18.0); Immature Granulocytes # (auto) 0.03 K/uL (0.01-0.20); Immature Granulocytes % (auto) 0.4 %; Lymphocytes # (auto) 1.02 K/uL (1.20-3.40); Lymphocytes % (auto) 14.8 %; Mean Corpuscular Hemoglobin 29.3 pg (25.0-34.0); Mean Corpuscular Hgb Conc 31.6 g/dL (32.0-36.0); Mean Corpuscular Volume 92.6 fL (80.0-100.0); Mean Platelet Volume 11.7 fL (9.4-12.4); Monocytes # (auto) 1.02 K/uL (0.11-0.59); Monocytes % (auto) 14.8 %; Neutrophils # (auto) 4.51 K/uL (1.40-6.50); Neutrophils % (auto) 65.5 %; Platelet Count 86 K/uL (130-400); RDW Coefficient of Variation 14.2 % (11.5-14.5); RDW Standard Deviation 48.2 fL (36.4-46.3); Red Blood Count 3.11 M/uL (4.70-6.10); White Blood Count 6.89 K/ul (4.8-10.8)
[2024-06-21 05:05] LABS: Albumin Globulin Ratio 1.2 (0.9-2); Albumin Level 3.2 gm/dl (3.4-5.0); BUN Creatinine Ratio 12.5 (10-20); Bilirubin,Total 0.4 mg/dl (0.2-1.0); Calcium 8.4 mg/dl (8.6-10.3); Est GFR (African American) 17.3 ml/min; Est GFR (Non-African American) 14.9 ml/min; Globulin 2.7 gm/dl (2.5-4.0); Magnesium 2.2 mg/dl (1.7-2.4); Potassium 4.4 mmol/L (3.5-5.1); Total Protein 5.9 gm/dl (6.0-8.3)
[2024-06-21] MEDS: amLODIPine BESYLATE 5 MG TAB PO SCH (10:19)
[2024-06-21] MEDS: cefTRIAXone SODIUM 2,000 MG/50 ML BAG IV SCH (10:19)
--- NOTE | 2024-06-21 10:47 | Nephrology Progress Note ---
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 Initially started on IV fluid which was stopped yesterday. Now continued on cefepime. On admission creatinine was 3.5 with baseline creatinine 2.5, creatinine peaked to 3.9 which slightly improved to 3.8 this morning. IV fluid was stopped. Blood pressure has been running high, lisinopril has been on hold. Troponin was mildly elevated, evaluated by cardiology, thought to be demand ischemia in the setting of sepsis. 2D echo showed normal ejection fraction. Overall reports feeling better this morning. Blood pressure remain elevated. Has been having decent urine output. --Just started on amlodipine 5 mg daily this morning. Continue to hold lisinopril for now. If kidney function continues to improve, will consider restarting back on lisinopril. -- Monitor intake and output. Admission and Anticipated Discharge Date Admission Date: June 19, 2024 Braulio Bentley was seen and evaluated this morning. Overall he reports feeling well, denies shortness of breath or chest pain. No fever or chills. Reports decent appetite. Has Berg catheter in place with decent urine output. Blood pressure continues to be quite elevated. Kidney function improving slowly, creatinine down to 3.6, electrolyte acceptable. Review of Systems Review of Systems: Delivery of system otherwise unremarkable except mentioned above. Physical Exam Constitutional: WD/WN, vitals as above + obese; no acute distress Neck: normal visual inspection Respiratory: Auscultation: lungs clear to auscultation bilaterally Cardiovascular: Rate/Rhythm: regular rate and regular rhythm Heart Sounds: normal S1 and normal S2 Extremities: + edema Gastrointestinal (Abdomen): Inspection/Auscultation: + abdomen distended Percussion/Palpation: abdomen soft; abdomen nontender and no guarding Skin: no rashes, warm and dry Neurologic: no focal motor deficits Psychiatric: Orientation: alert and oriented x 3 Results & Data Vital Signs (Past 12 Hours) Vital Signs Temp Pulse Pulse Resp BP Pulse Ox O2 Del Method 06/21/24 08:00 Nasal Cannula 06/21/24 08:00 85 06/21/24 07:30 36.6 C 85 21 176/84 H 97 Nasal Cannula 06/21/24 04:00 36.7 C 77 17 167/77 H 94 Room Air 06/21/24 00:00 74 06/20/24 23:57 36.6 C 74 17 150/62 H 92 Room Air O2 Flow Rate 06/21/24 08:00 2 06/21/24 08:00 06/21/24 07:30 2 06/21/24 04:00 06/21/24 00:00 06/20/24 23:57 PG Care Time/CCT Total # of Minutes Spent Total Time Spent with Patient: Total time spent is greater than 50% in coordination of care (as documented) at patient's floor/unit and/or counseling patient: Coding Level of Care Code 24421 SUB INP/OBS CARE 2/35MIN Diagnoses INGRID (acute kidney injury) N17.9 Acute UTI (urinary tract infection) N39.0 Chronic indwelling Berg catheter Z97.8 Sepsis due to urinary tract infection A41.9; N39.0 Chronic heart failure with preserved ejection fraction I50.32
--- NOTE | 2024-06-21 12:45 | Hospitalist Progress Note ---
Date of Service June 21, 2024 Assessment & Plan (1) Sepsis due to urinary tract infection: Plan: Present on admission. Klebsiella bacteremia noted. Gram-negative in urine is also probably Klebsiella. Cefepime switched to Rocephin. Day 4 of antibiotic therapy. (2) Acute kidney injury superimposed on CKD: Plan: Monitor intake and output. Serial labs. Continue IV fluids for now. Creatinine is down slightly to 3.6. Baseline is around 2.5. Serial labs (3) NSTEMI (non-ST elevated myocardial infarction): Plan: Ruled out. Mild troponin elevation appears to be due to demand ischemia. Cardiology consultation and recommendations appreciated. Telemetry (4) Urinary retention: Plan: Berg catheter in place. No hematuria (5) Chronic kidney disease, stage 4 (severe): Plan: Monitor intake and output. Serial labs (6) Insulin dependent diabetes mellitus: Plan: ADA diet. Sliding scale coverage. (7) COPD (chronic obstructive pulmonary disease): Plan: Stable. Continue current medical management (8) Coronary artery disease: Plan: Stable. History of coronary artery bypass grafting. Continue current medical management (9) Hypertension: Plan: Stable. Lisinopril has been discontinued due to advanced kidney disease and hyperkalemia. Amlodipine started today, June 21, in addition to Coreg. (10) BPH loc w urin obs/LUTS: Plan: With chronic indwelling Berg catheter. CAUTI present on admission. Gram- negative bacilli isolated in urine. Probably Klebsiella which was identified in the blood cultures Plan Hopeful discharge to [facility] within the next 24 to 72 hours Admission and Anticipated Discharge Date Admission Date: June 19, 2024 Subjective Alert and oriented. No distress. Creatinine is down slightly to 3.6. Amlodipine started for better blood pressure control. Klebsiella isolated in blood cultures. Cefepime switched to Rocephin, day 4 of antibiotic therapy. Infectious disease consultation requested. [facility] apparently is not an option. Hopefully he can go to [facility] at the time of discharge. Review of Systems 2 Review of Systems: Constitutionalno fever or chills ENTno blurred vision, no double vision, no epistaxis, no sore throat Respiratoryno cough, no wheezing, no shortness of breath Cardiacno palpitations, no chest pain, no syncope Gia nausea, vomiting, diarrhea, melena, hematochezia GUno urinary retention, no urinary incontinence, no dysuria, no hematuria Musculoskeletalno joint pain, no muscle tenderness GYNchronic Berg catheter in place Skinno bruising, no rashes, no pruritus Neurono isolated weakness, no paresthesia, no weakness Psychno depression, no anxiety Physical Exam 2 Physical Exam: General-alert and oriented x3, no fever, no chills HEENT-head atraumatic and normocephalic, pupils equal and reactive to light, extraocular muscles intact. Legally blind Neck-no lymphadenopathy or thyromegaly, trachea midline Chest-clear to auscultation. No rales, wheezing or rhonchi Cardiac-regular rate and rhythm, normal S1 and S2 Abdomen-normal bowel sounds, no hepatosplenomegaly GUFoley catheter in place. No hematuria Extremities-no cyanosis, clubbing, or edema Neuro-cranial nerves II through XII intact, motor and sensory function within normal limits, strength symmetrical, no focal deficits Psych-normal affect, normal mood Results & Data Results & Data Vital Signs (Past 12 Hours) Vital Signs Temp Pulse Pulse Resp BP Pulse Ox O2 Del Method 06/21/24 08:00 Nasal Cannula 06/21/24 08:00 85 06/21/24 07:30 36.6 C 85 21 176/84 H 97 Nasal Cannula 06/21/24 04:00 36.7 C 77 17 167/77 H 94 Room Air O2 Flow Rate 06/21/24 08:00 2 06/21/24 08:00 06/21/24 07:30 2 06/21/24 04:00 Laboratory Results 06/21/24 04:23 06/21/24 04:23 PG Care Time/CCT Total # of Minutes Spent Total Time Spent with Patient: Total time spent is greater than 50% in coordination of care (as documented) at patient's floor/unit and/or counseling patient: Coding Level of Care Code 11956 SUB INP/OBS CARE 3/50MIN Diagnoses Sepsis due to urinary tract infection A41.9; N39.0 Acute kidney injury superimposed on CKD N17.9; N18.9 NSTEMI (non-ST elevated myocardial infarction) I21.4 Urinary retention R33.9 Chronic kidney disease, stage 4 (severe) N18.4 Insulin dependent diabetes mellitus COPD (chronic obstructive pulmonary disease) J44.9 Coronary artery disease I25.10 Hypertension I10 BPH loc w urin obs/LUTS N40.1
--- NOTE | 2024-06-21 15:08 | Infectious Disease Consult ---
Date of Consultation June 21, 2024 Assessment & Plan (1) Acute UTI (urinary tract infection): (2) INGRID (acute kidney injury): (3) Chronic indwelling Jovel catheter: Plan This is an 83-year-old male with a past medical history of CAD, cardiomyopathy, HFpEF, CABG x 2, hypertension, hyperlipidemia, CKD stage IV, DM2, BPH with LUTS, chronic Jovel catheter, COPD on 2 L O2 presents with chills, sweats, dyspnea on exertion, generalized fatigue with muscle aches. Per EMS had a temperature of 102.7. He has some nausea but no vomiting. .Patient noted to have a chronic Jovel in place without bag attached. Was clipped to his shorts. In the ED, afebrile temp 37.8, pulse 104, RR 16, O2 sats 96% on 2 L nasal cannula BP 153/71> Labs: WBC 9.1, hemoglobin 9, hematocrit 27.9, platelets 91, BUN 45, creatinine 3.75, lactate 1.1. UA 50 WBC, 4+ bacteria. Respiratory viral panel negative. Blood cultureBCID with Klebsiella oxytoca. Urine culture> 100 K gram-negative rods. CTAP with diffuse bladder wall thickening with intervening Jovel and gas in the bladder dome. Findings may be due to recent placement with decompression. Cystitis also possible. Chest x-ray with mild central pulmonary vascular congestion. He is currently on cefepime. ID consulted for Klebsiella bacteremia. On exam patient comfortable. He feels better since admission. No longer having chills or sweats. He denies any suprapubic pain, change in urine or bladder habits. He usually has his Jovel catheter changed once a month. It was last changed 2 weeks ago prior to admission. He reports Jovel changed since admission. Microbiology: Blood cultures 06/19 Klebsiella oxytoca Antibiotics Urine culture >100k GNR # Klebsiella oxytoca bacteremia in setting of chronic jovel # UC with GNR from chronic jovel # Chronic Jovel s/p exchange this admission Bacteremia possibly from a urinary source. Patient with chronic Jovel which was exchanged this admission. Urine culture with GNR pending identification. Denies GI symptoms Recommendations:, Continue Ceftriaxone 2 g iv daily Follow up Klebsiella susceptibilities ( BCx) FU GNR Identification and susceptibilities from UCx Thank you for this consult. ID will continue to follow Rishi Sunshine MD, MPH Infectious Disease [facility], [facility] Call [phone] with questions i Consultation Information Consultation was provided via telemedicine using two-way real-time interactive telecommunication between the patient and the telemedicine provider. For the duration of the visit, the provider was performing the assessment from a different facility than the patient. This includesuse of bluetooth stethoscope forauscultationperformed by the telepresenter that the telemedicine provider can hear if described in the physical exam. Bilingual Office Assistant contact information: Please call [facility] . (Phone Number For Physician Use Only) After establishing a telemedicine visit, patient was: Patient was verified with two unique identifiers Time Spent with Patient: Initial => 75 min History of Present Illness Reason for Consultation: Klebsiella Bacteremia Requesting Physician: Mc Barrett MD Attending Physician: Mc Barrett MD History of Present Illness This is an 83-year-old male with a past medical history of CAD, cardiomyopathy, HFpEF, CABG x 2, hypertension, hyperlipidemia, CKD stage IV, DM2, BPH with LUTS, chronic Jovel catheter, COPD on 2 L O2 presents with chills, sweats, dyspnea on exertion, generalized fatigue with muscle aches. Per EMS had a temperature of 102.7. He has some nausea but no vomiting. .Patient noted to have a chronic Jovel in place without bag attached. Was clipped to his shorts. In the ED, afebrile temp 37.8, pulse 104, RR 16, O2 sats 96% on 2 L nasal cannula BP 153/71> Labs: WBC 9.1, hemoglobin 9, hematocrit 27.9, platelets 91, BUN 45, creatinine 3.75, lactate 1.1. UA 50 WBC, 4+ bacteria. Respiratory viral panel negative. Blood cultureBCID with Klebsiella oxytoca. Urine culture> 100 K gram-negative rods. CTAP with diffuse bladder wall thickening with intervening Jovel and gas in the bladder dome. Findings may be due to recent placement with decompression. Cystitis also possible. Chest x-ray with mild central pulmonary vascular congestion. He is currently on cefepime. ID consulted for Klebsiella bacteremia. On exam patient comfortable. He feels better since admission. No longer having chills or sweats. He denies any suprapubic pain, change in urine or bladder duval bits. He usually has his Jovel catheter changed once a month. It was last changed 2 weeks ago prior to admission. He reports Jovel changed since admission. Allergies Allergy/AdvReac Type Severity Reaction Status Date / Time strawberry Allergy Intermediate hives Verified 06/19/24 02:54 Home Medications Medication Instructions Recorded Confirmed Type carboxymethylcellulose sodium 0.5 1 drp OPB BID 05/22/21 06/19/24 History % eye drops colchicine 0.6 mg capsule See Rx Instructions .Route .COMPLEX 05/22/21 06/19/24 History loratadine 10 mg tablet (Allergy 10 mg PO Q OTHER DAY 05/22/21 06/19/24 History Relief (loratadine)) magnesium oxide 420 mg tablet 420 mg PO DAILY 05/22/21 06/19/24 History omeprazole 20 mg capsule,delayed 20 mg PO BID 05/22/21 06/19/24 History release aspirin 81 mg tablet,delayed 81 mg PO DAILY 09/15/22 06/19/24 History release atorvastatin 80 mg tablet 80 mg PO HS 09/15/22 06/19/24 History doxazosin 4 mg tablet 4 mg PO DAILY 09/15/22 06/19/24 History fluticasone propionate 50 2 spray intranasal DAILY 09/15/22 06/19/24 History mcg/actuation nasal spray,suspension gabapentin 300 mg capsule 300 mg PO BID 09/15/22 06/19/24 History guaifenesin 200 mg tablet 400 mg PO TID PRN help thin mucous 09/15/22 06/19/24 History insulin aspart U-100 100 unit/mL 22 unit subcut TIDM 09/15/22 06/19/24 History (3 mL) subcutaneous pen (Novolog FlexPen U-100 Insulin aspart) meclizine 12.5 mg tablet 25 mg PO Q6H PRN Vertigo 09/15/22 06/19/24 History mometasone 220 mcg/actuation(60 1 inh inhalation BID 09/15/22 06/19/24 History doses) breath activated powder inhaler omega 1-xwh-uqq-fish oil 1,000 mg 2 cap PO BID 09/15/22 06/19/24 History (120 mg-180 mg) capsule (Fish Oil) tiotropium 2.5 mcg-olodaterol 2.5 2 puff inhalation DAILY 09/15/22 06/19/24 History mcg/actuation mist for inhalation vit C 250 mg-vit E 90 mg-zinc 40 1 tab PO BID 09/15/22 06/19/24 History mg-copper 1 [id number] capsule (PreserVision AREDS-2) carvedilol 25 mg tablet 12.5 mg PO BID 01/19/24 06/19/24 History furosemide 80 mg tablet 80 mg PO DAILY 01/19/24 06/19/24 History glucose 4 gram chewable tablet 4 g PO UD PRN hypoglycemia 01/19/24 06/19/24 History zinc oxide 20 % topical ointment 1 applic topical DAILY PRN Penile 01/19/24 06/19/24 History Irritation/Excoriation albuterol sulfate 90 mcg/actuation 2 puff inhalation Q4H PRN 02/14/24 06/19/24 History aerosol inhaler Shortness Of Breath Or Wheezing cholecalciferol (vitamin D3) 25 50 mcg PO DAILY 02/14/24 06/19/24 History mcg (1,000 unit) capsule furosemide 40 mg tablet 40 mg PO Q OTHER DAY 02/14/24 06/19/24 History levofloxacin 250 mg tablet 250 mg PO DAILY 02/14/24 06/19/24 History lidocaine 5 % topical cream 1 applic topical BID PRN Pain 02/14/24 06/19/24 History lisinopril 10 mg tablet 10 mg PO DAILY 02/14/24 06/19/24 History metoprolol tartrate 50 mg tablet 50 mg PO BID 02/14/24 06/19/24 History insulin glargine-yfgn 100 unit/mL 46 unit subcut HS 03/14/24 06/19/24 History (3 mL) subcutaneous pen Patient History Medical History Macular degeneration Surgical History History of open heart surgery 2002 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 Hx of cholecystectomy 01/29/2014 Social History Smoking Status: Former smoker Tobacco Type: Cigarettes Hx Alcohol Use: No Hx Substance Use: No Preferred Language: Bulgarian Communication Ability: Effective Visual Impairment: Limited Hearing Ability: Normal 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 Beliefs That Will Affect Care: None marital status: Single Current Living Situation: Alone Current Living Situation Comment: pt has caretakers come in 2x/week 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 Pertinent positives as per HPI. Physical Exam Physical Exam: NAD, comfortable NCAT, Anicteric sclera No increased work of breathing Soft abdomen, mildly distended,, No tenderness No suprapubic or CVA tenderness, Jovel in place draining clear yellow urine. BL Pitting LE edema AAO*3 Normal mood Results & Data Vital Signs (Past 12 Hours) Vital Signs Temp Pulse Pulse Resp BP Pulse Ox O2 Del Method 06/21/24 13:34 36.8 C 82 21 164/67 H 92 Room Air 06/21/24 08:00 Nasal Cannula 06/21/24 08:00 85 06/21/24 07:30 36.6 C 85 21 176/84 H 97 Nasal Cannula 06/21/24 04:00 36.7 C 77 17 167/77 H 94 Room Air O2 Flow Rate 06/21/24 13:34 06/21/24 08:00 2 06/21/24 08:00 06/21/24 07:30 2 06/21/24 04:00 Laboratory Results Laboratory Results - last 48 hr 06/19/24 06/19/24 06/19/24 03:00 15:05 15:33 WBC RBC Hgb Hct MCV MCH MCHC RDW Std Deviation RDW Coeff of [place] Plt Count MPV Immature Gran % (Auto) Neut % (Auto) Lymph % (Auto) [place] % (Auto) Eos % (Auto) Baso % (Auto) Neut # (Auto) Lymph # (Auto) [place] # (Auto) Eos # (Auto) Baso # (Auto) Immature Gran # (Auto) Platelet Estimate Polychromasia Sodium 139 Potassium 4.3 Chloride 106 Carbon Dioxide 27 Anion Gap 6 BUN 42 H Creatinine 3.88 H D Est Cr Clr Drug Dosing 17.7 Est GFR ( Amer) 15.8 Est GFR (Non-Af Amer) 13.6 BUN/Creatinine Ratio 10.8 Glucose 290 H POC Glucose 309 H* Estimat Average Glucose Hemoglobin A1c Calcium 8.2 L Magnesium Total Bilirubin AST ALT Alkaline Phosphatase Total Protein Albumin Globulin Albumin/Globulin Ratio Enterobacterales (PCR) DETECTED A Klebsiella oxytoca PCR DETECTED A mcr-1 Colistin Res Gene PCR Not Detected blaIMP Car res Gene PCR Not Detected KPC-Carbap Res Gene PCR Not Detected blaNDM Car Res Gene PCR Not Detected OXA-48 Carbapenem Resis Gene (PCR) Not Detected blaVIM Car Res Gene PCR Not Detected CTX-M Gene Resistance (PCR) Not Detected Bld Cult ID Panel PCR See PCR Comment 06/19/24 06/19/24 06/20/24 15:34 20:32 04:20 WBC 9.11 RBC 3.03 L Hgb 9.0 L Hct 27.9 L MCV 92.1 MCH 29.7 MCHC 32.3 RDW Std Deviation 48.8 H RDW Coeff of [place] 14.5 Plt Count 91 L MPV 12.7 H Immature Gran % (Auto) 0.7 Neut % (Auto) 74.8 Lymph % (Auto) 10.5 [place] % (Auto) 12.5 Eos % (Auto) 1.2 Baso % (Auto) 0.3 Neut # (Auto) 6.81 H Lymph # (Auto) 0.96 L [place] # (Auto) 1.14 H Eos # (Auto) 0.11 Baso # (Auto) 0.03 Immature Gran # (Auto) 0.06 Platelet Estimate Decreased L Polychromasia 1+ Sodium 139 Potassium 4.4 Chloride 107 Carbon Dioxide 27 Anion Gap 5 BUN 45 H Creatinine 3.75 H Est Cr Clr Drug Dosing 18.3 Est GFR ( Amer) 16.5 Est GFR (Non-Af Amer) 14.2 BUN/Creatinine Ratio 12.0 Glucose 176 H POC Glucose 318 H* 212 H Estimat Average Glucose 197 Hemoglobin A1c 8.5 H Calcium 8.4 L Magnesium 2.0 Total Bilirubin 0.5 AST 8 L ALT 10 Alkaline Phosphatase 53 Total Protein 5.8 L Albumin 3.2 L Globulin 2.6 Albumin/Globulin Ratio 1.2 Enterobacterales (PCR) Klebsiella oxytoca PCR mcr-1 Colistin Res Gene PCR blaIMP Car res Gene PCR KPC-Carbap Res Gene PCR blaNDM Car Res Gene PCR OXA-48 Carbapenem Resis Gene (PCR) blaVIM Car Res Gene PCR CTX-M Gene Resistance (PCR) Bld Cult ID Panel PCR 06/20/24 06/20/24 06/20/24 07:14 11:13 15:59 WBC RBC Hgb Hct MCV MCH MCHC RDW Std Deviation RDW Coeff of [place] Plt Count MPV Immature Gran % (Auto) Neut % (Auto) Lymph % (Auto) [place] % (Auto) Eos % (Auto) Baso % (Auto) Neut # (Auto) Lymph # (Auto) [place] # (Auto) Eos # (Auto) Baso # (Auto) Immature Gran # (Auto) Platelet Estimate Polychromasia Sodium Potassium Chloride Carbon Dioxide Anion Gap BUN Creatinine Est Cr Clr Drug Dosing Est GFR ( Amer) Est GFR (Non-Af Amer) BUN/Creatinine Ratio Glucose POC Glucose 201 H 267 H 212 H Estimat Average Glucose Hemoglobin A1c Calcium Magnesium Total Bilirubin AST ALT Alkaline Phosphatase Total Protein Albumin Globulin Albumin/Globulin Ratio Enterobacterales (PCR) Klebsiella oxytoca PCR mcr-1 Colistin Res Gene PCR blaIMP Car res Gene PCR KPC-Carbap Res Gene PCR blaNDM Car Res Gene PCR OXA-48 Carbapenem Resis Gene (PCR) blaVIM Car Res Gene PCR CTX-M Gene Resistance (PCR) Bld Cult ID Panel PCR 06/20/24 06/21/24 06/21/24 19:51 04:23 07:18 WBC 6.89 RBC 3.11 L Hgb 9.1 L Hct 28.8 L MCV 92.6 MCH 29.3 MCHC 31.6 L RDW Std Deviation 48.2 H RDW Coeff of [place] 14.2 Plt Count 86 L MPV 11.7 Immature Gran % (Auto) 0.4 Neut % (Auto) 65.5 Lymph % (Auto) 14.8 [place] % (Auto) 14.8 Eos % (Auto) 4.1 Baso % (Auto) 0.4 Neut # (Auto) 4.51 Lymph # (Auto) 1.02 L [place] # (Auto) 1.02 H Eos # (Auto) 0.28 Baso # (Auto) 0.03 Immature Gran # (Auto) 0.03 Platelet Estimate Polychromasia Sodium 140 Potassium 4.4 Chloride 107 Carbon Dioxide 29 Anion Gap 4 BUN 45 H Creatinine 3.61 H Est Cr Clr Drug Dosing 19.0 Est GFR ( Amer) 17.3 Est GFR (Non-Af Amer) 14.9 BUN/Creatinine Ratio 12.5 Glucose 120 H POC Glucose 206 H 135 H Estimat Average Glucose Hemoglobin A1c Calcium 8.4 L Magnesium 2.2 Total Bilirubin 0.4 AST 15 ALT 17 Alkaline Phosphatase 69 Total Protein 5.9 L Albumin 3.2 L Globulin 2.7 Albumin/Globulin Ratio 1.2 Enterobacterales (PCR) Klebsiella oxytoca PCR mcr-1 Colistin Res Gene PCR blaIMP Car res Gene PCR KPC-Carbap Res Gene PCR blaNDM Car Res Gene PCR OXA-48 Carbapenem Resis Gene (PCR) blaVIM Car Res Gene PCR CTX-M Gene Resistance (PCR) Bld Cult ID Panel PCR 06/21/24 11:28 WBC RBC Hgb Hct MCV MCH MCHC RDW Std Deviation RDW Coeff of [place] Plt Count MPV Immature Gran % (Auto) Neut % (Auto) Lymph % (Auto) [place] % (Auto) Eos % (Auto) Baso % (Auto) Neut # (Auto) Lymph # (Auto) [place] # (Auto) Eos # (Auto) Baso # (Auto) Immature Gran # (Auto) Platelet Estimate Polychromasia Sodium Potassium Chloride Carbon Dioxide Anion Gap BUN Creatinine Est Cr Clr Drug Dosing Est GFR ( Amer) Est GFR (Non-Af Amer) BUN/Creatinine Ratio Glucose POC Glucose 185 H Estimat Average Glucose Hemoglobin A1c Calcium Magnesium Total Bilirubin AST ALT Alkaline Phosphatase Total Protein Albumin Globulin Albumin/Globulin Ratio Enterobacterales (PCR) Klebsiella oxytoca PCR mcr-1 [place] Res Gene PCR blaIMP Car res Gene PCR KPC-Carbap Res Gene PCR blaNDM Car Res Gene PCR OXA-48 Carbapenem Resis Gene (PCR) blaVIM Car Res Gene PCR CTX-M Gene Resistance (PCR) Bld Cult ID Panel PCR Diagnostic Findings Microbiology 06/19/24 02:53 Urine,Straight Cath Urine Culture - Preliminary Gram negative bacilli 06/19/24 03:00 Blood Aerobic Blood Culture - Preliminary No growth in Aerobic bottle after 48 hours. 06/19/24 03:00 Blood Anaerobic Blood Culture - Preliminary Klebsiella oxytoca Chest X-Ray 06/19/24 02:46 XR chest 1V portable HISTORY: Sepsis COMPARISON: Chest 09/18/2022. FINDINGS: No pneumothorax. No pleural effusions. The cardiac silhouette is normal in size. There are poststernotomy changes and aortic knob calcifications. There is mild central pulmonary vascular congestion without overt edema. No focal lung consolidations to suggest a pneumonia. IMPRESSION: Mild central pulmonary vascular congestion without overt edema. ACT 112: Negative or not required by law. Electronically signed by: Cristhian Paulino M.D. 06/19/2024 8:29 AM Abdomen/Pelvis CT 06/19/24 04:22 Exam(s): CT ABDOMEN + PELVIS Without Contrast EXAM: CT Abdomen and Pelvis Without Intravenous Contrast CLINICAL HISTORY: Reason for exam: ingrid, uti. TECHNIQUE: Axial computed tomography images of the abdomen and pelvis without intravenous contrast. Automated exposure control was utilized for the study. A dose lowering technique was utilized adhering to the principles of ALARA. COMPARISON: No relevant prior studies available. FINDINGS: Limitations: Limited evaluation in the absence of contrast. Lung bases: Coronary artery calcifications. Sternotomy changes. ABDOMEN: Liver: Unremarkable. Gallbladder and bile ducts: Cholecystectomy changes. No ductal dilation. Pancreas: Unremarkable. No ductal dilation. Spleen: Unremarkable. No splenomegaly. Adrenals: Unremarkable. No mass. Kidneys and ureters: No evidence of radiopaque renal calculi or signs of collecting system dilatation. Atrophic appearance of the right kidney. Cortical defects in the kidneys which likely relate to sequela of prior infection. Simple bilateral renal cysts. No follow-up of these simple cysts is necessary. Stomach and bowel: No evidence of bowel obstruction. No mucosal thickening. PELVIS: Appendix: Normal appendix. Bladder: Diffuse bladder wall thickening with intervening Jovel and gas in the bladder dome. Findings may be due to recent placement with decompression. Cystitis is also possible. Consider correlation with laboratory values. No stones. Reproductive: Unremarkable as visualized. ABDOMEN and PELVIS: Intraperitoneal space: Unremarkable. No free air. No significant fluid collection. Bones/joints: Degenerative changes in the spine. 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 No acute fracture. No dislocation. Soft tissues: Unremarkable. Vasculature: Atherosclerotic disease. No abdominal aortic aneurysm. Lymph nodes: Unremarkable. No enlarged lymph nodes. IMPRESSION: 1. Limited evaluation in the absence of contrast. 2. No evidence of radiopaque renal calculi or signs of collecting system dilatation. 3. Diffuse bladder wall thickening with intervening Jovel and gas in the bladder dome. Findings may be due to recent placement with decompression. Cystitis is also possible. Consider correlation with laboratory values. 4. No other acute findings. 5. Incidental findings as described. Electronically signed by: Felix Ng MD 06/19/24 05:50 AM Medications Administered Home Medications Medication Instructions Recorded Confirmed Last Taken carboxymethylcellulose sodium 0.5 1 drp OPB BID 05/22/21 06/19/24 06/18/24 08:00 % eye drops colchicine 0.6 mg capsule See Rx Instructions .Route .COMPLEX 05/22/21 06/19/24 06/18/24 loratadine 10 mg tablet (Allergy 10 mg PO Q OTHER DAY 05/22/21 06/19/24 06/18/24 Relief (loratadine)) magnesium oxide 420 mg tablet 420 mg PO DAILY 05/22/21 06/19/24 06/18/24 omeprazole 20 mg capsule,delayed 20 mg PO BID 05/22/21 06/19/24 06/18/24 08:00 release aspirin 81 mg tablet,delayed 81 mg PO DAILY 09/15/22 06/19/24 06/18/24 release atorvastatin 80 mg tablet 80 mg PO HS 09/15/22 06/19/24 06/17/24 doxazosin 4 mg tablet 4 mg PO DAILY 09/15/22 06/19/24 06/18/24 fluticasone propionate 50 2 spray intranasal DAILY 09/15/22 06/19/24 06/18/24 mcg/actuation nasal spray,suspension gabapentin 300 mg capsule 300 mg PO BID 09/15/22 06/19/24 06/18/24 08:00 guaifenesin 200 mg tablet 400 mg PO TID PRN help thin mucous 09/15/22 06/19/24 Unknown insulin aspart U-100 100 unit/mL 22 unit subcut TIDM 09/15/22 06/19/24 06/18/24 (3 mL) subcutaneous pen (Novolog FlexPen U-100 Insulin aspart) meclizine 12.5 mg tablet 25 mg PO Q6H PRN Vertigo 09/15/22 06/19/24 Unknown mometasone 220 mcg/actuation(60 1 inh inhalation BID 09/15/22 06/19/24 06/18/24 08:00 doses) breath activated powder inhaler omega 3-qom-dsb-fish oil 1,000 mg 2 cap PO BID 09/15/22 06/19/24 06/18/24 08:00 (120 mg-180 mg) capsule (Fish Oil) tiotropium 2.5 mcg-olodaterol 2.5 2 puff inhalation DAILY 09/15/22 06/19/24 06/18/24 mcg/actuation mist for inhalation vit C 250 mg-vit E 90 mg-zinc 40 1 tab PO BID 09/15/22 06/19/24 06/18/24 08:00 mg-copper 1 [id number]-[id number] capsule (PreserVision AREDS-2) carvedilol 25 mg tablet 12.5 mg PO BID 01/19/24 06/19/24 06/18/24 08:00 furosemide 80 mg tablet 80 mg PO DAILY 01/19/24 06/19/24 06/18/24 glucose 4 gram chewable tablet 4 g PO UD PRN hypoglycemia 01/19/24 06/19/24 Unk nown zinc oxide 20 % topical ointment 1 applic topical DAILY PRN Penile 01/19/24 06/19/24 Unknown Irritation/Excoriation albuterol sulfate 90 mcg/actuation 2 puff inhalation Q4H PRN 02/14/24 06/19/24 Unknown aerosol inhaler Shortness Of Breath Or Wheezing cholecalciferol (vitamin D3) 25 50 mcg PO DAILY 02/14/24 06/19/24 06/18/24 mcg (1,000 unit) capsule furosemide 40 mg tablet 40 mg PO Q OTHER DAY 02/14/24 06/19/24 06/17/24 levofloxacin 250 mg tablet 250 mg PO DAILY 02/14/24 06/19/24 06/18/24 lidocaine 5 % topical cream 1 applic topical BID PRN Pain 02/14/24 06/19/24 Unknown lisinopril 10 mg tablet 10 mg PO DAILY 02/14/24 06/19/24 06/18/24 metoprolol tartrate 50 mg tablet 50 mg PO BID 02/14/24 06/19/24 06/18/24 08:00 insulin glargine-yfgn 100 unit/mL 46 unit subcut HS 03/14/24 06/19/24 06/17/24 (3 mL) subcutaneous pen Active Medications Generic Name Dose Route Start Last Admin Trade Name Freq PRN Reason Stop Dose Admin Acetaminophen 650 mg 06/19/24 08:27 06/19/24 15:23 Acetaminophen 325 Mg Tab PO 07/19/24 08:26 650 mg Q4H PRN Administration Pain or Fever Amlodipine Besylate 5 mg 06/21/24 09:15 06/21/24 10:19 Amlodipine Besylate 5 Mg Tab PO 07/21/24 09:14 5 mg QAM AUDRA Administration Aspirin 81 mg 06/19/24 09:00 06/21/24 08:40 Aspirin 81 Mg Ectab PO 07/19/24 08:59 81 mg DAILY AUDRA Administration Atorvastatin Calcium 80 mg 06/19/24 21:00 06/20/24 20:29 Atorvastatin 40 Mg Tab PO 07/19/24 20:59 80 mg HS AUDRA Administration Benzocaine 1 appln 06/19/24 15:22 06/19/24 15:54 Benzocaine 20% (Orajel) 11.9 Gm Tube MT 07/19/24 15:21 1 appln TID PRN Administration oral pain Carvedilol 25 mg 06/19/24 17:00 06/21/24 08:38 Carvedilol 25 Mg Tab PO 07/19/24 16:59 25 mg BIDM AUDRA Administration Doxazosin Mesylate 4 mg 06/19/24 09:00 06/21/24 08:41 Doxazosin Mesylate 4 Mg Tab PO 07/19/24 08:59 4 mg DAILY AUDRA Administration Fluticasone Furoate 1 puffs 06/19/24 09:00 06/21/24 08:42 Fluticasone Furoate 200mcg 14 Puffs/Inhaler INH 07/19/24 08:59 1 puffs DAILY AUDRA Administration Protocol Fluticasone Propionate 2 sprays 06/19/24 09:00 06/21/24 08:43 Fluticasone Propionate Na Spr 16 Gm Btl MARK 07/19/24 08:59 2 sprays DAILY AUDRA Administration Gabapentin 300 mg 06/20/24 09:00 06/21/24 08:40 Gabapentin 300 Mg Cap PO 07/20/24 08:59 300 mg QAM AUDRA Administration Guaifenesin 400 mg 06/19/24 08:27 06/19/24 20:41 Guaifenesin 200 Mg Tab PO 07/19/24 08:26 400 mg TID PRN Administration help thin mucous Heparin Sodium (Porcine) 5,000 units 06/20/24 09:00 06/21/24 08:43 Heparin Sod 5,000 Unit/0.5 Ml Vial SQ 07/20/24 08:59 5,000 units Q12 AUDRA Administration Sodium Chloride 1,000 mls @ 80 mls/hr 06/20/24 14:30 06/21/24 03:56 Nss IV 07/20/24 14:29 80 mls/hr .[id number] AUDRA Administration Ceftriaxone Sodium 2,000 mg in 50 mls @ 100 mls/hr 06/21/24 09:15 06/21/24 10:49 Rocephin IV 07/05/24 09:14 Infused Q24H AUDRA Infusion Insulin Aspart 0 units 06/19/24 08:27 06/21/24 11:57 Insulin Aspart Per Unit Charge SC 07/19/24 08:26 9 units ACHS AUDRA Administration Insulin Glargine 45 units 06/19/24 15:45 06/20/24 20:27 Lantus Per Unit Charge SC 07/19/24 15:44 45 units HS AUDRA Administration Loratadine 10 mg 06/20/24 09:00 06/20/24 08:23 Loratadine 10 Mg Tab PO 07/20/24 08:59 10 mg Q2D AUDRA Administration Magnesium Oxide 400 mg 06/19/24 09:00 06/21/24 08:39 Magnesium Oxide 400 Mg Tab PO 07/19/24 08:59 400 mg DAILY AUDRA Administration Multivitamins/Minerals 1 tab 06/20/24 09:00 06/21/24 08:41 Cerovite Adv Formula Tab PO 07/20/24 08:59 1 tab DAILY AUDRA Administration Ondansetron HCl 4 mg 06/20/24 01:47 06/20/24 02:03 Ondansetron Inj 2 Mg/Ml 2 Ml Vial IV 07/20/24 01:46 4 mg Q6H PRN Administration Nausea And Vomiting Oxycodone HCl 5 mg 06/19/24 15:22 06/19/24 21:10 Oxycodone Hcl Ir 5 Mg Tab (Immediate Release) PO 07/03/24 15:21 5 mg Q6H PRN Administration moderate-severe Pain Pantoprazole Sodium 40 mg 06/19/24 09:00 06/21/24 08:38 Pantoprazole 40 Mg Tab PO 07/19/24 08:59 40 mg BID AUDRA Administration Protocol Polyethylene Glycol 17 gm 06/20/24 15:45 06/21/24 08:45 Polyethylene (Miralax) 17 Gm Pack PO 07/20/24 15:44 17 gm BID AUDRA Administration Umeclidinium/Vilanterol 1 puffs 06/19/24 09:00 06/21/24 08:42 Umeclidinium/Vilanterol 62.5/25mcg 7 Puffs/Inhaler INH 07/19/24 08:59 1 puffs DAILY AUDRA Administration Protocol Vitamin D 50 mcg 06/19/24 09:00 06/21/24 08:39 Cholecalciferol 25 Mcg (1000 Units) Tab PO 07/19/24 08:59 50 mcg DAILY AUDRA Administration
[2024-06-22] MEDS: BUTT PASTE (ZINC OXIDE 16%) 171 APPLN/57 GM JAR EXT PRN (08:16)
[2024-06-22] MEDS: amLODIPine BESYLATE 5 MG TAB PO ONE (10:27)
--- NOTE | 2024-06-22 11:00 | Electrocardiogram Report ---
Test Reason : Blood Pressure : */* mmHG Vent. Rate : 70 BPM Atrial Rate : 70 BPM P-R Int : 154 ms QRS Dur : 92 ms QT Int : 442 ms P-R-T Axes : 27 60 69 degrees QTcB Int : 477 ms Sinus rhythm with Premature atrial complexes Nonspecific ST abnormality Abnormal ECG When compared with ECG of 20-Jun-2024 04:27, Nonspecific T wave abnormality now evident in Inferior leads Confirmed by Fan Briggs ([id number]) on 06/22/2024 11:00:34 AM Referred By: REFERRED SELF Confirmed By: Fan Briggs
--- NOTE | 2024-06-22 11:04 | Nephrology Progress Note ---
Date of Service June 22, 2024 Assessment & Plan (1) INGRID (acute kidney injury): (2) Acute UTI (urinary tract infection): (3) Chronic indwelling Berg catheter: (4) Sepsis due to urinary tract infection: (5) Chronic heart failure with preserved ejection fraction: Plan 83 year-old male with PMH of CAD s/p CABG, stage 4 CKD b/l cr 2.5 mg/dL, PCR 1.5 g/g, attributed to DKD and arterionephrosclerosis, follows in the [facility] nephrology clinic with Dr. 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 Initially started on IV fluid which was stopped yesterday. Now continued on cefepime. On admission creatinine was 3.5 with baseline creatinine 2.5, creatinine peaked to 3.9 which slightly improved to 3.8 this morning. IV fluid was stopped. Blood pressure has been running high, lisinopril has been on hold. Troponin was mildly elevated, evaluated by cardiology, thought to be demand ischemia in the setting of sepsis. 2D echo showed normal ejection fraction. Overall clinically doing well. Blood pressure remain elevated. Has been having decent urine output. --Increase amlodipine to 10 mg daily this morning. Continue to hold lisinopril for now. If kidney function continues to improve, will consider restarting back on lisinopril. --Monitor intake and output. Admission and Anticipated Discharge Date Admission Date: June 19, 2024 Braulio Bentley was seen this morning, he looked comfortable. Blood pressure remained elevated. Lab from this morning currently pending. Review of Systems Review of Systems: Delivery of system otherwise unremarkable except mentioned above. Physical Exam Constitutional: WD/WN, vitals as above + obese; no acute distress Results & Data Vital Signs (Past 12 Hours) Vital Signs Temp Pulse Pulse Resp BP BP Pulse Ox 06/22/24 07:46 06/22/24 07:45 63 06/22/24 07:12 36.5 C 66 164/78 H 95 06/22/24 06:00 68 13 06/22/24 05:03 68 13 06/22/24 04:06 73 20 06/22/24 04:01 151/63 H 06/22/24 04:01 151/63 H 06/22/24 04:00 36.9 C 06/22/24 04:00 73 15 06/22/24 03:55 153/65 H 06/22/24 03:55 153/65 H 06/22/24 03:55 153/65 H 06/22/24 03:39 74 20 06/22/24 03:03 73 14 06/22/24 02:12 68 12 06/22/24 01:12 68 18 06/22/24 00:03 72 16 06/22/24 00:01 162/59 H 06/22/24 00:01 162/59 H 06/22/24 00:00 36.9 C 06/22/24 00:00 70 06/21/24 23:48 73 18 06/21/24 23:19 174/68 H 06/21/24 23:06 69 17 06/21/24 23:03 69 15 O2 Del Method 06/22/24 07:46 Room Air 06/22/24 07:45 06/22/24 07:12 Room Air 06/22/24 06:00 06/22/24 05:03 06/22/24 04:06 06/22/24 04:01 06/22/24 04:01 06/22/24 04:00 06/22/24 04:00 06/22/24 03:55 06/22/24 03:55 06/22/24 03:55 06/22/24 03:39 06/22/24 03:03 06/22/24 02:12 06/22/24 01:12 06/22/24 00:03 06/22/24 00:01 06/22/24 00:01 06/22/24 00:00 06/22/24 00:00 06/21/24 23:48 06/21/24 23:19 06/21/24 23:06 06/21/24 23:03 PG Care Time/CCT Total # of Minutes Spent Total Time Spent with Patient: Total time spent is greater than 50% in coordination of care (as documented) at patient's floor/unit and/or counseling patient: Coding Level of Care Code 54350 SUB INP/OBS CARE Diagnoses INGRID (acute kidney injury) N17.9 Acute UTI (urinary tract infection) N39.0 Chronic indwelling Berg catheter Z97.8 Sepsis due to urinary tract infection A41.9; N39.0 Chronic heart failure with preserved ejection fraction I50.32
[2024-06-22 13:19] LABS: Albumin Level 3.1 gm/dl (3.4-5.0); Calcium 8.4 mg/dl (8.6-10.3)
[2024-06-22 13:25] LABS: BUN Creatinine Ratio 13.3 (10-20); Creatinine Clr Calc Pharmacy 20.8 ml/min; Est GFR (African American) 19.7 ml/min; Phosphorus 3.6 mg/dl (2.5-4.9)
--- NOTE | 2024-06-22 13:59 | Infectious Disease Progress Nt ---
Date of Service June 22, 2024 Assessment & Plan (1) Acute UTI (urinary tract infection): (2) INGRID (acute kidney injury): (3) Chronic indwelling Jovel catheter: Plan This is an 83-year-old male with a past medical history of CAD, cardiomyopathy, HFpEF, CABG x 2, hypertension, hyperlipidemia, CKD stage IV, DM2, BPH with LUTS, chronic Jovel catheter, COPD on 2 L O2 presents with chills, sweats, dyspnea on exertion, generalized fatigue with muscle aches. Per EMS had a temperature of 102.7. He has some nausea but no vomiting. In the ED, patient noted to have a chronic Jovel in place without bag attached. Was clipped to his shorts. In the ED, afebrile temp 37.8, pulse 104, RR 16, O2 sats 96% on 2 L nasal cannula BP 153/71> Labs: WBC 9.1, hemoglobin 9, hematocrit 27.9, platelets 91, BUN 45, creatinine 3.75, lactate 1.1. UA 50 WBC, 4+ bacteria. Respiratory dacia l panel negative. Blood cultureBCID with Klebsiella oxytoca. Urine culture> 100 K gram-negative rods. CTAP with diffuse bladder wall thickening with intervening Jovel and gas in the bladder dome. Findings may be due to recent placement with decompression. Cystitis also possible. Chest x-ray with mild central pulmonary vascular congestion. He is was started on cefepime. ID consulted for Klebsiella bacteremia. On exam patient is comfortable. He feels better since admission. No longer having chills or sweats. He denies any suprapubic pain, change in urine/ bladder or bowel habits. He usually has his Jovel catheter changed once a month. It was last changed 2 weeks ago prior to admission. He reports Jovel changed since admission. Microbiology: Blood cultures 06/19 Klebsiella oxytoca( Kendrick S) Urine culture >100k Klebsiella oxytoca( R cefazolin)) Antibiotics: Cefepime 06/19-06/21 Ceftriaxone 06/21-ongoing # Klebsiella oxytoca bacteremia in setting of chronic jovel # CauTi: Klebsiella Oxytoca from chronic jovel # Chronic Jovel s/p exchange this admission # CKD IV Bacteremia possibly from a urinary source. Patient with chronic Jovel which was exchanged this admission. Denies GI symptoms. WBc 6.89 (06/21) cr 3.23 9/5 Recommendations:, Continue Ceftriaxone 2 g iv daily When ready for discharge, Can consider transition to Levaquin 750 mg times ONE dose followed by 500 mg po q48hrs ( crcl 20.8) as source for bacteremia likely urinary , jovel has been changed, is afebrile, not hypotensive and without leukocytosis. Anticipate 10 total days of antibiotics ( 06/19- 06/29) QTc 477 (06/22), 451 (06/20) ID will sign off. Call with questions. Rishi Sunshine MD, MPH Infectious Disease [facility] Call [phone] with questions Admission and Anticipated Discharge Date Admission Date: June 19, 2024 Subjective This patient recommendation is based on a telemedicine consult request which was completed asynchronously through chart review and information provided by the primary physician. The patient was not seen or examined today. The evaluation is consultative in nature and all patient care and treatment decisions can either be accepted or rejected by the patient's primary hospital-based treating physi jered using their own independent medical judgment for their patient. Time Spent Reviewing Chart: 21 - 30 minutes Afebrile WBC 6.89 -9/ cr 3.23 UCX + klebsiella oxytoca Results & Data Vital Signs (Past 12 Hours) Vital Signs Temp Pulse Pulse Resp BP BP Pulse Ox 06/22/24 12:00 36.5 C 67 15 149/67 H 96 06/22/24 07:46 06/22/24 07:45 63 06/22/24 07:12 36.5 C 66 164/78 H 95 06/22/24 06:00 68 13 06/22/24 05:03 68 13 06/22/24 04:06 73 20 06/22/24 04:01 151/63 H 06/22/24 04:01 151/63 H 06/22/24 04:00 36.9 C 06/22/24 04:00 73 15 06/22/24 03:55 153/65 H 06/22/24 03:55 153/65 H 06/22/24 03:55 153/65 H 06/22/24 03:39 74 20 06/22/24 03:03 73 14 06/22/24 02:12 68 12 O2 Del Method 06/22/24 12:00 Room Air 06/22/24 07:46 Room Air 06/22/24 07:45 06/22/24 07:12 Room Air 06/22/24 06:00 06/22/24 05:03 06/22/24 04:06 06/22/24 04:01 06/22/24 04:01 06/22/24 04:00 06/22/24 04:00 06/22/24 03:55 06/22/24 03:55 06/22/24 03:55 06/22/24 03:39 06/22/24 03:03 06/22/24 02:12 Laboratory Results Laboratory Results - last 48 hr 06/20/24 06/20/24 06/21/24 15:59 19:51 04:23 WBC 6.89 RBC 3.11 L Hgb 9.1 L Hct 28.8 L MCV 92.6 MCH 29.3 MCHC 31.6 L RDW Std Deviation 48.2 H RDW Coeff of [place] 14.2 Plt Count 86 L MPV 11.7 Immature Gran % (Auto) 0.4 Neut % (Auto) 65.5 Lymph % (Auto) 14.8 [place] % (Auto) 14.8 Eos % (Auto) 4.1 Baso % (Auto) 0.4 Neut # (Auto) 4.51 Lymph # (Auto) 1.02 L [place] # (Auto) 1.02 H Eos # (Auto) 0.28 Baso # (Auto) 0.03 Immature Gran # (Auto) 0.03 Sodium 140 Potassium 4.4 Chloride 107 Carbon Dioxide 29 Anion Gap 4 BUN 45 H Creatinine 3.61 H Est Cr Clr Drug Dosing 19.0 Est GFR ( Amer) 17.3 Est GFR (Non-Af Amer) 14.9 BUN/Creatinine Ratio 12.5 Glucose 120 H POC Glucose 212 H 206 H Calcium 8.4 L Phosphorus Magnesium 2.2 Total Bilirubin 0.4 AST 15 ALT 17 Alkaline Phosphatase 69 Total Protein 5.9 L Albumin 3.2 L Globulin 2.7 Albumin/Globulin Ratio 1.2 06/21/24 06/21/24 06/21/24 07:18 11:28 16:21 WBC RBC Hgb Hct MCV MCH MCHC RDW Std Deviation RDW Coeff of [place] Plt Count MPV Immature Gran % (Auto) Neut % (Auto) Lymph % (Auto) [place] % (Auto) Eos % (Auto) Baso % (Auto) Neut # (Auto) Lymph # (Auto) [place] # (Auto) Eos # (Auto) Baso # (Auto) Immature Gran # (Auto) Sodium Potassium Chloride Carbon Dioxide Anion Gap BUN Creatinine Est Cr Clr Drug Dosing Est GFR ( Amer) Est GFR (Non-Af Amer) BUN/Creatinine Ratio Glucose POC Glucose 135 H 185 H 186 H Calcium Phosphorus Magnesium Total Bilirubin AST ALT Alkaline Phosphatase Total Protein Albumin Globulin Albumin/Globulin Ratio 06/21/24 06/22/24 06/22/24 20:48 04:32 07:06 WBC RBC Hgb Hct MCV MCH MCHC RDW Std Deviation RDW Coeff of [place] Plt Count MPV Immature Gran % (Auto) Neut % (Auto) Lymph % (Auto) [place] % (Auto) Eos % (Auto) Baso % (Auto) Neut # (Auto) Lymph # (Auto) [place] # (Auto) Eos # (Auto) Baso # (Auto) Immature Gran # (Auto) Sodium Potassium Chloride Carbon Dioxide Anion Gap BUN Creatinine Est Cr Clr Drug Dosing Est GFR ( Amer) Est GFR (Non-Af Amer) BUN/Creatinine Ratio Glucose POC Glucose 183 H 91 Calcium Phosphorus Magnesium 2.3 Total Bilirubin AST ALT Alkaline Phosphatase Total Protein Albumin Globulin Albumin/Globulin Ratio 06/22/24 06/22/24 09:21 11:22 WBC RBC Hgb Hct MCV MCH MCHC RDW Std Deviation RDW Coeff of [place] Plt Count MPV Immature Gran % (Auto) Neut % (Auto) Lymph % (Auto) [place] % (Auto) Eos % (Auto) Baso % (Auto) Neut # (Auto) Lymph # (Auto) [place] # (Auto) Eos # (Auto) Baso # (Auto) Immature Gran # (Auto) Sodium 140 Potassium 4.0 Chloride 108 H Carbon Dioxide 24 Anion Gap 8 BUN 43 H Creatinine 3.23 H D Est Cr Clr Drug Dosing 20.8 Est GFR ( Amer) 19.7 Est GFR (Non-Af Amer) 17.0 BUN/Creatinine Ratio 13.3 Glucose 92 POC Glucose 144 H Calcium 8.4 L Phosphorus 3.6 Magnesium Total Bilirubin AST ALT Alkaline Phosphatase Total Protein Albumin 3.1 L Globulin Albumin/Globulin Ratio Diagnostic Findings Microbiology 06/19/24 02:53 Urine,Straight Cath Urine Culture - Final Klebsiella oxytoca 06/19/24 03:00 Blood Aerobic Blood Culture - Preliminary No growth in Aerobic bottle after 48 hours. 06/19/24 03:00 Blood Anaerobic Blood Culture - Preliminary Klebsiella oxytoca Medications Administered Home Medications Medication Instructions Recorded Confirmed Last Taken carboxymethylcellulose sodium 0.5 1 drp OPB BID 05/22/21 06/19/24 06/18/24 08:00 % eye drops colchicine 0.6 mg capsule See Rx Instructions .Route .COMPLEX 05/22/21 06/19/24 06/18/24 loratadine 10 mg tablet (Allergy 10 mg PO Q OTHER DAY 05/22/21 06/19/24 06/18/24 Relief (loratadine)) magnesium oxide 420 mg tablet 420 mg PO DAILY 05/22/21 06/19/24 06/18/24 omeprazole 20 mg capsule,delayed 20 mg PO BID 05/22/21 06/19/24 06/18/24 08:00 release aspirin 81 mg tablet,delayed 81 mg PO DAILY 09/15/22 06/19/24 06/18/24 release atorvastatin 80 mg tablet 80 mg PO HS 09/15/22 06/19/24 06/17/24 doxazosin 4 mg tablet 4 mg PO DAILY 09/15/22 06/19/24 06/18/24 fluticasone propionate 50 2 spray intranasal DAILY 09/15/22 06/19/24 06/18/24 mcg/actuation nasal spray,suspension gabapentin 300 mg capsule 300 mg PO BID 09/15/22 06/19/24 06/18/24 08:00 guaifenesin 200 mg tablet 400 mg PO TID PRN help thin mucous 09/15/22 06/19/24 Unknown insulin aspart U-100 100 unit/mL 22 unit subcut TIDM 09/15/22 06/19/24 06/18/24 (3 mL) subcutaneous pen (Novolog FlexPen U-100 Insulin aspart) meclizine 12.5 mg tablet 25 mg PO Q6H PRN Vertigo 09/15/22 06/19/24 Unknown mometasone 220 mcg/actuation(60 1 inh inhalation BID 09/15/22 06/19/24 06/18/24 08:00 doses) breath activated powder inhaler omega 6-yym-cdl-fish oil 1,000 mg 2 cap PO BID 11/06/19/24 06/18/24 08:00 (120 mg-180 mg) capsule (Fish Oil) tiotropium 2.5 mcg-olodaterol 2.5 2 puff inhalation DAILY 09/15/22 06/19/24 06/18/24 mcg/actuation mist for inhalation vit C 250 mg-vit E 90 mg-zinc 40 1 tab PO BID 09/15/22 06/19/24 06/18/24 08:00 mg-copper 1 [id number]-kahkgr capsule (PreserVision AREDS-2) carvedilol 25 mg tablet 12.5 mg PO BID 01/19/24 06/19/24 06/18/24 08:00 furosemide 80 mg tablet 80 mg PO DAILY 01/19/24 06/19/24 06/18/24 glucose 4 gram chewable tablet 4 g PO UD PRN hypoglycemia 01/19/24 06/19/24 Unknown zinc oxide 20 % topical ointment 1 applic topical DAILY PRN Penile 01/19/24 06/19/24 Unknown Irritation/Excoriation albuterol sulfate 90 mcg/actuation 2 puff inhalation Q4H PRN 02/14/24 06/19/24 Unknown aerosol inhaler Shortness Of Breath Or Wheezing cholecalciferol (vitamin D3) 25 50 mcg PO DAILY 02/14/24 06/19/24 06/18/24 mcg (1,000 unit) capsule furosemide 40 mg tablet 40 mg PO Q OTHER DAY 02/14/24 06/19/24 06/17/24 levofloxacin 250 mg tablet 250 mg PO DAILY 02/14/24 06/19/24 06/18/24 lidocaine 5 % topical cream 1 applic topical BID PRN Pain 02/14/24 06/19/24 Unknown lisinopril 10 mg tablet 10 mg PO DAILY 02/14/24 06/19/24 06/18/24 metoprolol tartrate 50 mg tablet 50 mg PO BID 02/14/24 06/19/24 06/18/24 08:00 insulin glargine-yfgn 100 unit/mL 46 unit subcut HS 03/14/24 06/19/24 06/17/24 (3 mL) subcutaneous pen Active Medications Generic Name Dose Route Start Last Admin Trade Name Freq PRN Reason Stop Dose Admin Acetaminophen 650 mg 06/19/24 08:27 06/22/24 10:30 Acetaminophen 325 Mg Tab PO 07/19/24 08:26 650 mg Q4H PRN Administration Pain or Fever Aspirin 81 mg 06/19/24 09:00 06/22/24 08:12 Aspirin 81 Mg Ectab PO 07/19/24 08:59 81 mg DAILY AUDRA Administration Atorvastatin Calcium 80 mg 06/19/24 21:00 06/21/24 20:44 Atorvastatin 40 Mg Tab PO 07/19/24 20:59 80 mg HS AUDRA Administration Benzocaine 1 appln 06/19/24 15:22 06/19/24 15:54 Benzocaine 20% (Orajel) 11.9 Gm Tube MT 07/19/24 15:21 1 appln TID PRN Administration oral pain Carvedilol 25 mg 06/19/24 17:00 06/22/24 08:12 Carvedilol 25 Mg Tab PO 07/19/24 16:59 25 mg BIDM AUDRA Administration Doxazosin Mesylate 4 mg 06/19/24 09:00 06/22/24 08:14 Doxazosin Mesylate 4 Mg Tab PO 07/19/24 08:59 4 mg DAILY AUDRA Administration Fluticasone Furoate 1 puffs 06/19/24 09:00 06/22/24 08:16 Fluticasone Furoate 200mcg 14 Puffs/Inhaler INH 07/19/24 08:59 1 puffs DAILY AUDRA Administration Protocol Fluticasone Propionate 2 sprays 06/19/24 09:00 06/22/24 08:15 Fluticasone Propionate Na Spr 16 Gm Btl MARK 07/19/24 08:59 2 sprays DAILY AUDRA Administration Gabapentin 300 mg 06/20/24 09:00 06/22/24 08:12 Gabapentin 300 Mg Cap PO 07/20/24 08:59 300 mg QAM AUDRA Administration Guaifenesin 400 mg 06/19/24 08:27 06/19/24 20:41 Guaifenesin 200 Mg Tab PO 07/19/24 08:26 400 mg TID PRN Administration help thin mucous Heparin Sodium (Porcine) 5,000 units 06/20/24 09:00 06/22/24 08:09 Heparin Sod 5,000 Unit/0.5 Ml Vial SQ 07/20/24 08:59 5,000 units Q12 AUDRA Administration Sodium Chloride 1,000 mls @ 80 mls/hr 06/20/24 14:30 06/22/24 05:13 Nss IV 07/20/24 14:29 80 mls/hr .[id number] AUDRA Administration Ceftriaxone Sodium 2,000 mg in 50 mls @ 100 mls/hr 06/21/24 09:15 06/22/24 08:45 Rocephin IV 07/05/24 09:14 Infused Q24H AUDRA Infusion Insulin Aspart 0 units 06/19/24 08:27 06/22/24 11:48 Insulin Aspart Per Unit Charge SC 07/19/24 08:26 8 units ACHS AUDRA Administration Insulin Glargine 45 units 06/19/24 15:45 06/21/24 20:53 Lantus Per Unit Charge SC 07/19/24 15:44 45 units HS AUDRA Administration Loratadine 10 mg 06/20/24 09:00 06/22/24 08:15 Loratadine 10 Mg Tab PO 07/20/24 08:59 10 mg Q2D AUDRA Administration Magnesium Oxide 400 mg 06/19/24 09:00 06/22/24 08:12 Magnesium Oxide 400 Mg Tab PO 07/19/24 08:59 400 mg DAILY AUDRA Administration Multivitamins/Minerals 1 tab 06/20/24 09:00 06/22/24 08:14 Cerovite Adv Formula Tab PO 07/20/24 08:59 1 tab DAILY AUDRA Administration Ondansetron HCl 4 mg 06/20/24 01:47 06/20/24 02:03 Ondansetron Inj 2 Mg/Ml 2 Ml Vial IV 07/20/24 01:46 4 mg Q6H PRN Administration Nausea And Vomiting Oxycodone HCl 5 mg 06/19/24 15:22 06/19/24 21:10 Oxycodone Hcl Ir 5 Mg Tab (Immediate Release) PO 07/03/24 15:21 5 mg Q6H PRN Administration moderate-severe Pain Pantoprazole Sodium 40 mg 06/19/24 09:00 06/22/24 08:09 Pantoprazole 40 Mg Tab PO 07/19/24 08:59 40 mg BID AUDRA Administration Protocol Petrolatum 1 appln 06/19/24 09:02 06/22/24 08:16 Butt Paste (Zinc Oxide 16%) 171 Appln/57 Gm Jar EXT 07/19/24 09:01 1 appln DAILY PRN Administration Penile Irritation/Excoriation Polyethylene Glycol 17 gm 06/20/24 15:45 06/22/24 08:34 Polyethylene (Miralax) 17 Gm Pack PO 07/20/24 15:44 17 gm BID AUDRA Administration Umeclidinium/Vilanterol 1 puffs 06/19/24 09:00 06/22/24 08:16 Umeclidinium/Vilanterol 62.5/25mcg 7 Puffs/Inhaler INH 07/19/24 08:59 1 puffs DAILY AUDRA Administration Protocol Vitamin D 50 mcg 06/19/24 09:00 06/22/24 08:12 Cholecalciferol 25 Mcg (1000 Units) Tab PO 07/19/24 08:59 50 mcg DAILY AUDRA Administration
--- NOTE | 2024-06-22 14:20 | Hospitalist Progress Note ---
Date of Service June 22, 2024 Assessment & Plan (1) Sepsis due to urinary tract infection: Plan: Present on admission. Klebsiella bacteremia noted. Urine culture also positive for Klebsiella. Cefepime has been switched to Rocephin. Day 5 of antibiotic therapy. He will be switched to an oral antibiotic at the time of discharge. (2) Acute kidney injury superimposed on CKD: Plan: Improving. Monitor intake and output. Serial labs. Continue IV fluids for now. Creatinine continues to trend downward. Now 3.2, June 22. Baseline is around 2.5. (3) NSTEMI (non-ST elevated myocardial infarction): Plan: Ruled out. Mild troponin elevation appears to be due to demand ischemia. Cardiology consultation and recommendations appreciated. Telemetry (4) Urinary retention: Plan: Berg catheter in place. No hematuria (5) Chronic kidney disease, stage 4 (severe): Plan: Monitor intake and output. Serial labs (6) Insulin dependent diabetes mellitus: Plan: ADA diet. Sliding scale coverage. (7) COPD (chronic obstructive pulmonary disease): Plan: Stable. Continue current medical management (8) Coronary artery disease: Plan: Stable. History of coronary artery bypass grafting. Continue current medical management (9) Hypertension: Plan: Stable. Lisinopril has been discontinued due to advanced kidney disease and hyperkalemia. Amlodipine was started on June 21 and uptitrated today, June 22. Continue Coreg (10) BPH loc w urin obs/LUTS: Plan: With chronic indwelling Berg catheter. CAUTI present on admission. Klebsiella isolated in the urine. Plan Hopeful discharge to [facility] tomorrow, June 23 Admission and Anticipated Discharge Date Admission Date: June 19, 2024 Subjective Alert and oriented. No distress. Creatinine continues to drop, currently down to 3.2 todayJune 22. Baseline is 2.5. Potassium stable at 4.0. He remains on intravenous Rocephin, day 5, for the Klebsiella cauti and bacteremia. He will be switched to an oral antibiotic at discharge. Review of Systems 2 Review of Systems: Constitutionalno fever or chills ENTno blurred vision, no double vision, no epistaxis, no sore throat Respiratoryno cough, no wheezing, no shortness of breath Cardiacno palpitations, no chest pain, no syncope Gia nausea, vomiting, diarrhea, melena, hematochezia GUno urinary retention, no urinary incontinence, no dysuria, no hematuria Musculoskeletalno joint pain, no muscle tenderness GYNchronic Berg catheter in place Skinno bruising, no rashes, no pruritus Neurono isolated weakness, no paresthesia, no weakness Psychno depression, no anxiety Physical Exam 2 Physical Exam: General-alert and oriented x3, no fever, no chills HEENT-head atraumatic and normocephalic, pupils equal and reactive to light, extraocular muscles intact. Legally blind Neck-no lymphadenopathy or thyromegaly, trachea midline Chest-clear to auscultation. No rales, wheezing or rhonchi Cardiac-regular rate and rhythm, normal S1 and S2 Abdomen-normal bowel sounds, no hepatosplenomegaly GUFoley catheter in place. No hematuria Extremities-no cyanosis, clubbing, or edema Neuro-cranial nerves II through XII intact, motor and sensory function within normal limits, strength symmetrical, no focal deficits Psych-normal affect, normal mood Results & Data Results & Data Vital Signs (Past 12 Hours) Vital Signs Temp Pulse Pulse Resp BP BP Pulse Ox 06/22/24 12:00 36.5 C 67 15 149/67 H 96 06/22/24 07:46 06/22/24 07:45 63 06/22/24 07:12 36.5 C 66 164/78 H 95 06/22/24 06:00 68 13 06/22/24 05:03 68 13 06/22/24 04:06 73 20 06/22/24 04:01 151/63 H 06/22/24 04:01 151/63 H 06/22/24 04:00 36.9 C 06/22/24 04:00 73 15 06/22/24 03:55 153/65 H 06/22/24 03:55 153/65 H 06/22/24 03:55 153/65 H 06/22/24 03:39 74 20 06/22/24 03:03 73 14 O2 Del Method 06/22/24 12:00 Room Air 06/22/24 07:46 Room Air 06/22/24 07:45 06/22/24 07:12 Room Air 06/22/24 06:00 06/22/24 05:03 06/22/24 04:06 06/22/24 04:01 06/22/24 04:01 06/22/24 04:00 06/22/24 04:00 06/22/24 03:55 06/22/24 03:55 06/22/24 03:55 06/22/24 03:39 06/22/24 03:03 Laboratory Results 06/21/24 04:23 06/22/24 09:21 PG Care Time/CCT Total # of Minutes Spent Total Time Spent with Patient: Total time spent is greater than 50% in coordination of care (as documented) at patient's floor/unit and/or counseling patient: Coding Level of Care Code 00266 SUB INP/OBS CARE 3/50MIN Diagnoses Sepsis due to urinary tract infection A41.9; N39.0 Acute kidney injury superimposed on CKD N17.9; N18.9 NSTEMI (non-ST elevated myocardial infarction) I21.4 Urinary retention R33.9 Chronic kidney disease, stage 4 (severe) N18.4 Insulin dependent diabetes mellitus COPD (chronic obstructive pulmonary disease) J44.9 Coronary artery disease I25.10 Hypertension I10 BPH loc w urin obs/LUTS N40.1
[2024-06-22 16:47] LABS: Basophils # (auto) 0.03 K/uL (0.00-0.20); Basophils % (auto) 0.6 %; Eosinophils # (auto) 0.23 K/uL (0.00-0.50); Eosinophils % (auto) 4.2 %; Hematocrit (blood only) 29.7 % (42.0-52.0); Hemoglobin 9.3 g/dl (14.0-18.0); Immature Granulocytes # (auto) 0.06 K/uL (0.01-0.20); Immature Granulocytes % (auto) 1.1 %; Lymphocytes # (auto) 1.15 K/uL (1.20-3.40); Lymphocytes % (auto) 21.2 %; Mean Corpuscular Hgb Conc 31.3 g/dL (32.0-36.0); Mean Corpuscular Volume 92.5 fL (80.0-100.0); Mean Platelet Volume 12.7 fL (9.4-12.4); Monocytes # (auto) 0.87 K/uL (0.11-0.59); Neutrophils # (auto) 3.09 K/uL (1.40-6.50); Neutrophils % (auto) 56.9 %; Platelet Count 106 K/uL (130-400); RDW Coefficient of Variation 14.1 % (11.5-14.5); RDW Standard Deviation 48.3 fL (36.4-46.3); Red Blood Count 3.21 M/uL (4.70-6.10); White Blood Count 5.43 K/ul (4.8-10.8)
[2024-06-22] MEDS: MELATONIN 3 MG TAB PO PRN (23:32)
[2024-06-23 06:11] LABS: Hematocrit (blood only) 28.9 % (42.0-52.0); Hemoglobin 9.1 g/dl (14.0-18.0); Mean Corpuscular Hgb Conc 31.5 g/dL (32.0-36.0); Mean Platelet Volume 12.6 fL (9.4-12.4); Platelet Count 121 K/uL (130-400); RDW Coefficient of Variation 14.1 % (11.5-14.5); RDW Standard Deviation 47.8 fL (36.4-46.3); Red Blood Count 3.14 M/uL (4.70-6.10)
[2024-06-23 06:30] LABS: Albumin Level 3.2 gm/dl (3.4-5.0); BUN Creatinine Ratio 11.9 (10-20); Calcium 8.5 mg/dl (8.6-10.3); Creatinine Clr Calc Pharmacy 21.1 ml/min; Est GFR (African American) 20.1 ml/min; Est GFR (Non-African American) 17.4 ml/min; Phosphorus 3.8 mg/dl (2.5-4.9); Potassium 4.2 mmol/L (3.5-5.1)
[2024-06-23] MEDS: amLODIPine BESYLATE 5 MG TAB PO SCH (08:45)
[2024-06-23] MEDS: levoFLOXacin 750 MG TAB PO ONE (10:17)
[2024-06-23 11:07] VITALS: PULSE 69; RESP 16; TEMP 97.9; O2SAT 95
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
--- NOTE | 2024-06-23 11:19 | Hospitalist Progress Note ---
Date of Service June 23, 2024 Assessment & Plan (1) Sepsis due to urinary tract infection: Plan: Present on admission. Klebsiella bacteremia noted. Urine culture also positive for Klebsiella. Cefepime has been switched to Rocephin. Day 6 of antibiotic therapy. He will receive Levaquin 750 mg today, June 23, then take Levaquin 500 mg every 48 hours through June 29 per ID recommendations. (2) Bacteremia: Plan: Klebsiella isolated in blood cultures. He was treated with intravenous Rocephin while hospitalized. He will continue Levaquin through June 29 per ID recommendations (3) Acute kidney injury superimposed on CKD: Plan: Improving. Creatinine now down to 3.1 today, June 23. Monitor intake and output. Serial labs. He was treated with IV fluids while hospitalized. (4) NSTEMI (non-ST elevated myocardial infarction): Plan: Ruled out. Mild troponin elevation appears to be due to demand ischemia. Cardiology consultation and recommendations appreciated. Telemetry (5) Urinary retention: Plan: Berg catheter in place. No hematuria (6) Chronic kidney disease, stage 4 (severe): Plan: Monitor intake and output. Serial labs (7) Insulin dependent diabetes mellitus: Plan: ADA diet. Sliding scale coverage. (8) COPD (chronic obstructive pulmonary disease): Plan: Stable. Continue current medical management (9) Coronary artery disease: Plan: Stable. History of coronary artery bypass grafting. Continue current medical management (10) Hypertension: Plan: Stable. Lisinopril has been discontinued due to advanced kidney disease and hyperkalemia. Amlodipine was started on June 21 and uptitrated today, June 22. Continue Coreg (11) BPH loc w urin obs/LUTS: Plan: With chronic indwelling Berg catheter. CAUTI present on admission. Klebsiella isolated in the urine and the blood Plan Discharge to [facility] when arrangements are finalized Admission and Anticipated Discharge Date Admission Date: June 19, 2024 Subjective Alert and oriented. No distress. Intravenous Rocephin has been switched to oral Levaquin. Creatinine has improved further to 3.1. Potassium stable at 4.2. Blood pressure remains mildly elevated. Continue amlodipine at 10 mg daily for now in addition to Coreg Review of Systems 2 Review of Systems: Constitutionalno fever or chills ENTno blurred vision, no double vision, no epistaxis, no sore throat Respiratoryno cough, no wheezing, no shortness of breath Cardiacno palpitations, no chest pain, no syncope Gia nausea, vomiting, diarrhea, melena, hematochezia GUno urinary retention, no urinary incontinence, no dysuria, no hematuria Musculoskeletalno joint pain, no muscle tenderness GYNchronic Berg catheter in place Skinno bruising, no rashes, no pruritus Neurono isolated weakness, no paresthesia, no weakness Psychno depression, no anxiety Physical Exam 2 Physical Exam: General-alert and oriented x3, no fever, no chills HEENT-head atraumatic and normocephalic, pupils equal and reactive to light, extraocular muscles intact. Legally blind Neck-no lymphadenopathy or thyromegaly, trachea midline Chest-clear to auscultation. No rales, wheezing or rhonchi Cardiac-regular rate and rhythm, normal S1 and S2 Abdomen-normal bowel sounds, no hepatosplenomegaly GUFoley catheter in place. No hematuria Extremities-no cyanosis, clubbing, or edema Neuro-cranial nerves II through XII intact, motor and sensory function within normal limits, strength symmetrical, no focal deficits Psych-normal affect, normal mood Results & Data Results & Data Vital Signs (Past 12 Hours) Vital Signs Temp Pulse Pulse Resp BP BP Pulse Ox 06/23/24 11:05 36.6 C 69 16 184/81 H 95 06/23/24 07:24 36.9 C 71 18 178/73 H 93 06/23/24 06:55 67 06/23/24 02:27 36.5 C 68 16 172/95 H 92 O2 Del Method 06/23/24 11:05 Room Air 06/23/24 07:24 Room Air 06/23/24 06:55 06/23/24 02:27 Room Air Laboratory Results 06/23/24 05:33 06/23/24 05:33 PG Care Time/CCT Total # of Minutes Spent Total Time Spent with Patient: Total time spent is greater than 50% in coordination of care (as documented) at patient's floor/unit and/or counseling patient: Coding Level of Care Code 02792 SUB INP/OBS CARE 3/50MIN Diagnoses Sepsis due to urinary tract infection A41.9; N39.0 Bacteremia R78.81 Acute kidney injury superimposed on CKD N17.9; N18.9 NSTEMI (non-ST elevated myocardial infarction) I21.4 Urinary retention R33.9 Chronic kidney disease, stage 4 (severe) N18.4 Insulin dependent diabetes mellitus COPD (chronic obstructive pulmonary disease) J44.9 Coronary artery disease I25.10 Hypertension I10 BPH loc w urin obs/LUTS N40.1
--- NOTE | 2024-06-23 12:17 | Nephrology Progress Note ---
Date of Service June 23, 2024 Assessment & Plan (1) INGRID (acute kidney injury): (2) Acute UTI (urinary tract infection): (3) Chronic indwelling Berg catheter: (4) Sepsis due to urinary tract infection: (5) Chronic heart failure with preserved ejection fraction: Plan 83 year-old male with PMH of CAD s/p CABG, stage 4 CKD b/l cr 2.5 mg/dL, PCR 1.5 g/g, attributed to DKD and arterionephrosclerosis, follows in the [facility] nephrology clinic with Dr. 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 Initially started on IV fluid which was stopped yesterday. Now continued on cefepime. On admission creatinine was 3.5 with baseline creatinine 2.5, creatinine peaked to 3.9 which slightly improved to 3.8 this morning. IV fluid was stopped. Blood pressure has been running high, lisinopril has been on hold. Troponin was mildly elevated, evaluated by cardiology, thought to be demand ischemia in the setting of sepsis. 2D echo showed normal ejection fraction. Overall clinically doing well. Blood pressure remain elevated. Has been having decent urine output. Kidney function continues to improve very slowly, electrolyte acceptable. --Resume lisinopril at 10 mg daily, continue other antihypertensive medications. --Monitor intake and output. Admission and Anticipated Discharge Date Admission Date: June 19, 2024 Braulio Bentley was seen and evaluated this morning. Overall he reports feeling well, denies shortness of breath or chest pain. No fever or chills. Reports decent appetite. Has Berg catheter in place with decent urine output. Blood pressure continues to be quite elevated. Kidney function improving slowly, creatinine down to 3.2, electrolyte acceptable. Review of Systems Review of Systems: Delivery of system otherwise unremarkable except mentioned above. Physical Exam Constitutional: WD/WN, vitals as above + obese; no acute distress Respiratory: Auscultation: lungs clear to auscultation bilaterally Cardiovascular: Rate/Rhythm: regular rate and regular rhythm Heart Sounds: normal S1 and normal S2 Extremities: + edema Skin: no rashes, warm and dry Neurologic: no focal motor deficits Psychiatric: Orientation: alert and oriented x 3 Results & Data Vital Signs (Past 12 Hours) Vital Signs Temp Pulse Pulse Resp BP BP Pulse Ox 06/23/24 11:05 36.6 C 69 16 184/81 H 95 06/23/24 07:24 36.9 C 71 18 178/73 H 93 06/23/24 06:55 67 06/23/24 02:27 36.5 C 68 16 172/95 H 92 O2 Del Method 06/23/24 11:05 Room Air 06/23/24 07:24 Room Air 06/23/24 06:55 06/23/24 02:27 Room Air PG Care Time/CCT Total # of Minutes Spent Total Time Spent with Patient: Total time spent is greater than 50% in coordination of care (as documented) at patient's floor/unit and/or counseling patient: Coding Level of Care Code 75038 SUB INP/OBS CARE 2/35MIN Diagnoses INGRID (acute kidney injury) N17.9 Acute UTI (urinary tract infection) N39.0 Chronic indwelling Berg catheter Z97.8 Sepsis due to urinary tract infection A41.9; N39.0 Chronic heart failure with preserved ejection fraction I50.32
[2024-06-23] MEDS: lisinopril 10 MG TAB PO SCH (12:25)
[2024-06-23 13:04] VITALS: BP 178/73
== END 2024-06-23 14:03 | DRG 698 ==
LOC: SUATTDRO → ED 02:36 → 1E 04:30 → SUATTDRO 04:30 → 1E 07:48 → 2S 06-22 15:03

== ENCOUNTER 2024-12-14 16:07 | Inpatient (IN) ==
[2024-12-14 16:29] LABS: Basophils # (auto) 0.02 K/uL (0.00-0.20); Basophils % (auto) 0.4 %; Eosinophils # (auto) 0.21 K/uL (0.00-0.50); Hematocrit (blood only) 28.3 % (42.0-52.0); Hemoglobin 8.6 g/dl (14.0-18.0); Immature Granulocytes # (auto) 0.02 K/uL (0.01-0.20); Immature Granulocytes % (auto) 0.4 %; Lymphocytes # (auto) 0.95 K/uL (1.20-3.40); Lymphocytes % (auto) 18.3 %; Mean Corpuscular Hemoglobin 27.4 pg (25.0-34.0); Mean Corpuscular Hgb Conc 30.4 g/dL (32.0-36.0); Mean Corpuscular Volume 90.1 fL (80.0-100.0); Mean Platelet Volume 11.4 fL (9.4-12.4); Monocytes # (auto) 0.78 K/uL (0.11-0.59); Neutrophils # (auto) 3.21 K/uL (1.40-6.50); Neutrophils % (auto) 61.9 %; Platelet Count 137 K/uL (130-400); RDW Coefficient of Variation 15.5 % (11.5-14.5); RDW Standard Deviation 50.8 fL (36.4-46.3); Red Blood Count 3.14 M/uL (4.70-6.10); White Blood Count 5.19 K/ul (4.8-10.8)
--- NOTE | 2024-12-14 16:37 | Emergency Department Note ---
Impression & Plan Acute exacerbation of CHF (congestive heart failure), Anemia, Acute kidney injury superimposed on CKD ED Provider Note NAME: NAYA DOHERTY AGE: 84 SEX: M : 1940 ARRIVES VIA: Ambulance INFORMANT: Patient, nursing report ED PROVIDER(S): Ruben Zavala MD CHIEF COMPLAINT: Leg swelling, shortness of breath MEDICAL DECISION MAKING: Patient presents due to concern for worsening lower extremity edema. IV was established and blood work was obtained. Patient states that he is compliant with his medications. Reviewed medication list shows the patient takes 3 mg of Bumex in the morning. Blood work today shows a white count of 5. Hemoglobin 8.6 with a platelet count of 137. Kidney function today with a creat of 4.45 which has trended up. BNP of 319. Chest x- ray does show pulmonary edema. I did speak with on-call gusset maker Dr. Everett stated does not have a specific dose that he would start with but would initially give a dose anywhere from 2 to 4 mg of Bumex IV and see how the patient responds. Patient was ordered to Bumex IV. I did speak the on-call hospitalist service Dr. Case and the patient was admitted to medicine service. Discussion w/ other healthcare providers: Dr. Ospina nephrology Dr. Case inpatient medicine service Prior /Outside records reviewed: I reviewed the patient's medication list which showed 3 mg of Bumex to be taken each morning. Reviewed part of an echo from June 19, 2024 showed normal left regular size and systolic function with EF of 55 to 60%. No significant valvular abnormalities. Differential diagnosis: Reactive airway disease, pneumonia, pneumothorax, COPD, CHF, ACS, pulmonary embolism, musculoskeletal, GERD as well as other pathologies were considered. Diagnostics, as interpreted by me: ECG: Normal sinus rhythm, rate of 66, normal intervals, normal axis nonspecific ST changes in the lateral leads. This may be slightly worse but appears to be present on prior EKG from June 22, 2024. Cardiac monitoring: An order was placed for continuous cardiac monitoring. The monitor shows a rate of 67 with sinus rhythm. Patient was placed on pulse oximetry Medical decision rules: None Imaging studies: I informally interpreted the patient's chest x-ray shows likely pulmonary edema with formal report to follow. HPI: Patient presents due to concern for shortness of breath. Patient does wear oxygen as needed but has been requiring this more. He is primarily concerned that he has had some increasing leg swelling and fluid retention ongoing the last 2 weeks. 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 He reports that they did increase his diuretics initially after the first couple of days he seemed to have improvement in the swelling and seem to be urinating quite well. The patient states that that seemed to plateau and that he had worsening fluid retention. The patient denies any increase in salt or processed foods in the diet. Does complain of dyspnea on exertion and states that he has to use his oxygen virtually at all times. He does feel as though his legs are very swollen. No chest pain or abdominal pain. Patient reports that he did take his morning medications. PAST MEDICAL HISTORY: See Below PAST SURGICAL HISTORY: See Below SOCIAL HISTORY: See Below HOME MEDICATIONS: See Below ALLERGIES: See Below VITALS: See Below PHYSICAL EXAMINATION: GENERAL: NAD, non-toxic. Wearing glasses. EYE EXAM: Normal conjunctiva. PERRL, no anisocoria and EOM's grossly intact w/o pain. OROPHARYNX: Moist mucus membranes, grossly normal dentition. NECK: Trachea midline, no stridor. Supple, no nuchal rigidity, no adenopathy, non-tender. No signs of meningismus. FROM of the neck with good chin to chest and neck extension. LUNGS: Clear to auscultation. Normal chest wall mechanics. HEART: NSR, no MRG. ABDOMEN: Mildly distended but soft and nontender. No masses, no rebound or guarding. BACK: No CVA TTP. SKIN: No rashes and no bruising. UPPER EXTREMITIES: Upper extremities are grossly normal. LOWER EXTREMITIES: Grossly normal, 2-3+ symmetric lower extremity edema without calf pain or erythema. NEURO EXAM: A&O x3, cranial nerves II-XII grossly intact, normal speech, moves all 4 extremities. Past Med/Surg History Problem List (Updated 12/15/24 @ 07:07 by Ruben Zavala MD) Acute kidney injury superimposed on CKD (Acute) Anemia (Acute) Acute exacerbation of CHF (congestive heart failure) (Acute) T2DM (type 2 diabetes mellitus) Acute CHF Anemia Essential hypertension Bacteremia Elevated troponin (Acute) INGRID (acute kidney injury) (Acute) Dyspnea (Acute) Acute kidney injury superimposed on CKD Sepsis due to urinary tract infection Fluid overload (Acute) Urinary retention (Acute) Congestive heart failure (Acute) Acute kidney injury (Acute) Vitamin D deficiency BPH (benign prostatic hyperplasia) Age-related macular degeneration Vertigo Blindness Abdominal pain (Acute) Acute cholecystitis (Acute 12/28/13) Urinary retention (Acute) Medical History Chronic heart failure with preserved ejection fraction Chronic indwelling Berg catheter BPH loc w urin obs/LUTS NSTEMI (non-ST elevated myocardial infarction) Cardiomyopathy Chronic kidney disease, stage 4 (severe) Insulin dependent diabetes mellitus COPD (chronic obstructive pulmonary disease) Hyperlipidemia Hypertension Diabetes Coronary artery disease Macular degeneration Surgical History S/P CABG (coronary artery bypass graft) History of open heart surgery 2002 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 Hx of cholecystectomy 01/29/2014 Social History Smoking Status: Former smoker Tobacco Type: Cigarettes Smoking End Date: quit 20 yrs ago; Hx Alcohol Use: No Hx Substance Use: No Preferred Language: [place]i Communication Ability: Effective Visual Impairment: Limited Hearing Ability: Normal Warrant Server Required: No Beliefs That Will Affect Care: None marital status: Single Current Living Situation: Alone Current Living Situation Comment: Has caregiver through [facility] current occupational status: retired How many Children do You have: 2 Other Information That Helps Us Care for You: No Feels Safe at Home: Yes Safety Concerns: Feels Safe At This Time Diet: diabetic caffeine: Yes Physical Activity Frequency: Does not Exercise Do you think of yourself as: straight/heterosexual Gender Identity: Male Assistive Devices: Cane, Glasses, Oxygen - Continuous and Walker Allergies Allergies Allergy/AdvReac Type Severity Reaction Status Date / Time strawberry Allergy Intermediate hives Verified 06/19/24 02:54 Home Meds Home Medications Medication Instructions Recorded Confirmed colchicine 0.6 mg capsule 0.6 mg PO UD 05/22/21 12/14/24 loratadine 10 mg tablet (Allergy 10 mg PO Q OTHER DAY 05/22/21 12/14/24 Relief (loratadine)) magnesium oxide 420 mg tablet 420 mg PO DAILY 05/22/21 12/14/24 omeprazole 20 mg capsule,delayed 20 mg PO BID 05/22/21 12/14/24 release aspirin 81 mg tablet,delayed 81 mg PO DAILY 09/15/22 12/14/24 release atorvastatin 80 mg tablet 80 mg PO HS 09/15/22 12/14/24 doxazosin 4 mg tablet 8 mg PO DAILY 09/15/22 12/14/24 fluticasone propionate 50 2 spray intranasal DAILY 09/15/22 12/14/24 mcg/actuation nasal spray,suspension gabapentin 300 mg capsule 300 mg PO BID 09/15/22 12/14/24 guaifenesin 200 mg tablet 400 mg PO TID PRN help thin mucous 09/15/22 12/14/24 insulin aspart U-100 100 unit/mL 27 unit subcut TIDM 09/15/22 12/14/24 (3 mL) subcutaneous pen (Novolog FlexPen U-100 Insulin aspart) meclizine 12.5 mg tablet 25 mg PO Q6H PRN Vertigo 09/15/22 12/14/24 mometasone 220 mcg/actuation(60 2 inh inhalation BID 09/15/22 12/14/24 doses) breath activated powder inhaler omega 4-cxd-pde-fish oil 1,000 mg 2 cap PO UD 09/15/22 12/14/24 (120 mg-180 mg) capsule (Fish Oil) tiotropium 2.5 mcg-olodaterol 2.5 2 puff inhalation DAILY 09/15/22 12/14/24 mcg/actuation mist for inhalation vit C 250 mg-vit E 90 mg-zinc 40 1 tab PO BID 09/15/22 12/14/24 mg-copper 1 [id number] capsule (PreserVision AREDS-2) carvedilol 25 mg tablet 37.5 mg PO BID 01/19/24 12/14/24 glucose 4 gram chewable tablet 4 g PO UD PRN hypoglycemia 01/19/24 12/14/24 zinc oxide 20 % topical ointment 1 applic topical DAILY PRN Penile 01/19/24 12/14/24 Irritation/Excoriation albuterol sulfate 90 mcg/actuation 2 puff inhalation Q4H PRN 02/14/24 12/14/24 aerosol inhaler Shortness Of Breath Or Wheezing cholecalciferol (vitamin D3) 25 50 mcg PO DAILY 02/14/24 12/14/24 mcg (1,000 unit) capsule insulin glargine-yfgn 100 unit/mL 50 unit subcut HS 03/14/24 12/14/24 (3 mL) subcutaneous pen Glucosamine 1 cap PO DAILY 12/14/24 12/14/24 acetaminophen 325 mg tablet 650 mg PO DAILY PRN Pain 12/14/24 12/14/24 amlodipine 10 mg tablet 10 mg PO DAILY 12/14/24 12/14/24 ascorbic acid (vitamin C) 500 mg 500 mg PO DAILY 12/14/24 12/14/24 tablet bumetanide 1 mg tablet 3 mg PO DAILY 12/14/24 12/14/24 carboxymethylcellulose sodium 0.5 1 drp ophthalmic (eye) BID 12/14/24 12/14/24 % eye drops cinnamon bark 500 mg capsule 1,000 mg PO DAILY 12/14/24 12/14/24 (Cinnamon) nitroglycerin 0.4 mg sublingual 0.4 mg sublingual DIRECTED PRN 12/14/24 12/14/24 tablet Chest Pain Results & Data (ED) Vital Signs Vital Signs - 24 hr 12/14/24 16:11 12/14/24 16:17 12/14/24 17:30 Temperature 36.5 C Temperature Source Oral Pulse Rate 68 69 Pulse Rate [Left Finger] 68 Pulse Rhythm [Left Finger] Regular Pulse Strength [Left Finger] Normal Respiratory Rate 24 16 Respiratory Effort / Characteristics Non-Labored Spontaneous Respiratory Depth Normal Respiratory Pattern Regular Blood Pressure 150/82 H Blood Pressure [Left Arm] 141/62 H Blood Pressure Mean 104 Blood Pressure Mean [Left Arm] 88 Blood Pressure Position Sitting Blood Pressure Position [Left Arm] Pulse Oximetry 94 94 Oxygen Delivery Method Nasal Cannula Nasal Cannula Oxygen Flow Rate 2 2 Sepsis Recent Fever Within 48 Hours No Sepsis New/Unexplained Change in Mental Status No Sepsis Action Taken by Nursing No Action Required 12/14/24 18:30 Temperature Temperature Source Pulse Rate Pulse Rate [Left Finger] 73 Pulse Rhythm [Left Finger] Pulse Strength [Left Finger] Respiratory Rate 20 Respiratory Effort / Characteristics Respiratory Depth Respiratory Pattern Blood Pressure Blood Pressure [Left Arm] 140/85 Blood Pressure Mean Blood Pressure Mean [Left Arm] 103 Blood Pressure Position Blood Pressure Position [Left Arm] Sitting Pulse Oximetry 95 Oxygen Delivery Method Nasal Cannula Oxygen Flow Rate 2 Sepsis Recent Fever Within 48 Hours Sepsis New/Unexplained Change in Mental Status Sepsis Action Taken by [facility] Medications Current Medication List: was personally reviewed by me Laboratory Data Attestation: I reviewed the patient's lab results. 12/15/24 06:38 12/14/24 16:15 Lab Results 12/14/24 12/14/24 Range/Units 15:16 16:15 WBC 5.19 (4.8-10.8) K/ul RBC 3.14 L (4.70-6.10) M/uL Hgb 8.6 L (14.0-18.0) g/dl Hct 28.3 L (42.0-52.0) % MCV 90.1 (80.0-100.0) fL MCH 27.4 (25.0-34.0) pg MCHC 30.4 L (32.0-36.0) g/dL RDW Std Deviation 50.8 H (36.4-46.3) fL RDW Coeff of [place] 15.5 H (11.5-14.5) % Plt Count 137 (130-400) K/uL MPV 11.4 (9.4-12.4) fL Immature Gran % (Auto) 0.4 % Neut % (Auto) 61.9 % Lymph % (Auto) 18.3 % Boundary % (Auto) 15.0 % Eos % (Auto) 4.0 % Baso % (Auto) 0.4 % Neut # (Auto) 3.21 (1.40-6.50) K/uL Lymph # (Auto) 0.95 L (1.20-3.40) K/uL Boundary # (Auto) 0.78 H (0.11-0.59) K/uL Eos # (Auto) 0.21 (0.00-0.50) K/uL Baso # (Auto) 0.02 (0.00-0.20) K/uL Immature Gran # (Auto) 0.02 (0.01-0.20) K/uL PT 10.8 (9.0-12.0) Seconds INR 1.0 (0.9-1.1) APTT 25 (21-31) Seconds PTT Ratio 0.9 Sodium 141 (136-145) mmol/L Potassium 4.4 (3.5-5.1) mmol/L Chloride 104 (98-107) mmol/L Carbon Dioxide 30 (21-32) mmol/L Anion Gap 7 (3-11) BUN 63 H (6-23) mg/dl Creatinine 4.45 H (0.6-1.4) mg/dl Est Cr Clr Drug Dosing 15.4 ml/min eGFR 12.53 BUN/Creatinine Ratio 14.2 (10-20) Glucose 105 H (70-99(Fasting)) mg/dl Calcium 8.9 (8.6-10.3) mg/dl Total Bilirubin 0.3 (0.2-1.0) mg/dl AST 9 L (13-39) U/L ALT 11 (7-52) U/L Alkaline Phosphatase 69 (34-104) U/L Troponin I High Sens 6.1 (0-20) pg/ml B-Natriuretic Peptide 319 H (0-100) pg/ml Total Protein 6.6 (6.0-8.3) gm/dl Albumin 3.9 (3.4-5.0) gm/dl Globulin 2.7 (2.5-4.0) gm/dl Albumin/Globulin Ratio 1.4 (0.9-2) Vitamin B12 193 (180-914) pg/ml Folate 13.02 (>5.38) ng/ml Administered Medications Atorvastatin Calcium (Atorvastatin 40 Mg Tab) 80 mg PO HS [facility] Stop: 01/13/25 21:25 Last Admin: 12/14/24 22:25 Dose: 80 mg Documented By: ABY Carvedilol (Carvedilol 25 Mg Tab) 25 mg PO BID AUDRA Stop: 01/13/25 21:25 Last Admin: 12/14/24 22:25 Dose: 25 mg Documented By: ABY Gabapentin (Gabapentin 300 Mg Cap) 300 mg PO BID AUDRA Stop: 01/13/25 21:25 Last Admin: 12/14/24 22:24 Dose: 300 mg Documented By: ABY Insulin Aspart (Insulin Aspart Per Unit Charge) 0 units SC ACHS AUDRA Stop: 01/13/25 21:25 Last Admin: 12/14/24 22:24 Dose: 1 units Documented By: ABY Co-signed By: KD Insulin Glargine (Lantus Per Unit Charge) 20 units SQ BID AUDRA Stop: 01/13/25 21:25 Last Admin: 12/14/24 22:24 Dose: 20 units Documented By: ABY Co-signed By: AMS Melatonin (Melatonin 3 Mg Tab) 6 mg PO HS PRN PRN Reason: Sleep Stop: 01/13/25 22:32 Last Admin: 12/14/24 22:59 Dose: 6 mg Documented By: ABY Pantoprazole Sodium (Pantoprazole 40 Mg Tab) 40 mg PO BID AUDRA Stop: 01/13/25 21:25 Last Admin: 12/14/24 22:25 Dose: 40 mg Documented By: ABY Sodium Chloride (Sodium Chloride 0.65% Na Soln 45 Ml ([place])) 2 sprays NA Q4H PRN PRN Reason: Nasal Congestion Stop: 01/14/25 03:51 Last Admin: 12/15/24 05:36 Dose: 2 sprays Documented By: ABY Discontinued Medications Hydroxyzine HCl (Hydroxyzine Hcl 25 Mg Tab) 25 mg PO NOW STA Stop: 12/14/24 22:34 Last Admin: 12/14/24 22:59 Dose: 25 mg Documented By: ABY Bumetanide 2 mg/ Syringe 8 mls @ 4 mls/min IV ONE ONE Stop: 12/14/24 16:58 Last Admin: 12/14/24 17:50 Dose: 4 mls/min Documented By: YAKUTAT Imaging Data Radiologist's Impression: Chest X-Ray 12/14/24 16:14 Clinical History: Chest pain Technique: A frontal view of the chest was obtained Findings: There is diffuse interstitial prominence, concerning for pulmonary edema. The heart size is at the upper limit of normal. No pleural effusion or pneumothorax is seen. No fracture is noted. Sternal wires are present Impression: Suspected pulmonary edema Electronically signed by Rupesh Perales 12-14-2024 4:51 PM Discharge Plan Visit Data Chief Complaint: Edema To Extremity Stated Complaint: LEG PAIN, FLUID BUILD U ED Provider: Ruben Zavala Discharge Problem: Acute exacerbation of CHF (congestive heart failure), Anemia, Acute kidney injury superimposed on CKD Patient Disposition: Admitted As Inpatient Discharge Instructions Interventions: ED Discharge Assessment Last Done: 12/14/24 20:42 Discharge Problem: Acute exacerbation of CHF (congestive heart failure) Qualifiers: Heart failure type: unspecified Qualified Code(s): I50.9 - Heart failure, unspecified Anemia Qualifiers: Anemia type: unspecified type Qualified Code(s): D64.9 - Anemia, unspecified
[2024-12-14 16:47] LABS: Albumin Globulin Ratio 1.4 (0.9-2); Albumin Level 3.9 gm/dl (3.4-5.0); BUN Creatinine Ratio 14.2 (10-20); Bilirubin,Total 0.3 mg/dl (0.2-1.0); Calcium 8.9 mg/dl (8.6-10.3); Creatinine Clr Calc Pharmacy 15.4 ml/min; Globulin 2.7 gm/dl (2.5-4.0); Potassium 4.4 mmol/L (3.5-5.1); Total Protein 6.6 gm/dl (6.0-8.3)
[2024-12-14 16:54] LABS: Troponin I High Sensitivity 6.1 pg/ml (0-20)
[2024-12-14 16:56] LABS: Partial Thromboplastin Ratio 0.9; Partial Thromboplastin Time 25 Seconds (21-31); Prothrombin Time 10.8 Seconds (9.0-12.0)
--- NOTE | 2024-12-14 17:11 | XRay Report ---
Clinical History: Chest pain Technique: A frontal view of the chest was obtained Findings: There is diffuse interstitial prominence, concerning for pulmonary edema. The heart size is at the upper limit of normal. No pleural effusion or pneumothorax is seen. No fracture is noted. Sternal wires are present Impression: Suspected pulmonary edema Electronically signed by Rupesh Perales 12-14-2024 4:51 PM
[2024-12-14] MEDS: BUMETANIDE 2 MG in SYRINGE 0 ML IV ONE (17:50)
--- NOTE | 2024-12-14 17:58 | History & Physical Report ---
Date of Service December 14, 2024 Assessment & Plan (1) Acute CHF: (2) Acute kidney injury superimposed on CKD: (3) T2DM (type 2 diabetes mellitus): Lissy Mc is an 84-year-old male with PMH of urinary retention, cholecystitis, BPH, CHF, and bacteremia. He presented on 12/14 for worsening fluid buildup x 2 weeks in the lower extremities and abdomen leading to ambulatory dysfunction. Patient lives by himself. [facility] Over the past 2 weeks, his legs have become so swollen that they are painful and he is unable to walk. While there is been no recent change in diet, he endorses increased weight over the past 2 weeks from 230 pounds to 250. #Acute CHF Echocardiogram on 06/19/2024 with LVEF at 55 to 60% CXR with suspected pulmonary edema BNP mildly elevated at 319 Patient is normally on Bumex 3 mg p.o. daily Trial of Bumex 2 mg IV x 1 and will see how his kidneys react Recheck a.m. BMP Repeat echocardiogram ordered, pending Daily weights Strict I&O monitoring Will plan on Bumex 2 mg IV BID17 + K supplementation #Acute on chronic kidney disease BUN 63, creatinine 4.45 (baseline 3.6) Avoid nephrotoxic agents where possible Nephrology consult appreciated #T2DM Last A1c at 7.9% on 07/11/2024 Patient is normally on Lantus 50u HS Dose reduce Lantus to 20u BID while inpatient in the setting of acute renal failure SSI; with target BSG range 110-140mg/dL, CF 20, carb ratio 8 T2DM diet BSG ACHS Adjust regimen as needed AM A1c #Anemia Hgb 8.6 on arrival Clinically, no signs of active bleed on physical exam; denies melena or blood in his urine or stool Fe panel, ferritin, B12, and folate ordered, pending Guaiac test all stool for now Trend CBCs Disposition: Admit to [facility] telemetry DNR/DNI Heart healthy, low-sodium, T2DM diet VTE PPx: Teds; will defer chemical DVT PPx in the setting of anemia History of Present Illness Chief Complaint: Edema to extremity Primary Care Provider: Anahi Casanova Mc is an 84-year-old male with PMH of urinary retention, cholecystitis, BPH, CHF, and bacteremia. He presented on 12/14 for worsening fluid buildup x 2 weeks in the lower extremities and abdomen leading to ambulatory dysfunction. Patient lives by himself. He reports [facility] Over the past 2 weeks, his legs have become so swollen that they are painful and he is unable to walk. While there is been no recent change in diet, he endorses increased weight over the past 2 weeks from 230 pounds to 250. He does watch his salt intake at home. Patient uses submental oxygen (2L NC) as needed when he is up walking around. He has COONEY on exertion (can barely walk 10 yards without getting out of breath), but denies SOB at rest. No CPAP at night. Additionally, patient is unsure if he has had any changes in urinary habits, as he uses a urinary catheter at baseline; a OR nurse helps to manage this. Patient has smoking, tobacco use, recent alcohol use. Patient is hypertensive at 141/62 at time admission; SpO2 94% on 2L NC; vitals otherwise stable. ED course: Bumex 2 mg IV ROS: Patient endorses LE edema, abdominal edema, ambulatory dysfunction, COONEY, dry cough, orthopnea, and abdominal bloating. Patient denies fever, night-sweats, chest pain, abdominal pain, N/V/D, burning with urination, melena, or blood in the urine/stool. Allergies Allergy/AdvReac Type Severity Reaction Status Date / Time strawberry Allergy Intermediate hives Verified 06/19/24 02:54 Home Medications Medication Instructions Recorded Confirmed Type colchicine 0.6 mg capsule 0.6 mg PO UD 05/22/21 12/14/24 History loratadine 10 mg tablet (Allergy 10 mg PO Q OTHER DAY 05/22/21 12/14/24 History Relief (loratadine)) magnesium oxide 420 mg tablet 420 mg PO DAILY 05/22/21 12/14/24 History omeprazole 20 mg capsule,delayed 20 mg PO BID 05/22/21 12/14/24 History release aspirin 81 mg tablet,delayed 81 mg PO DAILY 09/15/22 12/14/24 History release atorvastatin 80 mg tablet 80 mg PO HS 09/15/22 12/14/24 History doxazosin 4 mg tablet 8 mg PO DAILY 09/15/22 12/14/24 History fluticasone propionate 50 2 spray intranasal DAILY 09/15/22 12/14/24 History mcg/actuation nasal spray,suspension gabapentin 300 mg capsule 300 mg PO BID 09/15/22 12/14/24 History guaifenesin 200 mg tablet 400 mg PO TID PRN help thin mucous 09/15/22 12/14/24 History insulin aspart U-100 100 unit/mL 27 unit subcut TIDM 09/15/22 12/14/24 History (3 mL) subcutaneous pen (Novolog FlexPen U-100 Insulin aspart) meclizine 12.5 mg tablet 25 mg PO Q6H PRN Vertigo 09/15/22 12/14/24 History mometasone 220 mcg/actuation(60 2 inh inhalation BID 09/15/22 12/14/24 History doses) breath activated powder inhaler omega [id number]-lxx-fish oil 1,000 mg 2 cap PO UD 09/15/22 12/14/24 History (120 mg-180 mg) capsule (Fish Oil) tiotropium 2.5 mcg-olodaterol 2.5 2 puff inhalation DAILY 09/15/22 12/14/24 History mcg/actuation mist for inhalation vit C 250 mg-vit E 90 mg-zinc 40 1 tab PO BID 09/15/22 12/14/24 History mg-copper 1 [id number]-eyfwkj capsule (PreserVision AREDS-2) carvedilol 25 mg tablet 37.5 mg PO BID 01/19/24 12/14/24 History glucose 4 gram chewable tablet 4 g PO UD PRN hypoglycemia 01/19/24 12/14/24 History zinc oxide 20 % topical ointment 1 applic topical DAILY PRN Penile 01/19/24 12/14/24 History Irritation/Excoriation albuterol sulfate 90 mcg/actuation 2 puff inhalation Q4H PRN 02/14/24 12/14/24 History aerosol inhaler Shortness Of Breath Or Wheezing cholecalciferol (vitamin D3) 25 50 mcg PO DAILY 02/14/24 12/14/24 History mcg (1,000 unit) capsule insulin glargine-yfgn 100 unit/mL 50 unit subcut HS 03/14/24 12/14/24 History (3 mL) subcutaneous pen Glucosamine 1 cap PO DAILY 12/14/24 12/14/24 History acetaminophen 325 mg tablet 650 mg PO DAILY PRN Pain 12/14/24 12/14/24 History amlodipine 10 mg tablet 10 mg PO DAILY 12/14/24 12/14/24 History ascorbic acid (vitamin C) 500 mg 500 mg PO DAILY 12/14/24 12/14/24 History tablet bumetanide 1 mg tablet 3 mg PO DAILY 12/14/24 12/14/24 History carboxymethylcellulose sodium 0.5 1 drp ophthalmic (eye) BID 12/14/24 12/14/24 History % eye drops cinnamon bark 500 mg capsule 1,000 mg PO DAILY 12/14/24 12/14/24 History (Cinnamon) nitroglycerin 0.4 mg sublingual 0.4 mg sublingual DIRECTED PRN 12/14/24 12/14/24 History tablet Chest Pain Past Med/Surg History Problem List (Updated 12/14/24 @ 19:01 by Cristhian Michael PA-C) T2DM (type 2 diabetes mellitus) Acute CHF Anemia Essential hypertension Bacteremia Elevated troponin (Acute) INGRID (acute kidney injury) (Acute) Dyspnea (Acute) Acute kidney injury superimposed on CKD Sepsis due to urinary tract infection Fluid overload (Acute) Urinary retention (Acute) Congestive heart failure (Acute) Acute kidney injury (Acute) Vitamin D deficiency BPH (benign prostatic hyperplasia) Age-related macular degeneration Vertigo Blindness Abdominal pain (Acute) Acute cholecystitis (Acute 12/28/13) Urinary retention (Acute) Medical History Chronic heart failure with preserved ejection fraction Chronic indwelling Berg catheter BPH loc w urin obs/LUTS NSTEMI (non-ST elevated myocardial infarction) Cardiomyopathy Chronic kidney disease, stage 4 (severe) Insulin dependent diabetes mellitus COPD (chronic obstructive pulmonary disease) Hyperlipidemia Hypertension Diabetes Coronary artery disease Macular degeneration Surgical History S/P CABG (coronary artery bypass graft) History of open heart surgery Hx of CABG Hx of cholecystectomy Social History Smoking Status: Never smoker Tobacco Type: Cigarettes Hx Alcohol Use: No Hx Substance Use: No Preferred Language: Luxembourger Communication Ability: Effective Visual Impairment: Limited Hearing Ability: Normal Oil Burner Required: Yes Beliefs That Will Affect Care: None marital status: Single Current Living Situation: Alone Current Living Situation Comment: 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 How many Children do You have: 2 Feels Safe at Home: Yes Diet: diabetic caffeine: Yes Physical Activity Frequency: Does not Exercise Do you think of yourself as: straight/heterosexual Gender Identity: Male Assistive Devices: Cane and Walker Review of Systems Review of Systems: See HPI above Physical Exam Physical Exam: General: no acute distress; pleasant affect; non-toxic appearing; well- nourished; cooperative; SpO2 95% on 2L NC HEENT: normocephalic, atraumatic; no scleral icterus; PERRLA w/ EOMs intact; vision and hearing grossly intact Neck: supple; no lymphadenopathy; trachea midline Skin: warm, dry without signs of tenting; no cyanosis; no rashes, bruising, lesions, or erythema noted CV: chest wall NTP; RRR; S1/S2 normal; no murmurs/rubs/gallops; pulses intact and symmetric at radial, DP, and PT Lungs: Mild respiratory distress; conversational dyspnea; symmetrical chest wall expansion; clear breath sounds across all lung bird w/o adventitious sounds; no wheezing ABD: Soft, abdomen is mildly TTP; BS present; no rebound/guarding; distention secondary to body habitus MSK: no tics or fasciculations; +3 pitting edema noted in the LEs b/l, nonerythematous; legs are tender bilaterally Neuro: A&Ox3; normal mood and affect; fluent speech; no focal deficits; diminished sensation in the lower extremities bilaterally Results & Data Results & Data Vital Signs (Past 12 Hours) Vital Signs Temp Pulse Pulse Resp BP BP Pulse Ox 12/14/24 17:30 68 16 141/62 H 94 12/14/24 16:17 69 12/14/24 16:11 36.5 C 68 24 150/82 H 94 O2 Del Method O2 Flow Rate 12/14/24 17:30 Nasal Cannula 2 12/14/24 16:17 12/14/24 16:11 Nasal Cannula 2 Laboratory Results Abnormal lab results 12/14/24 12/14/24 Range/Units 15:16 16:15 RBC 3.14 L (4.70-6.10) M/uL Hgb 8.6 L (14.0-18.0) g/dl Hct 28.3 L (42.0-52.0) % MCHC 30.4 L (32.0-36.0) g/dL RDW Std Deviation 50.8 H (36.4-46.3) fL RDW Coeff of [place] 15.5 H (11.5-14.5) % Lymph # (Auto) 0.95 L (1.20-3.40) K/uL [place] # (Auto) 0.78 H (0.11-0.59) K/uL BUN 63 H (6-23) mg/dl Creatinine 4.45 H (0.6-1.4) mg/dl Glucose 105 H (70-99(Fasting)) mg/dl AST 9 L (13-39) U/L B-Natriuretic Peptide 319 H (0-100) pg/ml Diagnostic Findings Chest X-Ray 12/14/24 16:14 Clinical History: Chest pain Technique: A frontal view of the chest was obtained Findings: There is diffuse interstitial prominence, concerning for pulmonary edema. The heart size is at the upper limit of normal. No pleural effusion or pneumothorax is seen. No fracture is noted. Sternal wires are present Impression: Suspected pulmonary edema Electronically signed by Rupesh Perales 12-14-2024 4:51 PM ECG Additional Comments: ECG revealed NSR at 66 bpm; QTc 457 Code Status & VTE Plan Code Status DNR/DNI VTE Prophylaxis Plan VTE Prophylaxis will be ordered: Yes Supervising Physician Co-Signing Physician Notes I have personally seen, evaluated and examined the patient. I have also personally discussed the management of the patient with the resident physician/RIA and I agree with the exam findings documented in the history and physical examination and the documented assessment and plan unless otherwise stated below. Brief Exam: In general pleasant 84-year-old male was alert and oriented x 3 at the time my exam he appears his stated age. He is resting comfortably on his oxygen. But does have some conversational dyspnea approximately 4 words at a time. HEENT: Normocephalic atraumatic. Heart: Regular faint 2 out of 6 systolic ejection murmur best heard at the left sternal border. Lungs: Cardiac rales bilaterally. Abdomen: Protuberant soft nontender. Extremities intact with 2-3+ pitting edema bilaterally. Neurologically: Alert and oriented x 3 with no focal deficit. Assessment/plan: As discussed above. Begin with IV diuresis tonight. Reassess creatinine in the morning. Nephrology has been consulted. I did discuss with the patient if he needed dialysis if he would be willing to proceed if he would. Will see how he does but I do suspect he is approaching end-stage renal disease and may require hemodialysis for volume control. We will trend his creatinine as well as his H&H. He is on iron studies. Stools for occult blood. Please refer to orders for further planning. PG Care Time/CCT Total # of Minutes Spent Total Time Spent with Patient: Total time spent is greater than 50% in coordination of care (as documented) at patient's floor/unit and/or counseling patient: C[place] [address] INT INP/OBS CARE 3/75MIN Patient Type Established Medical Decision Making High Complexity Diagnoses Acute CHF I50.9 Acute kidney injury superimposed on CKD N17.9; N18.9 T2DM (type 2 diabetes mellitus) E11.9
[2024-12-14 19:34] LABS: Folate (Folic Acid),Ser orPlas 13.02 ng/ml (>5.38)
[2024-12-14 19:46] LABS: Troponin I High Sensitivity 5.1 pg/ml (0-20)
[2024-12-14 20:00] LABS: Ferritin 40.6 ng/ml (8-388)
[2024-12-14] MEDS ORDERED: GLUCAGON FOR INJ 1 MG VIAL SQ PRN (21:26)
[2024-12-14] MEDS ORDERED: ALBUTEROL HFA 8 GM INHALER INH PRN (21:26)
[2024-12-14] MEDS ORDERED: ONDANSETRON INJ 2 MG/ML 2 ML VIAL IV PRN (21:26)
[2024-12-14] MEDS ORDERED: CARBOHYDRATES FOR HYPOGLYCEMIA PO PRN (21:26)
[2024-12-14] MEDS ORDERED: GLUCOSE 40% GEL 15 GM TUBE PO PRN (21:26)
[2024-12-14] MEDS ORDERED: DEXTROSE 50% 50 ML SYRINGE IV PRN (21:26)
[2024-12-14] MEDS ORDERED: GLUCOSE 10 TAB/TUBE PO PRN (21:26)
[2024-12-14] MEDS: GABAPENTIN 300 MG CAP PO SCH (22:24)
[2024-12-14] MEDS: INSULIN ASPART PER UNIT CHARGE SC SCH (22:24)
[2024-12-14] MEDS: LANTUS PER UNIT CHARGE SQ SCH (22:24)
[2024-12-14] MEDS: carvediloL 25 MG TAB PO SCH (22:25)
[2024-12-14] MEDS: ATORVASTATIN 40 MG TAB PO SCH (22:25)
[2024-12-14] MEDS: PANTOprazole 40 MG TAB PO SCH (22:25)
[2024-12-14] MEDS: hydrOXYzine HCl 25 MG TAB PO STA (22:59)
[2024-12-14] MEDS: MELATONIN 3 MG TAB PO PRN (22:59)
[2024-12-15] MEDS: SODIUM CHLORIDE 0.65% NA SOLN 45 ML (OCEAN) PRN (05:36)
[2024-12-15 06:59] LABS: Basophils # (auto) 0.03 K/uL (0.00-0.20); Basophils % (auto) 0.5 %; Eosinophils # (auto) 0.24 K/uL (0.00-0.50); Eosinophils % (auto) 4.1 %; Hematocrit (blood only) 25.9 % (42.0-52.0); Hemoglobin 8.3 g/dl (14.0-18.0); Immature Granulocytes # (auto) 0.02 K/uL (0.01-0.20); Immature Granulocytes % (auto) 0.3 %; Lymphocytes # (auto) 1.09 K/uL (1.20-3.40); Lymphocytes % (auto) 18.5 %; Mean Corpuscular Hemoglobin 28.3 pg (25.0-34.0); Mean Corpuscular Volume 88.4 fL (80.0-100.0); Monocytes # (auto) 0.91 K/uL (0.11-0.59); Monocytes % (auto) 15.5 %; Neutrophils # (auto) 3.59 K/uL (1.40-6.50); Neutrophils % (auto) 61.1 %; Platelet Count 140 K/uL (130-400); RDW Coefficient of Variation 15.4 % (11.5-14.5); RDW Standard Deviation 49.3 fL (36.4-46.3); Red Blood Count 2.93 M/uL (4.70-6.10); White Blood Count 5.88 K/ul (4.8-10.8)
[2024-12-15] MEDS: BUMETANIDE 2 MG in SYRINGE 0 ML IV SCH (07:53)
[2024-12-15] MEDS: DOXAZosin MESYLATE 4 MG TAB PO SCH (07:53)
[2024-12-15] MEDS: ASPIRIN 81 MG ECTAB PO SCH (07:53)
[2024-12-15] MEDS: MAGNESIUM OXIDE 400 MG TAB PO SCH (07:53)
[2024-12-15] MEDS: guaiFENesin 200 MG TAB PO PRN (07:54)
[2024-12-15] MEDS: FLUTICASONE PROPIONATE NA SPR 16 GM BTL SCH (07:57)
[2024-12-15] MEDS: UMECLIDINIUM/VILANTEROL 62.5/25MCG 7 PUFFS/INHALER INH SCH (07:57)
[2024-12-15] MEDS: FLUTICASONE FUROATE 200MCG 14 PUFFS/INHALER INH SCH (07:58)
[2024-12-15] MEDS: ACETAMINOPHEN 325 MG TAB PO PRN (08:03)
[2024-12-15 08:04] LABS: BUN Creatinine Ratio 14.3 (10-20); Calcium 8.6 mg/dl (8.6-10.3); Creatinine Clr Calc Pharmacy 16.4 ml/min; Potassium 4.3 mmol/L (3.5-5.1)
--- NOTE | 2024-12-15 08:50 | Nephrology Consultation ---
Date of Consultation December 15, 2024 Assessment & Plan (1) INGRID (acute kidney injury): Non-oliguric. Creatinine slightly improved. Electrolytes acceptable. Negative fluid balance with diuretics. No emergent indication for dialysis at this time. UA/microscopy requested. Renal US requested. Clinical presentation suggestive of hemodynamically mediated INGRID/CRS and progression of CKD. Medications are appropriate for kidney function. Gabapentin reduced to 300 mg once daily. Document strict I/O's. Repeat metabolic profile tomorrow AM. Renal diet. (2) Chronic kidney disease, stage 4 (severe): CKD IV-V A3 attributed to DKD and arteriosclerosis. Baseline creatinine ~3.5 mg/dL. PCR 1.5 g/g. Follows with Dr. Ching as outpatient. Advanced care planning ongoing but Mc has indicated that he would likely not pursue dialysis. (3) Acute exacerbation of CHF (congestive heart failure): Fluid retention can largely be attributed to advanced CKD. Continue Bumex to encourage a negative fluid balance. Currently 2 mg IV BID. Avoid RAASi due to kidney dysfunction. Low sodium diet and daily weights. (4) Anemia: Tsat 8% and ferritin 40%. Stool occult blood testing pending. No melena or hematochezia reported. Venofer 200 mg IV and Epogen 54116 units x 1 provided now. Repeat H/H in the AM. History of Present Illness Reason for Consultation: INGRID, CHF Requesting Physician: Ruben Zavala MD Attending Physician: Kendal Tom MD History of Present Illness Mr. Mc Garcia is an 84 year-old male with CKD IV-V A3 who presented to the ER at [facility] yesterday with progressive fluid retention and edema. Edema noted in the lower extremities and abdomen which is affecting his ability to walk. Mc lives by himself in [place]. He follows in the [facility] nephrology clinic in [place] with Dr. Ching. Baseline creatinine has been ~3.5 mg/dL. PCR 1.5 g/g. During recent clinic visits, advanced care planning for CKD has been discussed and Mc had indicated that he would not likely pursue dialysis. He had declined referral for vascular access placement. He is DNR/DNI. Mc had been managing his volume status with Bumex 3 mg daily. [facility] He reported an ~20 lbs weight gain in the past 2 weeks despite diuretics and dietary modification. Medical history is notable for ASCV (CABG 2002; hospitalized 03/10 at [facility] and told that CVD was not amenable to PTCA and there were no good targets for bypass), HFmrEF, DMII, hypertension, hyperlipidemia, chronic anemia, OA/DJD, macular degeneration (L eye blind, 50% visual loss in the R eye), peripheral neuropathy, COPD (home O2 PRN), BPH with chronic indwelling Berg (changed our by visiting [facility] RN), and gout. Bumex 2 mg IV was provided yesterday in the ER. An additional 2 mg IV was provided this AM. Mc is non-oliguric. A fluid balance of -1.7 L has been documented since admission. Serum creatinine on admission 4.5 mg/dL. Creatinine this AM 4.15 mg/dL. Electrolytes are normal. Mc notes that edema in his legs notably worsened after his cloth bleaching range back tender through the CT increased amlodipine for hypertension. He also stated that his blood pressure did improve and he was happy about that. Allergies Allergy/AdvReac Type Severity Reaction Status Date / Time strawberry Allergy Intermediate hives Verified 06/19/24 02:54 Home Medications Medication Instructions Recorded Confirmed Type colchicine 0.6 mg capsule 0.6 mg PO UD 05/22/21 12/14/24 History loratadine 10 mg tablet (Allergy 10 mg PO Q OTHER DAY 05/22/21 12/14/24 History Relief (loratadine)) magnesium oxide 420 mg tablet 420 mg PO DAILY 05/22/21 12/14/24 History omeprazole 20 mg capsule,delayed 20 mg PO BID 05/22/21 12/14/24 History release aspirin 81 mg tablet,delayed 81 mg PO DAILY 09/15/22 12/14/24 History release atorvastatin 80 mg tablet 80 mg PO HS 09/15/22 12/14/24 History doxazosin 4 mg tablet 8 mg PO DAILY 09/15/22 12/14/24 History fluticasone propionate 50 2 spray intranasal DAILY 09/15/22 12/14/24 History mcg/actuation nasal spray,suspension gabapentin 300 mg capsule 300 mg PO BID 09/15/22 12/14/24 History guaifenesin 200 mg tablet 400 mg PO TID PRN help thin mucous 09/15/22 12/14/24 History insulin aspart U-100 100 unit/mL 27 unit subcut TIDM 09/15/22 12/14/24 History (3 mL) subcutaneous pen (Novolog FlexPen U-100 Insulin aspart) meclizine 12.5 mg tablet 25 mg PO Q6H PRN Vertigo 09/15/22 12/14/24 History mometasone 220 mcg/actuation(60 2 inh inhalation BID 09/15/22 12/14/24 History doses) breath activated powder inhaler omega 4-puu-tvk-fish oil 1,000 mg 2 cap PO UD 09/15/22 12/14/24 History (120 mg-180 mg) capsule (Fish Oil) tiotropium 2.5 mcg-olodaterol 2.5 2 puff inhalation DAILY 09/15/22 12/14/24 History mcg/actuation mist for inhalation vit C 250 mg-vit E 90 mg-zinc 40 1 tab PO BID 09/15/22 12/14/24 History mg-copper 1 up-ciwwir-eqrkpz capsule (PreserVision AREDS-2) carvedilol 25 mg tablet 37.5 mg PO BID 01/19/24 12/14/24 History glucose 4 gram chewable tablet 4 g PO UD PRN hypoglycemia 01/19/24 12/14/24 History zinc oxide 20 % topical ointment 1 applic topical DAILY PRN Penile 01/19/24 12/14/24 History Irritation/Excoriation albuterol sulfate 90 mcg/actuation 2 puff inhalation Q4H PRN 02/14/24 12/14/24 History aerosol inhaler Shortness Of Breath Or Wheezing cholecalciferol (vitamin D3) 25 50 mcg PO DAILY 02/14/24 12/14/24 History mcg (1,000 unit) capsule insulin glargine-yfgn 100 unit/mL 50 unit subcut HS 03/14/24 12/14/24 History (3 mL) subcutaneous pen Glucosamine 1 cap PO DAILY 12/14/24 12/14/24 History acetaminophen 325 mg tablet 650 mg PO DAILY PRN Pain 12/14/24 12/14/24 History amlodipine 10 mg tablet 10 mg PO DAILY 12/14/24 12/14/24 History ascorbic acid (vitamin C) 500 mg 500 mg PO DAILY 12/14/24 12/14/24 History tablet bumetanide 1 mg tablet 3 mg PO DAILY 12/14/24 12/14/24 History carboxymethylcellulose sodium 0.5 1 drp ophthalmic (eye) BID 12/14/24 12/14/24 History % eye drops cinnamon bark 500 mg capsule 1,000 mg PO DAILY 12/14/24 12/14/24 History (Cinnamon) nitroglycerin 0.4 mg sublingual 0.4 mg sublingual DIRECTED PRN 12/14/24 History tablet Chest Pain Patient History Medical History Chronic heart failure with preserved ejection fraction Chronic indwelling Berg catheter BPH loc w urin obs/LUTS NSTEMI (non-ST elevated myocardial infarction) Cardiomyopathy Chronic kidney disease, stage 4 (severe) Insulin dependent diabetes mellitus COPD (chronic obstructive pulmonary disease) Hyperlipidemia Hypertension Diabetes Coronary artery disease Macular degeneration Surgical History S/P CABG (coronary artery bypass graft) History of open heart surgery 2002 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 Hx of cholecystectomy 01/29/2014 Social History Smoking Status: Former smoker Tobacco Type: Cigarettes Smoking End Date: quit 20 yrs ago; Hx Alcohol Use: No Hx Substance Use: No Preferred Language: Ukrainian Communication Ability: Effective Visual Impairment: Limited Hearing Ability: Normal 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: No Beliefs That Will Affect Care: None marital status: Single Current Living Situation: Alone Current Living Situation Comment: [facility] current occupational status: retired How many Children do You have: 2 Other Information That Helps Us Care for You: No Feels Safe at Home: Yes Safety Concerns: Feels Safe At This Time Diet: diabetic caffeine: Yes Physical Activity Frequency: Does not Exercise Do you think of yourself as: straight/heterosexual Gender Identity: Male Assistive Devices: Cane, Glasses, Oxygen - Continuous and Walker Review of Systems Review of Systems: All systems reviewed & are unremarkable except as noted in HPI & below Physical Exam Constitutional: well developed and + morbidly obese; no acute distress Eyes: + anicteric sclerae; no conjunctival abn ormality ENMT: Mouth: oral mucous membranes not dry Neck: normal visual inspection, trachea midline and + thick neck Respiratory: normal respiratory effort Auscultation: lungs clear to auscultation bilaterally and + diminished lung sounds Cardiovascular: Rate/Rhythm: regular rate Heart Sounds: normal S1 and normal S2 Extremities: + edema Musculoskeletal: Extremities: no cyanosis and no clubbing Skin: normal turgor; no lesions Neurologic: Motor/Sensory: no tremor and no asterixis Psychiatric: Orientation: alert and oriented x 3 Results & Data Vital Signs (Past 12 Hours) Vital Signs Temp Pulse Pulse Pulse Resp BP Pulse Ox 12/15/24 07:56 36.6 C 76 18 184/92 H 93 12/15/24 07:50 12/15/24 07:00 74 12/15/24 03:49 36.4 C L 69 16 158/77 H 92 12/14/24 23:37 12/14/24 22:52 36.5 C 68 16 160/70 H 95 12/14/24 22:41 36.4 C L 75 20 158/65 H 92 12/14/24 21:53 67 12/14/24 21:19 72 O2 Del Method O2 Flow Rate 12/15/24 07:56 Room Air 12/15/24 07:50 Nasal Cannula 2 12/15/24 07:00 12/15/24 03:49 Nasal Cannula 2 12/14/24 23:37 Nasal Cannula 2 12/14/24 22:52 Nasal Cannula 2 12/14/24 22:41 Nasal Cannula 2 12/14/24 21:53 12/14/24 21:19 Laboratory Results Laboratory Results - last 24 hr 12/14/24 12/14/24 12/14/24 15:16 16:15 19:11 WBC 5.19 RBC 3.14 L Hgb 8.6 L Hct 28.3 L MCV 90.1 MCH 27.4 MCHC 30.4 L RDW Std Deviation 50.8 H RDW Coeff of Mariana 15.5 H Plt Count 137 MPV 11.4 Immature Gran % (Auto) 0.4 Neut % (Auto) 61.9 Lymph % (Auto) 18.3 Woodruff % (Auto) 15.0 Eos % (Auto) 4.0 Baso % (Auto) 0.4 Neut # (Auto) 3.21 Lymph # (Auto) 0.95 L Woodruff # (Auto) 0.78 H Eos # (Auto) 0.21 Baso # (Auto) 0.02 Immature Gran # (Auto) 0.02 PT 10.8 INR 1.0 APTT 25 PTT Ratio 0.9 Sodium 141 Potassium 4.4 Chloride 104 Carbon Dioxide 30 Anion Gap 7 BUN 63 H Creatinine 4.45 H Est Cr Clr Drug Dosing 15.4 eGFR 12.53 BUN/Creatinine Ratio 14.2 Glucose 105 H POC Glucose Calcium 8.9 Iron 29 L TIBC 360 Transferrin 257 Transferrin % Sat 8 L Ferritin 40.6 Total Bilirubin 0.3 AST 9 L ALT 11 Alkaline Phosphatase 69 Troponin I High Sens 6.1 5.1 B-Natriuretic Peptide 319 H Total Protein 6.6 Albumin 3.9 Globulin 2.7 Albumin/Globulin Ratio 1.4 Vitamin B12 193 Folate 13.02 12/14/24 12/15/24 12/15/24 21:25 06:38 07:51 WBC 5.88 RBC 2.93 L Hgb 8.3 L Hct 25.9 L MCV 88.4 MCH 28.3 MCHC 32.0 RDW Std Deviation 49.3 H RDW Coeff of Mariana 15.4 H Plt Count 140 MPV 12.0 Immature Gran % (Auto) 0.3 Neut % (Auto) 61.1 Lymph % (Auto) 18.5 Woodruff % (Auto) 15.5 Eos % (Auto) 4.1 Baso % (Auto) 0.5 Neut # (Auto) 3.59 Lymph # (Auto) 1.09 L Woodruff # (Auto) 0.91 H Eos # (Auto) 0.24 Baso # (Auto) 0.03 Immature Gran # (Auto) 0.02 PT INR APTT PTT Ratio Sodium 141 Potassium 4.3 Chloride 104 Carbon Dioxide 32 Anion Gap 5 BUN 59 H Creatinine 4.13 H D Est Cr Clr Drug Dosing 16.4 eGFR 13.70 BUN/Creatinine Ratio 14.3 Glucose 96 POC Glucose 154 H 105 H Calcium 8.6 Iron TIBC Transferrin Transferrin % Sat Ferritin Total Bilirubin AST ALT Alkaline Phosphatase Troponin I High Sens B-Natriuretic Peptide Total Protein Albumin Globulin Albumin/Globulin Ratio Vitamin B12 Folate Diagnostic Findings Clinical History: Chest pain Findings: There is diffuse interstitial prominence, concerning for pulmonary edema. The heart size is at the upper limit of normal. No pleural effusion or pneumothorax is seen. No fracture is noted. Sternal wires are present Impression: Suspected pulmonary edema PG Care Time/CCT Total # of Minutes Spent Total Time Spent with Patient: Total time spent is greater than 50% in coordination of care (as documented) at patient's floor/unit and/or counseling patient: Coding Level of Care Code 76167 IN/OBS CONSULT LVL 5,80M Diagnoses INGRID (acute kidney injury) N17.9 Chronic kidney disease, stage 4 (severe) N18.4 Acute exacerbation of CHF (congestive heart failure) I50.9 Heart failure type: unspecified Anemia D64.9 (3) Acute exacerbation of CHF (congestive heart failure) Heart failure type: unspecified Qualified Code(s): I50.9 - Heart failure, unspecified
[2024-12-15] MEDS ORDERED: COLCHICINE 0.6 MG PO SCH (09:00)
[2024-12-15] MEDS: HEPARIN SOD 5,000 UNIT/0.5 ML VIAL SQ SCH (09:08)
[2024-12-15] MEDS: IRON SUCROSE 200 MG in SODIUM CHLORIDE 0.9% 100 ML IV ONE (09:11)
[2024-12-15] MEDS ORDERED: IRON SUCROSE 400 MG in SODIUM CHLORIDE 0.9% 250 ML IV ONE (09:17)
[2024-12-15] MEDS: CYANOCOBALAMIN 1000 MCG/ML VIAL IM SCH (10:25)
--- NOTE | 2024-12-15 11:15 | XCELERA ---
[id number] \\[id number]
[2024-12-15] MEDS: EPOETIN ALFA 10,000 UNITS/ML VIAL SQ ONE (11:41)
--- NOTE | 2024-12-15 12:18 | Ultrasound Report ---
RENAL ULTRASOUND HISTORY: Acute kidney injury ember COMPARISON: CT June 19, 2024 FINDINGS: Right kidney: 12.1 cm No hydronephrosis. Diffuse cortical thinning with increased parenchymal echogen icity. Benign-appearing cysts are again noted measuring up to 2 cm. Left kidney: 13.1 cm. Benign-appearing cysts are again noted measuring up to approximately 4.4 cm prateek meter similar to prior. No hydronephrosis. Cortical thinning with increased parenchymal echogenicity. Bladder: Berg catheter in place. Wall thickening with trabeculation. IMPRESSION: 1. No hydronephrosis. 2. Evidence of chronic medical renal disease with asymmetric atrophy of the right kidney. 3. Urinary bladder wall thickening with trabeculation suggestive of chronic outlet obstruction. Corre late with urinalysis. ACT 112: Negative or not required by law. Electronically signed by: Shan Isabel M.D. 12/15/2024 12:17 PM
[2024-12-15 12:51] LABS: Appearance Urine Cloudy (Clear); Bacteria Urine Automated 4+ (None Seen); Bilirubin Urine Negative (Negative); Blood Urine 1+ (Negative); Color Urine Yellow; Epithelial Cell Urine Auto 0-2 /hpf (0-2); Glucose Urine UA Negative (Negative); Ketones Urine Negative (Negative); Leukocyte Esterase Urine 3+ (Negative); Nitrite Urine Negative (Negative); Protein Urine 3+ (Negative); RBC Urine Automated 0-2 /hpf (0-2); Specific Gravity Urine 1.011 (1.000-1.030); Urobilinogen Urine Negative (Negative); WBC Urine Automated >50 /hpf (0-5); pH Urine 5.5 (4.5-7.5)
--- NOTE | 2024-12-15 15:43 | Hospitalist Progress Note ---
Date of Service December 15, 2024 Assessment & Plan (1) Acute CHF: (2) Acute kidney injury superimposed on CKD: (3) Essential hypertension: Plan Mc is an 84-year-old male with PMH of urinary retention, cholecystitis, BPH, CHF, and bacteremia. He presented on 12/14 for worsening fluid buildup x 2 weeks in the lower extremities and abdomen leading to ambulatory dysfunction. Patient lives by himself. He [facility] Over the past 2 weeks, his legs have become so swollen that they are painful and he is unable to walk. While there is been no recent change in diet, he endorses increased weight over the past 2 weeks from 230 pounds to 250. #Acute on chronic HFpEF-Echocardiogram on 06/19/2024 with LVEF at 55 to 60%, ECHO here similar. CXR with suspected pulmonary edema, BNP mildly elevated at 319. Patient is normally on Bumex 3 mg p.o. daily. His PCP recently increased his amlodipine from 5 to 10mg daily 2 weeks ago and he believes his leg swelling got much worse after that. Suspect some is from increased dose of amlodipine. He gets Meals on Wheels and can't control sodium content of food. Weight up 13 kg since Nov. -Continue Bumex 2 mg IV bid -follow BMP, mag keep lytes replete -follow I/Os, UOP, Daily weights, Berg in place -Weighter consult for education on low sodium diet -improve BP control-increase amlodipine back to 5mg daily, increase doxazosin back to home dose of 8mg daily, and increase Coreg back to home dose of 37.5mg po bid #Acute on chronic kidney disease-BUN 63, creatinine 4.45 (baseline 3.6) on admission. Improving now with diuresis to 4.1. Appreciate Nephro consult. UA pending. Has chronic Berg. Likely from CHF. BPs not controlled. He is undecided if would pursue HD if indicated. Renal US with med renal disease, some atrophy of right kidney, no hydronephrosis -renally dose gabapentin down to 300mg once daily -avoid ARB/ACEi -follow BMP -diurese with IV Bumex #T2DM/Neuropathy-Last A1c at 7.9% on 07/11/2024, Patient is normally on Lantus 50u HS -continue Lantus to 20u BID while inpatient in the setting of acute renal failure -continue SSI; with target BSG range 110-140mg/dL, CF 20, carb ratio 8 and adjust regimen as needed -T2DM diet, BSG ACHS -check A1C #B12 deficiency and iron deficiency Anemia/ ANemia of CKD-Hgb 8.6 on arrival, stable from previous baseline around 9, normocytic. Transferrin sat low at 8%, B12 low at 193, FOlate normal, TSH normal in last few months. No gross bleeding -start B12 1000 mcg IM daily x 3 doses then B12 1000 mcg po daily -give IV Venofer 200mg daily x 5 doses or until discharge -give Epo x 1 -follow CBC #Chronic hypoxic respiratory failue on 2LNC O2/COPD-no acute issues, continue O2 #CAD s/p CABG-no acute issues, trop neg, no chest pain -continue ASA, statin, Coreg #Chronic urinary retention/Chronic Berg- order Berg daily care #Gout-takes colchicine prn-caution w/ CKD DVT Prophylaxis-add SQ heparin-there is no bleeding, no need to hold SQ heparin for anemia Disposition: continued stay MedSurg telemetry Admission and Anticipated Discharge Date Admission Date: December 14, 2024 Subjective Feeling much better, less distended in abdomen and less SOB. Questions if recent increase in amlodipine is cause of leg swelling.Denies CP. Tele with NSR normal rates Physical Exam Constitutional: WD/WN, vitals as above + obese Respiratory: normal respiratory effort Auscultation: lungs clear to auscultation bilaterally and + diminished lung sounds (at bases); no crackles and no wheezes Cardiovascular: Rate/Rhythm: regular rate and regular rhythm Heart Sounds: no murmur Extremities: + edema (3+ pitting edema to thighs bilat) Gastrointestinal (Abdomen): Inspection/Auscultation: abdomen normal to inspection, + abdomen distended and normal bowel sounds Percussion/Palpation: abdomen nontender Psychiatric: A+Ox3, euthymic affect Genitourinary: Berg in place Results & Data Results & Data Vital Signs (Past 12 Hours) Vital Signs Temp Pulse Pulse Pulse Resp BP Pulse Ox 12/15/24 14:00 63 12/15/24 11:59 36.7 C 66 17 160/70 H 94 12/15/24 07:56 36.6 C 76 18 184/92 H 93 12/15/24 07:50 12/15/24 07:00 74 12/15/24 03:49 36.4 C L 69 16 158/77 H 92 O2 Del Method O2 Flow Rate 12/15/24 14:00 12/15/24 11:59 Nasal Cannula 2 12/15/24 07:56 Room Air 12/15/24 07:50 Nasal Cannula 2 12/15/24 07:00 12/15/24 03:49 Nasal Cannula 2 Laboratory Results CBC, Fe studies, B12, folate, BMP reviewed Diagnostic Findings Renal US reviewed PG Care Time/CCT Total # of Minutes Spent Total Time Spent with Patient: Total time spent is greater than 50% in coordination of care (as documented) at patient's floor/unit and/or counseling patient: Coding Level of Care Code 23568 SUB INP/OBS CARE 3/50MIN Diagnoses Acute CHF I50.9 Acute kidney injury superimposed on CKD N17.9; N18.9 Essential hypertension I10
[2024-12-15] MEDS: DOXAZosin MESYLATE 4 MG TAB PO ONE (16:03)
[2024-12-15] MEDS: carvediloL 12.5 MG TAB PO SCH (20:32)
--- NOTE | 2024-12-15 23:23 | Electrocardiogram Report ---
Test Reason : Blood Pressure : */* mmHG Vent. Rate : 66 BPM Atrial Rate : 66 BPM P-R Int : 146 ms QRS Dur : 92 ms QT Int : 436 ms P-R-T Axes : 10 53 96 degrees QTcB Int : 457 ms Normal sinus rhythm Nonspecific ST and T wave abnormality Abnormal ECG When compared with ECG of 22-Jun-2024 06:29, Premature atrial complexes are no longer Present Nonspecific T wave abnormality, worse in Lateral leads Confirmed by Jeff Fuentes ([id number]) on 12/15/2024 11:22:44 PM Referred By: Confirmed By: Jeff Fuentes
--- NOTE | 2024-12-16 07:40 | Hospitalist Progress Note ---
Date of Service December 16, 2024 Assessment & Plan (1) Acute CHF: (2) Essential hypertension: Plan Mc is an 84-year-old male with PMH of urinary retention, cholecystitis, BPH, CHF, and bacteremia. He presented on 12/14 for worsening fluid buildup x 2 weeks in the lower extremities and abdomen leading to ambulatory dysfunction. Patient lives by himself. He [facility] Over the past 2 weeks, his legs have become so swollen that they are painful and he is unable to walk. While there is been no recent change in diet, he endorses increased weight over the past 2 weeks from 230 pounds to 250. #Acute on chronic HFpEF-Echocardiogram on 06/19/2024 with LVEF at 55 to 60%, ECHO here similar. CXR with suspected pulmonary edema, BNP mildly elevated at 319. Patient is normally on Bumex 3 mg p.o. daily. His PCP recently increased his amlodipine from 5 to 10mg daily 2 weeks ago and he believes his leg swelling got much worse after that. Suspect some is from increased dose of amlodipine. He gets Meals on Wheels and can't control sodium content of food. Weight up 13 kg since Aug. -Continue Bumex 2 mg IV bid -Yardage Control Clerk consult for education on low sodium diet -improve BP control- amlodipine back to 5mg daily, increase doxazosin back to home dose of 8mg daily, and increase Coreg back to home dose of 37.5mg po bid #Acute on chronic kidney disease-BUN 63, creatinine 4.45 (baseline 3.6) on ad mission. Improving now with diuresis to 4.1. Nephrology is following He is undecided if would pursue HD if indicated. Renal US with med renal disease, atrophy of right kidney, no hydronephrosis -diurese with IV Bumex continues #T2DM/Neuropathy-Last A1c at 7.9% on 07/11/2024, Patient is normally on Lantus 50u HS -continue Lantus to 20u BID while inpatient in the setting of acute renal failure -continue SSI; with target BSG range 110-140mg/dL, CF 20, carb ratio 8 and adjust regimen as needed -T2DM diet, BSG ACHS A1c 7.7 #B12 deficiency and iron deficiency Anemia/ ANemia of CKD-Hgb 8.6 on arrival, stable from previous baseline around 9, normocytic. Transferrin sat low at 8%, B12 low at 193, FOlate normal, TSH normal in last few months. No gross bleeding -start B12 1000 mcg IM daily x 3 doses then B12 1000 mcg po daily -give IV Venofer 200mg daily x 5 doses or until discharge -give Epo x 1 -follow CBC #Chronic hypoxic respiratory failue on 2LNC O2/COPD-no acute issues, continue O2 #CAD s/p CABG-no acute issues, trop neg, no chest pain -continue ASA, statin, Coreg #Chronic urinary retention/Chronic Berg- order Berg daily care #Gout-takes colchicine prn-caution w/ CKD DVT Prophylaxis-add SQ heparin- Admission and Anticipated Discharge Date Admission Date: December 14, 2024 Subjective Patient was in good spirits. He did indicate to me that he was not clear whether wanted to have dialysis or not. He indicated to me he did not want to go to rehab any cost and wants to go home. He understands he is undergoing some renal failure which is what is causing issues with his lower extremity. He does remember visiting with Dr. Ching on 12/16/2024 Physical Exam Physical Exam: Awake alert appropriate he has distress with regards to weakness in his legs feeling heavy from edema. He denies shortness of breath or chest pain His cardiac exam is regular his lungs are diminished in all lung bird no wheezes or focal loss his extremities are with 2+ firm edema which likens to chronic edema. Results & Data Results & Data Vital Signs (Past 12 Hours) Vital Signs Temp Pulse Pulse Pulse Resp BP Pulse Ox 12/16/24 05:59 61 94 12/16/24 03:54 98.1 F 59 L 18 158/75 H 95 12/15/24 23:01 97.7 F 73 18 168/73 H 92 12/15/24 22:14 67 12/15/24 21:11 O2 Del Method O2 Flow Rate 12/16/24 05:59 Nasal Cannula 4 12/16/24 03:54 Room Air 12/15/24 23:01 Nasal Cannula 2 12/15/24 22:14 12/15/24 21:11 Room Air Laboratory Results Reviewed CBC combination of iron deficiency anemia anemia of chronic inflammation Reviewed chemistrycontinuing significant elevation of BUN and creatinine PG Care Time/CCT Total # of Minutes Spent Total Time Spent with Patient: Total time spent is greater than 50% in coordination of care (as documented) at patient's floor/unit and/or counseling patient: Coding Level of Care Code 57693 SUB INP/OBS CARE 3/50MIN Diagnoses Acute CHF I50.9 Essential hypertension I10
--- NOTE | 2024-12-16 08:39 | Nephrology Progress Note ---
Date of Service December 16, 2024 Assessment & Plan (1) INGRID (acute kidney injury): Plan: * Clinical presentation suggestive of hemodynamically mediated INGRID/CRS and progression of CKD. * Non-oliguric. Creatinine is fluctuating. Electrolytes acceptable. Negative fluid balance with diuretics. No emergent indication for dialysis at this time. * 12/15 urinalysis - hyaline casts, pyuria related to chronic jovel * 12/15 renal US - R 12.1 cm, L 13.1cm. No hydronephrosis. Diffuse cortical thinning. 4.4 cm L renal cyst (2) Chronic kidney disease, stage 4 (severe): Plan: * CKD stage G4/A3 attributed to DKD and arteriosclerosis. Baseline creatinine ~3.5 mg/dL. PCR 1.5 g/g. * Advanced care planning ongoing but Mc has indicated that he would likely not pursue dialysis. (3) Acute exacerbation of CHF (congestive heart failure): Plan: * Continue Bumex 2 mg IV BID to encourage a negative fluid balance * Avoid RAASi due to kidney dysfunction * Low sodium diet and daily weights * Monitor I&O (4) Anemia: Plan: * Tsat 8% and ferritin 40%. Stool occult blood testing pending. No melena or hematochezia reported. * Venofer 200 mg IV and Epogen 59117 units x 1 provided 12/15 * Will schedule venofer 200 mg IV daily x 5 doses * Monitor H&H Admission and Anticipated Discharge Date Admission Date: December 14, 2024 Subjective Mr. Garcia was evaluated in his hospital room this morning. He reports that amlodipine was recently increased at the [facility]. He attributes this as a cause of his recent fluid gain. Mr. Garcia currently denies fever, dyspnea or cough. Review of Systems Constitutional: no fever Eyes: no problem reported Ear, Nose, Mouth, Throat: no problem reported Respiratory: no cough and no dyspnea Cardiovascular: + edema; no chest pain Gastrointestinal: no abdominal pain, no nausea, no vomiting and no diarrhea/loose stools Physical Exam Constitutional: no acute distress Eyes: PERRL, conjunctivae normal, anicteric sclerae ENMT: external ear and nose normal, oropharynx normal Neck: trachea midline, no thyromegaly Respiratory: normal respiratory effort; no respiratory distress Auscultation: no rales Cardiovascular: Rate/Rhythm: + irregularly irregular Extremities: + edema (3+) Gastrointestinal (Abdomen): Inspection/Auscultation: + abdomen distended Percussion/Palpation: abdomen nontender and no guarding Neurologic: Speech / Cognition: normal cognition Results & Data Vital Signs (Past 12 Hours) Vital Signs Temp Pulse Pulse Pulse Resp BP Pulse Ox 12/16/24 07:50 36.9 C 70 16 161/75 H 90 12/16/24 05:59 61 94 12/16/24 03:54 36.7 C 59 L 18 158/75 H 95 12/15/24 23:01 36.5 C 73 18 168/73 H 92 12/15/24 22:14 67 12/15/24 21:11 O2 Del Method O2 Flow Rate 12/16/24 07:50 Room Air 12/16/24 05:59 Nasal Cannula 4 12/16/24 03:54 Room Air 12/15/24 23:01 Nasal Cannula 2 12/15/24 22:14 12/15/24 21:11 Room Air Laboratory Results Laboratory Results - last 24 hr 12/15/24 12/15/24 12/15/24 11:49 12:26 17:09 WBC RBC Hgb Hct MCV MCH MCHC RDW Std Deviation RDW Coeff of [place] Plt Count MPV Immature Gran % (Auto) Neut % (Auto) Lymph % (Auto) [place] % (Auto) Eos % (Auto) Baso % (Auto) Neut # (Auto) Lymph # (Auto) [place] # (Auto) Eos # (Auto) Baso # (Auto) Immature Gran # (Auto) Sodium Potassium Chloride Carbon Dioxide Anion Gap BUN Creatinine Est Cr Clr Drug Dosing eGFR BUN/Creatinine Ratio Glucose POC Glucose 145 H 109 H Estimat Average Glucose Hemoglobin A1c Calcium Magnesium Urine Color Yellow Urine Appearance Cloudy A Urine pH 5.5 Ur Specific [place] 1.011 Urine Protein 3+ H Urine Glucose (UA) Negative Urine Ketones Negative Urine Blood 1+ H Urine Nitrite Negative Urine Bilirubin Negative Urine Urobilinogen Negative Ur Leukocyte Esterase 3+ H Urine WBC (Auto) >50 H Urine RBC (Auto) 0-2 U Hyaline Cast (Auto) 3-5 H U Epithel Cells (Auto) 0-2 Urine Bacteria (Auto) 4+ H 12/15/24 12/16/24 12/16/24 20:19 08:11 08:18 WBC 5.23 RBC 3.13 L Hgb 8.9 L Hct 27.8 L MCV 88.8 MCH 28.4 MCHC 32.0 RDW Std Deviation 49.6 H RDW Coeff of [place] 15.3 H Plt Count 147 MPV 12.2 Immature Gran % (Auto) 0.4 Neut % (Auto) 59.1 Lymph % (Auto) 20.8 [place] % (Auto) 14.7 Eos % (Auto) 4.4 Baso % (Auto) 0.6 Neut # (Auto) 3.09 Lymph # (Auto) 1.09 L [place] # (Auto) 0.77 H Eos # (Auto) 0.23 Baso # (Auto) 0.03 Immature Gran # (Auto) 0.02 Sodium 141 Potassium 4.2 Chloride 103 Carbon Dioxide 30 Anion Gap 8 BUN 63 H Creatinine 4.69 H* D Est Cr Clr Drug Dosing 14.5 eGFR 11.76 BUN/Creatinine Ratio 13.4 Glucose 110 H POC Glucose 118 H 119 H Estimat Average Glucose Pending Hemoglobin A1c Pending Calcium 8.9 Magnesium 2.3 Urine Color Urine Appearance Urine pH Ur Specific [place] Urine Protein Urine Glucose (UA) Urine Ketones Urine Blood Urine Nitrite Urine Bilirubin Urine Urobilinogen Ur Leukocyte Esterase Urine WBC (Auto) Urine RBC (Auto) U Hyaline Cast (Auto) U Epithel Cells (Auto) Urine Bacteria (Auto) PG Care Time/CCT Total # of Minutes Spent Total Time Spent with Patient: Total time spent is greater than 50% in coordination of care (as documented) at patient's floor/unit and/or counseling patient: Coding Level of Care Code 38740 SUB INP/OBS CARE 3/50MIN Diagnoses INGRID (acute kidney injury) N17.9 Chronic kidney disease, stage 4 (severe) N18.4 Acute exacerbation of CHF (congestive heart failure) I50.9 Heart failure type: unspecified Anemia D64.9 (3) Acute exacerbation of CHF (congestive heart failure) Heart failure type: unspecified Qualified Code(s): I50.9 - Heart failure, unspecified
[2024-12-16 08:46] LABS: Basophils # (auto) 0.03 K/uL (0.00-0.20); Basophils % (auto) 0.6 %; Eosinophils # (auto) 0.23 K/uL (0.00-0.50); Eosinophils % (auto) 4.4 %; Hematocrit (blood only) 27.8 % (42.0-52.0); Hemoglobin 8.9 g/dl (14.0-18.0); Immature Granulocytes # (auto) 0.02 K/uL (0.01-0.20); Immature Granulocytes % (auto) 0.4 %; Lymphocytes # (auto) 1.09 K/uL (1.20-3.40); Lymphocytes % (auto) 20.8 %; Mean Corpuscular Hemoglobin 28.4 pg (25.0-34.0); Mean Corpuscular Volume 88.8 fL (80.0-100.0); Mean Platelet Volume 12.2 fL (9.4-12.4); Monocytes # (auto) 0.77 K/uL (0.11-0.59); Monocytes % (auto) 14.7 %; Neutrophils # (auto) 3.09 K/uL (1.40-6.50); Neutrophils % (auto) 59.1 %; Platelet Count 147 K/uL (130-400); RDW Coefficient of Variation 15.3 % (11.5-14.5); RDW Standard Deviation 49.6 fL (36.4-46.3); Red Blood Count 3.13 M/uL (4.70-6.10); White Blood Count 5.23 K/ul (4.8-10.8)
[2024-12-16] MEDS: DOXAZosin MESYLATE 4 MG TAB PO SCH (08:55)
[2024-12-16] MEDS: amLODIPine BESYLATE 5 MG TAB PO SCH (08:57)
[2024-12-16] MEDS: CHOLECALCIFEROL 25 MCG (1000 UNITS) TAB PO SCH (08:57)
[2024-12-16] MEDS: LORATADINE 10 MG TAB PO SCH (08:57)
[2024-12-16] MEDS: GABAPENTIN 300 MG CAP PO SCH (08:57)
[2024-12-16 09:09] LABS: BUN Creatinine Ratio 13.4 (10-20); Calcium 8.9 mg/dl (8.6-10.3); Creatinine Clr Calc Pharmacy 14.5 ml/min; Magnesium 2.3 mg/dl (1.7-2.4); Potassium 4.2 mmol/L (3.5-5.1)
[2024-12-16] MEDS: IRON SUCROSE 200 MG in SODIUM CHLORIDE 0.9% 100 ML IV SCH ×2 (10:41→11:32)
[2024-12-16 11:09] LABS: Estimated Average Glucose 174 mg/dl; Hemoglobin A1C 7.7 % (4.5-5.6)
[2024-12-17 07:21] LABS: Hematocrit (blood only) 28.3 % (42.0-52.0); Hemoglobin 8.6 g/dl (14.0-18.0); Mean Corpuscular Hemoglobin 27.2 pg (25.0-34.0); Mean Corpuscular Hgb Conc 30.4 g/dL (32.0-36.0); Mean Corpuscular Volume 89.6 fL (80.0-100.0); Mean Platelet Volume 12.2 fL (9.4-12.4); Platelet Count 139 K/uL (130-400); RDW Coefficient of Variation 15.3 % (11.5-14.5); RDW Standard Deviation 49.7 fL (36.4-46.3); Red Blood Count 3.16 M/uL (4.70-6.10); White Blood Count 5.47 K/ul (4.8-10.8)
[2024-12-17 07:34] LABS: BUN Creatinine Ratio 13.9 (10-20); Calcium 8.8 mg/dl (8.6-10.3); Creatinine Clr Calc Pharmacy 14.3 ml/min; Potassium 4.1 mmol/L (3.5-5.1)
--- NOTE | 2024-12-17 09:13 | Nephrology Progress Note ---
Date of Service December 17, 2024 Assessment & Plan (1) INGRID (acute kidney injury): Plan: * Clinical presentation suggestive of hemodynamically mediated INGRID/CRS and progression of CKD. * 12/15 urinalysis - hyaline casts, pyuria related to chronic jovel * 12/15 renal US - R 12.1 cm, L 13.1cm. No hydronephrosis. Diffuse cortical thinning. 4.4 cm L renal cyst * Weight is down 5 kg and patient is net -4.7 L since admission. He is diuresing 1-2 L/day while on Bumex therapy. Cr remains stable at 4.6 * Discussed renal impairment w/ patient this morning. Explained that he may have INGRID on the basis of CHF that will improve w/ diuresis or he may have CHF on the basis or progressive CKD. Discussed indications/benefits/alternatives to HD w/ patient. He wishes to monitor kidney function for another 24-72 hours before making any decisions (2) Chronic kidney disease, stage 4 (severe): Plan: * CKD stage G4/A3 attributed to DKD and arteriosclerosis. Baseline creatinine ~3.5 mg/dL. PCR 1.5 g/g. * Advanced care planning ongoing but Mc has indicated that he would likely not pursue dialysis. (3) Acute exacerbation of CHF (congestive heart failure): Plan: * Continue Bumex 2 mg IV BID to encourage a negative fluid balance * Avoid RAASi due to kidney dysfunction * Low sodium diet and daily weights * Monitor I&O (4) Anemia: Plan: * Tsat 8% and ferritin 40%. Stool occult blood testing pending. No melena or hematochezia reported. * Day #2 of 5 IV Venofer * Monitor H&H (5) Hypertension: Plan: * Remains hypertensive. Expect this will improve w/ diuresis * Continue carvedilol, low dose amlodipine Admission and Anticipated Discharge Date Admission Date: December 14, 2024 Subjective Mr. Garcia was evaluated in his hospital room this morning. He reports that his abdominal and LE swelling is improved. He voiced no new medical concerns Review of Systems Constitutional: no fever Eyes: no problem reported Ear, Nose, Mouth, Throat: no problem reported Respiratory: no cough and no dyspnea Cardiovascular: + edema; no chest pain Gastrointestinal: no abdominal pain, no nausea, no vomiting and no diarrhea/loose stools Physical Exam Constitutional: no acute distress Eyes: PERRL, conjunctivae normal, anicteric sclerae ENMT: external ear and nose normal, oropharynx normal Neck: trachea midline, no thyromegaly Respiratory: normal respiratory effort; no respiratory distress Auscultation: no rales Cardiovascular: Rate/Rhythm: + irregularly irregular Extremities: + edema (3+) Gastrointestinal (Abdomen): Inspection/Auscultation: + abdomen distended Percussion/Palpation: abdomen nontender and no guarding Neurologic: Speech / Cognition: normal cognition Results & Data Vital Signs (Past 12 Hours) Vital Signs Temp Pulse Pulse Resp BP BP Pulse Ox 12/17/24 07:43 36.7 C 68 18 156/77 H 94 12/17/24 07:33 12/17/24 05:45 72 12/17/24 03:15 36.5 C 64 18 160/74 H 93 12/16/24 22:41 36.5 C 71 18 159/67 H 92 12/16/24 21:43 67 12/16/24 21:37 O2 Del Method O2 Flow Rate 12/17/24 07:43 Nasal Cannula 1 12/17/24 07:33 Nasal Cannula 1 12/17/24 05:45 12/17/24 03:15 Nasal Cannula 1 12/16/24 22:41 Nasal Cannula 1 12/16/24 21:43 12/16/24 21:37 Nasal Cannula 2 Laboratory Results Laboratory Results - last 24 hr 12/16/24 12/16/24 12/16/24 08:11 11:58 16:56 WBC RBC Hgb Hct MCV MCH MCHC RDW Std Deviation RDW Coeff of [place] Plt Count MPV Sodium Potassium Chloride Carbon Dioxide Anion Gap BUN Creatinine Est Cr Clr Drug Dosing eGFR BUN/Creatinine Ratio Glucose POC Glucose 180 H 133 H Estimat Average Glucose 174 Hemoglobin A1c 7.7 H Calcium 12/16/24 12/17/24 12/17/24 20:01 06:29 07:45 WBC 5.47 RBC 3.16 L Hgb 8.6 L Hct 28.3 L MCV 89.6 MCH 27.2 MCHC 30.4 L RDW Std Deviation 49.7 H RDW Coeff of [place] 15.3 H Plt Count 139 MPV 12.2 Sodium 142 Potassium 4.1 Chloride 104 Carbon Dioxide 31 Anion Gap 7 BUN 65 H Creatinine 4.68 H* Est Cr Clr Drug Dosing 14.3 eGFR 11.79 BUN/Creatinine Ratio 13.9 Glucose 77 POC Glucose 121 H 85 Estimat Average Glucose Hemoglobin A1c Calcium 8.8 PG Care Time/CCT Total # of Minutes Spent Total Time Spent with Patient: Total time spent is greater than 50% in coordination of care (as documented) at patient's floor/unit and/or counseling patient: Coding Level of Care Code 29637 SUB INP/OBS CARE 3/50MIN Diagnoses INGRID (acute kidney injury) N17.9 Chronic kidney disease, stage 4 (severe) N18.4 Acute exacerbation of CHF (congestive heart failure) I50.9 Heart failure type: unspecified Anemia D64.9 Hypertension I10 (3) Acute exacerbation of CHF (congestive heart failure) Heart failure type: unspecified Qualified Code(s): I50.9 - Heart failure, unspecified
--- NOTE | 2024-12-17 17:55 | Hospitalist Progress Note ---
Date of Service December 17, 2024 Assessment & Plan (1) Acute CHF: (2) Essential hypertension: Plan Mc is an 84-year-old male with PMH of urinary retention, cholecystitis, BPH, CHF, and bacteremia. He presented on 12/14 for worsening fluid buildup x 2 weeks in the lower extremities and abdomen leading to ambulatory dysfunction. Patient lives by himself. [facility] Over the past 2 weeks, his legs have become so swollen that they are painful and he is unable to walk. While there is been no recent change in diet, he endorses increased weight over the past 2 weeks from 230 pounds to 250. #Acute on chronic HFpEF-Echocardiogram on 06/19/2024 with LVEF at 55 to 60%, ECHO here similar. CXR with suspected pulmonary edema, BNP mildly elevated at 319. Patient is normally on Bumex 3 mg p.o. daily. His PCP recently increased his amlodipine from 5 to 10mg daily 2 weeks ago and he believes his leg swelling got much worse after that. Suspect some is from increased dose of amlodipine. He gets Meals on Wheels and can't control sodium content of food. Weight up 13 kg since Aug. -Continue Bumex 2 mg IV bid -Etl Database Developer consult for education on low sodium diet -improve BP control- amlodipine back to 5mg daily, increase doxazosin back to home dose of 8mg daily, and increase Coreg back to home dose of 37.5mg po bid #Acute on chronic kidney disease stage IV-BUN 63, creatinine 4.45 (baseline 3.6) on admission. Improving now with diuresis to 4.1. Nephrology is following He is undecided if would pursue HD if indicated. Renal US with med renal disease, atrophy of right kidney, no hydronephrosis -diurese with IV Bumex continues #T2DM/Neuropathy-Last A1c at 7.9% on 07/11/2024, Patient is normally on Lantus 50u HS -continue Lantus to 20u BID while inpatient in the setting of acute renal failure -continue SSI; with target BSG range 110-140mg/dL, CF 20, carb ratio 8 and adjust regimen as needed -T2DM diet, BSG ACHS A1c 7.7 #B12 deficiency and iron deficiency Anemia/ ANemia of CKD-Hgb 8.6 on arrival, stable from previous baseline around 9, normocytic. Transferrin sat low at 8%, B12 low at 193, FOlate normal, TSH normal in last few months. No gross bleeding -start B12 1000 mcg IM daily x 3 doses then B12 1000 mcg po daily -give IV Venofer 200mg daily x 5 doses or until discharge -give Epo x 1 -follow CBC #Chronic hypoxic respiratory failue on 2LNC O2/COPD-no acute issues, continue O2 #CAD s/p CABG-no acute issues, trop neg, no chest pain -continue ASA, statin, Coreg #Chronic urinary retention/Chronic Berg- order Berg daily care #Gout-takes colchicine prn-caution w/ CKD DVT Prophylaxis- SQ heparin- Admission and Anticipated Discharge Date Admission Date: December 14, 2024 Subjective Patient states he is feeling slightly better I did speak with physical therapy and he did walk 80 feet. He is using a walker. He remains with a Berg catheter. His urine function remains higher than usual with active discussions with nephrology whether he may need to progress to renal replacement therapy Physical Exam Physical Exam: Awake alert appropriate he is feels his legs are less painful but still complains of weakness in his legs feeling heavy from edema. He denies shortness of breath or chest pain however with ambulation did become breathless mildly hypoxic with easy rebound His cardiac exam is regular his lungs are diminished in all lung bird no wheezes or focal loss his extremities are with 2+ firm edema which likens to chronic edema. Results & Data Results & Data Vital Signs (Past 12 Hours) Vital Signs Temp Pulse Pulse Resp BP Pulse Ox O2 Del Method 12/17/24 13:24 60 12/17/24 11:16 97.7 F 68 18 163/63 H 94 Room Air 12/17/24 07:43 98.1 F 68 18 156/77 H 94 Nasal Cannula 12/17/24 07:33 Nasal Cannula O2 Flow Rate 12/17/24 13:24 12/17/24 11:16 12/17/24 07:43 1 12/17/24 07:33 1 Laboratory Results Reviewed CBC Reviewed chemistry Reviewed A1c 7.7 Reviewed iron- low PG Care Time/CCT Total # of Minutes Spent Total Time Spent with Patient: Total time spent is greater than 50% in coordination of care (as documented) at patient's floor/unit and/or counseling patient: Coding Level of Care Code 03600 SUB INP/OBS CARE 3/50MIN Diagnoses Acute CHF I50.9 Essential hypertension I10
[2024-12-18 08:11] LABS: Hematocrit (blood only) 28.8 % (42.0-52.0); Mean Corpuscular Hgb Conc 31.3 g/dL (32.0-36.0); Mean Corpuscular Volume 89.7 fL (80.0-100.0); Platelet Count 168 K/uL (130-400); RDW Coefficient of Variation 15.6 % (11.5-14.5); RDW Standard Deviation 50.4 fL (36.4-46.3); Red Blood Count 3.21 M/uL (4.70-6.10)
[2024-12-18] MEDS: CYANOCOBALAMIN (B-12) 500 MCG TABLET PO SCH (08:27)
[2024-12-18 08:28] LABS: BUN Creatinine Ratio 12.3 (10-20); Calcium 9.3 mg/dl (8.6-10.3); Creatinine Clr Calc Pharmacy 12.8 ml/min; Magnesium 2.3 mg/dl (1.7-2.4); Potassium 4.3 mmol/L (3.5-5.1)
--- NOTE | 2024-12-18 08:48 | Nephrology Progress Note ---
Date of Service December 18, 2024 Assessment & Plan (1) End stage chronic kidney disease: Plan: * ESKD - Patient is demonstrating progressive renal dysfunction with volume unloading. ESKD is due to DKD, microvascular disease * 12/15 urinalysis - hyaline casts, pyuria related to chronic jovel * 12/15 renal US - R 12.1 cm, L 13.1cm. No hydronephrosis. Diffuse cortical thinning. 4.4 cm L renal cyst * Patient is net -6.2 L since admission. He is diuresing 1-2 L/day while on Bumex therapy. Cr has progressively risen to 5.14 with EGFR 10 cc/min * Discussed progressive renal impairment w/ patient this morning. Explained that he has progressive CKD and is now ESKD w/ EGFR 10 cc/min. Discussed indications/benefits/alternatives to HD w/ patient. He is agreeable to IJ TCC insertion and initiation of HD * Will consult vascular surgery for IJ TCC and AVF * Will consult case management to set up outpatient HD at [facility]. Patient is legally blind and will require county transportation * Start nephrocaps one daily (2) Acute exacerbation of CHF (congestive heart failure): Plan: * Continue Bumex 2 mg IV BID to encourage a negative fluid balance * Avoid RAASi due to kidney dysfunction * Low sodium diet and daily weights * Monitor I&O (3) Anemia: Plan: * Tsat 8% and ferritin 40%. Stool occult blood testing pending. No melena or hematochezia reported. * Day #3 of 5 IV Venofer * Monitor H&H (4) Hypertension: Plan: * Remains hypertensive. Expect this will improve w/ diuresis, UF * Continue carvedilol, low dose amlodipine Admission and Anticipated Discharge Date Admission Date: December 14, 2024 Subjective Mr. Garcia was evaluated in his hospital room this morning. He reports that his abdominal and LE swelling is improved. He voiced no new medical concerns Review of Systems Constitutional: no fever Eyes: no problem reported Ear, Nose, Mouth, Throat: no problem reported Respiratory: no cough and no dyspnea Cardiovascular: + edema; no chest pain Gastrointestinal: no abdominal pain, no nausea, no vomiting and no diarrhea/loose stools Physical Exam Constitutional: no acute distress Eyes: PERRL, conjunctivae normal, anicteric sclerae ENMT: external ear and nose normal, oropharynx normal Neck: trachea midline, no thyromegaly Respiratory: normal respiratory effort; no respiratory distress Auscultation: no rales Cardiovascular: Rate/Rhythm: + irregularly irregular Extremities: + edema (3+) Gastrointestinal (Abdomen): Inspection/Auscultation: + abdomen distended Percussion/Palpation: abdomen nontender and no guarding Neurologic: Speech / Cognition: normal cognition Results & Data Vital Signs (Past 12 Hours) Vital Signs Temp Pulse Pulse Resp BP Pulse Ox O2 Del Method 12/18/24 07:34 36.4 C L 65 18 159/74 H 94 Room Air 12/18/24 07:19 71 12/18/24 03:37 36.6 C 74 16 149/60 H 92 Room Air 12/17/24 23:14 36.8 C 65 18 162/69 H 90 Room Air 12/17/24 21:44 61 12/17/24 21:38 Room Air Laboratory Results Laboratory Results - last 24 hr 12/17/24 12/17/24 12/17/24 11:49 16:51 20:09 WBC RBC Hgb Hct MCV MCH MCHC RDW Std Deviation RDW Coeff of [place] Plt Count MPV Sodium Potassium Chloride Carbon Dioxide Anion Gap BUN Creatinine Est Cr Clr Drug Dosing eGFR BUN/Creatinine Ratio Glucose POC Glucose 128 H 155 H 151 H Calcium Magnesium 12/18/24 12/18/24 07:38 07:59 WBC 6.20 RBC 3.21 L Hgb 9.0 L Hct 28.8 L MCV 89.7 MCH 28.0 MCHC 31.3 L RDW Std Deviation 50.4 H RDW Coeff of [place] 15.6 H Plt Count 168 MPV 12.0 Sodium 142 Potassium 4.3 Chloride 103 Carbon Dioxide 32 Anion Gap 7 BUN 63 H Creatinine 5.14 H* D Est Cr Clr Drug Dosing 12.8 eGFR 10.54 BUN/Creatinine Ratio 12.3 Glucose 82 POC Glucose 91 Calcium 9.3 Magnesium 2.3 PG Care Time/CCT Total # of Minutes Spent Total Time Spent with Patient: Total time spent is greater than 50% in coordination of care (as documented) at patient's floor/unit and/or counseling patient: Coding Level of Care Code 36572 SUB INP/OBS CARE 3/50MIN Diagnoses End stage chronic kidney disease N18.6 Acute exacerbation of CHF (congestive heart failure) I50.9 Heart failure type: unspecified Anemia D64.9 Hypertension I10 (2) Acute exacerbation of CHF (congestive heart failure) Heart failure type: unspecified Qualified Code(s): I50.9 - Heart failure, unspecified
[2024-12-18 10:51] LABS: Hep B Surface Ag with confirm Negative (Negative)
[2024-12-18 11:00] LABS: Hepatitis B Surface Antibody Immune
[2024-12-18 11:05] LABS: Hep B Surface Ag with confirm Negative (Negative)
[2024-12-18 11:14] LABS: Hepatitis B Surface Antibody Immune
--- NOTE | 2024-12-18 11:27 | Hospitalist Progress Note ---
Date of Service December 18, 2024 Assessment & Plan (1) Acute CHF: (2) End stage chronic kidney disease: (3) Essential hypertension: (4) Anemia: Plan This pt is an 84-year-old male with PMH of CKD stage IV, CAD s/p CABG, urinary retention w/ chronic Alejo, HFpEF, HTN, Anemia, DMII with neuropathy and blindness, GERD, and allergies who p/w worsening fluid buildup x 2 weeks in the lower extremities and abdomen leading to ambulatory dysfunction. He gained 20 lbs in 2 weeks. No changes in diet or fluid intake but reports his amlodipine dose was increased from 5 to 10mg two weeks ago. #Acute on chronic HFpEF/HTN-Echocardiogram on 06/19/2024 with LVEF at 55 to 60%, ECHO here similar. CXR with suspected pulmonary edema, BNP mildly elevated at 319. Patient is normally on Bumex 3 mg p.o. daily. His PCP recently increased his amlodipine from 5 to 10mg daily 2 weeks ago and he believes his leg swelling got much worse after that. Suspect some is from increased dose of amlodipine. He gets Meals on Wheels and can't control sodium content of food. Weight up 13 kg since Aug. He has been diuresed with IV Bumex 2mg IV bid and has lost 7 kg and edema improving, but unfortunately registered nurse hh case manager continues to rise now to 5.1. BPs have been elevated/uncontrolled. It is now time to start hemodialysis as per Nephrology recommendation -consult Vascular for TDC placement--> NPO after midnight -Continue Bumex 2 mg IV bid -Hedge Trimmer consult for education on low sodium diet -improve BP control- amlodipine returned back to 5mg daily, continue doxazosin 8mg daily, and Coreg 37.5mg po bid--> add hydralazine if needed but about to start HD which will help with volume #Acute on chronic kidney disease stage IV-BUN 63, creatinine 4.45 (baseline 3.6) on admission. SLightly improved initially but now rising again to 5.1, starting HD. Nephrology is following. Renal US with med renal disease, atrophy of right kidney, no hydronephrosis. UA with 3+ protein, 1+ blood but no RBCs, with bacteria, LE but no casts -diurese with IV Bumex -start HD -follow BMP -start Nephrocaps -maintain chronic Alejo #Asymptomatic bacteriuria/Chronic urinary retention/Chronic Alejo--abnormal but collected from chronic Alejo bag. He is afebrile, no leukocytosis, abd pains, etc. This is asymptomatic bacteriuria from chronic Alejo and does not need to be treated. -exchange Alejo when due for q1 month exchange in 1 week around 3/10 -daily Alejo care -continue doxazosin #T2DM/Neuropathy-Last A1c at 7.9% on 07/11/2024, Patient is normally on Lantus 50u HS -continue Lantus to 20u BID while inpatient in the setting of acute renal failure -continue SSI; with target BSG range 110-140mg/dL, CF 20, carb ratio 8 and adjust regimen as needed -T2DM diet, BSG ACHS A1c 7.7 #B12 deficiency and iron deficiency Anemia/ ANemia of CKD-Hgb 8.6 on arrival, stable from previous baseline around 9, normocytic. Transferrin sat low at 8%, B12 low at 193, FOlate normal, TSH normal in last few months. No gross bleeding -gave B12 1000 mcg IM daily x 3 doses now on B12 1000 mcg po daily -giving IV Venofer 200mg daily x 5 doses -gave Epo x 1 -follow CBC #Chronic hypoxic respiratory failue on 2LNC O2/COPD-no acute issues, continue O2 #CAD s/p CABG-no acute issues, trop neg, no chest pain. Follows with [facility] [place]-had cardiac cath last year and no intervention done, had patent grafts -continue ASA, statin, Coreg #Gout-takes colchicine prn-caution w/ CKD DVT Prophylaxis- SQ heparin Dispo-continued stay on med tele, CM consulted for new start outpt HD. Admission and Anticipated Discharge Date Admission Date: December 14, 2024 Subjective Pt reports he was feeling better this AM until Nephrology came and told him he needed to start HD. Denies CP. Feels his SOB and abd distension and leg pain/swelling are all much improved. Last Alejo exchange about 3 weeks ago by [facility] nurse at home. He denies any urinary problems at this time. No fevers Tele with NSR rate 60-70s Physical Exam Constitutional: WD/WN, vitals as above + obese Respiratory: normal respiratory effort Auscultation: lungs clear to auscultation bilaterally and + diminished lung sounds (at bases); no crackles and no wheezes Cardiovascular: Rate/Rhythm: regular rate and regular rhythm Heart Sounds: no murmur Extremities: + edema (2+ pitting edema to knees bilat, improved) Gastrointestinal (Abdomen): Inspection/Auscultation: abdomen normal to inspection and normal bowel sounds Percussion/Palpation: abdomen nontender Psychiatric: A+Ox3, euthymic affect Results & Data Results & Data Vital Signs (Past 12 Hours) Vital Signs Temp Pulse Pulse Resp BP BP Pulse Ox 12/18/24 11:07 36.3 C L 69 18 156/71 H 91 12/18/24 07:34 36.4 C L 65 18 159/74 H 94 12/18/24 07:19 71 12/18/24 03:37 36.6 C 74 16 149/60 H 92 O2 Del Method 12/18/24 11:07 Room Air 12/18/24 07:34 Room Air 12/18/24 07:19 12/18/24 03:37 Room Air Laboratory Results CBC, BMP, mag reviewed PG Care Time/CCT Total # of Minutes Spent Total Time Spent with Patient: Total time spent is greater than 50% in coordination of care (as documented) at patient's floor/unit and/or counseling patient: Coding Level of Care Code 16790 SUB INP/OBS CARE 3/50MIN Diagnoses Acute CHF I50.9 End stage chronic kidney disease N18.6 Essential hypertension I10 Anemia D64.9 Anemia type: unspecified type (4) Anemia Anemia type: unspecified type Qualified Code(s): D64.9 - Anemia, unspecified
--- NOTE | 2024-12-18 16:16 | Consultation ---
Date of Consultation December 18, 2024 Assessment & Plan (1) End stage chronic kidney disease: Pt with worsening chronic renal fxn, now requiring HD per nephrology. Pt scheduled for permcath insertion tomorrow AM. Procedure, risks, benefits, and alternatives discussed with pt by myself at Dr Eisenberg's request. Consent forms read aloud to pt with RN as witness. Pt expresses understanding and agreement to proceed. History of Present Illness Reason for Consultation: ESRD Attending Physician: Kendal Tom MD History of Present Illness 84 yo m with hx of clinically blind, HTN DMII, GERD, CAD, gout, hypercholesterolemia, admitted with worsening renal fxn, seen in consultation today for permcath insertion for HD initiation. Pt states no hx of hD prior to this. Advised by nephrology he will need HD. Admits feeling cold and edema. Denies REED, fever, chest pain, SOB, abd pain, N/V, rest pain, claudication, other complaints. Allergies Allergy/AdvReac Type Severity Reaction Status Date / Time strawberry Allergy Intermediate hives Verified 06/19/24 02:54 Home Medications Medication Instructions Recorded Confirmed Type colchicine 0.6 mg capsule 0.6 mg PO UD 05/22/21 12/14/24 History loratadine 10 mg tablet (Allergy 10 mg PO Q OTHER DAY 05/22/21 12/14/24 History Relief (loratadine)) magnesium oxide 420 mg tablet 420 mg PO DAILY 05/22/21 12/14/24 History omeprazole 20 mg capsule,delayed 20 mg PO BID 05/22/21 12/14/24 History release aspirin 81 mg tablet,delayed 81 mg PO DAILY 09/15/22 12/14/24 History release atorvastatin 80 mg tablet 80 mg PO HS 09/15/22 12/14/24 History doxazosin 4 mg tablet 8 mg PO DAILY 09/15/22 12/14/24 History fluticasone propionate 50 2 spray intranasal DAILY 09/15/22 12/14/24 History mcg/actuation nasal spray,suspension gabapentin 300 mg capsule 300 mg PO BID 09/15/22 12/14/24 History guaifenesin 200 mg tablet 400 mg PO TID PRN help thin mucous 09/15/22 12/14/24 History insulin aspart U-100 100 unit/mL 27 unit subcut TIDM 09/15/22 12/14/24 History (3 mL) subcutaneous pen (Novolog FlexPen U-100 Insulin aspart) meclizine 12.5 mg tablet 25 mg PO Q6H PRN Vertigo 09/15/22 12/14/24 History mometasone 220 mcg/actuation(60 2 inh inhalation BID 09/15/22 12/14/24 History doses) breath activated powder inhaler omega 1-oig-lin-fish oil 1,000 mg 2 cap PO UD 09/15/22 12/14/24 History (120 mg-180 mg) capsule (Fish Oil) tiotropium 2.5 mcg-olodaterol 2.5 2 puff inhalation DAILY 09/15/22 12/14/24 History mcg/actuation mist for inhalation vit C 250 mg-vit E 90 mg-zinc 40 1 tab PO BID 09/15/22 12/14/24 History mg-copper 1 qc-ckiaxy-svrtxj capsule (PreserVision AREDS-2) carvedilol 25 mg tablet 37.5 mg PO BID 01/19/24 12/14/24 History glucose 4 gram chewable tablet 4 g PO UD PRN hypoglycemia 01/19/24 12/14/24 History zinc oxide 20 % topical ointment 1 applic topical DAILY PRN Penile 01/19/24 12/14/24 History Irritation/Excoriation albuterol sulfate 90 mcg/actuation 2 puff inhalation Q4H PRN 02/14/24 12/14/24 History aerosol inhaler Shortness Of Breath Or Wheezing cholecalciferol (vitamin D3) 25 50 mcg PO DAILY 02/14/24 12/14/24 History mcg (1,000 unit) capsule insulin glargine-yfgn 100 unit/mL 50 unit subcut HS 03/14/24 12/14/24 History (3 mL) subcutaneous pen Glucosamine 1 cap PO DAILY 12/14/24 12/14/24 History acetaminophen 325 mg tablet 650 mg PO DAILY PRN Pain 12/14/24 12/14/24 History amlodipine 10 mg tablet 10 mg PO DAILY 12/14/24 12/14/24 History ascorbic acid (vitamin C) 500 mg 500 mg PO DAILY 12/14/24 12/14/24 History tablet bumetanide 1 mg tablet 3 mg PO DAILY 12/14/24 12/14/24 History carboxymethylcellulose sodium 0.5 1 drp ophthalmic (eye) BID 12/14/24 12/14/24 History % eye drops cinnamon bark 500 mg capsule 1,000 mg PO DAILY 12/14/24 12/14/24 History (Cinnamon) nitroglycerin 0.4 mg sublingual 0.4 mg sublingual DIRECTED PRN 12/14/24 12/14/24 History tablet Chest Pain Patient History Medical History Chronic heart failure with preserved ejection fraction Chronic indwelling Berg catheter BPH loc w urin obs/LUTS NSTEMI (non-ST elevated myocardial infarction) Cardiomyopathy Chronic kidney disease, stage 4 (severe) Insulin dependent diabetes mellitus COPD (chronic obstructive pulmonary disease) Hyperlipidemia Hypertension Diabetes Coronary artery disease Macular degeneration Surgical History S/P CABG (coronary artery bypass graft) History of open heart surgery 2002 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 Hx of cholecystectomy 01/29/2014 Social History Smoking Status: Former smoker Tobacco Type: Cigarettes Smoking End Date: quit 20 yrs ago; Hx Alcohol Use: No Hx Substance Use: No Preferred Language: Com[place]an Communication Ability: Effective Visual Impairment: Limited Hearing Ability: Normal Director Business Systems Required: No Beliefs That Will Affect Care: None marital status: Single Current Living Situation: Alone Current Living Situation Comment: Has caregiver through [facility] current occupational status: retired How many Children do You have: 2 Other Information That Helps Us Care for You: No Feels Safe at Home: Yes Safety Concerns: Feels Safe At This Time Diet: diabetic caffeine: Yes Physical Activity Frequency: Does not Exercise Do you think of yourself as: straight/heterosexual Gender Identity: Male Assistive Devices: Cane and Walker Review of Systems Review of Systems: All systems reviewed & are unremarkable except as noted in HPI & below Physical Exam Constitutional: WD/WN, vitals as above + obese, cooperative and comfortable; not in distress Neck: trachea midline Respiratory: normal respiratory effort, lungs clear to auscultation Auscultation: + diminished lung sounds Cardiovascular: Rate/Rhythm: regular rate and regular rhythm Vessels: posterior tibial pulses present, dorsalis pedis pulses present and radial pulses present; + abnormal peripheral pulses Extremities: normal capillary refill and + edema Gastrointestinal (Abdomen): Inspection/Auscultation: abdomen normal to inspection and normal bowel sounds Percussion/Palpation: abdomen soft; abdomen nontender Musculoskeletal: no cyanosis or clubbing, extremities motor strength 5/5 Skin: no rashes, warm and dry Neurologic: moves all extremities and awake; no focal motor deficits and not confused Psychiatric: A+Ox3, euthymic affect Results & Data Vital Signs (Past 12 Hours) Vital Signs Temp Pulse Pulse Resp BP BP Pulse Ox 12/18/24 15:04 65 12/18/24 14:46 36.8 C 62 18 163/65 H 91 12/18/24 12:47 12/18/24 11:07 36.3 C L 69 18 156/71 H 91 12/18/24 07:34 36.4 C L 65 18 159/74 H 94 12/18/24 07:19 71 O2 Del Method 12/18/24 15:04 12/18/24 14:46 Room Air 12/18/24 12:47 Nasal Cannula 12/18/24 11:07 Room Air 12/18/24 07:34 Room Air 12/18/24 07:19
[2024-12-18] MEDS ORDERED: Nursing to Pharmacy Communication SCH (20:45)
[2024-12-19] MEDS: INSULIN ASPART PER UNIT CHARGE SC SCH ×2 (00:54→17:54)
--- NOTE | 2024-12-19 07:42 | History & Physical Bridge Note ---
Date of Service December 19, 2024 History & Physical Bridge Note Patient for insertion of permcath. I have discussed the risks options and benefits of the procedure with the patient. The patient understands the risks options and benefits and agrees to the procedure. I have examined the patient, reviewed the History & Physical and in the interval since the performance of the History & Physical I have noted the following changes of clinical significance: no changes noted
[2024-12-19 07:43] LABS: Basophils # (auto) 0.03 K/uL (0.00-0.20); Basophils % (auto) 0.5 %; Eosinophils % (auto) 3.2 %; Hematocrit (blood only) 27.2 % (42.0-52.0); Hemoglobin 8.6 g/dl (14.0-18.0); Immature Granulocytes # (auto) 0.04 K/uL (0.01-0.20); Immature Granulocytes % (auto) 0.6 %; Lymphocytes # (auto) 1.13 K/uL (1.20-3.40); Lymphocytes % (auto) 18.1 %; Mean Corpuscular Hemoglobin 28.5 pg (25.0-34.0); Mean Corpuscular Hgb Conc 31.6 g/dL (32.0-36.0); Mean Corpuscular Volume 90.1 fL (80.0-100.0); Mean Platelet Volume 11.6 fL (9.4-12.4); Monocytes # (auto) 1.09 K/uL (0.11-0.59); Monocytes % (auto) 17.4 %; Neutrophils # (auto) 3.77 K/uL (1.40-6.50); Neutrophils % (auto) 60.2 %; Platelet Count 144 K/uL (130-400); RDW Coefficient of Variation 15.9 % (11.5-14.5); RDW Standard Deviation 51.5 fL (36.4-46.3); Red Blood Count 3.02 M/uL (4.70-6.10); White Blood Count 6.26 K/ul (4.8-10.8)
[2024-12-19] MEDS: ceFAZolin 2000MG 2,000 MG/15 ML SYR IV SCH (07:55)
[2024-12-19 08:07] LABS: BUN Creatinine Ratio 12.5 (10-20); Calcium 9.1 mg/dl (8.6-10.3); Creatinine Clr Calc Pharmacy 12.9 ml/min; Potassium 4.4 mmol/L (3.5-5.1)
--- NOTE | 2024-12-19 08:14 | Pre Anesthesia Assessment ---
Date of Service December 19, 2024 Pre Sedation Assessment Vital Signs Temp Pulse Pulse Resp BP BP Pulse Ox 12/19/24 08:05 68 18 184/74 H 92 12/19/24 07:30 12/19/24 03:37 37.6 C H 72 18 175/69 H 90 12/18/24 23:23 36.8 C 71 18 164/67 H 93 12/18/24 22:00 75 12/18/24 19:30 36.5 C 73 18 161/65 H 92 12/18/24 15:04 65 12/18/24 14:46 36.8 C 62 18 163/65 H 91 12/18/24 12:47 12/18/24 11:07 36.3 C L 69 18 156/71 H 91 O2 Del Method O2 Flow Rate 12/19/24 08:05 Room Air 12/19/24 07:30 Room Air 12/19/24 03:37 Room Air 12/18/24 23:23 Nasal Cannula 2 12/18/24 22:00 12/18/24 19:30 Room Air 12/18/24 15:04 12/18/24 14:46 Room Air 12/18/24 12:47 Nasal Cannula 12/18/24 11:07 Room Air Cardiovascular RRR, no murmur, no edema Respiratory normal respiratory effort, lungs clear to auscultation Pre-Sedation Airway Assessment Smoking Status: Former smoker Hx Sleep Apnea: No Short, Thick Neck: Yes Thyromental Distance: < 3.5 Finger Breadths Oral Cavity: + WNL Mallampati Class: III ASA: ASA4 NPO Status Date of Last Intake of Fluids: 12/18/24 Time of Last Intake of Fluids: 23:00 Date of Last Intake of Solid Food: 12/18/24 Time of Last Intake of Solid Foods: 23:00 Procedure Planning Contraindications for Sedation: none Current Medications Reviewed: Yes Notes The planned sedation has been discussed with the patient. Informed Consent was obtained. I have identified the patient, determined the appropriateness of sedation and have assessed the patient immediately prior to the procedure. All medicine(s) and interventions are by my order.
[2024-12-19] MEDS: fentaNYL citrate PF 100 MCG/2 ML VIAL ONE (08:15)
[2024-12-19] MEDS: MIDAZOLAM HCL 1 MG/ML 2ML VIAL ONE (08:15)
--- NOTE | 2024-12-19 08:35 | Procedure Note ---
Angiogram Post Procedure Fluoroscopy Time (minutes): 0.5 Conscious Sedation Time (minutes): 19 Radiation (mGy): 7 Post Operative Report Pre & Post Diagnosis Operation Date: 12/19/24 08:00 Pre-Op Diagnosis: End Stage Renal Disease Post-Op Diagnosis: End Stage Renal Disease I identified the patient and participated in the time-out.: Yes Procedure Operation Date: 12/19/24 08:00 Actual Procedures p Perm Catheter Insertion, Right Internal Jugular Approach,Ultrasound Localization of Right Internal Jugular Vein,Fluoroscopy for Positioning, Moderate Sedation [id number](Right) - Jim Hwang MD Surgeon Jim Hwang MD Language Assistant none Estimated Blood Loss 5 Findings Consistent with Post-Op Diagnosis Specimens none Anesthesia Type RN Sedation Complications none Disposition Accompanied Patient To Recovery: No Disposition: Recovery Room Indications This is an 84-year-old gentleman chronic renal disease and now was in need of dialysis. PermCath was recommended. I have discussed the risks options and benefits of the procedure with the patient. The patient understands the risks options and benefits and agrees to the procedure. Description of Procedure Patient was taken to the angio suite and placed in the supine position. The right side of the neck and chest wall were prepped and draped in a sterile manner. The patient was identified and a timeout performed. Local anesthesia was then administered to the appropriate areas of the neck and chest wall. Ultrasound was then used to locate the right internal jugular vein. The vein compressed easily, had no filing defects, and was patent. The vein was then punctured under direct ultrasound imaging. A guidewire was then passed centrally under fluoroscopic imaging. A stab wound was then made in the anterior chest wall and a 19 cm permcath was passed from the stab wound on the chest wall to the puncture site on the neck. The puncture site was then dilated till the 14Fr peel away sheath was inserted. The permcath was then inserted through the sheath to a central position in the distal superior vena cava. The peel away sheath was then removed. The catheter was then sutured in place using nylon sutures. The puncture was then closed using a 4-0 Vicryl subcuticular suture. Dermabond was used for a dressing on the puncture site. Both ports aspirated and flushed easily and were then packed with heparin. A sterile dressing was applied to the catheter. The patient left the operation room in satisfactory condition and tolerated the procedure well. All needle and sponge counts were correct at the end of the procedure. I attest to the content of the Intraoperative Record and any orders documented therein. Any exceptions are noted below.
--- NOTE | 2024-12-19 08:35 | Post Anesthesia Assessment ---
Date of Service December 19, 2024 Post Sedation Assessment Vital Signs Temp Pulse Pulse Resp BP BP Pulse Ox 12/19/24 08:34 68 16 176/88 H 93 12/19/24 08:29 68 16 173/90 H 93 12/19/24 08:25 68 16 173/88 H 97 12/19/24 08:20 68 18 188/82 H 97 12/19/24 08:15 66 18 189/76 H 98 12/19/24 08:10 66 18 183/77 H 93 12/19/24 08:05 68 18 184/74 H 92 12/19/24 07:30 12/19/24 03:37 37.6 C H 72 18 175/69 H 90 12/18/24 23:23 36.8 C 71 18 164/67 H 93 12/18/24 22:00 75 12/18/24 19:30 36.5 C 73 18 161/65 H 92 12/18/24 15:04 65 12/18/24 14:46 36.8 C 62 18 163/65 H 91 12/18/24 12:47 12/18/24 11:07 36.3 C L 69 18 156/71 H 91 O2 Del Method O2 Flow Rate 12/19/24 08:34 Room Air 12/19/24 08:29 Room Air 12/19/24 08:25 Oxymask 4 12/19/24 08:20 Oxymask 4 12/19/24 08:15 Oxymask 4 12/19/24 08:10 Room Air 12/19/24 08:05 Room Air 12/19/24 07:30 Room Air 12/19/24 03:37 Room Air 12/18/24 23:23 Nasal Cannula 2 12/18/24 22:00 12/18/24 19:30 Room Air 12/18/24 15:04 12/18/24 14:46 Room Air 12/18/24 12:47 Nasal Cannula 12/18/24 11:07 Room Air Recovery Score Activity: Moves 4 extremities Respiration: Deep Breath/Cough Circulation: +/-20% PreAnes Value Consciousness: Arouseable (by name) Oxygen Saturation: > 92% On Room Air Post Anesthesia Score: 9 Discharge Sedation Level of Care: Fast Track Phase II Post Sedation Plan On clinical assessment, the patient appears to have tolerated the sedation without complications. Patient is recovering as anticipated. Patient will continue to be monitored by nursing and may be discharged when sedation discharge criteria are met per below protocol. Upon Completions of procedure up to 15 minutes continue every 5 minute vital signs and the P.A.R. score; then discharge to a Phase I or Fast Track to Phase II per the following guidelines: * Discharge Patient to appropriate Phase II area if PAR is 8 or greater or return to pre- procedure baseline. The post - procedure orders will be as directed. * If PAR score is less than 8 or not return to pre-procedure baseline then patient will follow Phase I monitoring till PAR is reached for Phase II. The Phase I may be done in procedure room or may call to secure a Phase I area. * If naloxone or flumazenil are used for reversal, hold in Phase I for continued monitoring from when last reversal dose was given for a minimum of 60 minutes or longer pending the nurse and/or physician discretion of patient condition before discharge to Phase II. Please call the Sedation Physician to re-evaluate and complete post-note for discharge to Phase II area. Do NOT discharge from procedure sedation or Phase 1 until post- sedation evaluation note is complete by procedure /sedation MD Sedation Discharge Instructions to be given to the patient at discharge to home.
--- NOTE | 2024-12-19 08:54 | Nephrology Progress Note ---
Date of Service December 19, 2024 Assessment & Plan (1) End stage chronic kidney disease: Plan: * ESKD - Patient suffered progressive renal dysfunction with volume unloading. ESKD is due to DKD, microvascular disease * 12/15 urinalysis - hyaline casts, pyuria related to chronic jovel * 12/15 renal US - R 12.1 cm, L 13.1cm. No hydronephrosis. Diffuse cortical thinning. 4.4 cm L renal cyst * Patient is net -8.7L since admission. He is diuresing 1-2 L/day while on B umex therapy. Cr has progressively risen to 5.14 with EGFR 10 cc/min * R IJ TCC placed 12/19/[address] Hwang * 1st run HD today. IJ TCC runs A-->A at Qb 200 cc/min. Will attempt 1 L UF * Will schedule 2nd HD for am * Case management has been consulted to set up outpatient HD at [facility]. Patient is legally blind and will require county transportation (2) Acute exacerbation of CHF (congestive heart failure): Plan: * Continue Bumex 2 mg IV BID to encourage a negative fluid balance * Avoid RAASi due to kidney dysfunction * Low sodium diet and daily weights * Monitor I&O (3) Anemia: Plan: * Tsat 8% and ferritin 40%. Stool occult blood testing pending. No melena or hematochezia reported. * Day #4 of 5 IV Venofer * Monitor H&H (4) Hypertension: Plan: * Remains hypertensive. Expect this will improve w/ diuresis, UF * Continue carvedilol, low dose amlodipine Admission and Anticipated Discharge Date Admission Date: December 14, 2024 Subjective Mr. Garcia was evaluated while on HD this morning. He was drowsy from sedation needed for IJ TCC insertion. He denied angina, dyspnea Review of Systems Constitutional: no fever Eyes: no problem reported Ear, Nose, Mouth, Throat: no problem reported Respiratory: no cough and no dyspnea Cardiovascular: + edema; no chest pain Gastrointestinal: no abdominal pain, no nausea, no vomiting and no diarrhea/loose stools Physical Exam Constitutional: no acute distress Eyes: PERRL, conjunctivae normal, anicteric sclerae ENMT: external ear and nose normal, oropharynx normal Neck: trachea midline, no thyromegaly Respiratory: normal respiratory effort; no respiratory distress Auscultation: no rales Cardiovascular: Rate/Rhythm: + irregularly irregular Extremities: + edema (3+) Gastrointestinal (Abdomen): Inspection/Auscultation: + abdomen distended Percussion/Palpation: abdomen nontender and no guarding Neurologic: Speech / Cognition: normal cognition Results & Data Vital Signs (Past 12 Hours) Vital Signs Temp Pulse Pulse Resp BP Pulse Ox O2 Del Method 12/19/24 08:34 68 16 176/88 H 93 Room Air 12/19/24 08:29 68 16 173/90 H 93 Room Air 12/19/24 08:25 68 16 173/88 H 97 Oxymask 12/19/24 08:20 68 18 188/82 H 97 Oxymask 12/19/24 08:15 66 18 189/76 H 98 Oxymask 12/19/24 08:10 66 18 183/77 H 93 Room Air 12/19/24 08:05 68 18 184/74 H 92 Room Air 12/19/24 07:30 Room Air 12/19/24 03:37 37.6 C H 72 18 175/69 H 90 Room Air 12/18/24 23:23 36.8 C 71 18 164/67 H 93 Nasal Cannula 12/18/24 22:00 75 O2 Flow Rate 12/19/24 08:34 12/19/24 08:29 12/19/24 08:25 4 12/19/24 08:20 4 12/19/24 08:15 4 12/19/24 08:10 12/19/24 08:05 12/19/24 07:30 12/19/24 03:37 12/18/24 23:23 2 12/18/24 22:00 Laboratory Results Laboratory Results - last 24 hr 12/18/24 12/18/24 12/18/24 09:46 09:46 09:46 WBC RBC Hgb Hct MCV MCH MCHC RDW Std Deviation RDW Coeff of [place] Plt Count MPV Immature Gran % (Auto) Neut % (Auto) Lymph % (Auto) [place] % (Auto) Eos % (Auto) Baso % (Auto) Neut # (Auto) Lymph # (Auto) [place] # (Auto) Eos # (Auto) Baso # (Auto) Immature Gran # (Auto) Sodium Potassium Chloride Carbon Dioxide Anion Gap BUN Creatinine Est Cr Clr Drug Dosing eGFR BUN/Creatinine Ratio Glucose POC Glucose Calcium Hep Bs Antigen Negative Negative Hep Bs Antibody Immune Immune Hep Bs Antibody, Quant 16.20 Hep B Core IgM Ab 12/18/24 12/18/24 12/18/24 09:46 11:58 17:01 WBC RBC Hgb Hct MCV MCH MCHC RDW Std Deviation RDW Coeff of [place] Plt Count MPV Immature Gran % (Auto) Neut % (Auto) Lymph % (Auto) [place] % (Auto) Eos % (Auto) Baso % (Auto) Neut # (Auto) Lymph # (Auto) [place] # (Auto) Eos # (Auto) Baso # (Auto) Immature Gran # (Auto) Sodium Potassium Chloride Carbon Dioxide Anion Gap BUN Creatinine Est Cr Clr Drug Dosing eGFR BUN/Creatinine Ratio Glucose POC Glucose 123 H 113 H Calcium Hep Bs Antigen Hep Bs Antibody Hep Bs Antibody, Quant 16.90 Hep B Core IgM Ab Pending 12/18/24 12/19/24 12/19/24 20:26 00:48 05:54 WBC RBC Hgb Hct MCV MCH MCHC RDW Std Deviation RDW Coeff of [place] Plt Count MPV Immature Gran % (Auto) Neut % (Auto) Lymph % (Auto) [place] % (Auto) Eos % (Auto) Baso % (Auto) Neut # (Auto) Lymph # (Auto) [place] # (Auto) Eos # (Auto) Baso # (Auto) Immature Gran # (Auto) Sodium Potassium Chloride Carbon Dioxide Anion Gap BUN Creatinine Est Cr Clr Drug Dosing eGFR BUN/Creatinine Ratio Glucose POC Glucose 183 H 181 H 130 H Calcium Hep Bs Antigen Hep Bs Antibody Hep Bs Antibody, Quant Hep B Core IgM Ab 12/19/24 12/19/24 07:23 07:42 WBC 6.26 RBC 3.02 L Hgb 8.6 L Hct 27.2 L MCV 90.1 MCH 28.5 MCHC 31.6 L RDW Std Deviation 51.5 H RDW Coeff of [place] 15.9 H Plt Count 144 MPV 11.6 Immature Gran % (Auto) 0.6 Neut % (Auto) 60.2 Lymph % (Auto) 18.1 [place] % (Auto) 17.4 Eos % (Auto) 3.2 Baso % (Auto) 0.5 Neut # (Auto) 3.77 Lymph # (Auto) 1.13 L [place] # (Auto) 1.09 H Eos # (Auto) 0.20 Baso # (Auto) 0.03 Immature Gran # (Auto) 0.04 Sodium 143 Potassium 4.4 Chloride 105 Carbon Dioxide 31 Anion Gap 7 BUN 65 H Creatinine 5.18 H* Est Cr Clr Drug Dosing 12.9 eGFR 10.44 BUN/Creatinine Ratio 12.5 Glucose 109 H POC Glucose 113 H Calcium 9.1 Hep Bs Antigen Hep Bs Antibody Hep Bs Antibody, Quant Hep B Core IgM Ab PG Care Time/CCT Total # of Minutes Spent Total Time Spent with Patient: Total time spent is greater than 50% in coordination of care (as documented) at patient's floor/unit and/or counseling patient: Coding Level of Care Code 46628 SUB INP/OBS CARE 3/50MIN Diagnoses End stage chronic kidney disease N18.6 Acute exacerbation of CHF (congestive heart failure) I50.9 Heart failure type: unspecified Anemia D64.9 Hypertension I10 (2) Acute exacerbation of CHF (congestive heart failure) Heart failure type: unspecified Qualified Code(s): I50.9 - Heart failure, unspecified
[2024-12-19] MEDS: EPOETIN ALFA 10,000 UNITS/ML VIAL IV ONE (10:43)
[2024-12-19] MEDS: NEPHROCAPS PO SCH (11:46)
--- NOTE | 2024-12-19 13:38 | Hospitalist Progress Note ---
Date of Service December 19, 2024 Assessment & Plan (1) End stage chronic kidney disease: (2) Acute CHF: (3) Essential hypertension: (4) Anemia: Plan This pt is an 84-year-old male with PMH of CKD stage IV, CAD s/p CABG, urinary retention w/ chronic Alejo, HFpEF, HTN, Anemia, DMII with neuropathy and blindness, GERD, and allergies who p/w worsening fluid buildup x 2 weeks in the lower extremities and abdomen leading to ambulatory dysfunction. He gained 20 lbs in 2 weeks. No changes in diet or fluid intake but reports his amlodipine dose was increased from 5 to 10mg two weeks ago. Despite efforts to diurese him, his renal function continued to worsen and he commenced hemodialysis on 12/19. #ESRD on hemodialysis-BUN 63, creatinine 4.45 (baseline 3.6) on admission. SLightly improved initially but then application developer rising to 5.1, started HD 12/19 after TDC placed. Nephrology is following. Renal US with med renal disease, atrophy of right kidney, no hydronephrosis. UA with 3+ protein, 1+ blood but no RBCs, with bacteria, LE but no casts -continue with HD-plan for another run 12/20 and again 12/21, then likely to 3x/week; outpt HD plans in place with CM -continue to diurese with IV Bumex -follow BMP -start Nephrocaps -maintain chronic Alejo and exchange once monthly-due next around 12/25 #Acute on chronic HFpEF/HTN-Echocardiogram on 06/19/2024 with LVEF at 55 to 60%, ECHO here similar. CXR with suspected pulmonary edema, BNP mildly elevated at 319. Patient is normally on Bumex 3 mg p.o. daily. His PCP recently increased his amlodipine from 5 to 10mg daily 2 weeks ago and he believes his leg swelling got much worse after that. Suspect some is from increased dose of amlodipine. He gets Meals on Wheels and can't control sodium content of food. Weight up 13 kg since Aug. He has been diuresed with IV Bumex 2mg IV bid and has lost 7 kg and edema improving, but unfortunately application developer continues to rise now to 5.1-started HD 12/19 BPs have been elevated/uncontrolled -Continue Bumex 2 mg IV bid and volume status to be managed with HD now -Carding Machine Feeder consult for education on low sodium diet -continue BP control- amlodipine returned back to 5mg daily, continue doxazosin 8mg daily, and Coreg 37.5mg po bid--> add hydralazine if needed but about to start HD which will help with volume #Asymptomatic bacteriuria/Chronic urinary retention/Chronic Alejo--abnormal but collected from chronic Alejo bag. He is afebrile, no leukocytosis, abd pains, etc. This is asymptomatic bacteriuria from chronic Alejo and does not need to be treated. -exchange Alejo when due for q1 month exchange in 1 week around 12/25 -daily Alejo care -continue doxazosin #T2DM/Neuropathy-Last A1c at 7.9% on 07/11/2024, Patient is normally on Lantus 50u HS -continue Lantus to 20u BID while inpatient in the setting of acute renal failure -continue SSI; with target BSG range 110-140mg/dL, CF 20, carb ratio 8 and adjust regimen as needed -T2DM diet, BSG ACHS A1c 7.7 #B12 deficiency and iron deficiency Anemia/ ANemia of CKD-Hgb 8.6 on arrival, stable from previous baseline around 9, normocytic. Transferrin sat low at 8%, B12 low at 193, FOlate normal, TSH normal in last few months. No gross bleeding -gave B12 1000 mcg IM daily x 3 doses now on B12 1000 mcg po daily -giving IV Venofer 200mg daily x 5 doses -gave Epo x 1 -follow CBC #Chronic hypoxic respiratory failue on 2LNC O2/COPD-no acute issues, continue O2 #CAD s/p CABG-no acute issues, trop neg, no chest pain. Follows with Cardiology at [facility] in [place]-had cardiac cath last year and no intervention done, had patent grafts -continue ASA, statin, Coreg #Gout-takes colchicine prn-caution w/ CKD DVT Prophylaxis- SQ heparin Dispo-continued stay on med tele, CM consulted for new start outpt HD. Admission and Anticipated Discharge Date Admission Date: December 14, 2024 Subjective Pt states "I'm feeling a little rough" after he returned from getting his HD catheter and had 2 hours of HD today for first time. Having some pain at catheter site. Feels his leg swelling and pain and abd distension is definitely much improved. Removed 2L at HD today Tele with NSR rates 60-80s Physical Exam Constitutional: WD/WN, vitals as above + obese Respiratory: normal respiratory effort Auscultation: lungs clear to auscultation bilaterally and + diminished lung sounds (at bases); no crackles and no wheezes Cardiovascular: Rate/Rhythm: regular rate and regular rhythm Heart Sounds: no murmur Extremities: + edema (1+ pitting edema to knees bilat, improved) Gastrointestinal (Abdomen): Inspection/Auscultation: abdomen normal to inspection, + abdomen distended and normal bowel sounds Percussion/Palpation: abdomen nontender Psychiatric: A+Ox3, euthymic affect Results & Data Results & Data Vital Signs (Past 12 Hours) Vital Signs Temp Pulse Pulse Pulse Resp BP BP 12/19/24 11:24 36.6 C 73 16 173/72 H 12/19/24 11:00 36.7 C 73 135/63 12/19/24 10:30 71 164/67 H 12/19/24 10:00 68 120/56 L 12/19/24 09:42 69 12/19/24 09:30 71 119/55 L 12/19/24 09:00 70 120/57 L 12/19/24 08:55 73 130/63 12/19/24 08:47 36.8 C 73 12/19/24 08:34 68 16 176/88 H 12/19/24 08:29 68 16 173/90 H 12/19/24 08:25 68 16 173/88 H 12/19/24 08:20 68 18 188/82 H 12/19/24 08:15 66 18 189/76 H 12/19/24 08:10 66 18 183/77 H 12/19/24 08:05 68 18 184/74 H 12/19/24 07:30 12/19/24 03:37 37.6 C H 72 18 175/69 H Pulse Ox O2 Del Method O2 Flow Rate 12/19/24 11:24 90 Room Air 12/19/24 11:00 12/19/24 10:30 12/19/24 10:00 12/19/24 09:42 12/19/24 09:30 12/19/24 09:00 12/19/24 08:55 12/19/24 08:47 12/19/24 08:34 93 Room Air 03/04/25 08:29 93 Room Air 12/19/24 08:25 97 Oxymask 4 12/19/24 08:20 97 Oxymask 4 12/19/24 08:15 98 Oxymask 4 12/19/24 08:10 93 Room Air 12/19/24 08:05 92 Room Air 12/19/24 07:30 Room Air 12/19/24 03:37 90 Room Air Laboratory Results CBC, BMP reviewed PG Care Time/CCT Total # of Minutes Spent Total Time Spent with Patient: Total time spent is greater than 50% in coordination of care (as documented) at patient's floor/unit and/or counseling patient: Coding Level of Care Code 64926 SUB INP/OBS CARE 235MIN Diagnoses End stage chronic kidney disease N18.6 Acute CHF I50.9 Essential hypertension I10 Anemia D64.9 Anemia type: unspecified type (4) Anemia Anemia type: unspecified type Qualified Code(s): D64.9 - Anemia, unspecified
[2024-12-19] MEDS: LIDOCAINE 1% LOCAL 20 ML VIAL ONE (13:54)
[2024-12-19] MEDS: HEPARIN SOD (PORCINE) 5,000 UNITS/ML VIAL ONE (13:54)
[2024-12-19] MEDS: traMADol HCL 50 MG TABLET PO PRN (20:17)
--- NOTE | 2024-12-20 08:45 | Nephrology Progress Note ---
Date of Service December 20, 2024 Assessment & Plan (1) End stage chronic kidney disease: Plan: * ESKD - Patient suffered progressive renal dysfunction with volume unloading. ESKD is due to DKD, microvascular disease * 12/15 urinalysis - hyaline casts, pyuria related to chronic jovel * 12/15 renal US - R 12.1 cm, L 13.1cm. No hydronephrosis. Diffuse cortical thinning. 4.4 cm L renal cyst * R IJ TCC placed 12/19/[address] Hwang * 1st run HD 12/19/24 for 1 L UF * Will provided 2nd HD today and attempt 2-3L * Case management has been consulted to set up outpatient HD at [facility]. Patient is legally blind and will require county transportation (2) Acute exacerbation of CHF (congestive heart failure): Plan: * Continue Bumex 2 mg IV BID to encourage a negative fluid balance * Avoid RAASi due to kidney dysfunction * Low sodium diet and daily weights * Monitor I&O (3) Anemia: Plan: * Tsat 8% and ferritin 40%. Stool occult blood testing pending. No melena or hematochezia reported. * Day #5 of 5 IV Venofer * Monitor H&H (4) Hypertension: Plan: * Remains hypertensive. Expect this will improve w/ diuresis, UF * Continue carvedilol, low dose amlodipine Admission and Anticipated Discharge Date Admission Date: December 14, 2024 Subjective Mr. Garcia was evaluated in his hospital room this morning. He c/o discomfort from his IJ TCC placement yesterday but notes that his LE and abdominal swelling continue to improve Review of Systems Constitutional: no fever Eyes: no problem reported Ear, Nose, Mouth, Throat: no problem reported Respiratory: no cough and no dyspnea Cardiovascular: + edema; no chest pain Gastrointestinal: no abdominal pain, no nausea, no vomiting and no diarrhea/loose stools Physical Exam Constitutional: no acute distress Eyes: PERRL, conjunctivae normal, anicteric sclerae ENMT: external ear and nose normal, oropharynx normal Neck: trachea midline, no thyromegaly Respiratory: normal respiratory effort; no respiratory distress Auscultation: no rales Cardiovascular: Rate/Rhythm: + irregularly irregular Extremities: + edema (3+) Gastrointestinal (Abdomen): Inspection/Auscultation: + abdomen distended Percussion/Palpation: abdomen nontender and no guarding Neurologic: Speech / Cognition: normal cognition Results & Data Vital Signs (Past 12 Hours) Vital Signs Temp Pulse Pulse Pulse Pulse Resp BP 12/20/24 08:26 36.3 C L 65 18 162/68 H 12/20/24 07:31 12/20/24 04:00 36.7 C 69 18 12/20/24 00:00 36.6 C 73 18 12/19/24 21:58 64 BP Pulse Ox O2 Del Method 12/20/24 08:26 93 Room Air 12/20/24 07:31 Room Air 12/20/24 04:00 149/67 H 95 Room Air 12/20/24 00:00 148/73 H 92 Room Air 12/19/24 21:58 Laboratory Results Laboratory Results - last 24 hr 12/18/24 12/19/24 12/19/24 09:46 12:26 16:58 WBC RBC Hgb Hct MCV MCH MCHC RDW Std Deviation RDW Coeff of [place] Plt Count MPV Immature Gran % (Auto) Neut % (Auto) Lymph % (Auto) [place] % (Auto) Eos % (Auto) Baso % (Auto) Neut # (Auto) Lymph # (Auto) [place] # (Auto) Eos # (Auto) Baso # (Auto) Immature Gran # (Auto) Sodium Potassium Chloride Carbon Dioxide Anion Gap BUN Creatinine Est Cr Clr Drug Dosing eGFR BUN/Creatinine Ratio Glucose POC Glucose 121 H 131 H Calcium Phosphorus Albumin Hep B Core IgM Ab NON-REACTIVE 12/19/24 12/20/24 12/20/24 20:12 08:27 08:52 WBC 6.03 RBC 3.34 L Hgb 9.2 L Hct 30.6 L MCV 91.6 MCH 27.5 MCHC 30.1 L RDW Std Deviation 51.1 H RDW Coeff of [place] 16.1 H Plt Count 148 MPV 11.2 Immature Gran % (Auto) 1.0 Neut % (Auto) 58.9 Lymph % (Auto) 19.4 [place] % (Auto) 16.4 Eos % (Auto) 3.8 Baso % (Auto) 0.5 Neut # (Auto) 3.55 Lymph # (Auto) 1.17 L [place] # (Auto) 0.99 H Eos # (Auto) 0.23 Baso # (Auto) 0.03 Immature Gran # (Auto) 0.06 Sodium 143 Potassium 4.2 Chloride 104 Carbon Dioxide 32 Anion Gap 7 BUN 50 H Creatinine 4.38 H D Est Cr Clr Drug Dosing 15.0 eGFR 12.77 BUN/Creatinine Ratio 11.4 Glucose 103 H POC Glucose 143 H 115 H Calcium 9.5 Phosphorus 4.5 Albumin 4.1 Hep B Core IgM Ab PG Care Time/CCT Total # of Minutes Spent Total Time Spent with Patient: Total time spent is greater than 50% in coordination of care (as documented) at patient's floor/unit and/or counseling patient: Coding Level of Care Code 20488 SUB INP/OBS CARE 350MIN Diagnoses End stage chronic kidney disease N18.6 Acute exacerbation of CHF (congestive heart failure) I50.9 Heart failure type: unspecified Anemia D64.9 Hypertension I10 (2) Acute exacerbation of CHF (congestive heart failure) Heart failure type: unspecified Qualified Code(s): I50.9 - Heart failure, unspecified
[2024-12-20 09:11] LABS: Basophils # (auto) 0.03 K/uL (0.00-0.20); Basophils % (auto) 0.5 %; Eosinophils # (auto) 0.23 K/uL (0.00-0.50); Eosinophils % (auto) 3.8 %; Hematocrit (blood only) 30.6 % (42.0-52.0); Hemoglobin 9.2 g/dl (14.0-18.0); Immature Granulocytes # (auto) 0.06 K/uL (0.01-0.20); Lymphocytes # (auto) 1.17 K/uL (1.20-3.40); Lymphocytes % (auto) 19.4 %; Mean Corpuscular Hemoglobin 27.5 pg (25.0-34.0); Mean Corpuscular Hgb Conc 30.1 g/dL (32.0-36.0); Mean Corpuscular Volume 91.6 fL (80.0-100.0); Mean Platelet Volume 11.2 fL (9.4-12.4); Monocytes # (auto) 0.99 K/uL (0.11-0.59); Monocytes % (auto) 16.4 %; Neutrophils # (auto) 3.55 K/uL (1.40-6.50); Neutrophils % (auto) 58.9 %; Platelet Count 148 K/uL (130-400); RDW Coefficient of Variation 16.1 % (11.5-14.5); RDW Standard Deviation 51.1 fL (36.4-46.3); Red Blood Count 3.34 M/uL (4.70-6.10); White Blood Count 6.03 K/ul (4.8-10.8)
[2024-12-20 09:27] LABS: Albumin Level 4.1 gm/dl (3.4-5.0); BUN Creatinine Ratio 11.4 (10-20); Calcium 9.5 mg/dl (8.6-10.3); Phosphorus 4.5 mg/dl (2.5-4.9); Potassium 4.2 mmol/L (3.5-5.1)
[2024-12-20] MEDS: HEPARIN SOD (PORCINE) 1000 UNIT/ML IV ONE (09:58)
[2024-12-20] MEDS: EPOETIN ALFA 10,000 UNITS/ML VIAL IV ONE (10:46)
[2024-12-20] MEDS: HEPARIN SOD (PORCINE) 1000 UNIT/ML IV SCH (10:46)
--- NOTE | 2024-12-20 14:50 | Hospitalist Progress Note ---
Date of Service December 20, 2024 Assessment & Plan (1) End stage chronic kidney disease: (2) Acute CHF: (3) Essential hypertension: (4) Anemia: Plan This pt is an 84-year-old male with PMH of CKD stage IV, CAD s/p CABG, urinary retention w/ chronic Alejo, HFpEF, HTN, Anemia, DMII with neuropathy and blindness, GERD, and allergies who p/w worsening fluid buildup x 2 weeks in the lower extremities and abdomen leading to ambulatory dysfunction. He gained 20 lbs in 2 weeks. No changes in diet or fluid intake but reports his amlodipine dose was increased from 5 to 10mg two weeks ago. Despite efforts to diurese him, his renal function continued to worsen and he commenced hemodialysis on 12/19. #ESRD on hemodialysis-BUN 63, creatinine 4.45 (baseline 3.6) on admission. SLightly improved initially but then plant control operator ariana to 5.1 and remained significantly hypervolemic. started HD 12/19 after TDC placed. Nephrology is following. Renal US with med renal disease, atrophy of right kidney, no hydronephrosis. UA with 3+ protein, 1+ blood but no RBCs, with bacteria, LE but no casts -continue with HD-plan for a third session 12/21, then to 3x/week; outpt HD plans in place with CM -continue to diurese with IV Bumex and convert to po on discharge as he is making urine -follow BMP -started Nephrocaps -maintain chronic Laejo and exchange once monthly-due next around 12/25 #Acute on chronic HFpEF/HTN-Echocardiogram on 06/19/2024 with LVEF at 55 to 60%, ECHO here similar. CXR with suspected pulmonary edema, BNP mildly elevated at 319. Patient is normally on Bumex 3 mg p.o. daily. His PCP recently increased his amlodipine from 5 to 10mg daily 2 weeks ago and he believes his leg swelling got much worse after that. Suspect some is from increased dose of amlodipine. He gets Meals on Wheels and can't control sodium content of food. Weight up 13 kg since Aug. He was diuresed with IV Bumex 2mg IV bid and lost 7 kg w/ improving edema, but unfortunately plant control operator continued to rise and started HD 12/19. Weight now down even further with 2 sessions of HD BPs have been elevated/uncontrolled but improving -Continue Bumex 2 mg IV bid and volume status to be managed with HD now -Road Inspector consult for education on low sodium diet -continue BP control- amlodipine returned back to 5mg daily, continue doxazosin 8mg daily, and Coreg 37.5mg po bid--> add hydralazine if needed but about to start HD which will help with volume #Asymptomatic bacteriuria/Chronic urinary retention/Chronic Alejo--abnormal but collected from chronic Alejo bag. He is afebrile, no leukocytosis, abd pains, etc. This is asymptomatic bacteriuria from chronic Alejo and does not need to be treated. -exchange Alejo when due for q1 month exchange in 1 week around 12/25 -daily Alejo care -continue doxazosin #T2DM/Neuropathy-Last A1c at 7.9% on 07/11/2024, Patient is normally on Lantus 50u HS -continue Lantus to 20u BID while inpatient in the setting of acute renal failure -continue SSI; with target BSG range 110-140mg/dL, CF 20, carb ratio 8 and adjust regimen as needed -T2DM diet, BSG ACHS A1c 7.7 #B12 deficiency and iron deficiency Anemia/ ANemia of CKD-Hgb remains stable at 8-9,stable from previous baseline, normocytic. Transferrin sat low at 8%, B12 low at 193, FOlate normal, TSH normal in last few months. No gross bleeding except some bleeding from TDC on 12/20 -gave B12 1000 mcg IM daily x 3 doses and now on B12 1000 mcg po daily -giving IV Venofer 200mg daily x 5 doses -gave Epo x 1 -follow CBC #Chronic hypoxic respiratory failue on 2LNC O2/COPD-no acute issues, continue O2 #CAD s/p CABG-no acute issues, trop neg, no chest pain. Follows with Cardiology at [facility] in [place]-had cardiac cath last year and no intervention done, had patent grafts -continue ASA, statin, Coreg #Gout-takes colchicine prn-caution w/ CKD DVT Prophylaxis- SQ heparin Dispo-continued stay on med tele, CM consulted for new start outpt HD. Plan for discharge to home likely Wednesday if stable with outpt HD to start Wednesday Admission and Anticipated Discharge Date Admission Date: December 14, 2024 Subjective Pt had some bleeding from his catheter site today. had HD again and removed 2.5 L, feels completely exhausted. Tele with NSR, rates 60-70s Physical Exam Constitutional: WD/WN, vitals as above + obese Respiratory: normal respiratory effort Auscultation: lungs clear to auscultation bilaterally and + diminished lung sounds (at bases); no crackles and no wheezes Cardiovascular: Rate/Rhythm: regular rate and regular rhythm Heart Sounds: no murmur Extremities: + edema (1+ pitting edema to knees bilat, improved) Gastrointestinal (Abdomen): Inspection/Auscultation: abdomen normal to inspection, + abdomen distended and normal bowel sounds Percussion/Palpation: abdomen nontender Psychiatric: A+Ox3, euthymic affect Results & Data Results & Data Vital Signs (Past 12 Hours) Vital Signs Temp Pulse Pulse Pulse Resp BP BP 12/20/24 12:53 36.5 C 63 12/20/24 12:30 65 129/66 12/20/24 12:00 63 121/68 12/20/24 11:30 63 149/65 H 12/20/24 11:00 68 136/74 12/20/24 10:30 60 131/67 12/20/24 10:16 63 12/20/24 10:00 57 L 142/66 H 12/20/24 09:32 63 143/71 H 12/20/24 09:20 36.3 C L 64 12/20/24 08:26 36.3 C L 65 18 162/68 H 12/20/24 07:31 12/20/24 04:00 36.7 C 69 18 BP Pulse Ox O2 Del Method 12/20/24 12:53 131/70 12/20/24 12:30 12/20/24 12:00 12/20/24 11:30 12/20/24 11:00 12/20/24 10:30 12/20/24 10:16 12/20/24 10:00 12/20/24 09:32 12/20/24 09:20 12/20/24 08:26 93 Room Air 12/20/24 07:31 Room Air 12/20/24 04:00 149/67 H 95 Room Air Laboratory Results CBC, BMP, phos reviewed PG Care Time/CCT Total # of Minutes Spent Total Time Spent with Patient: Total time spent is greater than 50% in coordination of care (as documented) at patient's floor/unit and/or counseling patient: Coding Level of Care Code 35719 SUB INP/OBS CARE Diagnoses End stage chronic kidney disease N18.6 Acute CHF I50.9 Essential hypertension I10 Anemia D64.9 Anemia type: unspecified type (4) Anemia Anemia type: unspecified type Qualified Code(s): D64.9 - Anemia, unspecified
[2024-12-21 07:15] LABS: Hematocrit (blood only) 30.1 % (42.0-52.0); Hemoglobin 9.4 g/dl (14.0-18.0); Mean Corpuscular Hemoglobin 28.3 pg (25.0-34.0); Mean Corpuscular Hgb Conc 31.2 g/dL (32.0-36.0); Mean Corpuscular Volume 90.7 fL (80.0-100.0); Mean Platelet Volume 11.1 fL (9.4-12.4); Nucleated RBC # (auto) 0.04 K/uL (0.00-0.12); Nucleated RBC % (auto) 0.5 %; Platelet Count 151 K/uL (130-400); RDW Coefficient of Variation 16.9 % (11.5-14.5); RDW Standard Deviation 52.5 fL (36.4-46.3); Red Blood Count 3.32 M/uL (4.70-6.10); White Blood Count 7.42 K/ul (4.8-10.8)
[2024-12-21 07:50] LABS: Calcium 9.2 mg/dl (8.6-10.3); Creatinine Clr Calc Pharmacy 17.5 ml/min; Potassium 4.5 mmol/L (3.5-5.1)
--- NOTE | 2024-12-21 08:49 | Nephrology Progress Note ---
Date of Service December 21, 2024 Assessment & Plan (1) End stage chronic kidney disease: Plan: * ESKD - Patient suffered progressive renal dysfunction with volume unloading. ESKD is due to DKD, microvascular disease * 12/15 urinalysis - hyaline casts, pyuria related to chronic jovel * 12/15 renal US - R 12.1 cm, L 13.1cm. No hydronephrosis. Diffuse cortical thinning. 4.4 cm L renal cyst * R IJ TCC placed 12/19/[address] Hwang * 3rd HD today. Will attempt 2-3 L UF. Plan to then change to TTS schedule while hospitalized * Case management has been consulted to set up outpatient HD at [facility]. Patient is legally blind and will require county transportation * Will ask vascular surgery to assess IJ TCC (2) Acute exacerbation of CHF (congestive heart failure): Plan: * Change Bumex to 2 mg po daily to promote diuresis in between HD treatments * Low sodium diet and daily weights * Monitor I&O (3) Anemia: Plan: * Completed 1 g venofer IV 12/20/24 * Will provide ETHAN w/ HD (4) Hypertension: Plan: * Remains hypertensive. Expect this will improve w/ diuresis, UF * Continue carvedilol, low dose amlodipine Admission and Anticipated Discharge Date Admission Date: December 14, 2024 Subjective Mr. Garcia was evaluated in his hospital room this morning. He c/o discomfort from his IJ TCC placement and required a pressure dressing overnight. He reports that his abdominal distention and LE swelling are improved Review of Systems Constitutional: no fever Eyes: no problem reported Ear, Nose, Mouth, Throat: no problem reported Respiratory: no cough and no dyspnea Cardiovascular: + edema; no chest pain Gastrointestinal: no abdominal pain, no nausea, no vomiting and no diar nitza/loose stools Physical Exam Constitutional: no acute distress Eyes: PERRL, conjunctivae normal, anicteric sclerae ENMT: external ear and nose normal, oropharynx normal Neck: trachea midline, no thyromegaly Respiratory: normal respiratory effort; no respiratory distress Auscultation: no rales Cardiovascular: Rate/Rhythm: + irregularly irregular Extremities: + edema (3+) Gastrointestinal (Abdomen): Inspection/Auscultation: + abdomen distended Percussion/Palpation: abdomen nontender and no guarding Neurologic: Speech / Cognition: normal cognition Results & Data Vital Signs (Past 12 Hours) Vital Signs Temp Pulse Pulse Pulse Resp BP Pulse Ox 12/21/24 07:40 37.1 C 63 16 177/83 H 91 12/21/24 07:15 70 12/21/24 02:57 36.7 C 69 18 154/67 H 92 12/20/24 22:32 36.9 C 72 18 146/57 H 91 12/20/24 22:01 70 O2 Del Method 12/21/24 07:40 Room Air 12/21/24 07:15 12/21/24 02:57 Room Air 12/20/24 22:32 Room Air 12/20/24 22:01 Laboratory Results Laboratory Results - last 24 hr 12/20/24 12/20/24 12/20/24 08:52 13:00 17:12 WBC 6.03 RBC 3.34 L Hgb 9.2 L Hct 30.6 L MCV 91.6 MCH 27.5 MCHC 30.1 L RDW Std Deviation 51.1 H RDW Coeff of Mariana 16.1 H Plt Count 148 MPV 11.2 Immature Gran % (Auto) 1.0 Neut % (Auto) 58.9 Lymph % (Auto) 19.4 Tripp % (Auto) 16.4 Eos % (Auto) 3.8 Baso % (Auto) 0.5 Neut # (Auto) 3.55 Lymph # (Auto) 1.17 L Tripp # (Auto) 0.99 H Eos # (Auto) 0.23 Baso # (Auto) 0.03 Immature Gran # (Auto) 0.06 Absolute Nucleated RBC Nucleated RBC % (auto) Sodium 143 Potassium 4.2 Chloride 104 Carbon Dioxide 32 Anion Gap 7 BUN 50 H Creatinine 4.38 H D Est Cr Clr Drug Dosing 15.0 eGFR 12.77 BUN/Creatinine Ratio 11.4 Glucose 103 H POC Glucose 109 H 131 H Calcium 9.5 Phosphorus 4.5 Albumin 4.1 12/20/24 12/21/24 12/21/24 20:15 06:54 07:59 WBC 7.42 RBC 3.32 L Hgb 9.4 L Hct 30.1 L MCV 90.7 MCH 28.3 MCHC 31.2 L RDW Std Deviation 52.5 H RDW Coeff of Mariana 16.9 H Plt Count 151 MPV 11.1 Immature Gran % (Auto) Neut % (Auto) Lymph % (Auto) Tripp % (Auto) Eos % (Auto) Baso % (Auto) Neut # (Auto) Lymph # (Auto) Tripp # (Auto) Eos # (Auto) Baso # (Auto) Immature Gran # (Auto) Absolute Nucleated RBC 0.04 Nucleated RBC % (auto) 0.5 Sodium 141 Potassium 4.5 Chloride 106 Carbon Dioxide 28 Anion Gap 7 BUN 42 H Creatinine 3.83 H D Est Cr Clr Drug Dosing 17.5 eGFR 15.00 BUN/Creatinine Ratio 11.0 Glucose 125 H POC Glucose 128 H 126 H Calcium 9.2 Phosphorus Albumin PG Care Time/CCT Total # of Minutes Spent Total Time Spent with Patient: Total time spent is greater than 50% in coordination of care (as documented) at patient's floor/unit and/or counseling patient: Coding Level of Care Code 40736 SUB INP/OBS CARE 3/50MIN Diagnoses End stage chronic kidney disease N18.6 Acute exacerbation of CHF (congestive heart failure) I50.9 Heart failure type: unspecified Anemia D64.9 Hypertension I10 (2) Acute exacerbation of CHF (congestive heart failure) Heart failure type: unspecified Qualified Code(s): I50.9 - Heart failure, unspecified
[2024-12-21] MEDS: HEPARIN SOD (PORCINE) 1000 UNIT/ML IV SCH (13:20)
[2024-12-21] MEDS: HEPARIN SOD (PORCINE) 1000 UNIT/ML IV ONE (13:20)
[2024-12-21] MEDS: EPOETIN ALFA 10,000 UNITS/ML VIAL IV ONE (13:20)
--- NOTE | 2024-12-21 14:48 | Communication Note ---
Date of Service: December 21, 2024 Patient had his dressing taken off at the end of dialysis and had a small amount of oozing. The dressing was replaced with a new OpSite. Sandbag was placed on the site. No bleeding is seen at this time. Will check in again tomorrow. If bleeding still continues tomorrow then he will need a have a StatLock placed on the catheter and Nivia around the exit site.
--- NOTE | 2024-12-21 19:12 | Hospitalist Progress Note ---
Date of Service December 21, 2024 Assessment & Plan (1) End stage chronic kidney disease: (2) Acute CHF: (3) Essential hypertension: (4) Anemia: Plan This pt is an 84-year-old male with PMH of CKD stage IV, CAD s/p CABG, urinary retention w/ chronic Berg, HFpEF, HTN, Anemia, DMII with neuropathy and blindness, GERD, and allergies who p/w worsening fluid buildup x 2 weeks in the lower extremities and abdomen leading to ambulatory dysfunction. He gained 20 lbs in 2 weeks. No changes in diet or fluid intake but reports his amlodipine dose was increased from 5 to 10mg two weeks ago. Despite efforts to diurese him, his renal function continued to worsen and he commenced hemodialysis on 12/19. #ESRD on hemodialysis-BUN 63, creatinine 4.45 (baseline 3.6) on admission. SLightly improved initially but then inspecting machine adjuster ariana to 5.1 and remained significantly hypervolemic. started HD 12/19 after TDC placed. Nephrology is following. Renal US with med renal disease, atrophy of right kidney, no hydronephrosis. UA with 3+ protein, 1+ blood but no RBCs, with bacteria, LE but no casts He has now had 3 sessions of hemodialysis and volume status is significantly improved but remains somewhat hypervolemic-plan is to continue hemodialysis TueThursSat in the hospital and then transition to MWF as and outpt HD He continues to have some bleeding around his right tunneled dialysis catheter site-vascular surgery recommended replacing dressing, putting pressure dressing on and sandbag and will follow-up -Change IV Bumex to Bumex 2 mg p.o. once daily -follow BMP -started Nephrocaps -maintain chronic Berg and exchange once monthly-due next around 12/25-could perform before he leaves -If bleeding continues on 12/22 from catheter site, vascular surgery recommends a StatLock be placed on the catheter and Nivia around the exit site #Acute on chronic HFpEF/HTN-Echocardiogram on 06/19/2024 with LVEF at 55 to 60%, ECHO here similar. CXR with suspected pulmonary edema, BNP mildly elevated at 319. Patient is normally on Bumex 3 mg p.o. daily. His PCP recently increased his amlodipine from 5 to 10mg daily 2 weeks ago and he believes his leg swelling got much worse after that. Suspect some is from increased dose of amlodipine. He gets Meals on Wheels and can't control sodium content of food. Weight up 13 kg since Nov. He was diuresed with IV Bumex 2mg IV bid and lost 7 kg w/ improving edema, but unfortunately inspecting machine adjuster continued to rise and started HD 3/4. Weight now down even further with 3 sessions of HD BPs have been elevated/uncontrolled but improving -Continue Bumex 2 mg p.o. once daily and volume status to be managed with HD now -[employer] consult for education on low sodium diet -continue BP control- amlodipine returned back to 5mg daily (from 10 Mg), continue doxazosin 8mg daily, and Coreg 37.5mg po bid--> add hydralazine if needed but about to start HD which will help with volume #Asymptomatic bacteriuria/Chronic urinary retention/Chronic Berg--abnormal but collected from chronic Berg bag. He is afebrile, no leukocytosis, abd pains, etc. This is asymptomatic pyuria from chronic Berg and does not need to be treated. He exchanges his Berg catheter with a visiting nurse once a month at home -exchange Berg prior to discharge -Continue daily Berg care -continue doxazosin #T2DM/Neuropathy-Last A1c at 7.9% on 07/11/2024, Patient is normally on Lantus 50u HS -continue Lantus to 20u BID while inpatient-lowered dose in setting of kidney failure -continue SSI; with target BSG range 110-140mg/dL, CF 20, carb ratio 8 and adjust regimen as needed-he is on much higher doses at home-this will need to be reduced on discharge -T2DM diet, BSG ACHS A1c 7.7 #B12 deficiency and iron deficiency Anemia/ ANemia of CKD-Hgb remains stable at 8-9,stable from previous baseline, normocytic. Transferrin sat low at 8%, B12 low at 193, FOlate normal, TSH normal in last few months. No gross bleeding except some bleeding from TDC -gave B12 1000 mcg IM daily x 3 doses and now on B12 1000 mcg po daily- prescribed on discharge -He received IV Venofer 200mg daily x 5 doses -He received Epo x 1 -follow CBC #Chronic hypoxic respiratory failue on 2LNC O2/COPD-no acute issues, continue O2 #CAD s/p CABG-no acute issues, trop neg, no chest pain. Follows with [facility]iology at [facility] in [place]-had cardiac cath last year and no intervention done, had patent grafts -continue ASA, statin, Coreg #Gout-takes colchicine prn-caution w/ CKD DVT Prophylaxis- SQ heparin Dispo-continued stay on med tele, CM has arranged outpt HD and transportation to and from dialysis to start on Sunday 12/24. He will need a repeat PT evaluation on 12/22 and if stable, can discharge to home either 12/22 or through the weekend. Admission and Anticipated Discharge Date Admission Date: December 14, 2024 Subjective Patient had a third session of dialysis today and continue to have some bleeding from the tunneled catheter site. A pressure dressing was applied and it has now stopped. He is continues to feel very exhausted after dialysis. He is happy that his leg swelling and abdominal distention continues to improve. Telemetry with normal sinus rhythm and PACs with rates in the 60s Physical Exam Constitutional: WD/WN, vitals as above + obese Respiratory: normal respiratory effort Auscultation: lungs clear to auscultation bilaterally and + diminished lung sounds (at bases); no crackles and no wheezes Cardiovascular: Rate/Rhythm: regular rate and regular rhythm Heart Sounds: no murmur Extremities: + edema (Trace pitting edema to knees bilat, significantly improved) Chest (Breasts): Chest: + vascular access device or port (Right anterior chest catheter site, pressure dressing in place clean dry ) Gastrointestinal (Abdomen): Inspection/Auscultation: abdomen normal to inspection, + abdomen distended (Mild) and normal bowel sounds Percussion/Palpation: abdomen nontender Psychiatric: A+Ox3, euthymic affect Results & Data Results & Data Vital Signs (Past 12 Hours) Vital Signs Temp Pulse Pulse Pulse Pulse Resp BP 12/21/24 19:04 36.8 C 74 14 12/21/24 15:50 37 C 75 18 12/21/24 14:26 36.8 C 68 12/21/24 14:00 69 165/78 H 12/21/24 13:30 71 148/78 H 12/21/24 13:30 72 12/21/24 13:00 69 154/60 H 12/21/24 12:30 73 129/90 12/21/24 12:00 63 149/68 H 12/21/24 11:30 62 154/72 H 12/21/24 11:00 63 155/70 H 12/21/24 10:39 63 156/70 H 12/21/24 10:29 36.6 C 66 12/21/24 09:20 12/21/24 07:40 37.1 C 63 16 12/21/24 07:15 70 BP Pulse Ox O2 Del Method 12/21/24 19:04 157/64 H 92 Room Air 12/21/24 15:50 187/73 H 93 Room Air 12/21/24 14:26 168/82 H 12/21/24 14:00 12/21/24 13:30 12/21/24 13:30 12/21/24 13:00 12/21/24 12:30 12/21/24 12:00 12/21/24 11:30 12/21/24 11:00 12/21/24 10:39 12/21/24 10:29 12/21/24 09:20 Room Air 12/21/24 07:40 177/83 H 91 Room Air 12/21/24 07:15 Laboratory Results CBC, BMP reviewed PG Care Time/CCT Total # of Minutes Spent Total Time Spent with Patient: Total time spent is greater than 50% in coordination of care (as documented) at patient's floor/unit and/or counseling patient: Coding Level of Care Code 21905 SUB INP/OBS CARE 3/50MIN Diagnoses End stage chronic kidney disease N18.6 Acute CHF I50.9 Essential hypertension I10 Anemia D64.9 Anemia type: unspecified type (4) Anemia Anemia type: unspecified type Qualified Code(s): D64.9 - Anemia, unspecified
[2024-12-22 07:03] LABS: Basophils # (auto) 0.06 K/uL (0.00-0.20); Basophils % (auto) 0.7 %; Eosinophils # (auto) 0.18 K/uL (0.00-0.50); Hematocrit (blood only) 29.9 % (42.0-52.0); Hemoglobin 9.2 g/dl (14.0-18.0); Immature Granulocytes % (auto) 1.1 %; Lymphocytes % (auto) 16.6 %; Mean Corpuscular Hgb Conc 30.8 g/dL (32.0-36.0); Mean Corpuscular Volume 91.2 fL (80.0-100.0); Monocytes % (auto) 16.6 %; Neutrophils # (auto) 5.68 K/uL (1.40-6.50); Nucleated RBC # (auto) 0.09 K/uL (0.00-0.12); Platelet Count 153 K/uL (130-400); RDW Coefficient of Variation 17.4 % (11.5-14.5); RDW Standard Deviation 54.3 fL (36.4-46.3); Red Blood Count 3.28 M/uL (4.70-6.10); White Blood Count 9.02 K/ul (4.8-10.8)
[2024-12-22 07:27] LABS: BUN Creatinine Ratio 8.7 (10-20); Calcium 9.3 mg/dl (8.6-10.3); Creatinine Clr Calc Pharmacy 17.7 ml/min; Potassium 4.4 mmol/L (3.5-5.1)
[2024-12-22 07:33] VITALS: BP 181/72; RESP 18; TEMP 98.1; O2SAT 92
[2024-12-22] MEDS: BUMETANIDE 1 MG TAB PO SCH (07:50)
--- NOTE | 2024-12-22 08:30 | Nephrology Progress Note ---
Date of Service December 22, 2024 Assessment & Plan (1) End stage chronic kidney disease: Plan: * ESKD - Patient suffered progressive renal dysfunction with volume unloading. ESKD is due to DKD, microvascular disease * 12/15 urinalysis - hyaline casts, pyuria related to chronic jovel * 12/15 renal US - R 12.1 cm, L 13.1cm. No hydronephrosis. Diffuse cortical thinning. 4.4 cm L renal cyst * R IJ TCC placed 12/19/[address] Hwang * No acute indication for HD today * OK to discharge from Nephrology perspective. Patient is scheduled to begin outpatient HD [facility] * Case management has set up county transportation (2) Acute exacerbation of CHF (congestive heart failure): Plan: * Change Bumex to 2 mg po daily to promote diuresis in between HD treatments * Low sodium diet and daily weights * Monitor I&O (3) Anemia: Plan: * Completed 1 g venofer IV 12/20/24 (4) Hypertension: Plan: * Remains hypertensive. Expect this will improve w/ diuresis, UF * Continue carvedilol, low dose amlodipine Admission and Anticipated Discharge Date Admission Date: December 14, 2024 Subjective Mr. Garcia was evaluated in his hospital room this morning. He reports that his abdominal distention and LE swelling are markedly improved. He is anxious to return home Review of Systems Constitutional: no fever Eyes: no problem reported Ear, Nose, Mouth, Throat: no problem reported Respiratory: no cough and no dyspnea Cardiovascular: + edema; no chest pain Gastrointestinal: no abdominal pain, no nausea, no vomiting and no diarrhea/loose stools Physical Exam Constitutional: no acute distress Eyes: PERRL, conjunctivae normal, anicteric sclerae ENMT: external ear and nose normal, oropharynx normal Neck: trachea midline, no thyromegaly Respiratory: normal respiratory effort; no respiratory distress Auscultation: no rales Cardiovascular: Rate/Rhythm: + irregularly irregular Extremities: + edema (trace) Gastrointestinal (Abdomen): Inspection/Auscultation: + abdomen distended Percussion/Palpation: abdomen nontender and no guarding Neurologic: Speech / Cognition: normal cognition Results & Data Vital Signs (Past 12 Hours) Vital Signs Temp Pulse Pulse Pulse Resp BP Pulse Ox 12/22/24 07:33 36.7 C 76 18 181/72 H 92 12/22/24 07:22 12/22/24 02:53 36.6 C 74 14 159/78 H 94 12/21/24 22:46 36.9 C 80 14 151/71 H 93 12/21/24 21:56 73 O2 Del Method 12/22/24 07:33 Room Air 12/22/24 07:22 Room Air 12/22/24 02:53 Room Air 12/21/24 22:46 Room Air 12/21/24 21:56 Laboratory Results Laboratory Results - last 24 hr 12/21/24 12/21/24 12/22/24 17:03 20:05 06:46 WBC 9.02 RBC 3.28 L Hgb 9.2 L Hct 29.9 L MCV 91.2 MCH 28.0 MCHC 30.8 L RDW Std Deviation 54.3 H RDW Coeff of Mariana 17.4 H Plt Count 153 MPV 11.0 Immature Gran % (Auto) 1.1 Neut % (Auto) 63.0 Lymph % (Auto) 16.6 Spink % (Auto) 16.6 Eos % (Auto) 2.0 Baso % (Auto) 0.7 Neut # (Auto) 5.68 Lymph # (Auto) 1.50 Spink # (Auto) 1.50 H Eos # (Auto) 0.18 Baso # (Auto) 0.06 Immature Gran # (Auto) 0.10 Absolute Nucleated RBC 0.09 Nucleated RBC % (auto) 1.0 Sodium 140 Potassium 4.4 Chloride 106 Carbon Dioxide 27 Anion Gap 7 BUN 31 H Creatinine 3.56 H Est Cr Clr Drug Dosing 17.7 eGFR 16.37 BUN/Creatinine Ratio 8.7 L Glucose 115 H POC Glucose 179 H 174 H Calcium 9.3 12/22/24 07:59 WBC RBC Hgb Hct MCV MCH MCHC RDW Std Deviation RDW Coeff of [place] Plt Count MPV Immature Gran % (Auto) Neut % (Auto) Lymph % (Auto) Spink % (Auto) Eos % (Auto) Baso % (Auto) Neut # (Auto) Lymph # (Auto) Spink # (Auto) Eos # (Auto) Baso # (Auto) Immature Gran # (Auto) Absolute Nucleated RBC Nucleated RBC % (auto) Sodium Potassium Chloride Carbon Dioxide Anion Gap BUN Creatinine Est Cr Clr Drug Dosing eGFR BUN/Creatinine Ratio Glucose POC Glucose 134 H Calcium PG Care Time/CCT Total # of Minutes Spent Total Time Spent with Patient: Total time spent is greater than 50% in coordination of care (as documented) at patient's floor/unit and/or counseling patient: Coding Level of Care Code 43001 SUB INP/OBS CARE 3/50MIN Diagnoses End stage chronic kidney disease N18.6 Acute exacerbation of CHF (congestive heart failure) I50.9 Heart failure type: unspecified Anemia D64.9 Hypertension I10 (2) Acute exacerbation of CHF (congestive heart failure) Heart failure type: unspecified Qualified Code(s): I50.9 - Heart failure, unspecified
--- NOTE | 2024-12-22 10:00 | Discharge Summary ---
Discharge Summary Date of Service December 22, 2024 Principal Dx & Hospital Course #1 = Principal Diagnosis (1) End stage chronic kidney disease: (2) Acute CHF: (3) Essential hypertension: (4) Anemia: Plan This pt is an 84-year-old male with PMH of CKD stage IV, CAD s/p CABG, urinary retention w/ chronic Berg, HFpEF, HTN, Anemia, DMII with neuropathy and blindness, GERD, and allergies who p/w worsening fluid buildup x 2 weeks in the lower extremities and abdomen leading to ambulatory dysfunction. He gained 20 lbs in 2 weeks. No changes in diet or fluid intake but reports his amlodipine dose was increased from 5 to 10mg two weeks ago. Despite efforts to diurese him, his renal function continued to worsen and he commenced hemodialysis on 12/19. #ESRD on hemodialysis-BUN 63, creatinine 4.45 (baseline 3.6) on admission. SLightly improved initially but then telegrapher agent ariana to 5.1 and remained significantly hypervolemic. started HD 12/19 after TDC placed. Nephrology is following. Renal US with med renal disease, atrophy of right kidney, no hydronephrosis. UA with 3+ protein, 1+ blood but no RBCs, with bacteria, LE but no casts He has now had 3 sessions of hemodialysis and volume status is significantly improved but remains somewhat hypervolemic-plan is to continue hemodialysis TueThursSat in the hospital and then transition to MWF as and outpt HD He continues to have some bleeding around his right tunneled dialysis catheter site-vascular surgery recommended replacing dressing, putting pressure dressing on and sandbag and will follow-up -Change IV Bumex to Bumex 2 mg p.o. once daily -follow BMP -started Nephrocaps -maintain chronic Berg and exchange once monthly-due next around 12/25-could perform before he leaves -If bleeding continues on 12/22 from catheter site, vascular surgery recommends a StatLock be placed on the catheter and Nivia around the exit site #Acute on chronic HFpEF/HTN-Echocardiogram on 06/19/2024 with LVEF at 55 to 60%, ECHO here similar. CXR with suspected pulmonary edema, BNP mildly elevated at 319. Patient is normally on Bumex 3 mg p.o. daily. His PCP recently increased his amlodipine from 5 to 10mg daily 2 weeks ago and he believes his leg swelling got much worse after that. Suspect some is from increased dose of amlodipine. He gets Meals on Wheels and can't control sodium content of food. Weight up 13 kg since Aug. He was diuresed with IV Bumex 2mg IV bid and lost 7 kg w/ improving edema, but unfortunately telegrapher agent continued to rise and started HD 3/4. Weight now down even further with 3 sessions of HD BPs have been elevated/uncontrolled but improving -Continue Bumex 2 mg p.o. once daily and volume status to be managed with HD now -Hospital Nurse Liaison consult for education on low sodium diet -continue BP control- amlodipine returned back to 5mg daily (from 10 Mg), continue doxazosin 8mg daily, and Coreg 37.5mg po bid--> add hydralazine if needed but about to start HD which will help with volume #Asymptomatic bacteriuria/Chronic urinary retention/Chronic Berg--abnormal but collected from chronic Berg bag. He is afebrile, no leukocytosis, abd pains, etc. This is asymptomatic pyuria from chronic Berg and does not need to be treated. He exchanges his Berg catheter with a visiting nurse once a month at home -exchange Berg prior to discharge -Continue daily Berg care -continue doxazosin #T2DM/Neuropathy-Last A1c at 7.9% on 07/11/2024, Patient is normally on Lantus 50u HS -continue Lantus to 20u BID while inpatient-lowered dose in setting of kidney failure -continue SSI; with target BSG range 110-140mg/dL, CF 20, carb ratio 8 and adjust regimen as needed-he is on much higher doses at home-this will need to be reduced on discharge -T2DM diet, BSG ACHS A1c 7.7 #B12 deficiency and iron deficiency Anemia/ ANemia of CKD-Hgb remains stable at 8-9,stable from previous baseline, normocytic. Transferrin sat low at 8%, B12 low at 193, FOlate normal, TSH normal in last few months. No gross bleeding except some bleeding from TDC -gave B12 1000 mcg IM daily x 3 doses and now on B12 1000 mcg po daily- prescribed on discharge -He received IV Venofer 200mg daily x 5 doses -He received Epo x 1 -follow CBC #Chronic hypoxic respiratory failue on 2LNC O2/COPD-no acute issues, continue O2 #CAD s/p CABG-no acute issues, trop neg, no chest pain. Follows with [facility]iology at [facility] in [place]-had cardiac cath last year and no intervention done, had patent grafts -continue ASA, statin, Coreg #Gout-takes colchicine prn-caution w/ CKD DVT Prophylaxis- SQ heparin Dispo-continued stay on med [place] [employer]late, has arranged outpt HD and transportation to and from dialysis to start on Sunday 12/24. He will need a repeat PT evaluation on 12/22 and if stable, can discharge to home either 12/22 or through the weekend. Admission HPI Per Admitting Provider Mc is an 84-year-old male with PMH of urinary retention, cholecystitis, BPH, CHF, and bacteremia. He presented on 12/14 for worsening fluid buildup x 2 weeks in the lower extremities and abdomen leading to ambulatory dysfunction. Patient lives by himself. He reports he receives his diuretics from the [facility]. Over the past 2 weeks, his legs have become so swollen that they are painful and he is unable to walk. While there is been no recent change in diet, he endorses increased weight over the past 2 weeks from 230 pounds to 250. He does watch his salt intake at home. Patient uses submental oxygen (2L NC) as needed when he is up walking around. He has COONEY on exertion (can barely walk 10 yards without getting out of breath), but denies SOB at rest. No CPAP at night. Additionally, patient is unsure if he has had any changes in urinary habits, as he uses a urinary catheter at baseline; a [facility] nurse helps to manage this. Patient has smoking, tobacco use, recent alcohol use. Patient is hypertensive at 141/62 at time admission; SpO2 94% on 2L NC; vitals otherwise stable. ED course: Bumex 2 mg IV ROS: Patient endorses LE edema, abdominal edema, ambulatory dysfunction, COONEY, dry cough, orthopnea, and abdominal bloating. Patient denies fever, night-sweats, chest pain, abdominal pain, N/V/D, burning with urination, melena, or blood in the urine/stool. Discharge Exam GENERAL APPEARANCE NAD, activity normal for age, well developed/ well nourished, no cyanosis, pallor, or diaphoresis. EYES lids/conjunctiva normal. EARS/NOSE/THROAT Mucous membranes moist, nares normal, lips/teeth normal uvula midline without oral pharyngeal erythema, exudate or swelling TMs normal bilaterally. No lymphangitis/lymphedema. HEAD/NECK normocephalic atraumatic, no facial trauma, neck is supple. RESPIRATORY respiratory effort normal, speaks in full sentences, no tripod position, no accessory muscle use. Lungs clear to auscultation without rhonchi, wheezes, rales CARDIAC Regular rate and rhythm, no edema. ABDOMINAL Soft, ND/NT. No evidence of fluid wave. No pulsatile masses on exam, rebound tenderness, Mcarthur sign or pain over Mcburney's point. MUSCLES/EXTREMITIES No abnormal range of motion, no swelling. SKIN Warm, pink and dry. No rashes, dermatoses, petechiae or lesions. NEUROLOGICAL Speech is clear and appropriate. Normal level of consciousness. Gait and coordination are normal. 5/5 strength in all extremities. PSYCH Normal mood and affect. Judgement/competence is appropriate Discharge Plan Discharge Items Patient Disposition: Home - Self-Care Reason For Visit: ACUTE CHF, ACUTE ON CHRONIC RENAL FAILURE Discharge Diagnosis: CHF Activity: Resume your previous activity Non-emergency contact: Primary Care Provider Call non-emergency contact if: you have any medication questions Follow-up/Referrals: Anahi Casanova C.R.N.P. [Primary Care Provider] - Diet: Regular Addtl Attending Provider Instructions: Follow up with PMD in 2 weeks Pending Studies at Discharge: No Stand-Alone Forms: My [facility] [employer], Smoking Cessation Medications and DC Order Prescriptions: New bumetanide 1 mg Tablet 2 mg PO QAM Qty: 30 0RF Continued omeprazole 20 mg capsule,delayed release(DR/EC) 20 mg PO BID Rx Instructions: take 30 min before a meal magnesium oxide 420 mg tablet 420 mg PO DAILY loratadine [Allergy Relief (loratadine)] 10 mg tablet 10 mg PO Q OTHER DAY colchicine 0.6 mg capsule 0.6 mg PO UD Rx Instructions: take 1 tablet by mouth every day as directed. take 2 tablets within 12 hours of gout flare, then take 1 tablet 1 hour latermax 3 tablets in 1 hour after the initial tablets on day 1 then starting day #2 take 1 tablet daily for 5 days for gout cholecalciferol (vitamin D3) 25 mcg (1,000 unit) capsule 50 mcg PO DAILY albuterol sulfate 90 mcg/actuation HFA aerosol inhaler 2 puff inhalation Q4H PRN (Reason: Shortness Of Breath Or Wheezing) doxazosin 4 mg Tablet 8 mg PO DAILY atorvastatin 80 mg Tablet 80 mg PO HS aspirin 81 mg Tablet,Delayed Release (Dr/Ec) 81 mg PO DAILY gabapentin 300 mg Capsule 300 mg PO BID fluticasone propionate 50 mcg/actuation [place],Suspension 2 spray INTRANASAL DAILY Rx Instructions: administer into each nostril omega [id number] oil [Fish Oil] 1,000 mg (120 mg-180 mg) Capsule 2 cap PO UD Rx Instructions: 2 cap po bid. not [facility] mometasone 220 mcg/ actuation (60) Aerosol Powdr Breath Activated 2 inh INHALATION BID tiotropium-olodaterol 2.5-2.5 mcg/actuation Mist 2 puff INHALATION DAILY meclizine 12.5 mg Tablet 25 mg PO Q6H PRN (Reason: Vertigo) PreserVision AREDS-2 250-90-40-1 mg Capsule 1 tab PO BID insulin aspart U-100 [Novolog FlexPen U-100 Insulin] 100 unit/mL (3 mL) Insulin Pen 27 unit SUBCUT TIDM guaifenesin 200 mg Tablet 400 mg PO TID PRN (Reason: help thin mucous) carvedilol 25 mg Tablet 37.5 mg PO BID Rx Instructions: 1 AND 1/2 TABS PO BID zinc oxide 20 % Ointment 1 applic TOPICAL DAILY PRN (Reason: Penile Irritation/Excoriation) glucose 4 gram Tablet,Chewable 4 g PO UD PRN (Reason: hypoglycemia ) Rx Instructions: Low blood sugar or for blood sugar less than 70 insulin glargine-yfgn 100 unit/mL (3 mL) insulin pen 50 unit SUBCUT HS acetaminophen 325 mg Tablet 650 mg PO DAILY PRN (Reason: Pain) ascorbic acid (vitamin C) 500 mg Tablet 500 mg PO DAILY nitroglycerin 0.4 mg Tablet, Sublingual 0.4 mg sublingual DIRECTED PRN (Reason: Chest Pain) cinnamon bark [Cinnamon] 500 mg Capsule 1,000 mg PO DAILY Glucosamine 1 cap PO DAILY Rx Instructions: dose not listed amlodipine 10 mg tablet 10 mg PO DAILY carboxymethylcellulose sodium 0.5 % Drops 1 drp OPHTHALMIC (EYE) BID Discontinued bumetanide [Bumex] 1 mg Tablet 3 mg PO DAILY Discharge Orders: Discharge Order (Routine); Ordered 12/22/24 Ordered By: Anshu Mcdermott Admission Data Admit Date/Time: 12/14/24 18:34 Attending Provider: Anshu Mcdermott Admit Provider: Kamari Case Primary Care Provider: Anahi Casanova Other Providers: [facility]; Kamari Case; Yoandy Randhawa; Jim Hwang Hospital Stay Data Consultations 12/14/24 17:00 Consult Nephrology Routine ED Decision to Admit Stat 12/18/24 09:34 Consult Vascular Surgery Routine Procedures Performed Operation Date: 12/19/24 08:00 Actual Procedures p Perm Catheter Insertion, Right Internal Jugular Approach,Ultrasound Localization of Right Internal Jugular Vein,Fluoroscopy for Positioning, Moderate Sedation [id number](Right) - Jim Hwang MD Diagnostic Imagining Performed 12/15/24 09:51 US Renal Bladder [US renal/blad retro comp] Routine 12/19/24 07:15 EV cvc insrt tunnel wo prt/pork cutlet maker Routine US EV guide vascular access Routine Pending Results Patient Have Any Pending Studies at Discharge: No Discharge Instructions Given to Patient (Per Discharging Provider) Follow up with PMD in 2 weeks Total Time Total Time Spent Total Time Spent (In Minutes): 50 Coding Level of Care Code 99629 INP/OBS DISCH >30 MIN Diagnoses End stage chronic kidney disease N18.6 Acute CHF I50.9 Essential hypertension I10 Anemia D64.9 Anemia type: unspecified type
[2024-12-22 10:20] VITALS: PULSE 74
== END 2024-12-22 16:24 | disposition home or self-care (01) | DRG 291 ==
LOC: ED 16:07 → 2N 18:34 → SUATTDRO 18:34 → 2N 20:42

== ENCOUNTER 2025-06-20 09:33 | Inpatient (IN) ==
--- NOTE | 2025-06-20 09:45 | Emergency Department Note ---
Impression & Plan Fall, End stage renal disease, Contusion of head ED Provider Note NAME: NAYA DOHERTY AGE: 84 SEX: M : 1940 ARRIVES VIA: Ambulance INFORMANT: Patient ED PROVIDER(S): Alen Rubio DO CHIEF COMPLAINT: Fall HPI: Patient is an 84-year-old male who with a past medical history of BPH end- stage renal disease on dialysis who presents to the ER as he notes he was sleeping and he woke up on the floor around 5 AM. He hit his head. He notes that he rolled out of bed and has a left-sided headache. He had a local delivery truck driver to come to dialysis as he receives this Wednesday, Wednesday, and Wednesday. He also complains of a mild headache and left elbow pain. Denies any chest, back, or belly pain. After he hit his head he was a little lightheaded. Denies any weakness or numbness in the arms or legs. No other exacerbating or remitting factors. Tetanus is up-to-date ADDITIONAL HISTORY OBTAINED: Per HPI Chronic Medical/Social Conditions Affecting Care: Per HPI PAST MEDICAL HISTORY:See Below PAST SURGICAL HISTORY:See Below FAMILY HISTORY:See Below SOCIAL HISTORY:See Below HOME MEDICATIONS:See Below ALLERGIES:See Below VITALS:See Below PHYSICAL EXAMINATION: GENERAL: Sitting up in bed, alert, well appearing, well nourished, no distress, non-toxic HEAD: Abrasion left frontal region EYE EXAM: normal conjunctiva. PERRL and EOM's grossly intact. OROPHARYNX: no exudate, no erythema, lips, buccal mucosa, and tongue normal and mucous membranes are moist NECK: supple, no nuchal rigidity, no adenopathy, non-tender, cervical collar in place CHEST: Stable compression anteriorly and posteriorly LUNGS: Clear to auscultation. Normal chest wall mechanics HEART: no murmurs, S1 normal and S2 normal ABDOMEN: abdomen soft, non-tender, normo-active bowel sounds, no masses, no rebound or guarding. PELVIS: Stable compression anteriorly and posteriorly BACK: Back is symmetrical on inspection and there is no deformity, no midline tenderness, no CVA tenderness. SKIN: no rashes and no bruising UPPER EXTREMITIES: upper extremities are grossly normal. LOWER EXTREMITIES: No pitting edema. NEURO EXAM: Normal sensorium, cranial nerves II-XII grossly intact, normal speech, no gross weakness of arms, no gross weakness of legs. MEDICAL DECISION MAKING: Patient is an 84-year-old male who presents ER following rolling out of bed and hitting his head. He was seen in dialysis and referred in. IV was established and blood work was obtained. Labs show no significant leukocytosis. Mild anemia 10.2. Thrombocytopenia at 98. CMP with a slightly elevated potassium at 5.5 and a creatinine at 5.5. LFTs bilirubin was unremarkable. Lipase was normal. CT head and cervical spine was negative. X-ray of the elbow shows no acute fractures. Discussed with nephrology and patient will get dialysis today here. Discussed with the hospitalist for further evaluation management treatment. Consults/Care Managements Discussions: Per [facility] Triage Nursing notes reviewed. Limited review of prior medical records performed Vital Signs: reviewed and remarkable for no significant abnormalities Differential diagnosis: Differential diagnoses include major intracranial, cervical, spinal, thoracic, abdominal, pelvic and neurologic injury. Fracture, contusion, sprain, strain, laceration, abrasions included as well. ER treatment provided: See below Diagnostics interpreted by me include EKG and cardiac monitoring as listed below: -Cardiac Monitoring: An order was placed for continuous cardiac monitoring. The monitor shows a rate of 65 with sinus rhythm. -ECG: none -Laboratory studies:Interpreted by me as stated above in [facility] and shown below. Imaging studies: Xrays: As interpreted by me: X-ray of the elbow shows no acute fracture or dislocation CTs show: CT head and cervical spine was negative per radiology Procedures:none Critical Care: None Past Med/Surg History Problem List (Updated 06/20/25 @ 13:23 by Alen Rubio DO) Contusion of head (Acute) Fall (Acute) S/P vascular surgery End stage renal disease (Acute) Dyspnea (Acute) Congestive heart failure (Acute) Urinary retention (Acute) Vitamin D deficiency BPH (benign prostatic hyperplasia) Age-related macular degeneration Vertigo Blindness Medical History Pulmonary hypertension mild to moderate on 2023 cardiac cath Thrombocytopenia Plt count 115,000 04/03/25 Hx of gout Osteoarthritis Chronic back pain Degenerative disc disease Poor historian Heartburn diet related. On anticoagulant therapy Depression "situational" Hx of vertigo chronic, denies change or worsening Legally blind On home oxygen therapy 2lpm via with exertion SOB (shortness of breath) on exertion chronic, denies change or worsening Hx of non-ST elevation myocardial infarction (NSTEMI) not listed in cardio records-pt unsure of additional details-states was at least several years ago Hemodialysis patient M-W-F in [place] - follows with Dr. Ching Presence of permanent central venous catheter right chest wall for hemodialysis-patient states has left arm restriction End stage chronic kidney disease follows with [facility] Anemia T2DM (type 2 diabetes mellitus) Chronic heart failure with preserved ejection fraction Chronic indwelling Berg catheter BPH loc w urin obs/LUTS Cardiomyopathy Insulin dependent diabetes mellitus COPD (chronic obstructive pulmonary disease) stable per pt; last rescue inhaler use this morning-typically uses rescue inhaler every day Hyperlipidemia Hypertension Coronary artery disease s/p CABG x 2 2003 Macular degeneration Surgical History History of surgery right ankle History of cystoscopy History of esophagogastroduodenoscopy (EGD) History of tonsillectomy S/P TURP "some kind of prostate surgery to open it up to go to the bathroom" -- no longer effective ([facility]-unsure of date ~) History of cardiac cath ~Oct/Nov 2024 at the [facility] - per patient "there are some blockages but they won't put stents in and will not do surgery, trying to treat with medication" History of colonoscopy Hx of CABG pt unsure of date (20+ years??) unsure of the number of vessels Hx of cholecystectomy 01/29/2014 Family History Other No family history of adverse response to anesthesia Social History Smoking Status: Never smoker Tobacco Type: Cigarettes Second Hand Exposure: No; Do You Dip or Chew Tobacco: No; Hx Alcohol Use: No Hx Substance Use: No Preferred Language: Andorran Communication Ability: Impaired Communication Ability Comment: unable to read due to his macular degeneration + legally blind. Visual Impairment: Limited Hearing Ability: Normal Folder Seamer Required: No Beliefs That Will Affect Care: None marital status: Single Current Living Situation: Alone Current Living Situation Comment: Has caregiver through [place] current occupational status: retired How many Children do You have: 2 Feels Safe at Home: Yes Diet: diabetic caffeine: Yes Physical Activity Frequency: Does not Exercise Do you think of yourself as: straight/heterosexual Gender Identity: Male Assistive Devices: Cane, Glasses and Walker Allergies Allergies Allergy/AdvReac Type Severity Reaction Status Date / Time strawberry Allergy Intermediate hives Verified 06/20/25 12:37 Home Meds Home Medications Medication Instructions Recorded Confirmed colchicine 0.6 mg capsule 0.6 mg PO DIRECTED PRN gout 05/22/21 06/20/25 flare loratadine 10 mg tablet (Allergy 10 mg PO Q OTHER DAY 05/22/21 06/20/25 Relief (loratadine)) magnesium oxide 420 mg tablet 420 mg PO DAILY 05/22/21 06/20/25 omeprazole 20 mg capsule,delayed 20 mg PO BID 05/22/21 06/20/25 release aspirin 81 mg tablet,delayed 81 mg PO DAILY 09/15/22 06/20/25 release atorvastatin 80 mg tablet 80 mg PO HS 09/15/22 06/20/25 doxazosin 4 mg tablet 8 mg PO BID 09/15/22 06/20/25 fluticasone propionate 50 2 spray intranasal DAILY 09/15/22 06/20/25 mcg/actuation nasal spray,suspension gabapentin 300 mg capsule 300 mg PO BID 09/15/22 06/20/25 guaifenesin 200 mg tablet 400 mg PO TID PRN help thin mucous 09/15/22 06/20/25 insulin aspart U-100 100 unit/mL 0 unit subcut TIDM 09/15/22 06/20/25 (3 mL) subcutaneous pen (Novolog FlexPen U-100 Insulin aspart) meclizine 12.5 mg tablet 25 mg PO Q6H PRN Vertigo 09/15/22 06/20/25 mometasone 220 mcg/actuation(60 2 inh inhalation BID 09/15/22 06/20/25 doses) breath activated powder inhaler vit C 250 mg-vit E 90 mg-zinc 40 1 tab PO BID 09/15/22 06/20/25 mg-copper 1 [id number] capsule (PreserVision AREDS-2) carvedilol 25 mg tablet 37.5 mg PO BID 01/19/24 06/20/25 glucose 4 gram chewable tablet 0 g PO DIRECTED PRN hypoglycemia 01/19/24 06/20/25 albuterol sulfate 90 mcg/actuation 2 puff inhalation QID PRN 02/14/24 06/20/25 aerosol inhaler Shortness Of Breath Or Wheezing cholecalciferol (vitamin D3) 25 50 mcg PO DAILY 02/14/24 06/20/25 mcg (1,000 unit) capsule acetaminophen 325 mg tablet 650 mg PO DAILY PRN Pain 12/14/24 06/20/25 amlodipine 10 mg tablet 10 mg PO DAILY 12/14/24 06/20/25 ascorbic acid (vitamin C) 500 mg 500 mg PO DAILY 12/14/24 06/20/25 tablet carboxymethylcellulose sodium 0.5 1 drp ophthalmic (eye) BID 12/14/24 06/20/25 % eye drops cinnamon bark 500 mg capsule 1,000 mg PO DAILY 12/14/24 06/20/25 (Cinnamon) glucosamine sulfate 500 mg tablet 500 mg PO DAILY ##0 12/14/24 06/20/25 (Glucosamine) nitroglycerin 0.4 mg sublingual 0.4 mg sublingual DIRECTED PRN 12/14/24 06/20/25 tablet Chest Pain insulin glargine 100 unit/mL (3 50 unit subcut HS 03/29/25 06/20/25 mL) subcutaneous pen vitamin B complex 1 tab PO DAILY 03/29/25 06/20/25 bumetanide 2 mg tablet 2 mg PO 4XWK 06/20/25 06/20/25 sevelamer carbonate 800 mg tablet 800 mg PO TIDWMEAL 06/20/25 06/20/25 tiotropium 2.5 mcg-olodaterol 2.5 2 puff inhalation DAILY 06/20/25 06/20/25 mcg/actuation mist for inhalation (Stiolto Respimat) Results & Data (ED) Vital Signs Vital Signs - 24 hr 06/20/25 09:36 06/20/25 09:40 06/20/25 10:30 Temperature 36.9 C Temperature Source Oral Pulse Rate 63 Pulse Rate [Apical] 63 Respiratory Rate 18 18 Respiratory Effort / Characteristics Non-Labored Spontaneous Non-Labored Spontaneous Respiratory Depth Normal Normal Respiratory Pattern Regular Blood Pressure 141/107 H Blood Pressure [Right Arm] 162/94 H Blood Pressure Mean 118 Blood Pressure Mean [Right Arm] 116 Pulse Oximetry 96 93 Oxygen Delivery Method Room Air Room Air Room Air Sepsis Recent Fever Within 48 Hours No Sepsis New/Unexplained Change in Mental Status No Sepsis Action Taken by Nursing No Action Required 06/20/25 10:56 06/20/25 12:30 Temperature Temperature Source Pulse Rate 69 Pulse Rate [Apical] 64 Respiratory Rate 20 Respiratory Effort / Characteristics Respiratory Depth Respiratory Pattern Blood Pressure Blood Pressure [Right Arm] 143/74 H Blood Pressure Mean Blood Pressure Mean [Right Arm] 97 Pulse Oximetry 95 Oxygen Delivery Method Room Air Sepsis Recent Fever Within 48 Hours Sepsis New/Unexplained Change in Mental Status Sepsis Action Taken by Nursing Laboratory Data 06/20/25 09:59 06/20/25 09:59 Lab Results 06/20/25 Range/Units 09:59 WBC 5.28 (4.8-10.8) K/ul RBC 3.28 L (4.70-6.10) M/uL Hgb 10.2 L (14.0-18.0) g/dl Hct 32.0 L (42.0-52.0) % MCV 97.6 (80.0-100.0) fL MCH 31.1 (25.0-34.0) pg MCHC 31.9 L (32.0-36.0) g/dL RDW Std Deviation 54.4 H (36.4-46.3) fL RDW Coeff of [place] 15.3 H (11.5-14.5) % Plt Count 98 L (130-400) K/uL MPV 12.3 (9.4-12.4) fL Immature Gran % (Auto) 0.6 % Neut % (Auto) 63.6 % Lymph % (Auto) 19.1 % Ware % (Auto) 13.1 % Eos % (Auto) 3.0 % Baso % (Auto) 0.6 % Neut # (Auto) 3.36 (1.40-6.50) K/uL Lymph # (Auto) 1.01 L (1.20-3.40) K/uL Ware # (Auto) 0.69 H (0.11-0.59) K/uL Eos # (Auto) 0.16 (0.00-0.50) K/uL Baso # (Auto) 0.03 (0.00-0.20) K/uL Immature Gran # (Auto) 0.03 (0.01-0.20) K/uL Sodium 139 (136-145) mmol/L Potassium 5.5 H (3.5-5.1) mmol/L Chloride 106 (98-107) mmol/L Carbon Dioxide 26 (21-32) mmol/L Anion Gap 7 (3-11) BUN 54 H (6-23) mg/dl Creatinine 5.52 H* (0.6-1.4) mg/dl Est Cr Clr Drug Dosing 12.6 ml/min eGFR 9.67 BUN/Creatinine Ratio 9.8 L (10-20) Glucose 193 H (70-99(Fasting)) mg/dl Calcium 9.1 (8.6-10.3) mg/dl Total Bilirubin 0.5 (0.2-1.0) mg/dl AST 11 L (13-39) U/L ALT 14 (7-52) U/L Alkaline Phosphatase 81 (34-104) U/L Total Protein 6.9 (6.0-8.3) gm/dl Albumin 3.9 (3.4-5.0) gm/dl Globulin 3.0 (2.5-4.0) gm/dl Albumin/Globulin Ratio 1.3 (0.9-2) Lipase 36 (11-82) U/L Imaging Data Radiologist's Impression: Cervical Spine CT 06/20/25 09:40 CT cervical spine wo con CT DOSE: 1173.14 mGy.cm CLINICAL HISTORY: 84 years-old Male with fall. Acute neck pain status post fall COMPARISON: Head CT of same day TECHNIQUE: Multiple axial CT images of the cervical spine were obtained without contrast. A dose lowering technique was utilized adhering to the principles of ALARA. Internal partial bony fusion at C2-C3. Multilevel changes include mild to moderate intervertebral disc space narrowing at C5-C6 with mild to moderate multilevel spondylotic spurring and moderate to severe facet arthrosis. Chronic appearing mild wedge deformity without retropulsion at T1. No. Suboptimal evaluation of the central canal and neural foramen by CT technique. Prominent calcified plaque of the right greater the left carotid bulbs and proximal cervical segments of the internal carotid arteries. Partially imaged dual-lumen right IJ central venous catheter. The cervical soft tissues appear unremarkable. The visualized lung apices appear clear. IMPRESSION: No acute cervical spine fracture or subluxation identified. ACT 112: Negative or not required by law. The above report was generated using voice recognition software. It may contain grammatical, syntax or spelling errors. Electronically signed by: Shan Isabel M.D. 06/20/2025 10:46 AM Elbow X-Ray 06/20/25 09:40 XR elbow LT min 3V routine CLINICAL HISTORY: Left elbow pain status post trauma COMPARISON: None FINDINGS: There are vascular calcifications present. There are surgical clips within the volar aspect the proximal forearm. The fat pads are nondisplaced. No acute fractures are visualized. There are no dislocations. There is a tiny olecranon spur. There is a corticated ossicle adjacent to the lateral condyle. This is felt to be chronic. IMPRESSION: No acute fractures or dislocations identified. ACT 112: Negative or not required by law. Electronically signed by: Marquise Kumar M.D. 06/20/2025 9:[address] 06/20/25 09:40 CT SCAN OF THE BRAIN WITHOUT IV CONTRAST CLINICAL HISTORY: Fall. COMPARISON STUDY: No priors TECHNIQUE: Unenhanced axial CT scan of the brain is performed from the vertex to the skull base. Images are reviewed in the axial, sagittal, coronal planes. A dose lowering technique was utilized adhering to the principles of ALARA. FINDINGS: Brain parenchyma: There is age-related involutional change noting moderate subcortical and periventricular microangiopathic disease. There is no hemorrhage, mass effect, or evidence of acute territorial ischemia by CT criteria. Irwin-white matter differentiation is preserved. No extra-axial fluid collection is seen. Ventricles, sulci, cisterns: Prominent secondary to involutional change. Intracranial vasculature: There is atherosclerotic calcification of the cavernous carotid and vertebral arteries. Calvarium: The skeletal structures are osteopenic. No depressed calvarial fracture is seen. Sinuses and mastoids: There is trace mucosal thickening within the frontal, ethmoid, and maxillary sinuses. The mastoid air cells are well pneumatized. Cerumen is noted in the external auditory canals. Orbits: The bony orbits are grossly intact. There are bilateral ocular lens implants. IMPRESSION: There is no hemorrhage, mass effect, or evidence of acute territorial ischemia by CT criteria. ACT 112: Negative or not required by law. Electronically signed by: Joe Weber M.D. 06/20/2025 10:33 AM Discharge Plan Visit Data Chief Complaint: Fall Stated Complaint: FALL, SKIN TEAR TO HEAD ED Provider: Alen Rubio Discharge Problem: Fall, End stage renal disease, Contusion of head Condition: Fair Forms Stand Alone Forms: My [facility] Prescriptions Prescriptions: No Action omeprazole 20 mg capsule,delayed release(DR/EC) 20 mg PO BID Rx Instructions: take 30 min before a meal magnesium oxide 420 mg tablet 420 mg PO DAILY loratadine [Allergy Relief (loratadine)] 10 mg tablet 10 mg PO Q OTHER DAY colchicine 0.6 mg capsule 0.6 mg PO DIRECTED PRN (Reason: gout flare) Rx Instructions: take 1 tablet by mouth every day as directed. take 2 tablets within 12 hours of gout flare, then take 1 tablet 1 hour latermax 3 tablets in 1 hour after the initial tablets on day 1 then starting day #2 take 1 tablet daily for 5 days for gout cholecalciferol (vitamin D3) 25 mcg (1,000 unit) capsule 50 mcg PO DAILY albuterol sulfate 90 mcg/actuation HFA aerosol inhaler 2 puff inhalation QID PRN (Reason: Shortness Of Breath Or Wheezing) doxazosin 4 mg Tablet 8 mg PO BID atorvastatin 80 mg Tablet 80 mg PO HS aspirin 81 mg Tablet,Delayed Release (Dr/Ec) 81 mg PO DAILY gabapentin 300 mg Capsule 300 mg PO BID fluticasone propionate 50 mcg/actuation [place],Suspension 2 spray INTRANASAL DAILY Rx Instructions: administer into each nostril mometasone 220 mcg/ actuation (60) Aerosol Powdr Breath Activated 2 inh INHALATION BID meclizine 12.5 mg Tablet 25 mg PO Q6H PRN (Reason: Vertigo) PreserVision AREDS-2 250-90-40-1 mg Capsule 1 tab PO BID insulin aspart U-100 [Novolog FlexPen U-100 Insulin] 100 unit/mL (3 mL) Insulin Pen 0 unit SUBCUT TIDM Patient Comments: Original Directions: Inject 18 units with each meal. Currently listed as on hold per pt's medication list. No restart date listed. 06/20/2025 guaifenesin 200 mg Tablet 400 mg PO TID PRN (Reason: help thin mucous) carvedilol 25 mg Tablet 37.5 mg PO BID glucose 4 gram Tablet,Chewable 0 g PO DIRECTED PRN (Reason: hypoglycemia ) Patient Comments: Original Directions: Chew 16gm by mouth as needed. Currently listed as on hold, no restart date listed on medication list. 06/20/25 Rx Instructions: Low blood sugar or for blood sugar less than 70 acetaminophen 325 mg Tablet 650 mg PO DAILY PRN (Reason: Pain) glucosamine sulfate [Glucosamine] 500 mg Tablet 500 mg PO DAILY Qty: 0 Patient Comments: "[facility] all [facility] for [facility]" Rx Instructions: dose not listed ascorbic acid (vitamin C) 500 mg Tablet 500 mg PO DAILY nitroglycerin 0.4 mg Tablet, Sublingual 0.4 mg sublingual DIRECTED PRN (Reason: Chest Pain) cinnamon bark [Cinnamon] 500 mg Capsule 1,000 mg PO DAILY amlodipine 10 mg tablet 10 mg PO DAILY carboxymethylcellulose sodium 0.5 % Drops 1 drp OPHTHALMIC (EYE) BID vitamin B complex Tablet 1 tab PO DAILY insulin glargine 100 unit/mL (3 mL) Insulin Pen 50 unit SUBCUT HS bumetanide 2 mg Tablet 2 mg PO 4XWK Patient Comments: Last filled 04/03/25 x60 day supply Rx Instructions: Take on Wednesday, Wednesday, and Wednesday. Do NOT take on Dialysis Days sevelamer carbonate 800 mg tablet 800 mg PO TIDWMEAL Stiolto Respimat 2.5-2.5 mcg/actuation Mist 2 puff INHALATION DAILY Referrals Referrals: Anahi Casanova, [email or web address]. [Primary Care Provider] - Discharge Problem: Fall Qualifiers: Encounter type: initial encounter Qualified Code(s): W19.XXXA - Unspecified fall, initial encounter Contusion of head Qualifiers: Encounter type: initial encounter Contusion of head detail: unspecified part of head Qualified Code(s): S00.93XA - Contusion of unspecified part of head, initial encounter
--- NOTE | 2025-06-20 09:55 | XRay Report ---
XR elbow LT min 3V routine CLINICAL HISTORY: Left elbow pain status post trauma COMPARISON: None FINDINGS: There are vascular calcifications present. There are surgical clips within the volar aspec t the proximal forearm. The fat pads are nondisplaced. No acute fractures are visualized. There are n o dislocations. There is a tiny olecranon spur. There is a corticated ossicle adjacent to the lateral condyle. This is felt to be chronic. IMPRESSION: No acute fractures or dislocations identified. ACT 112: Negative or not required by law. Electronically signed by: Marquise Kumar M.D. 06/20/2025 9:53 AM
--- NOTE | 2025-06-20 10:36 | CT Scan Report ---
CT SCAN OF THE BRAIN WITHOUT IV CONTRAST CLINICAL HISTORY: Fall. COMPARISON STUDY: No priors TECHNIQUE: Unenhanced axial CT scan of the brain is performed from the vertex to the skull base. Imag es are reviewed in the axial, sagittal, coronal planes. A dose lowering technique was utilized adheri ng to the principles of ALARA. FINDINGS: Brain parenchyma: There is age-related involutional change noting moderate subcortical and periventri cular microangiopathic disease. There is no hemorrhage, mass effect, or evidence of acute territorial ischemia by CT criteria. Irwin-white matter differentiation is preserved. No extra-axial fluid collec tion is seen. Ventricles, sulci, cisterns: Prominent secondary to involutional change. Intracranial vasculature: There is atherosclerotic calcification of the cavernous carotid and vertebr al arteries. Calvarium: The skeletal structures are osteopenic. No depressed calvarial fracture is seen. Sinuses and mastoids: There is trace mucosal thickening within the frontal, ethmoid, and maxillary si nuses. The mastoid air cells are well pneumatized. Cerumen is noted in the external auditory canals. Orbits: The bony orbits are grossly intact. There are bilateral ocular lens implants. IMPRESSION: There is no hemorrhage, mass effect, or evidence of acute territorial ischemia by CT crit shaji. ACT 112: Negative or not required by law. Electronically signed by: Joe Weber M.D. 06/20/2025 10:33 AM
[2025-06-20 10:44] LABS: Hematocrit (blood only) 32.0 % (42.0-52.0); Hemoglobin 10.2 g/dl (14.0-18.0); Immature Granulocytes # (auto) 0.03 K/uL (0.01-0.20); Immature Granulocytes % (auto) 0.6 %; Mean Corpuscular Hemoglobin 31.1 pg (25.0-34.0); Mean Corpuscular Volume 97.6 fL (80.0-100.0); Platelet Count 98 K/uL (130-400); RDW Standard Deviation 54.4 fL (36.4-46.3); Red Blood Count 3.28 M/uL (4.70-6.10); White Blood Count 5.28 K/ul (4.8-10.8)
--- NOTE | 2025-06-20 10:47 | CT Scan Report ---
CT cervical spine wo con CT DOSE: 1173.14 mGy.cm CLINICAL HISTORY: 84 years-old Male with fall. Acute neck pain status post fall COMPARISON: Head CT of same day TECHNIQUE: Multiple axial CT images of the cervical spine were obtained without contrast. A dose low ering technique was utilized adhering to the principles of ALARA. Internal partial bony fusion at C2- C3. Multilevel changes include mild to moderate intervertebral disc space narrowing at C5-C6 with mil d to moderate multilevel spondylotic spurring and moderate to severe facet arthrosis. Chronic appeari ng mild wedge deformity without retropulsion at T1. No. Suboptimal evaluation of the central canal and neural foramen by CT technique. Prominent calcified pl aque of the right greater the left carotid bulbs and proximal cervical segments of the internal carot id arteries. Partially imaged dual-lumen right IJ central venous catheter. The cervical soft tissues appear unremarkable. The visualized lung apices appear clear. IMPRESSION: No acute cervical spine fracture or subluxation identified. ACT 112: Negative or not required by law. The above report was generated using voice recognition software. It may contain grammatical, syntax o r spelling errors. Electronically signed by: Shan Isabel M.D. 06/20/2025 10:46 AM
[2025-06-20 11:08] LABS: Alanine Aminotransferase 14.0 U/L (7-52); Albumin Globulin Ratio 1.3 (0.9-2); Alkaline Phosphatase 81.0 U/L (34-104); Anion Gap 7.0 (3-11); Bilirubin,Total 0.5 mg/dl (0.2-1.0); Blood Urea Nitrogen 54.0 mg/dl (6-23); Calcium 9.1 mg/dl (8.6-10.3); Carbon Dioxide 26.0 mmol/L (21-32); Chloride 106.0 mmol/L (98-107); Creatinine Clr Calc Pharmacy 12.6 ml/min; Globulin 3.0 gm/dl (2.5-4.0); Glucose 193.0 mg/dl (70-99(Fasting)); Lipase 36.0 U/L (11-82); Potassium 5.5 mmol/L (3.5-5.1); Sodium 139.0 mmol/L (136-145); Total Protein 6.9 gm/dl (6.0-8.3)
[2025-06-20] MEDS ORDERED: ALBUTEROL HFA 8 GM INHALER INH PRN (12:55)
[2025-06-20] MEDS ORDERED: GLUCOSE 10 TAB/TUBE PO PRN ×2 (12:55→14:08)
--- NOTE | 2025-06-20 13:13 | History & Physical Report ---
Date of Service June 20, 2025 Assessment & Plan (1) End stage renal disease: (2) Dyspnea: (3) Hypoxemia: (4) Fall: (5) Contusion of head: (6) BPH (benign prostatic hyperplasia): (7) Vitamin D deficiency: (8) Urinary retention: (9) Elbow pain, left: Plan Fall/contusion of head - Slurred speech, photosensitivity, vertigo, and resolved tinnitus potentially post-concussive syndrome related - Fall appears to be mechanical, patient believes he rolled out of bed, no chest pain/palpitations/headache/dizziness prior to fall - PT/OT consults ordered, appreciate recs End stage renal disease/Urinary retention/anemia - K+: 5.5, Cr: 5.52, eGFR: 9 on admission - Patient typically gets dialysis M/W/F outpatient, did not receive today due to fall - Nephrology consulted recommendations appreciated; plan for dialysis today - BMP/CBC QAM Dyspnea/hypoxemia - While in ED patient desatted to 88% on RA - Patient on 2L NC and O2 sat at 95% currently - CXR: pulmonary vascular congestion and cardiomegaly w/o pneumothorax, overt pulmonary edema or pleural effusions. Mild bibasilar atelectasis present - Likely SOB and hypoxemia will improve after dialysis, infectious etiology unlikely with CXR results, lack of leukocytosis and productive cough - Titrate O2 to sustain O2 sat >90% L. Elbow pain - Reports pain on flexion and extension of L. arm, believes took some impact from fall on L. elbow - XR L. elbow: negative for fracture or dislocation - No areas of erythema or bruising, re-evaluate pain in AM Chronic conditions: T2DM- Pharmacy glycemic consult ordered; typically uses 20 units bolus TID and 50 units basal QHS HTN - amlodipine 10mg PO daily HLD - Lipitor 80mg PO daily BPH- Doxazosin History of Present Illness Chief Complaint: Fall, head trauma Primary Care Provider: Anahi Frankhaydee Tsang" is a 84 y/o M with a past medical history of end stage renal disease, urinary retention, cholecystitis, BPH, HFpEF, HTN, HLD, CABG, ischemic cardiomyopathy, T2DM and hx of bacteremia arriving to the ED after a fall with head trauma. Patient reports that he woke up this morning around 5am on the floor and believes he may have still been half asleep when he rolled off the bed and hit the left side of his head on the edge of an open drawer of a bedside night-stand. Patient also reports that he hit his L. elbow during this fall and has some discomfort when he flexes and extends his L. arm. Patient denies loss of consciousness but does report waking up on the floor, potentially from impact of his fall. Patient typically gets regular dialysis treatment on Wednesday, Wednesday, and Wednesday and when he was seen outpatient he was recommended to skip his dialysis treatment today and proceed to the [facility] ED for evaluation after his recent fall. Patient has a small 2 cm open scalp wound with mild surrounding bruising and erythema. Patient endorses headache, dizziness, lightheaded, light sensitivity, and some residual vertigo after his recent fall. Patient does have some slurred speech, but this could potentially be patient's baseline. Patient is alert and oriented to place, name, season, year, , and current president but is slow to respond to these questions. Patient is afebrile and hemodyn amically stable. Patient denies chest pain, palpitations, cough, abdominal pain, nausea, vomiting, fevers and chills. Patient does endorse dry mouth and feeling SOB. ED course: CBC: Mild anemia, Hgb: 10.2; however baseline in - with end-stage renal dysfunction CMP: K+: 5.5, Cr: 5.52, eGFR: 9, Glucose: 193 LFTs and other data wnl CT head: No hemorrhage, mass effect, or acute ischemic changes CT cervical spine: No acute abnormalities XR L. elbow: No acute fracture or dislocation Allergies Allergy/AdvReac Type Severity Reaction Status Date / Time strawberry Allergy Intermediate hives Verified 06/20/25 12:37 Home Medications Medication Instructions Recorded Confirmed Type colchicine 0.6 mg capsule 0.6 mg PO DIRECTED PRN gout 05/22/21 06/20/25 History flare loratadine 10 mg tablet (Allergy 10 mg PO Q OTHER DAY 05/22/21 06/20/25 History Relief (loratadine)) magnesium oxide 420 mg tablet 420 mg PO DAILY 05/22/21 06/20/25 History omeprazole 20 mg capsule,delayed 20 mg PO BID 05/22/21 06/20/25 History release aspirin 81 mg tablet,delayed 81 mg PO DAILY 11/29/22 09/03/25 History release atorvastatin 80 mg tablet 80 mg PO HS 09/15/22 06/20/25 History doxazosin 4 mg tablet 8 mg PO BID 09/15/22 06/20/25 History fluticasone propionate 50 2 spray intranasal DAILY 09/15/22 06/20/25 History mcg/actuation nasal spray,suspension gabapentin 300 mg capsule 300 mg PO BID 09/15/22 06/20/25 History guaifenesin 200 mg tablet 400 mg PO TID PRN help thin mucous 09/15/22 06/20/25 History insulin aspart U-100 100 unit/mL 0 unit subcut TIDM 09/15/22 06/20/25 History (3 mL) subcutaneous pen (Novolog FlexPen U-100 Insulin aspart) meclizine 12.5 mg tablet 25 mg PO Q6H PRN Vertigo 09/15/22 06/20/25 History mometasone 220 mcg/actuation(60 2 inh inhalation BID 09/15/22 06/20/25 History doses) breath activated powder inhaler vit C 250 mg-vit E 90 mg-zinc 40 1 tab PO BID 09/15/22 06/20/25 History mg-copper 1 wi-irgond-zwljmo capsule (PreserVision AREDS-2) carvedilol 25 mg tablet 37.5 mg PO BID 01/19/24 06/20/25 History glucose 4 gram chewable tablet 0 g PO DIRECTED PRN hypoglycemia 01/19/24 06/20/25 History albuterol sulfate 90 mcg/actuation 2 puff inhalation QID PRN 02/14/24 06/20/25 History aerosol inhaler Shortness Of Breath Or Wheezing cholecalciferol (vitamin D3) 25 50 mcg PO DAILY 02/14/24 06/20/25 History mcg (1,000 unit) capsule acetaminophen 325 mg tablet 650 mg PO DAILY PRN Pain 12/14/24 06/20/25 History amlodipine 10 mg tablet 10 mg PO DAILY 12/14/24 06/20/25 History ascorbic acid (vitamin C) 500 mg 500 mg PO DAILY 12/14/24 06/20/25 History tablet carboxymethylcellulose sodium 0.5 1 drp ophthalmic (eye) BID 12/14/24 06/20/25 History % eye drops cinnamon bark 500 mg capsule 1,000 mg PO DAILY 12/14/24 06/20/25 History (Cinnamon) glucosamine sulfate 500 mg tablet 500 mg PO DAILY ##0 12/14/24 06/20/25 History (Glucosamine) nitroglycerin 0.4 mg sublingual 0.4 mg sublingual DIRECTED PRN 12/14/24 06/20/25 History tablet Chest Pain insulin glargine 100 unit/mL (3 50 unit subcut HS 03/29/25 06/20/25 History mL) subcutaneous pen vitamin B complex 1 tab PO DAILY 03/29/25 06/20/25 History bumetanide 2 mg tablet 2 mg PO 4XWK 06/20/25 06/20/25 History sevelamer carbonate 800 mg tablet 800 mg PO TIDWMEAL 06/20/25 06/20/25 History tiotropium 2.5 mcg-olodaterol 2.5 2 puff inhalation DAILY 06/20/25 06/20/25 History mcg/actuation mist for inhalation (Stiolto Respimat) Past Med/Surg History Problem List (Updated 06/20/25 @ 15:27 by Rosas Devine DO) Elbow pain, left Hypoxemia Contusion of head (Acute) Fall (Acute) S/P vascular surgery End stage renal disease (Acute) Dyspnea (Acute) Congestive heart failure (Acute) Urinary retention (Acute) Vitamin D deficiency BPH (benign prostatic hyperplasia) Age-related macular degeneration Vertigo Blindness Medical History Pulmonary hypertension mild to moderate on 2023 cardiac cath Thrombocytopenia Plt count 115,000 04/03/25 Hx of gout Osteoarthritis Chronic back pain Degenerative disc disease Poor historian Heartburn diet related. On anticoagulant therapy Depression "situational" Hx of vertigo chronic, denies change or worsening Legally blind On home oxygen therapy 2lpm via with exertion SOB (shortness of breath) on exertion chronic, denies change or worsening Hx of non-ST elevation myocardial infarction (NSTEMI) not listed in cardio records-pt unsure of additional details-states was at least several years ago Hemodialysis patient M-W-F in [place] - follows with Dr. Ching Presence of permanent central venous catheter right chest wall for hemodialysis-patient states has left arm restriction End stage chronic kidney disease follows with [facility] Anemia T2DM (type 2 diabetes mellitus) Chronic heart failure with preserved ejection fraction Chronic indwelling Berg catheter BPH loc w urin obs/LUTS Cardiomyopathy Insulin dependent diabetes mellitus COPD (chronic obstructive pulmonary disease) stable per pt; last rescue inhaler use this morning-typically uses rescue inhaler every day Hyperlipidemia Hypertension Coronary artery disease s/p CABG x 2 2003 Macular degeneration Surgical History History of surgery right ankle History of cystoscopy History of esophagogastroduodenoscopy (EGD) History of tonsillectomy S/P TURP "some kind of prostate surgery to open it up to go to the bathroom" -- no longer effective ([facility]-unsure of date ~) History of cardiac cath ~Nov 2024 at the [facility] - per patient "there are some blockages but they won't put stents in and will not do surgery, trying to treat with medication" History of colonoscopy Hx of CABG pt unsure of date (20+ years??) unsure of the number of vessels Hx of cholecystectomy 01/29/2014 Family History Other No family history of adverse response to anesthesia Social History Smoking Status: Never smoker Tobacco Type: Cigarettes Second Hand Exposure: No; Do You Dip or Chew Tobacco: No; Hx Alcohol Use: No Hx Substance Use: No Preferred Language: Hungarian Communication Ability: Impaired Communication Ability Comment: unable to read due to his macular degeneration + legally blind. Visual Impairment: Limited Hearing Ability: Normal Technology Solutions Architect Required: No Beliefs That Will Affect Care: None marital status: Single Current Living Situation: Alone Current Living Situation Comment: [place] caregiver through [place] current occupational status: retired How many Children do You have: 2 Feels Safe at Home: Yes Diet: diabetic caffeine: Yes Physical Activity Frequency: Does not Exercise Do you think of yourself as: straight/heterosexual Gender Identity: Male Assistive Devices: Cane, Glasses and Walker Physical Exam Physical Exam: General: patient resting comfortably, NAD, non-toxic in appearance, answers questions appropriately. Skin: warm, dry, intact HEENT: NC/AT, anicteric sclera, conjunctiva without injection, moist mucus membranes. L. scalp head trauma with 2 cm open wound and mild surrounding erythema and bruising. Heart: +S1/S2, regular, no m/r/g Lungs: diminished but equal air entry bilaterally, no rhonchi/wheezes Abd: +BS, soft, NT/ND Ext: warm, no clubbing/cyanosis or edema Neuro: nonfocal, speech intact, no facial droop, moving all extremities. Results & Data Results & Data Vital Signs (Past 12 Hours) Vital Signs Temp Pulse Pulse Resp BP BP Pulse Ox 06/20/25 12:30 64 20 143/74 H 95 06/20/25 10:56 69 06/20/25 10:30 63 18 162/94 H 93 06/20/25 09:40 06/20/25 09:36 36.9 C 63 18 141/107 H 96 O2 Del Method 06/20/25 12:30 Room Air 06/20/25 10:56 06/20/25 10:30 Room Air 06/20/25 09:40 Room Air 06/20/25 09:36 Room Air Code Status & VTE Plan VTE Prophylaxis Plan VTE Prophylaxis will be ordered: Yes Supervising Physician Co-Signing Physician Notes ATTESTATION I also saw the patient and confirmed fields portions of the history and exam. I agree with the impression and plan in the resident documentation, and as anneliesei benito below. I also discussed the case with nephrology. I saw the patient in the HD unit. Tired -it's been a long day. Notes headache and some photophobia - neither present before his fall. EXAM Vital signs stable. Speech is clear. Alert and oriented. CV regular Respirations non labored. DATA Labs HgB 10.2, plt 98 Na 139, potassium 5.5, BUN 54, Cr 5.[address] negative CT spine negative XR left elbow negative IMPRESSION & PLAN Fall ESRD on HD HD today PT/OT Additional per resident documentation Resident Activity Tracking Resident Involvement: Resident Care Provided Care Provided: Adult Hospital Medicine (4) Fall Encounter type: initial encounter Qualified Code(s): W19.XXXA - Unspecified fall, initial encounter (5) Contusion of head Contusion of head detail: unspecified part of head Encounter type: initial encounter Qualified Code(s): S00.93XA - Contusion of unspecified part of head, initial encounter
[2025-06-20] MEDS ORDERED: GLUCOSE 40% GEL 15 GM TUBE PO PRN (14:08)
[2025-06-20] MEDS ORDERED: CARBOHYDRATES FOR HYPOGLYCEMIA PO PRN (14:08)
[2025-06-20] MEDS ORDERED: PHARMACY GLYCEMIC MGMT CONSULT PRN (14:08)
[2025-06-20] MEDS ORDERED: GLUCAGON FOR INJ 1 MG VIAL SQ PRN (14:08)
[2025-06-20] MEDS ORDERED: DEXTROSE 50% 50 ML SYRINGE IV PRN (14:08)
[2025-06-20] MEDS ORDERED: NITROGLYCERIN SL 0.4 MG/TAB TAB SL PRN (14:50)
--- NOTE | 2025-06-20 15:05 | XRay Report ---
XR chest 1V portable HISTORY: 84 years-old Male Desaturation to 88% on RA COMPARISON: 04/03/2025 TECHNIQUE: AP view of the chest FINDINGS: Cardiac silhouette is enlarged. Right IJ dual-lumen hemodialysis catheter noted with distal tip in th e expected location of the upper SVC. Atherosclerosis of the aorta. Median sternotomy wires. Pulmonar y vascular congestion without pneumothorax, large pleural effusion, or overt pulmonary edema. Mild mills bsegmental bibasilar atelectasis. Bones appear grossly intact. IMPRESSION: Cardiomegaly with vascular congestion. ACT 112: Negative or not required by law. The above report was generated using voice recognition software. It may contain grammatical, syntax o r spelling errors. Electronically signed by: Shan Isabel M.D. 06/20/2025 3:04 PM
[2025-06-20] MEDS ORDERED: COLCHICINE 0.6 MG TAB PO PRN (15:16)
--- NOTE | 2025-06-20 16:04 | Pharmacy Report ---
Pharmacy Glycemic Short Note 2 - Date of Service June 20, 2025 - Glycemic Short BSG Results (Last 24 hours): 06/20/25 09:59 Glucose 193 H OUTPATIENT ANTIDIABETIC REGIMEN: * Lantus 50 units SC HS * Novolog 18 units SC AC (per outpatient med list, this medication has been on hold) HbA1c: * 7.2% (04/03/25) ASSESSMENT: * 84 yo M admitted on 06/20/25 secondary to a fall. Pharmacy has been consulted to assist with inpatient glycemic management. Patient is a Type 2 diabetic as an outpatient. Please refer to outpatient regimen and most recent HbA1c above. * Patient has ESRD and is on HD on Wednesday, Wednesday, and Wednesday. Not certain but appears patient did not have dialysis today. Ordered a T2DM diet to start this evening. No other stressors. * Will base inpatient insulin regimen on previous admission data. Patient had BSGs below goal with 20 units SC BID of basal insulin in December of this year. Postprandial BSGs were well controlled with carb ratio of 8. * Will give a one time dose of 20 units basal for now. Plan to start 10-15 units SC BID tomorrow morning. PLAN FOR INPATIENT GLYCEMIC CONTROL: * Basal insulin * Lantus 20 units SC x 1 now stat * Lantus 10 units SC BID starting tomorrow AM * Bolus insulin * NovoLog per scale ACHS or Q6hrs while NPO * Goal Range: Low 110 mg/dL - High 140 mg/dL * Correction Factor: 25 mg/dL/unit * Nutritional / Prandial insulin per carb ratio of 1 unit per 8 grams CHO consumed
--- NOTE | 2025-06-20 17:18 | Nephrology Consultation ---
Date of Consultation June 20, 2025 Assessment & Plan (1) End stage renal disease: HD MWF at [facility] under the care of Dr. Ching. Last treatment Wednesday. Presented to the hospital with hyperkalemia and volume overload necessitating emergent dialysis. Orders for HD were entered into the EHR and discussed with the steam hand. Patient was seen and evaluated during treatment. Rx 3.75 hrs FX CorAL 80 450/800 3K 2.5Ca 140Na 32HCO3. EDW 107 kg. IDWG excessive. Medications are appropriate for kidney function. Renal diet. Recheck serum metabolic profile in the AM. Document I/Os. Daily morning weights. (2) Hypoxemia: Volume overloaded. UF with HD as tolerated. (3) Fall: CT head reassuring. No ICB. Heparin held with HD. PT/OT consultation pending. (4) Hemodialysis patient: TDC function well. AVF maturing for use. (5) Anemia: Chronic, stable. ETHAN therapy has not been required. History of Present Illness Reason for Consultation: ESRD on HD Requesting Physician: Sean Pires DO Attending Physician: Sean Pires DO History of Present Illness Mr. Mc Garcia is an 84 year-old male with ESRD attributed to DKD and CRS. He dialyzes on a MWF schedule at [facility]. Ga is maintained on IHD. Ga completed his last dialysis treatment on June 18. Dialysis has been without complications. IDWG consistently excessive. Large UF goals reasonably tolerated with some intradialytic cramping. Ga left dialysis at 107.8 kg on Wednesday. EDW 107 kg. He presented to the dialysis unit today after sustaining a fall from bed this AM. He was evaluated by Dr. Ching prior to his scheduled treatment. Ga had a large scalp laceration and mental status changes. He was referred to the ED for evaluation. He did not receive outpatient hemodialysis. I discussed the patient's recent history with Dr. Ching and staff from [facility] today. I also discussed the patient and plan of care with Dr. Rubio in the ER and Dr. Pires (the admitting hospitalist). Thankfully, no acute neurologic concerns were identified. CT was unrevealing. Laboratory evaluation was notable for hyperkalemia and Ga was found to be volume overloaded. He was admitted for emergent hemodialysis. The patient was seen and evaluated during his hemodialysis treatment this evening. He is tolerating dialysis well. Medical history is notable for AODM, macular degeneration with legal blindness, peripheral neuropathy, ASCVD (CABG 2002), HTN, COPD, BPH with indwelling Berg, hyperlipidemia, and gout. IJ TDC placed December [address] Hwang. [place] BC AVF created April 2025. AVF has not been used for treatment pending vascular follow up. TDC functioning well. No complaints or concerns reported by Ga at this time. Allergies Allergy/AdvReac Type Severity Reaction Status Date / Time strawberry Allergy Intermediate hives Verified 06/20/25 12:37 Home Medications Medication Instructions Recorded Confirmed Type colchicine 0.6 mg capsule 0.6 mg PO DIRECTED PRN gout 05/22/21 06/20/25 History flare loratadine 10 mg tablet (Allergy 10 mg PO Q OTHER DAY 05/22/21 06/20/25 History Relief (loratadine)) magnesium oxide 420 mg tablet 420 mg PO DAILY 05/22/21 06/20/25 History omeprazole 20 mg capsule,delayed 20 mg PO BID 05/22/21 06/20/25 History release aspirin 81 mg tablet,delayed 81 mg PO DAILY 09/15/22 06/20/25 History release atorvastatin 80 mg tablet 80 mg PO HS 09/15/22 06/20/25 History doxazosin 4 mg tablet 8 mg PO BID 09/15/22 06/20/25 History fluticasone propionate 50 2 spray intranasal DAILY 09/15/22 06/20/25 History mcg/actuation nasal spray,suspension gabapentin 300 mg capsule 300 mg PO BID 09/15/22 06/20/25 History guaifenesin 200 mg tablet 400 mg PO TID PRN help thin mucous 09/15/22 06/20/25 History insulin aspart U-100 100 unit/mL 0 unit subcut TIDM 09/15/22 06/20/25 History (3 mL) subcutaneous pen (Novolog FlexPen U-100 Insulin aspart) meclizine 12.5 mg tablet 25 mg PO Q6H PRN Vertigo 09/15/22 06/20/25 History mometasone 220 mcg/actuation(60 2 inh inhalation BID 09/15/22 06/20/25 History doses) breath activated powder inhaler vit C 250 mg-vit E 90 mg-zinc 40 1 tab PO BID 09/15/22 06/20/25 History mg-copper 1 [id number] capsule (PreserVision AREDS-2) carvedilol 25 mg tablet 37.5 mg PO BID 01/19/24 06/20/25 History glucose 4 gram chewable tablet 0 g PO DIRECTED PRN hypoglycemia 01/19/24 06/20/25 History albuterol sulfate 90 mcg/actuation 2 puff inhalation QID PRN 02/14/24 06/20/25 History aerosol inhaler Shortness Of Breath Or Wheezing cholecalciferol (vitamin D3) 25 50 mcg PO DAILY 02/14/24 06/20/25 History mcg (1,000 unit) capsule acetaminophen 325 mg tablet 650 mg PO DAILY PRN Pain 12/14/24 06/20/25 History amlodipine 10 mg tablet 10 mg PO DAILY 12/14/24 06/20/25 History ascorbic acid (vitamin C) 500 mg 500 mg PO DAILY 12/14/24 06/20/25 History tablet carboxymethylcellulose sodium 0.5 1 drp ophthalmic (eye) BID 12/14/24 06/20/25 History % eye drops cinnamon bark 500 mg capsule 1,000 mg PO DAILY 12/14/24 06/20/25 History (Cinnamon) glucosamine sulfate 500 mg tablet 500 mg PO DAILY ##0 12/14/24 06/20/25 History (Glucosamine) nitroglycerin 0.4 mg sublingual 0.4 mg sublingual DIRECTED PRN 12/14/24 06/20/25 History tablet Chest Pain insulin glargine 100 unit/mL (3 50 unit subcut HS 03/29/25 06/20/25 History mL) subcutaneous pen vitamin B complex 1 tab PO DAILY 03/29/25 06/20/25 History bumetanide 2 mg tablet 2 mg PO 4XWK 06/20/25 06/20/25 History sevelamer carbonate 800 mg tablet 800 mg PO TIDWMEAL 06/20/25 06/20/25 History tiotropium 2.5 mcg-olodaterol 2.5 2 puff inhalation DAILY 06/20/25 06/20/25 History mcg/actuation mist for inhalation (Stiolto Respimat) Patient History Medical History Pulmonary hypertension mild to moderate on 2023 cardiac cath Thrombocytopenia Plt count 115,000 04/03/25 Hx of gout Osteoarthritis Chronic back pain Degenerative disc disease Poor historian Heartburn diet related. On anticoagulant therapy Depression "situational" Hx of vertigo chronic, denies change or worsening Legally blind On home oxygen therapy 2lpm via with exertion SOB (shortness of breath) on exertion chronic, denies change or worsening Hx of non-ST elevation myocardial infarction (NSTEMI) not listed in cardio records-pt unsure of additional details-states was at least several years ago Hemodialysis patient M-W-F in [place] - follows with Dr. Ching Presence of permanent central venous catheter right chest wall for hemodialysis-patient states has left arm restriction End stage chronic kidney disease follows with [facility] [place] [facility] Anemia T2DM (type 2 diabetes mellitus) Chronic heart failure with preserved ejection fraction Chronic indwelling Berg catheter BPH loc w urin obs/LUTS Cardiomyopathy Insulin dependent diabetes mellitus COPD (chronic obstructive pulmonary disease) stable per pt; last rescue inhaler use this morning-typically uses rescue inhaler every day Hyperlipidemia Hypertension Coronary artery disease s/p CABG x 2 2003 Macular degeneration Surgical History History of surgery right ankle History of cystoscopy History of esophagogastroduodenoscopy (EGD) History of tonsillectomy S/P TURP "some kind of prostate surgery to open it up to go to the bathroom" -- no longer effective ([facility]-unsure of date ~) History of cardiac cath ~Oct/Nov 2024 at the [facility] - per patient "there are some blockages but they won't put stents in and will not do surgery, trying to treat with medication" History of colonoscopy Hx of CABG pt unsure of date (20+ years??) unsure of the number of vessels Hx of cholecystectomy 01/29/2014 Family History Other No family history of adverse response to anesthesia Social History Smoking Status: Never smoker Tobacco Type: Cigarettes Second Hand Exposure: No; Do You Dip or Chew Tobacco: No; Hx Alcohol Use: No Hx Substance Use: No Preferred Language: Amharic Communication Ability: Impaired Communication Ability Comment: unable to read due to his macular degeneration + legally blind. Visual Impairment: Limited Hearing Ability: Normal Book Shelver Required: No Beliefs That Will Affect Care: None marital status: Single Current Living Situation: Alone Current Living Situation Comment: Has [facility] current occupational status: retired How many Children do You have: 2 Feels Safe at Home: Yes Diet: diabetic caffeine: Yes Physical Activity Frequency: Does not Exercise Do you think of yourself as: straight/heterosexual Gender Identity: Male Assistive Devices: Cane, Glasses and Walker Review of Systems Review of Systems: All systems reviewed & are unremarkable except as noted in HPI & below Physical Exam Constitutional: well developed; no acute distress Eyes: no scleral abnormality and no corneal abnormality ENMT: Mouth: no oral mucosal abnormality and oral mucous membranes not dry Neck: normal visual inspection and trachea midline Respiratory: normal respiratory effort Auscultation: lungs clear to auscultation bilaterally Cardiovascular: Rate/Rhythm: regular rate Heart Sounds: normal S1 and normal S2 Extremities: + edema and + AV fistula Musculoskeletal: Extremities: no cyanosis and no clubbing Skin: normal turgor; no lesions Neurologic: Motor/Sensory: no tremor and no asterixis Results & Data Vital Signs (Past 12 Hours) Vital Signs Temp Pulse Pulse Resp BP BP Pulse Ox 06/20/25 16:00 67 137/71 06/20/25 15:42 63 132/74 06/20/25 15:40 36.4 C L 06/20/25 14:58 63 06/20/25 14:30 62 14 166/69 H 95 06/20/25 14:16 88 L 06/20/25 12:30 64 20 143/74 H 95 06/20/25 10:56 69 06/20/25 10:30 63 18 162/94 H 93 06/20/25 09:40 06/20/25 09:36 36.9 C 63 18 141/107 H 96 O2 Del Method O2 Flow Rate 06/20/25 16:00 06/20/25 15:42 06/20/25 15:40 06/20/25 14:58 06/20/25 14:30 Nasal Cannula 2 06/20/25 14:16 Room Air, Nasal Cannula 0 06/20/25 12:30 Room Air 06/20/25 10:56 06/20/25 10:30 Room Air 06/20/25 09:40 Room Air 06/20/25 09:36 Room Air Laboratory Results Laboratory Results - last 24 hr 06/20/25 09:59 WBC 5.28 RBC 3.28 L Hgb 10.2 L Hct 32.0 L MCV 97.6 MCH 31.1 MCHC 31.9 L RDW Std Deviation 54.4 H RDW Coeff of [place] 15.3 H Plt Count 98 L MPV 12.3 Immature Gran % (Auto) 0.6 Neut % (Auto) 63.6 Lymph % (Auto) 19.1 [place] % (Auto) 13.1 Eos % (Auto) 3.0 Baso % (Auto) 0.6 Neut # (Auto) 3.36 Lymph # (Auto) 1.01 L [place] # (Auto) 0.69 H Eos # (Auto) 0.16 Baso # (Auto) 0.03 Immature Gran # (Auto) 0.03 Sodium 139 Potassium 5.5 H Chloride 106 Carbon Dioxide 26 Anion Gap 7 BUN 54 H Creatinine 5.52 H* Est Cr Clr Drug Dosing 12.6 eGFR 9.67 BUN/Creatinine Ratio 9.8 L Glucose 193 H Calcium 9.1 Total Bilirubin 0.5 AST 11 L ALT 14 Alkaline Phosphatase 81 Total Protein 6.9 Albumin 3.9 Globulin 3.0 Albumin/Globulin Ratio 1.3 Lipase 36 Diagnostic Findings XR chest 1V portable COMPARISON: 04/03/2025 TECHNIQUE: AP view of the chest FINDINGS: Cardiac silhouette is enlarged. Right IJ dual-lumen hemodialysis catheter noted with distal tip in the expected location of the upper SVC. Atherosclerosis of the aorta. Median sternotomy wires. Pulmonary vascular congestion without pneumothorax, large pleural effusion, or overt pulmonary edema. Mild subs egmental bibasilar atelectasis. Bones appear grossly intact. IMPRESSION: Cardiomegaly with vascular congestion. PG Care Time/CCT Total # of Minutes Spent Total Time Spent with Patient: Total time spent is greater than 50% in coordination of care (as documented) at patient's floor/unit and/or counseling patient: Coding Level of Care Code 31700 IN/OBS CONSULT LVL 5,80M Diagnoses End stage renal disease N18.6 Hypoxemia R09.02 Fall W19.XXXA Encounter type: initial encounter Hemodialysis patient Z99.2 Anemia D64.9 Anemia type: unspecified type (3) Fall Encounter type: initial encounter Qualified Code(s): W19.XXXA - Unspecified fall, initial encounter (5) Anemia Anemia type: unspecified type Qualified Code(s): D64.9 - Anemia, unspecified
[2025-06-20] MEDS: INSULIN ASPART PER UNIT CHARGE SC SCH (20:37)
[2025-06-20] MEDS: LANTUS PER UNIT CHARGE SC ONE (20:38)
[2025-06-20] MEDS: ATORVASTATIN 40 MG TAB PO SCH (21:59)
[2025-06-20] MEDS: GABAPENTIN 300 MG CAP PO SCH (21:59)
[2025-06-20] MEDS: SEVELAMER CARBONATE 800 MG TAB PO SCH (22:00)
[2025-06-20] MEDS: HEPARIN SOD 5,000 UNIT/0.5 ML VIAL SC SCH (22:06)
[2025-06-20] MEDS: ACETAMINOPHEN 500 MG TAB PO PRN (23:05)
[2025-06-21 06:20] LABS: Hematocrit (blood only) 30.7 % (42.0-52.0); Hemoglobin 10.0 g/dl (14.0-18.0); Immature Granulocytes # (auto) 0.02 K/uL (0.01-0.20); Immature Granulocytes % (auto) 0.4 %; Mean Corpuscular Hemoglobin 31.3 pg (25.0-34.0); Mean Corpuscular Volume 95.9 fL (80.0-100.0); Platelet Count 102 K/uL (130-400); RDW Standard Deviation 52.1 fL (36.4-46.3); Red Blood Count 3.20 M/uL (4.70-6.10); White Blood Count 4.48 K/ul (4.8-10.8)
[2025-06-21 07:02] LABS: Anion Gap 8.0 (3-11); Blood Urea Nitrogen 27.0 mg/dl (6-23); Calcium 9.0 mg/dl (8.6-10.3); Carbon Dioxide 26.0 mmol/L (21-32); Chloride 106.0 mmol/L (98-107); Creatinine Clr Calc Pharmacy 18.0 ml/min; Glucose 107.0 mg/dl (70-99(Fasting)); Potassium 4.7 mmol/L (3.5-5.1); Sodium 140.0 mmol/L (136-145)
[2025-06-21] MEDS: MAGNESIUM OXIDE 400 MG TAB PO SCH (08:00)
[2025-06-21] MEDS: BUMETANIDE 1 MG TAB PO SCH (08:00)
[2025-06-21] MEDS: CHOLECALCIFEROL 25 MCG (1000 UNITS) TAB PO SCH (08:00)
[2025-06-21] MEDS: UMECLIDINIUM/VILANTEROL 62.5/25MCG 7 PUFFS/INHALER INH SCH (08:00)
[2025-06-21] MEDS: ASPIRIN 81 MG ECTAB PO SCH (08:00)
[2025-06-21] MEDS: LORATADINE 10 MG TAB PO SCH (08:00)
--- NOTE | 2025-06-21 08:08 | Hospitalist Progress Note ---
Date of Service June 21, 2025 Assessment & Plan (1) End stage renal disease: (2) Dyspnea: (3) Hypoxemia: (4) Fall: (5) Contusion of head: (6) BPH (benign prostatic hyperplasia): (7) Vitamin D deficiency: (8) Urinary retention: (9) Elbow pain, left: Plan Fall/contusion of head - Slurred speech, photosensitivity, vertigo, and resolved tinnitus potentially post-concussive syndrome related - Fall appears to be mechanical, patient believes he rolled out of bed, no chest pain/palpitations/headache/dizziness prior to fall - Wound care ordered to clean and dress small healing head wound - PT/OT consults ordered, determine rehab needs End stage renal disease/Urinary retention/anemia - K+: 5.5, Cr: 5.52, BUN: 54, eGFR: 9 on admission - Patient typically gets dialysis M/W/F outpatient, did not receive today due to fall - Nephrology consulted recommendations appreciated; plan for dialysis today - After dialysis session on Wednesday 06/20 3.3L removed and patient is back to dry weight of 107kg, weight gain between dialysis sessions likely from loose fluid restriction at home, patient endorses that he frequently eats soup. - Typically gets urinary catheter changed once per month, changed today as patient was due for a catheter change - K+: 4.7, Cr.: 3.70, BUN: 27, eGFR: 18 post dialysis - BMP/CBC QAM Dyspnea/hypoxemia - While in ED patient desatted to 88% on RA - Patient on 2L NC and O2 sat at 95% currently - CXR: pulmonary vascular congestion and cardiomegaly w/o pneumothorax, overt pulmonary edema or pleural effusions. Mild bibasilar atelectasis present - Likely SOB and hypoxemia will improve after dialysis, infectious etiology unlikely with CXR results, lack of leukocytosis and productive cough - Titrate O2 to sustain O2 sat >90% L. Elbow pain - Reports pain on flexion and extension of L. arm, believes took some impact from fall on L. elbow - XR L. elbow: negative for fracture or dislocation - No areas of erythema or bruising, re-evaluate pain in AM - resolved Chronic conditions: T2DM- Pharmacy glycemic consult ordered; typically uses 20 units bolus TID and 50 units basal QHS HTN - amlodipine 10mg PO daily HLD - Lipitor 80mg PO daily BPH - Doxazosin Peripheral neuropathy: Change Gabapentin 300 BID to 300mg post dialysis // due to ESRD Gout: Colchicine 0.6mg PRN changed to Colchicine 0.6mg PRN for gout flare, should not exceed more than 1 dose per 2 weeks Admission and Anticipated Discharge Date Admission Date: June 20, 2025 Supervising Physician Co-Signing Physician Notes ATTESTATION I also saw the patient and confirmed fields portions of the history and exam. I agree with the impression and plan in the resident documentation, and as summarized below. Sleeping but awakens to voice. Much more talkative this morning. EXAM Vital signs stable. Speech is clear. Alert and oriented. CV regular Respirations non labored. DATA Labs HgB 10, plt 102 Na 140, potassium 4.7, BUN 27, Cr 3.[address] head negative CT spine negative XR left elbow negative IMPRESSION & PLAN Fall ESRD on HD PT/OT pending; if no needs, could be discharged today Change gabapentin from 300 mg TID to 300 mg -- after HD. [facility]ab[facility], who may not be aware that patient is now on HD Additional per resident documentation Subjective Mc Garcia is feeling well this AM and feels better than he did the day prior. When conversing with patient he is much more coherent without dizziness, lightheadedness, or feeling unstable. Patient does report some photophobia, but this is his baseline from his hx of macular degeneration. Patient does report chronic body soreness and reports that this is not worse than his baseline today. Otherwise patient is afebrile and hemodynamically stable. Patient reports that his baseline oxygen needs are up to 3L of O2 during exertion without oxygen typically needed at rest. Today, patient does endorse that he uses up to Patient's case was discussed with Dr. Randhawa from the Nephrology team amenable to dialysis in the hospital if patient remains inpatient on Wednesday, otherwise dialysis can be done outpatient if he is d/c after PT/OT evaluation. Patient remains afebrile and hemodynamically stable. Physical Exam Physical Exam: General: patient resting comfortably, NAD, non-toxic in appearance, answers questions appropriately. Skin: warm, dry, intact HEENT: NC/AT, anicteric sclera, conjunctiva without injection, moist mucus membranes. L. scalp head trauma with 2 cm open wound and mild surrounding erythema and bruising. Heart: +S1/S2, regular, no m/r/g Lungs: diminished but equal air entry bilaterally, no rhonchi/wheezes Abd: +BS, soft, NT/ND Ext: warm, no clubbing/cyanosis or edema Neuro: nonfocal, speech intact, no facial droop, moving all extremities. Results & Data Results & Data Vital Signs (Past 12 Hours) Vital Signs Temp Pulse Pulse Pulse Resp BP Pulse Ox 06/21/25 07:48 36.3 C L 65 18 151/64 H 94 06/21/25 06:45 63 06/21/25 02:51 72 06/21/25 02:48 37.1 C 63 18 146/72 H 93 06/20/25 23:08 72 06/20/25 23:08 06/20/25 23:08 36.6 C 75 75 18 171/68 H 95 06/20/25 22:33 36.4 C L 69 18 151/69 H 97 O2 Del Method O2 Flow Rate 06/21/25 07:48 Nasal Cannula 2 06/21/25 06:45 06/21/25 02:51 06/21/25 02:48 Nasal Cannula 1 06/20/25 23:08 06/20/25 23:08 Nasal Cannula 2 06/20/25 23:08 Nasal Cannula 2 06/20/25 22:33 Nasal Cannula 2 Resident Activity Tracking Resident Involvement: Resident Care Provided Care Provided: Adult Hospital Medicine (4) Fall Encounter type: initial encounter Qualified Code(s): W19.XXXA - Unspecified fall, initial encounter (5) Contusion of head Contusion of head detail: unspecified part of head Encounter type: initial encounter Qualified Code(s): S00.93XA - Contusion of unspecified part of head, initial encounter
[2025-06-21] MEDS: LANTUS PER UNIT CHARGE SC SCH ×2 (08:45→21:13)
--- NOTE | 2025-06-21 09:14 | Nephrology Progress Note ---
Date of Service June 21, 2025 Assessment & Plan (1) End stage renal disease: Plan: HD MWF at [facility] under the care of Dr. Ching. Rx 3.75 hrs FX CorAL 80 450/800 3K 2.5Ca 140Na 32HCO3. EDW 107 kg. Adequate clearance and UF with treatment yesterday. BP and volume status are acceptable. Electrolytes normal. Next HD planned for tomorrow. Ga can resume his outpatient HD schedule at [facility] if discharged. No change to Rx. Medications are appropriate for kidney function. Renal diet. Advised to limit fluid intake and sodium. (2) Hypoxemia: Plan: Presented with volume overload. Large IDWG remains a concern. Ga reports that the eats a lot of soup at home. Dietitian to follow up with patient at [facility]. Volume status acceptable this AM. Next HD treatment tomorrow. (3) Fall: Plan: PT/OT consultation pending. (4) Hemodialysis patient: Plan: TDC function well. AVF maturing for use. (5) Anemia: Plan: Chronic, stable. ETHAN therapy has not been required. Admission and Anticipated Discharge Date Admission Date: June 20, 2025 Subjective No acute events overnight. Ga tolerated dialysis well yesterday. No complications with treatment. He feels reasonably well this AM. He does not endorse any dyspnea. He does not endorse pain. I discussed the patient and plan of care with Dr. Devine of the hospitalist program. Review of Systems Review of Systems: All systems reviewed & are unremarkable except as noted in HPI & below Physical Exam Constitutional: well developed; no acute distress Neck: normal visual inspection, trachea midline and + thick neck Respiratory: normal respiratory effort Auscultation: lungs clear to auscultation bilaterally Cardiovascular: Rate/Rhythm: regular rate Heart Sounds: normal S1 and normal S2 Extremities: + edema and + AV fistula Musculoskeletal: Extremities: no cyanosis and no clubbing Skin: normal turgor; no jaundice Neurologic: Motor/Sensory: no tremor and no asterixis Results & Data Vital Signs (Past 12 Hours) Vital Signs Temp Pulse Pulse Pulse Resp BP Pulse Ox 06/21/25 07:48 36.3 C L 65 18 151/64 H 94 06/21/25 06:45 63 06/21/25 02:51 72 06/21/25 02:48 37.1 C 63 18 146/72 H 93 06/20/25 23:08 72 06/20/25 23:08 06/20/25 23:08 36.6 C 75 75 18 171/68 H 95 06/20/25 22:33 36.4 C L 69 18 151/69 H 97 O2 Del Method O2 Flow Rate 06/21/25 07:48 Nasal Cannula 2 06/21/25 06:45 06/21/25 02:51 06/21/25 02:48 Nasal Cannula 1 06/20/25 23:08 06/20/25 23:08 Nasal Cannula 2 06/20/25 23:08 Nasal Cannula 2 06/20/25 22:33 Nasal Cannula 2 Laboratory Results Laboratory Results - last 24 hr 06/20/25 06/20/25 06/21/25 09:59 20:21 05:38 WBC 5.28 4.48 L RBC 3.28 L 3.20 L Hgb 10.2 L 10.0 L Hct 32.0 L 30.7 L MCV 97.6 95.9 MCH 31.1 31.3 MCHC 31.9 L 32.6 RDW Std Deviation 54.4 H 52.1 H RDW Coeff of [place] 15.3 H 14.7 H Plt Count 98 L 102 L MPV 12.3 12.4 Immature Gran % (Auto) 0.6 0.4 Neut % (Auto) 63.6 57.6 Lymph % (Auto) 19.1 23.7 [place] % (Auto) 13.1 13.8 Eos % (Auto) 3.0 3.8 Baso % (Auto) 0.6 0.7 Neut # (Auto) 3.36 2.58 Lymph # (Auto) 1.01 L 1.06 L [place] # (Auto) 0.69 H 0.62 H Eos # (Auto) 0.16 0.17 Baso # (Auto) 0.03 0.03 Immature Gran # (Auto) 0.03 0.02 Sodium 139 140 Potassium 5.5 H 4.7 Chloride 106 106 Carbon Dioxide 26 26 Anion Gap 7 8 BUN 54 H 27 H D Creatinine 5.52 H* 3.70 H D Est Cr Clr Drug Dosing 12.6 18.0 eGFR 9.67 15.63 BUN/Creatinine Ratio 9.8 L 7.3 L Glucose 193 H 107 H POC Glucose 96 Calcium 9.1 9.0 Total Bilirubin 0.5 AST 11 L ALT 14 Alkaline Phosphatase 81 Total Protein 6.9 Albumin 3.9 Globulin 3.0 Albumin/Globulin Ratio 1.3 Lipase 36 06/21/25 07:26 WBC RBC Hgb Hct MCV MCH MCHC RDW Std Deviation RDW Coeff of [place] Plt Count MPV Immature Gran % (Auto) Neut % (Auto) Lymph % (Auto) Stephen[place] % (Auto) Eos % (Auto) Baso % (Auto) Neut # (Auto) Lymph # (Auto) Stephen[place] # (Auto) Eos # (Auto) Baso # (Auto) Immature Gran # (Auto) Sodium Potassium Chloride Carbon Dioxide Anion Gap BUN Creatinine Est Cr Clr Drug Dosing eGFR BUN/Creatinine Ratio Glucose POC Glucose 124 H Calcium Total Bilirubin AST ALT Alkaline Phosphatase Total Protein Albumin Globulin Albumin/Globulin Ratio Lipase PG Care Time/CCT Total # of Minutes Spent Total Time Spent with Patient: Total time spent is greater than 50% in coordination of care (as documented) at patient's floor/unit and/or counseling patient: Coding Level of Care Code 82629 SUB INP/OBS CARE 35MIN Diagnoses End stage renal disease N18.6 Hypoxemia R09.02 Fall W19.XXXA Encounter type: initial encounter Hemodialysis patient Z99.2 Anemia D64.9 Anemia type: unspecified type (3) Fall Encounter type: initial encounter Qualified Code(s): W19.XXXA - Unspecified fall, initial encounter (5) Anemia Anemia type: unspecified type Qualified Code(s): D64.9 - Anemia, unspecified
--- NOTE | 2025-06-21 13:48 | Pharmacy Report ---
Pharmacy Glycemic Short Note 2 - Date of Service June 21, 2025 - Glycemic Short BSG Results (Last 24 hours): 06/20/25 06/21/25 06/21/25 20:21 05:38 07:26 Glucose 107 H POC Glucose 96 124 H 06/21/25 12:06 Glucose POC Glucose 177 H OUTPATIENT ANTIDIABETIC REGIMEN: * Lantus 50 units SC HS * Novolog 18 units SC AC (per outpatient med list, this medication has been on hold) HbA1c: * 7.2% (04/03/25) ASSESSMENT: 06/21 * Fasting BSG 124 mg/dL - will trail Lantus 10-15 units bid, continue same CF/CR 06/20 * 84 yo M admitted on 06/20/25 secondary to a fall. Pharmacy has been consulted to assist with inpatient glycemic management. Patient is a Type 2 diabetic as an outpatient. Please refer to outpatient regimen and most recent HbA1c above. * Patient has ESRD and is on HD on Wednesday, Wednesday, and Wednesday. Not certain but appears patient did not have dialysis today. Ordered a T2DM diet to start this evening. No other stressors. * Will base inpatient insulin regimen on previous admission data. Patient had BSGs below goal with 20 units SC BID of basal insulin in December of this year. Postprandial BSGs were well controlled with carb ratio of 8. * Will give a one time dose of 20 units basal for now. Plan to start 10-15 units SC BID tomorrow morning. PLAN FOR INPATIENT GLYCEMIC CONTROL: * Basal insulin * Lantus 10-15 units SC BID * Bolus insulin * NovoLog per scale ACHS or Q6hrs while NPO * Goal Range: Low 110 mg/dL - High 140 mg/dL * Correction Factor: 25 mg/dL/unit * Nutritional / Prandial insulin per carb ratio of 1 unit per 8 grams CHO consumed
[2025-06-21] MEDS: BACITRACIN OINT 14 GM TUBE EXT ONE (15:55)
[2025-06-22 04:54] LABS: Hematocrit (blood only) 30.0 % (42.0-52.0); Hemoglobin 9.9 g/dl (14.0-18.0); Immature Granulocytes # (auto) 0.01 K/uL (0.01-0.20); Immature Granulocytes % (auto) 0.2 %; Mean Corpuscular Hemoglobin 31.1 pg (25.0-34.0); Mean Corpuscular Volume 94.3 fL (80.0-100.0); Platelet Count 96 K/uL (130-400); RDW Standard Deviation 50.8 fL (36.4-46.3); Red Blood Count 3.18 M/uL (4.70-6.10); White Blood Count 5.16 K/ul (4.8-10.8)
[2025-06-22 05:11] LABS: Anion Gap 8.0 (3-11); Blood Urea Nitrogen 45.0 mg/dl (6-23); Calcium 9.0 mg/dl (8.6-10.3); Carbon Dioxide 26.0 mmol/L (21-32); Chloride 105.0 mmol/L (98-107); Creatinine Clr Calc Pharmacy 13.0 ml/min; Glucose 85.0 mg/dl (70-99(Fasting)); Potassium 4.6 mmol/L (3.5-5.1); Sodium 139.0 mmol/L (136-145)
--- NOTE | 2025-06-22 08:04 | Discharge Summary ---
Date of Service June 22, 2025 Admission HPI Per Admitting Provider Mc Tsang" is a 84 y/o M with a past medical history of end stage renal disease, urinary retention, cholecystitis, BPH, HFpEF, HTN, HLD, CABG, ischemic cardiomyopathy, T2DM and hx of bacteremia arriving to the ED after a fall with head trauma. Patient reports that he woke up this morning around 5am on the floor and believes he may have still been half asleep when he rolled off the bed and hit the left side of his head on the edge of an open drawer of a bedside night-stand. Patient also reports that he hit his L. elbow during this fall and has some discomfort when he flexes and extends his L. arm. Patient denies loss of consciousness but does report waking up on the floor, potentially from impact of his fall. Patient typically gets regular dialysis treatment on Wednesday, Wednesday, and Wednesday and when he was seen outpatient he was recommended to skip his dialysis treatment today and proceed to the [facility] ED for evaluation after his recent fall. Patient has a small 2 cm open scalp wound with mild surrounding bruising and erythema. Patient endorses headache, dizziness, lightheaded, light sensitivity, and some residual vertigo after his recent fall. Patient does have some slurred speech, but this could potentially be patient's baseline. Patient is alert and oriented to place, name, season, year, , and current president but is slow to respond to these questions. Patient is afebrile and hemod ynamically stable. Patient denies chest pain, palpitations, cough, abdominal pain, nausea, vomiting, fevers and chills. Patient does endorse dry mouth and feeling SOB. ED course: CBC: Mild anemia, Hgb: 10.2; however baseline in -10 with end-stage renal dysfunction CMP: K+: 5.5, Cr: 5.52, eGFR: 9, Glucose: 193 LFTs and other data wnl CT head: No hemorrhage, mass effect, or acute ischemic changes CT cervical spine: No acute abnormalities XR L. elbow: No acute fracture or dislocation Admission Exam Per Admitting Provider General: patient resting comfortably, NAD, non-toxic in appearance, answers questions appropriately. Skin: warm, dry, intact HEENT: NC/AT, anicteric sclera, conjunctiva without injection, moist mucus membranes. L. scalp head trauma with 2 cm open wound and mild surrounding erythema and bruising. Heart: +S1/S2, regular, no m/r/g Lungs: diminished but equal air entry bilaterally, no rhonchi/wheezes Abd: +BS, soft, NT/ND Ext: warm, no clubbing/cyanosis or edema Neuro: nonfocal, speech intact, no facial droop, moving all extremities. Principal Diagnosis Fall w/ head trauma Discharge Exam General: patient resting comfortably, NAD, non-toxic in appearance, answers questions appropriately. Skin: warm, dry, intact HEENT: NC/AT, anicteric sclera, conjunctiva without injection, moist mucus membranes. L. scalp head trauma with 2 cm open wound and mild surrounding erythema and bruising. Heart: +S1/S2, regular, no m/r/g Lungs: diminished but equal air entry bilaterally, no rhonchi/wheezes Abd: +BS, soft, NT/ND Ext: warm, no clubbing/cyanosis or edema Neuro: nonfocal, speech intact, no facial droop, moving all extremities. Discharge Data Allergies Allergy/AdvReac Type Severity Reaction Status Date / Time strawberry Allergy Intermediate hives Verified 06/20/25 12:37 Consultations 06/20/25 11:40 ED Decision to Admit Stat 06/20/25 14:08 Consult Nephrology Routine Ordered Studies 06/20/25 09:40 CT cervical spine wo con Stat CT head/brain wo con Stat Hospital Course (1) End stage renal disease: (2) Dyspnea: (3) Hypoxemia: (4) Fall: (5) Contusion of head: (6) BPH (benign prostatic hyperplasia): (7) Vitamin D deficiency: (8) Urinary retention: (9) Elbow pain, left: Plan Fall/contusion of head - Slurred speech, photosensitivity, vertigo, and resolved tinnitus potentially post-concussive syndrome related - Fall appears to be mechanical, patient believes he rolled out of bed, no chest pain/palpitations/headache/dizziness prior to fall - Wound care ordered to clean and dress small healing head wound - PT/OT consults ordered, recommend return to home once medically stable End stage renal disease/Urinary retention/anemia - K+: 5.5, Cr: 5.52, BUN: 54, eGFR: 9 on admission - Patient typically gets dialysis M/W/ outpatient, did not receive today due to fall - Nephrology consulted recommendations appreciated; plan for dialysis today - After dialysis session on Wednesday 06/20 3.3L removed and patient is back to dry weight of 107kg, weight gain between dialysis sessions likely from loose fluid restriction at home, patient endorses that he frequently eats soup. - Typically gets urinary catheter changed once per month, changed today as patient was due for a catheter change - K+: 4.7, Cr.: 3.70, BUN: 27, eGFR: 18 post dialysis - Inpatient dialysis completed today 06/22, continue // schedule at outpatient [facility] location on d/c Dyspnea/hypoxemia - While in ED patient desatted to 88% on RA - Patient on 2L NC and O2 sat at 95% currently - CXR: pulmonary vascular congestion and cardiomegaly w/o pneumothorax, overt pulmonary edema or pleural effusions. Mild bibasilar atelectasis present - Likely SOB and hypoxemia will improve after dialysis, infectious etiology unlikely with CXR results, lack of leukocytosis and productive cough - Titrate O2 to sustain O2 sat >90%, now on RA - Hypoxemia at rest resolved, typically uses up to 3L O2 at home with exertion L. Elbow pain - Reports pain on flexion and extension of L. arm, believes took some impact from fall on L. elbow - XR L. elbow: negative for fracture or dislocation - No areas of erythema or bruising, re-evaluate pain in AM - resolved Chronic conditions: T2DM- Pharmacy glycemic consult ordered; typically uses 20 units bolus TID and 50 units basal QHS HTN - amlodipine 10mg PO daily HLD - Lipitor 80mg PO daily BPH - Continue Doxazosin Peripheral neuropathy: Change Gabapentin 300 BID to 300mg post dialysis /W/ due to ESRD Gout: Colchicine 0.6mg PRN changed to Colchicine 0.6mg PRN for gout flare, should not exceed more than 1 dose per 2 weeks Total Time Total Time Spent Total Time Spent (In Minutes): See attending attestation Discharge Plan Discharge Items Patient Disposition: Home - Home Health Services Reason For Visit: FALL, HEAD TRAUMA Discharge Diagnosis: Fall Condition on Discharge: Fair Activity: Per Instructions section Non-emergency contact: Primary Care Provider and Nurse Substance Abuse Call non-emergency contact if: your symptoms worsen and your pain is not controlled Follow-up/Referrals: Anahi Casanova C.R.N.P. [Primary Care Provider] - Diet: Heart Healthy, Low Potassium (2gm) and Low Sodium (2gm) Addtl Attending Provider Instructions: You were admitted to the hospital for a recent fall with head trauma. Imaging completed at the time showed no acute abnormalities or evidence of bleeding in the head. As you typically receive outpatient dialysis on Wednesday, Wednesday, and Wednesday we completed inpatient dialysis Wednesday 06/20 and Friday 06/22. Please continue this schedule of M/W/F dialysis outpatient at [facility]. 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 Ching upon discharge. A few of your medications have been changed due to your kidney dysfunction. Primarily your Gabapentin for leg discomfort and Colchicine for your gout flares. Your Gabapentin will now be dosed at 300mg per day after your dialysis sessions, so this medication should only be taken 3 times a week after your M/W/F dialysis sessions. For Colchicine you may take a dose for a gout flare, but please do not take more than 1 dose per 2 weeks. Both of these medications will stay in your system longer as your kidneys are slow to filter them out. Because of this you will have the same affect from these medications at a lower dose and this is the reasoning behind why these doses were reduced. Additionally you should take your Coreg medication (Carvedilol) still twice per day as you have been, but please take with meals to help prevent adverse effects from this medication. Please continue to maintain a low sodium and low potassium diet. You continue to have fluid related weight gain between dialysis sessions, so it will be important to monitor your diet closely and follow all recommendations from your rn new graduate. Try to limit the soup you frequently eat at home as this is potentially one of the reasons for increased fluid accumulation. A discharge summary will be sent to your primary care physician to ensure continuity of care. Please bring this discharge summary with you to your next office appointment so that your provider can review it at that time. Follow-up appointments: Make a follow-up appointment with your PCP within the next week. It is very important that you follow up with them shortly after discharge from the hospital. Medications: Your medication list has been reviewed and reconciled upon discharge to ensure accuracy and continuity of care. An updated list of all your medications is included with your hospital discharge paperwork. Please review this list closely, and make note of any changes. Take your medications as instructed; do not skip a dose of your medicines. Make sure all of your doctors know every medicine you are taking (including pvlf-[id number]-[id number] medicines, vitamins, and supplements). Call your primary care provider before taking any new medicines (including xfxw-sup-zirzgsb medicines, vitamins, and supplements), because some of these may interact with your current medications, or may make your symptoms worse. Tell your primary care provider if you cannot afford your medications. CONTACT YOUR PRIMARY CARE PROVIDER if you experience any of the following: Difficulty following your treatment plan, or difficulty taking medications CALL 911 OR GO TO THE EMERGENCY DEPARTMENT if you experience any of the following: Sudden, severe abdominal pain or nausea/vomiting Severe chest pain, or chest pain that radiates (moves) to your jaw or arm Sudden, severe shortness of breath or difficulty breathing Thank you for allowing us to participate in your care. Pending Studies at Discharge: No Stand-Alone Forms: My [facility] [email or web address], Smoking Cessation Medications and DC Order Prescriptions: New gabapentin 300 mg Capsule 300 mg PO MoWeFr@1600 Qty: 30 0RF carvedilol 12.5 mg Tablet 37.5 mg PO BIDM Qty: 60 0RF Continued omeprazole 20 mg capsule,delayed release(DR/EC) 20 mg PO BID Rx Instructions: take 30 min before a meal magnesium oxide 420 mg tablet 420 mg PO DAILY loratadine [Allergy Relief (loratadine)] 10 mg tablet 10 mg PO Q OTHER DAY cholecalciferol (vitamin D3) 25 mcg (1,000 unit) capsule 50 mcg PO DAILY albuterol sulfate 90 mcg/actuation HFA aerosol inhaler 2 puff inhalation QID PRN (Reason: Shortness Of Breath Or Wheezing) doxazosin 4 mg Tablet 8 mg PO BID atorvastatin 80 mg Tablet 80 mg PO HS aspirin 81 mg Tablet,Delayed Release (Dr/Ec) 81 mg PO DAILY fluticasone propionate 50 mcg/actuation [place],Suspension 2 spray INTRANASAL DAILY Rx Instructions: administer into each nostril mometasone 220 mcg/ actuation (60) Aerosol Powdr Breath Activated 2 inh INHALATION BID meclizine 12.5 mg Tablet 25 mg PO Q6H PRN (Reason: Vertigo) PreserVision AREDS-2 250-90-40-1 mg Capsule 1 tab PO BID insulin aspart U-100 [Novolog FlexPen U-100 Insulin] 100 unit/mL (3 mL) Insulin Pen 0 unit SUBCUT TIDM Patient Comments: Original Directions: Inject 18 units with each meal. Currently listed as on hold per pt's medication list. No restart date listed. 06/20/2025 guaifenesin 200 mg Tablet 400 mg PO TID PRN (Reason: help thin mucous) glucose 4 gram Tablet,Chewable 0 g PO DIRECTED PRN (Reason: hypoglycemia ) Patient Comments: Original Directions: Chew 16gm by mouth as needed. Currently listed as on hold, no restart date listed on medication list. 06/20/25 Rx Instructions: Low blood sugar or for blood sugar less than 70 acetaminophen 325 mg Tablet 650 mg PO DAILY PRN (Reason: Pain) glucosamine sulfate [Glucosamine] 500 mg Tablet 500 mg PO DAILY Qty: 0 Patient Comments: "I gave [facility] list of [facility] medication instructions to [facility] who [facility] all [facility] for me" Rx Instructions: dose not listed ascorbic acid (vitamin C) 500 mg Tablet 500 mg PO DAILY nitroglycerin 0.4 mg Tablet, Sublingual 0.4 mg sublingual DIRECTED PRN (Reason: Chest Pain) cinnamon bark [Cinnamon] 500 mg Capsule 1,000 mg PO DAILY amlodipine 10 mg tablet 10 mg PO DAILY carboxymethylcellulose sodium 0.5 % Drops 1 drp OPHTHALMIC (EYE) BID vitamin B complex Tablet 1 tab PO DAILY insulin glargine 100 unit/mL (3 mL) Insulin Pen 50 unit SUBCUT HS bumetanide 2 mg Tablet 2 mg PO [id number] Patient Comments: Last filled 04/03/25 x60 day supply Rx Instructions: Take on Wednesday, Wednesday, and Wednesday. Do NOT take on Dialysis Days sevelamer carbonate 800 mg tablet 800 mg PO TIDWMEAL Stiolto Respimat 2.5-2.5 mcg/actuation Mist 2 puff INHALATION DAILY colchicine 0.6 mg capsule 0.6 mg PO DIRECTED PRN (Reason: gout flare) Qty: 0 0RF Rx Instructions: take 1 tablet by mouth every day as directed. take 2 tablets within 12 hours of gout flare, then take 1 tablet 1 hour latermax 3 tablets in 1 hour after the initial tablets on day 1 then starting day #2 take 1 tablet daily for 5 days for gout Discontinued gabapentin 300 mg Capsule 300 mg PO BID carvedilol 25 mg Tablet 37.5 mg PO BID Discharge Orders: Discharge Order (Routine); Ordered 06/22/25 Ordered By: Rosas Devine Admission Data Admit Date/Time: 06/20/25 13:11 Attending Provider: Rosalva Juárez Admit Provider: Rosas Devine Primary Care Provider: Anahi Casanova Other Providers: Sean Pires; Vijay Ching; Rozina Flower; Zac Randhawa; Aspen [place]; [facility]; [place] Other Interventions: Discharge Summary Assessment (RN) Last Done: 06/22/25 14:15 Supervising Physician Co-Signing Physician Notes I personally examined the patient and verified fields points of history and exam, discussed case, and agree with decision making and plan documented by Dr. Devine. Patient is an 84-year-old male with a past medical history pertinent for ESRD, HFpEF, HTN, HLD, CAD s/p CABG, ischemic cardiomyopathy, and type 2 diabetes on admission after mechanical fall and concussion. Patient appears comfortable, was in dialysis during my exam, lungs clear b/l to auscultation, regular rate and rhythm, no abdominal tenderness, no acute distress. Medications were adjusted, specifically gabapentin dosing was changed to 300 mg postdialysis Wednesday. In addition, patient was recommended to take carvedilol 37.5 mg twice daily with meals and colchicine 0.6 mg recommended as needed for flares with less than 1 dose per 2 weeks. Patient was understanding of these medication changes and will review this with his nurse that comes to his home. Patient was dialyzed during inpatient stay and should resume weekly schedule. Encouraged follow-up with PCP within next week. Total attending time 36 min Resident Activity Tracking Resident Involvement: Resident Care Provided Care Provided: Adult Hospital Medicine
--- NOTE | 2025-06-22 09:33 | Nephrology Progress Note ---
Date of Service June 22, 2025 Assessment & Plan (1) End stage renal disease: Plan: HD MWF at [facility] under the care of Dr. Ching. Rx 3.75 hrs FX CorAL 80 450/800 3K 2.5Ca 140Na 32HCO3. EDW 107 kg. Orders for HD today were entered into the EHR and reviewed with director of curriculum and instruction. Laboratory studies reviewed. 2K bath arranged for treatment. Ga was at his 'dry weight' per standing scale this AM. Will challenge with initial goal of 2.5-3 L UF as tolerated. Ga can resume his outpatient HD schedule at [facility] on Wednesday. No change to Rx. Medications are appropriate for kidney function. Renal diet. Advised to limit fluid intake and sodium. (2) Hypoxemia: Plan: Presented with volume overload which has improved. Will challenge with additional UF during HD as tolerated. Importance of dietary fluid and sodium restriction reviewed with patient this AM. (3) Hemodialysis patient: Plan: TDC function well. AVF maturing for use. Follow up with vascular surgery scheduled for later this month. (4) Anemia: Plan: Chronic, stable. ETHAN therapy has not been required. H/H acceptable this AM. Admission and Anticipated Discharge Date Admission Date: June 20, 2025 Subjective No acute events overnight. Ga was seen and evaluated prior to and at the start of hemodialysis this morning. He feels well and offers no complaints. Ga is planning on returning home after dialysis. He is breathing comfortably. He reports some mild irritation and discomfort following exchange of Berg catheter yesterday but this has improved. Urine is clear. Ga states that he was out of bed yesterday without lightheadedness or dizziness. I discussed the expect plan for discharge with Dr. Juárez and Dr. Devine this AM. Review of Systems Review of Systems: All systems reviewed & are unremarkable except as noted in HPI & below Physical Exam Constitutional: well developed and + morbidly obese; no acute distress ENMT: Mouth: oral mucous membranes not dry Neck: normal visual inspection, trachea midline and + thick neck RIJ TDC Respiratory: normal respiratory effort Auscultation: lungs clear to auscultation bilaterally Cardiovascular: Rate/Rhythm: regular rate Heart Sounds: normal S1 and normal S2 Extremities: + edema and + AV fistula Musculoskeletal: Extremities: no cyanosis and no clubbing Skin: normal turgor; no lesions and no jaundice Neurologic: Motor/Sensory: no tremor and no asterixis Results & Data Vital Signs (Past 12 Hours) Vital Signs Temp Pulse Pulse Resp BP Pulse Ox O2 Del Method 06/22/25 08:10 Room Air 06/22/25 08:10 69 153/72 H 06/22/25 07:17 36.9 C 62 18 177/70 H 92 Room Air 06/22/25 06:45 68 06/22/25 02:53 37.0 C 68 18 145/80 H 91 Room Air 06/21/25 23:01 36.6 C 62 18 143/66 H 94 Room Air 06/21/25 22:14 Room Air 06/21/25 21:49 63 Laboratory Results Laboratory Results - last 24 hr 06/21/25 06/21/25 06/21/25 12:06 16:59 20:32 WBC RBC Hgb Hct MCV MCH MCHC RDW Std Deviation RDW Coeff of [place] Plt Count MPV Immature Gran % (Auto) Neut % (Auto) Lymph % (Auto) [place] % (Auto) Eos % (Auto) Baso % (Auto) Neut # (Auto) Lymph # (Auto) [place] # (Auto) Eos # (Auto) Baso # (Auto) Immature Gran # (Auto) Sodium Potassium Chloride Carbon Dioxide Anion Gap BUN Creatinine Est Cr Clr Drug Dosing eGFR BUN/Creatinine Ratio Glucose POC Glucose 177 H 130 H 167 H Calcium Nasal Screen MRSA (PCR) 06/21/25 06/22/25 06/22/25 Unknown 04:09 07:32 WBC 5.16 RBC 3.18 L Hgb 9.9 L Hct 30.0 L MCV 94.3 MCH 31.1 MCHC 33.0 RDW Std Deviation 50.8 H RDW Coeff of [place] 14.6 H Plt Count 96 L MPV 12.6 H Immature Gran % (Auto) 0.2 Neut % (Auto) 56.9 Lymph % (Auto) 25.0 [place] % (Auto) 13.6 Eos % (Auto) 3.7 Baso % (Auto) 0.6 Neut # (Auto) 2.94 Lymph # (Auto) 1.29 [place] # (Auto) 0.70 H Eos # (Auto) 0.19 Baso # (Auto) 0.03 Immature Gran # (Auto) 0.01 Sodium 139 Potassium 4.6 Chloride 105 Carbon Dioxide 26 Anion Gap 8 BUN 45 H Creatinine 5.11 H* D Est Cr Clr Drug Dosing 13.0 eGFR 10.61 BUN/Creatinine Ratio 8.8 L Glucose 85 POC Glucose 101 H Calcium 9.0 Nasal Screen MRSA (PCR) Negative PG Care Time/CCT Total # of Minutes Spent Total Time Spent with Patient: Total time spent is greater than 50% in coordination of care (as documented) at patient's floor/unit and/or counseling patient: Coding Level of Care Code 89517 SUB INP/OBS CARE 3/50MIN Diagnoses End stage renal disease N18.6 Hypoxemia R09.02 Hemodialysis patient Z99.2 Anemia D64.9 Anemia type: unspecified type (4) Anemia Anemia type: unspecified type Qualified Code(s): D64.9 - Anemia, unspecified
[2025-06-22 13:49] VITALS: RESP 19; TEMP 98.4
[2025-06-22] MEDS: GABAPENTIN 300 MG CAP PO SCH (15:00)
[2025-06-22 15:13] VITALS: BP 150/70; PULSE 60; O2SAT 96
== END 2025-06-22 15:43 | disposition home health service (06) | DRG 604 ==
LOC: ED 09:33 → EDINP 13:11 → SUATTDRO 13:11 → EDINP 14:14 → 2N 18:46

== ENCOUNTER 2025-10-03 05:41 | Inpatient (IN) ==
[2025-10-03] MEDS ORDERED: ALBUT/IPRATROP 3MG/0.5MG NEB 3 ML VIAL INH ONE (05:42)
[2025-10-03] MEDS ORDERED: ALBUTEROL 0.083% NEBU SOLN 3 ML VIAL INH ONE (05:42)
[2025-10-03 06:02] LABS: Base Excess VBG -9.1 mEq/L; HCO3 VBG 18 mmol/L; Oxygen Saturation VBG 74.5 %; PCO2 VBG 45 mmHg (38-50); PO2 VBG 44 mmHg; pH VBG 7.22 (7.36-7.41)
[2025-10-03 06:07] LABS: Hematocrit (blood only) 35.9 % (42.0-52.0); Hemoglobin 11.2 g/dL (14.0-18.0); Immature Granulocytes # (auto) 0.04 K/uL (0.01-0.20); Immature Granulocytes % (auto) 0.8 %; Mean Corpuscular Hemoglobin 29.6 pg (25.0-34.0); Mean Corpuscular Volume 95.0 fL (80.0-100.0); Platelet Count 122 K/uL (130-400); RDW Standard Deviation 56.5 fL (36.4-46.3); Red Blood Count 3.78 M/uL (4.70-6.10); White Blood Count 4.98 K/ul (4.8-10.8)
[2025-10-03 06:30] LABS: Alanine Aminotransferase 20.0 U/L (7-52); Albumin Globulin Ratio 1.3 (0.9-2); Albumin Level 3.7 gm/dl (3.4-5.0); Alkaline Phosphatase 99.0 U/L (34-104); Anion Gap 9.0 (3-11); Bilirubin,Total 0.5 mg/dl (0.2-1.0); Blood Urea Nitrogen 103.0 mg/dl (6-23); Calcium 8.4 mg/dl (8.6-10.3); Carbon Dioxide 20.0 mmol/L (21-32); Chloride 113.0 mmol/L (98-107); Creatinine Clr Calc Pharmacy 12.9 ml/min; Globulin 2.9 gm/dl (2.5-4.0); Glucose 118.0 mg/dl (70-99(Fasting)); Potassium 5.6 mmol/L (3.5-5.1); Sodium 142.0 mmol/L (136-145); Total Protein 6.6 gm/dl (6.0-8.3)
[2025-10-03 06:37] LABS: Magnesium 2.1 mg/dl (1.7-2.4)
[2025-10-03] MEDS: ONDANSETRON INJ 2 MG/ML 2 ML VIAL IV STA (06:41)
--- NOTE | 2025-10-03 06:43 | Emergency Department Note ---
Impression & Plan Weakness generalized, Hyperkalemia, Acute on chronic hypoxic respiratory failure, Hypoxemia, End stage renal disease, Congestive heart failure ED Provider Note Provider: Darryn Washburn MD CHIEF COMPLAINT: Short of breath, INGRID, missed dialysis HISTORY OF PRESENT ILLNESS: Patient is a 85-year-old gentleman past medical history of CHF, BPH, end-stage renal disease presenting here today via ambulance from his home. Patient states he lives by himself. Approximately 2 weeks ago he was having issues getting to dialysis and stopped going. . With his time stamp assembler and had discussion about proceeding on hospice. Patient states last several days he has had some diarrhea and feeling achy and fatigued. Worsening shortness of breath and had trouble breathing this morning called the ambulance. Was placed on BiPAP with EMS. States he is quite swollen. Feeling lightheaded but denies any significant fall. States he is still making some urine and he thought that he might be able to go without dialysis. PAST MEDICAL HISTORY: As noted above MEDICATIONS: Reviewed home medications SOCIAL HISTORY: Lives by himself PHYSICAL EXAM: GENERAL: alert and oriented in no acute distress on stretcher on BiPAP Head: normocephalic and atraumatic EYES: No injection, discharge or icterus. EOMI. NECK: Trachea midline. ENT: Mucous membranes pink and moist. LUNGS: Airway patent. No retractions. Breath sounds diminished with crackles in the bases right greater than left HEART: Regular rate and rhythm. No chest wall tenderness with right upper chest tunneled catheter in place ABDOMEN: Moderately distended, without guarding or rebound. SKIN: Acyanotic, warm, dry, without rashes EXTREMITIES: 3+ bilateral lower extremity edema with mild tenderness. NEUROLOGICAL: No focal deficits. No aphasia. No facial droop or slurred speech. EK bpm. Normal sinus rhythm. No PVC or PAC. No acute ST segment elevation with some inferior lateral T wave inversions and QTc of 437. CONTINUOUS CARDIAC MONITORING: was ordered and showed a heart rate of bpm in normal sinus rhythm Patient's laboratory studies and imaging reviewed. Differential includes Infection, dehydration, metabolic abnormality, hypo/hyperglycemia, electrolyte disturbance, anemia, hypoxia, cardiac sources, intracerebral event, toxicologic, neurologic, as well as other pathologies. IMPRESSION/MEDICAL DECISION MAKING: Patient denies significant trauma. Has missed several weeks of dialysis but does still make urine. Seems grossly fluid overloaded on exam and on BiPAP. Chest x-ray completed with evidence of significant right-sided effusion. Mild hyperkalemia K of 5.6 with acidosis noted on blood work. Significant uremia but does not seem encephalopathic or altered at this time. Do not believe we need imaging as he denies any trauma. Given some calcium, insulin, dextrose, and bicarb given his electrolyte abnormalities and mild hyperkalemia. Troponin elevation BNP elevation likely related fluid overload. Discussed with the patient that many of his symptoms seem consistent with missing dialysis and fluid overload related to this as well as uremia. In discussion with him he was agreeable to restart dialysis. He declined comfort measures at this time. Reached out to nephrology on-call as well as the hospitalist for further inpatient care. Tolerating BiPAP well. DIAGNOSIS: Hypoxia, fluid overload, end-stage renal disease, hyperkalemia, uremia DISPOSITION: Hospitalist will evaluate Patient was agreeable with this plan. Critical Care I have personally spent 36 minutes of critical care time in the direct management of this patient. This includes bedside care, interpretation of diagnostic studies, and testing, discussion with consultants, patient, and other required patient management activities. These 36 minutes is in excess of all separately billable procedures. Past Med/Surg History Problem List (Updated 10/03/25 @ 14:46 by JOSE F Portillo) Abdominal pain, generalized Acute metabolic encephalopathy Counseling regarding advanced directives and goals of care Palliative care by specialist Lethargy Weakness generalized Hyperkalemia Acute on chronic hypoxic respiratory failure S/P vascular surgery "it didn't work, that's why im coming back for another surgery" Elbow pain, left Hypoxemia Contusion of head (Acute) Fall (Acute) End stage renal disease (Acute) Dyspnea (Acute) Congestive heart failure (Acute) Urinary retention (Acute) Vitamin D deficiency BPH (benign prostatic hyperplasia) Age-related macular degeneration Vertigo Blindness Medical History Hx of fall (06/20/25) fell out of bed, seen at [facility] er, contusion of head Age-related macular degeneration GERD (gastroesophageal reflux disease) Pulmonary hypertension mild to moderate on 2023 cardiac cath Thrombocytopenia Plt count 96,000 Hx of gout Osteoarthritis Chronic back pain Degenerative disc disease Poor historian did not know medication, for every med listed, states "I suppose"- states he has a nurse that puts the meds in a pill box for him On anticoagulant therapy Depression "situational" Hx of vertigo chronic, denies change or worsening Legally blind On home oxygen therapy 2lpm via [place] when walking SOB (shortness of breath) on exertion chronic, denies change or worsening- wears O2 2L when ambulating Hx of non-ST elevation myocardial infarction (NSTEMI) not listed in cardio records-pt unsure of additional details-states was at least several years ago Hemodialysis patient M-W-F in [place] - follows with Dr. Ching Presence of permanent central venous catheter right chest wall for hemodialysis-patient states has left arm restriction End stage chronic kidney disease [place] [facility] [place] Anemia T2DM (type 2 diabetes mellitus) Chronic heart failure with preserved ejection fraction Chronic indwelling Berg catheter BPH loc w urin obs/LUTS Cardiomyopathy Insulin dependent diabetes mellitus COPD (chronic obstructive pulmonary disease) stable per pt;typically uses rescue inhaler every day- uses daily inhaler x 2- follows with [facility] Hyperlipidemia Hypertension Coronary artery disease s/p CABG x 2 2003 Macular degeneration Surgical History S/P dialysis catheter insertion (12/2024) [facility] History of surgery right ankle History of cystoscopy History of esophagogastroduodenoscopy (EGD) History of tonsillectomy S/P TURP "some kind of prostate surgery to open it up to go to the bathroom" -- no longer effective ([facility]-unsure of date ~) History of cardiac cath ~Nov 2024 at the [facility] - per patient "there are some blockages but they won't put stents in and will not do surgery, trying to treat with medication" History of colonoscopy Hx of CABG (2003) x2 vessel- follows with cardio at [facility] Hx of cholecystectomy (01/29/14) 01/29/2014 Family History Other No family history of adverse response to anesthesia Social History (Updated 10/03/25 @ 11:10 by Wander De Jesus MD) Smoking Status: Former smoker Tobacco Type: Cigarettes Second Hand Exposure: No; Do You Dip or Chew Tobacco: No; Hx Alcohol Use: No Hx Substance Use: No Preferred Language: German Communication Ability: Effective Communication Ability Comment: unable to read due to his macular degeneration + legally blind. Visual Impairment: Limited Hearing Ability: Normal Assistant Cook Required: No Beliefs That Will Affect Care: None marital status: Single marital status details: Current Living Situation: Alone Current Living Situation Comment: caregiver a few times per week and has neighbor that helps out current occupational status: retired current occupation: [employer] How many Children do You have: 2 How many Children do You have Comment: 1 daughter is ; estranged from his only son Feels Safe at Home: Yes Diet: diabetic caffeine: Yes Physical Activity Frequency: Does not Exercise Do you think of yourself as: straight/heterosexual Gender Identity: Male Assistive Devices: Glasses and Oxygen - at Night Allergies Allergies Allergy/AdvReac Type Severity Reaction Status Date / Time strawberry Allergy Intermediate hives Verified 07/24/25 08:00 Home Meds Home Medications Medication Instructions Recorded Confirmed loratadine 10 mg tablet (Allergy 10 mg PO Q OTHER DAY 05/22/21 10/03/25 Relief (loratadine)) magnesium oxide 420 mg tablet 420 mg PO DAILY 05/22/21 10/03/25 omeprazole 20 mg capsule,delayed 20 mg PO BID 05/22/21 10/03/25 release aspirin 81 mg tablet,delayed 81 mg PO DAILY 09/15/22 10/03/25 release atorvastatin 80 mg tablet 80 mg PO HS 09/15/22 10/03/25 doxazosin 4 mg tablet 8 mg PO BID 09/15/22 10/03/25 fluticasone propionate 50 2 spray intranasal DAILY 09/15/22 10/03/25 mcg/actuation nasal spray,suspension guaifenesin 200 mg tablet 400 mg PO TID PRN help thin mucous 09/15/22 10/03/25 insulin aspart U-100 100 unit/mL 5 unit subcut TIDM 09/15/22 10/03/25 (3 mL) subcutaneous pen (Novolog FlexPen U-100 Insulin aspart) meclizine 12.5 mg tablet 25 mg PO Q6H PRN Vertigo 09/15/22 10/03/25 mometasone 220 mcg/actuation(60 2 inh inhalation BID 09/15/22 10/03/25 doses) breath activated powder inhaler vit C 250 mg-vit E 90 mg-zinc 40 1 tab PO BID 09/15/22 10/03/25 mg-copper 1 [id number]-efaxsc capsule (PreserVision AREDS-2) glucose 4 gram chewable tablet 16 g PO DIRECTED PRN 01/19/24 10/03/25 hypoglycemia albuterol sulfate 90 mcg/actuation 2 puff inhalation QID PRN 02/14/24 10/03/25 aerosol inhaler Shortness Of Breath Or Wheezing cholecalciferol (vitamin D3) 25 50 mcg PO DAILY 02/14/24 10/03/25 mcg (1,000 unit) capsule acetaminophen 325 mg tablet 650 mg PO DAILY PRN Pain 12/14/24 10/03/25 amlodipine 10 mg tablet 10 mg PO DAILY 12/14/24 10/03/25 ascorbic acid (vitamin C) 500 mg 500 mg PO DAILY 12/14/24 10/03/25 tablet carboxymethylcellulose sodium 0.5 0 drp ophthalmic (eye) BID 12/14/24 10/03/25 % eye drops cinnamon bark 500 mg capsule 1,000 mg PO DAILY 12/14/24 10/03/25 (Cinnamon) glucosamine sulfate 500 mg tablet 500 mg PO DAILY ##0 12/14/24 10/03/25 (Glucosamine) nitroglycerin 0.4 mg sublingual 0.4 mg sublingual DIRECTED PRN 12/14/24 10/03/25 tablet Chest Pain insulin glargine 100 unit/mL (3 50 unit subcut HS 03/29/25 10/03/25 mL) subcutaneous pen vitamin B complex 1 tab PO DAILY 03/29/25 10/03/25 bumetanide 2 mg tablet 2 mg PO [id number] 06/20/25 10/03/25 sevelamer carbonate 800 mg tablet 800 mg PO TIDWMEAL 06/20/25 10/03/25 tiotropium 2.5 mcg-olodaterol 2.5 2 puff inhalation DAILY 06/20/25 10/03/25 mcg/actuation mist for inhalation (Stiolto Respimat) gabapentin 300 mg capsule 300 mg PO [id number] 07/23/25 10/03/25 lanolin alcohols-mineral 1 applic topical AMHS PRN Dry Skin 10/03/25 10/03/25 oil-w.petrolatum-ceresin topical cream (Eucerin topical cream) oxycodone 5 mg tablet 5 mg PO TID PRN pain 10/03/25 10/03/25 zinc oxide 20 % topical ointment 1 applic topical DAILY 10/03/25 10/03/25 Previous Rx's Medication Instructions Recorded carvedilol 12.5 mg tablet 37.5 mg (3 x 12.5 mg) PO BIDM #60 06/22/25 tabs colchicine 0.6 mg capsule 0.6 mg PO DIRECTED PRN gout 06/22/25 flare #0 caps Results & Data (ED) Vital Signs Vital Signs - 24 hr 10/03/25 05:48 10/03/25 05:50 10/03/25 05:53 Temperature 36.7 C Temperature Source Oral Pulse Rate 94 H 94 H Pulse Rate [Apical] Pulse Rhythm Regular Pulse Rhythm [Apical] Pulse Strength Normal Pulse Strength [Apical] Respiratory Rate 31 H 26 H Respiratory Effort / Characteristics Spontaneous Retracting Short of Breath Tripoding Spontaneous Labored Retracting Short of Breath Respiratory Depth Normal Retractive Respiratory Pattern Tachypnea Tachypnea Tachypnea Blood Pressure 158/76 H Blood Pressure [Right Radial Artery] Blood Pressure Mean 103 Blood Pressure Mean [Right Radial Artery] Blood Pressure Position Sitting Pulse Oximetry 97 98 Oxygen Delivery Method BiPAP BiPAP Fraction of Inspired Oxygen 40 Sepsis Recent Fever Within 48 Hours No Sepsis New/Unexplained Change in Mental Status N/A Sepsis Action Taken by Nursing No Action Required 10/03/25 05:53 10/03/25 05:58 10/03/25 07:05 Temperature Temperature Source Pulse Rate 91 H Pulse Rate [Apical] 95 H Pulse Rhythm Pulse Rhythm [Apical] Regular Pulse Strength Pulse Strength [Apical] Normal Respiratory Rate 17 Respiratory Effort / Characteristics Non-Labored Spontaneous Respiratory Depth Normal Respiratory Pattern Regular Blood Pressure Blood Pressure [Right Radial Artery] 190/118 H Blood Pressure Mean Blood Pressure Mean [Right Radial Artery] 142 Blood Pressure Position Pulse Oximetry 96 Oxygen Delivery Method BiPAP BiPAP Fraction of Inspired Oxygen Sepsis Recent Fever Within 48 Hours Sepsis New/Unexplained Change in Mental Status Sepsis Action Taken by Nursing 10/03/25 07:36 10/03/25 07:50 10/03/25 08:08 Temperature Temperature Source Pulse Rate 94 H Pulse Rate [Apical] 93 H 94 H Pulse Rhythm Pulse Rhythm [Apical] Pulse Strength Pulse Strength [Apical] Respiratory Rate 18 23 18 Respiratory Effort / Characteristics Non-Labored Spontaneous Non-Labored Spontaneous SOB on Exertion Respiratory Depth Normal Normal Respiratory Pattern Regular Regular Blood Pressure Blood Pressure [Right Radial Artery] 193/72 H 174/93 H Blood Pressure Mean Blood Pressure Mean [Right Radial Artery] 112 120 Blood Pressure Position Pulse Oximetry 97 97 97 Oxygen Delivery Method BiPAP BiPAP Fraction of Inspired Oxygen 40 Sepsis Recent Fever Within 48 Hours Sepsis New/Unexplained Change in Mental Status Sepsis Action Taken by Nursing Laboratory Data 10/03/25 05:50 10/03/25 07:36 Lab Results 10/03/25 10/03/25 10/03/25 Range/Units 05:48 05:50 06:05 WBC 4.98 (4.8-10.8) K/ul RBC 3.78 L (4.70-6.10) M/uL Hgb 11.2 L (14.0-18.0) g/dL Hct 35.9 L (42.0-52.0) % MCV 95.0 (80.0-100.0) fL MCH 29.6 (25.0-34.0) pg MCHC 31.2 L (32.0-36.0) g/dL RDW Std Deviation 56.5 H (36.4-46.3) fL RDW Coeff of Mariana 16.1 H (11.5-14.5) % Plt Count 122 L (130-400) K/uL MPV 11.2 (9.4-12.4) fL Immature Gran % (Auto) 0.8 % Neut % (Auto) 81.4 % Lymph % (Auto) 5.8 % [place] % (Auto) 9.2 % Eos % (Auto) 2.6 % Baso % (Auto) 0.2 % Neut # (Auto) 4.05 (1.40-6.50) K/uL Lymph # (Auto) 0.29 L (1.20-3.40) K/uL [place] # (Auto) 0.46 (0.11-0.59) K/uL Eos # (Auto) 0.13 (0.00-0.50) K/uL Baso # (Auto) 0.01 (0.00-0.20) K/uL Immature Gran # (Auto) 0.04 (0.01-0.20) K/uL PT 11.5 (9.0-12.0) Seconds INR 1.1 (0.9-1.1) VBG pH 7.22 L (7.36-7.41) VBG pCO2 45 (38-50) mmHg VBG pO2 44 mmHg VBG HCO3 18 mmol/L VBG O2 Saturation 74.5 % VBG Base Excess -9.1 mEq/L Sodium 142 (136-145) mmol/L Potassium 5.6 H (3.5-5.1) mmol/L Chloride 113 H (98-107) mmol/L Carbon Dioxide 20 L (21-32) mmol/L Anion Gap 9 (3-11) BUN 103 H (6-23) mg/dl Creatinine 5.39 H* (0.6-1.4) mg/dl Est Cr Clr Drug Dosing 12.9 ml/min eGFR 9.89 BUN/Creatinine Ratio 19.1 (10-20) Glucose 118 H (70-99(Fasting)) mg/dl Lactate 0.7 (0.4-2.0) mmol/L Calcium 8.4 L (8.6-10.3) mg/dl Phosphorus 5.0 H (2.5-4.9) mg/dl Magnesium 2.1 (1.7-2.4) mg/dl Total Bilirubin 0.5 (0.2-1.0) mg/dl AST 13 (13-39) U/L ALT 20 (7-52) U/L Alkaline Phosphatase 99 (34-104) U/L Troponin I High Sens 146.9 H* (0-20) pg/ml B-Natriuretic Peptide 792 H (0-100) pg/ml Total Protein 6.6 (6.0-8.3) gm/dl Albumin 3.7 (3.4-5.0) gm/dl Globulin 2.9 (2.5-4.0) gm/dl Albumin/Globulin Ratio 1.3 (0.9-2) Procalcitonin 1.10 H (0-0.5) ng/ml Urine Color Yellow Urine Appearance Clear (Clear) Urine pH 5.0 (4.5-7.5) Ur Specific Orr 1.016 (1.000-1.030) Urine Protein 2+ H (Negative) Urine Glucose (UA) Negative (Negative) Urine Ketones Trace H (Negative) Urine Blood 1+ H (Negative) Urine Nitrite Negative (Negative) Urine Bilirubin Negative (Negative) Urine Urobilinogen Negative (Negative) Ur Leukocyte Esterase 2+ H (Negative) Urine WBC (Auto) 11-20 H (0-5) /hpf Urine RBC (Auto) 6-10 H (0-2) /hpf U Hyaline Cast (Auto) 6-10 H (0-2) /lpf U Epithel Cells (Auto) 0-2 (0-2) /hpf Urine Bacteria (Auto) None Seen (None Seen) Granular Casts Present A (None Prsent) /lpf Urine Comment Adenovirus (PCR) Not Detected (NotDetected) B. pertussis DNA (PCR) Not Detected (NotDetected) B.parapertussis DNA PCR Not Detected (NotDetected) C. pneumoniae DNA (PCR) Not Detected (NotDetected) Coronavirus OC43 (PCR) Not Detected (NotDetected) Coronavirus HKU1 (PCR) Not Detected (NotDetected) Coronavirus 229E (PCR) Not Detected (NotDetected) SARS-CoV-2 (PCR) Not Detected (NotDetected) Coronavirus NL63 (PCR) Not Detected (NotDetected) Hep Bs Antigen Negative (Negative) Hep Bs Antibody Non-Immune Hep Bs Antibody, Quant < 3.00 (>or=10mIU/mL Immune) mIU/mL Human Metapneumovir PCR Not Detected (NotDetected) Influenza Type A (PCR) Not Detected (NotDetected) Influenza Type B (PCR) Not Detected (NotDetected) M. pneumoniae (PCR) Not Detected (NotDetected) Parainfluenza 1 (PCR) Not Detected (NotDetected) Parainfluenza 2 (PCR) Not Detected (NotDetected) Parainfluenza 3 (PCR) Not Detected (NotDetected) Parainfluenza 4 (PCR) Not Detected (NotDetected) RSV (PCR) Not Detected (NotDetected) Entero/Rhino (PCR) Not Detected (NotDetected) 10/03/25 Range/Units 07:36 WBC (4.8-10.8) K/ul RBC (4.70-6.10) M/uL Hgb (14.0-18.0) g/dL Hct (42.0-52.0) % MCV (80.0-100.0) fL MCH (25.0-34.0) pg MCHC (32.0-36.0) g/dL RDW Std Deviation (36.4-46.3) fL RDW Coeff of Mariana (11.5-14.5) % Plt Count (130-400) K/uL MPV (9.4-12.4) fL Immature Gran % (Auto) % Neut % (Auto) % Lymph % (Auto) % [place] % (Auto) % Eos % (Auto) % Baso % (Auto) % Neut # (Auto) (1.40-6.50) K/uL Lymph # (Auto) (1.20-3.40) K/uL [place] # (Auto) (0.11-0.59) K/uL Eos # (Auto) (0.00-0.50) K/uL Baso # (Auto) (0.00-0.20) K/uL Immature Gran # (Auto) (0.01-0.20) K/uL PT (9.0-12.0) Seconds INR (0.9-1.1) VBG pH (7.36-7.41) VBG pCO2 (38-50) mmHg VBG pO2 mmHg VBG HCO3 mmol/L VBG O2 Saturation % VBG Base Excess mEq/L Sodium 143 (136-145) mmol/L Potassium 5.1 (3.5-5.1) mmol/L Chloride 114 H (98-107) mmol/L Carbon Dioxide 21 (21-32) mmol/L Anion Gap 8 (3-11) BUN 99 H (6-23) mg/dl Creatinine 5.07 H* D (0.6-1.4) mg/dl Est Cr Clr Drug Dosing 13.8 ml/min eGFR 10.65 BUN/Creatinine Ratio 19.5 (10-20) Glucose 160 H (70-99(Fasting)) mg/dl Lactate (0.4-2.0) mmol/L Calcium 8.4 L (8.6-10.3) mg/dl Phosphorus (2.5-4.9) mg/dl Magnesium (1.7-2.4) mg/dl Total Bilirubin (0.2-1.0) mg/dl AST (13-39) U/L ALT (7-52) U/L Alkaline Phosphatase (34-104) U/L Troponin I High Sens 135.6 H* (0-20) pg/ml B-Natriuretic Peptide (0-100) pg/ml Total Protein (6.0-8.3) gm/dl Albumin (3.4-5.0) gm/dl Globulin (2.5-4.0) gm/dl Albumin/Globulin Ratio (0.9-2) Procalcitonin (0-0.5) ng/ml Urine Color Urine Appearance (Clear) Urine pH (4.5-7.5) Ur Specific Orr (1.000-1.030) Urine Protein (Negative) Urine Glucose (UA) (Negative) Urine Ketones (Negative) Urine Blood (Negative) Urine Nitrite (Negative) Urine Bilirubin (Negative) Urine Urobilinogen (Negative) Ur Leukocyte Esterase (Negative) Urine WBC (Auto) (0-5) /hpf Urine RBC (Auto) (0-2) /hpf U Hyaline Cast (Auto) (0-2) /lpf U Epithel Cells (Auto) (0-2) /hpf Urine Bacteria (Auto) (None Seen) Granular Casts (None Prsent) /lpf Urine Comment Adenovirus (PCR) (NotDetected) B. pertussis DNA (PCR) (NotDetected) B.parapertussis DNA PCR (NotDetected) C. pneumoniae DNA (PCR) (NotDetected) Coronavirus OC43 (PCR) (NotDetected) Coronavirus HKU1 (PCR) (NotDetected) Coronavirus 229E (PCR) (NotDetected) SARS-CoV-2 (PCR) (NotDetected) Coronavirus NL63 (PCR) (NotDetected) Hep Bs Antigen (Negative) Hep Bs Antibody Hep Bs Antibody, Quant (>or=10mIU/mL Immune) mIU/mL Human Metapneumovir PCR (NotDetected) Influenza Type A (PCR) (NotDetected) Influenza Type B (PCR) (NotDetected) M. pneumoniae (PCR) (NotDetected) Parainfluenza 1 (PCR) (NotDetected) Parainfluenza 2 (PCR) (NotDetected) Parainfluenza 3 (PCR) (NotDetected) Parainfluenza 4 (PCR) (NotDetected) RSV (PCR) (NotDetected) Entero/Rhino (PCR) (NotDetected) Administered Medications Discontinued Medications Albuterol (Albut/Ipratrop 3mg/0.5mg Neb 3 Ml Vial) Confirm Administered Dose 3 ml .ROUTE .STK-MED ONE Stop: 10/03/25 06:00 Last Admin: 10/03/25 09:30 Dose: Not Given Documented By: ELIO Albuterol (Albuterol 0.083% Nebu Soln 3 Ml Vial) Confirm Administered Dose 2.5 mg .ROUTE .STK-MED ONE Stop: 10/03/25 06:00 Last Admin: 10/03/25 09:30 Dose: Not Given Documented By: ELIO Dextrose (Dextrose 50% 50 Ml Syringe) 50 ml IV NOW STA Stop: 10/03/25 06:33 Last Admin: 10/03/25 06:50 Dose: 50 ml Documented By: MAXIM Calcium Gluconate () 1,000 mg in 60 mls @ 240 mls/hr IV Q15M AUDRA Stop: 10/03/25 07:14 Last Infusion: 10/03/25 07:35 Dose: Infused Documented By: Admin: 10/03/25 07:18 Dose: 240 mls/hr Documented By: Infusion: 10/03/25 07:05 Dose: Infused Documented By: Admin: 10/03/25 06:50 Dose: 240 mls/hr Documented By: MAXIM Insulin Human Regular (Novolin-R Insulin Per Unit Charge) 8 units IV NOW STA Stop: 10/03/25 06:33 Last Admin: 10/03/25 06:50 Dose: 8 units Documented By: MAXIM Co-signed By: ELIO Ioversol (Optiray 320 100ml) 94 ml IV ONCE ONE Stop: 10/03/25 08:43 Last Admin: 10/03/25 08:43 Dose: 94 ml Documented By: HUGO Ondansetron HCl (Ondansetron Inj 2 Mg/Ml 2 Ml Vial) 4 mg IV NOW STA Stop: 10/03/25 06:35 Last Admin: 10/03/25 06:41 Dose: 4 mg Documented By: MAXIM Sodium Bicarbonate (Sodium Bicarb 8.4% Inj 50 Meq/50 Ml Syr) 50 meq IV NOW STA Stop: 10/03/25 06:33 Last Admin: 10/03/25 06:52 Dose: 50 meq Documented By: MAXIM Imaging Data Radiologist's Impression: Chest X-Ray 10/03/25 05:45 EXAM: XR chest 1V portable CLINICAL HISTORY: Dyspnea TECHNIQUE: An X-ray image of the chest is obtained in AP projection. COMPARISON: 08/15/2025 CR. FINDINGS: Pulmonary Parenchyma: A right central venous catheter was noted with the tip at the cavoatrial junction. Opacification of the right lower zone suggests mild to moderate pleural effusion with associated atelectatic changes. Unchanged blunting of left CP angle likely small pleural effusion vs thickening. Heart and Mediastinum: Mild cardiomegaly. No mediastinal widening or masses. No hilar or mediastinal lymphadenopathy. Bony Thorax: Sternotomy sutures. Bony thorax appears intact without fractures or deformities. Degenerative changes in bilateral shoulder joints. Soft Tissues: Soft tissues overlying the chest wall are unremarkable. IMPRESSION: 1. A right central venous catheter was noted with the tip at the cavoatrial junction, unchanged. 2. Mild to moderate right pleural effusion with underlying atelectatic changes., New finding. 3. Unchanged blunting of left CP angle likely small pleural effusion vs thickening. 4. Clinical correlation is suggested. Electronically signed by Lior Jamil 10-03-2025 07:40 AM Discharge Plan Visit Data Chief Complaint: Shortness of Breath/Dyspnea Stated Complaint: SOB, Chest Pain ED Provider: Darryn Washburn Discharge Problem: Weakness generalized, Hyperkalemia, Acute on chronic hypoxic respiratory failure, Hypoxemia, End stage renal disease, Congestive heart failure Patient Disposition: Admitted As Inpatient Condition: Serious Discharge Instructions Interventions: ED Discharge Assessment Last Done: 10/03/25 10:31
[2025-10-03] MEDS: CALCIUM GLUCONATE 1,000 MG/60 ML BAG IV SCH (06:50)
[2025-10-03] MEDS: DEXTROSE 50% 50 ML SYRINGE IV STA (06:50)
[2025-10-03] MEDS: NovoLIN-R INSULIN PER UNIT CHARGE IV STA (06:50)
[2025-10-03 06:51] LABS: Appearance Urine Clear (Clear); Bacteria Urine Automated None Seen (None Seen); Epithelial Cell Urine Auto 0-2 /hpf (0-2); Glucose Urine UA Negative (Negative)
[2025-10-03] MEDS: SODIUM BICARB 8.4% INJ 50 MEQ/50 ML SYR IV STA (06:52)
[2025-10-03 06:56] LABS: INR 1.1 (0.9-1.1); Prothrombin Time 11.5 Seconds (9.0-12.0)
--- NOTE | 2025-10-03 07:25 | History & Physical Report ---
Date of Service October 03, 2025 Assessment & Plan (1) Acute on chronic hypoxic respiratory failure: (2) End stage renal disease: (3) BPH (benign prostatic hyperplasia): (4) Chronic indwelling Jovel catheter: (5) Blindness: (6) COPD (chronic obstructive pulmonary disease): (7) Hyperlipidemia: (8) Hypertension: (9) Coronary artery disease: (10) Insulin dependent diabetes mellitus: (11) On home oxygen therapy: (12) Thrombocytopenia: (13) GERD (gastroesophageal reflux disease): (14) Hyperkalemia: (15) Acute metabolic encephalopathy: Plan 85yo male with ESRD on HD M/W/F at the [facility], CAD s/p CABG 2003 at the [facility], h/o NSTEMI, T2DM, hypertension, macular degeneration (blind L eye, 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 Presented from home via EMS after not having the last 2 weeks of HD sessions at his request as he wanted to transition to Hospice. By report he did indeed enroll in Hospice. I confirmed with his sister Anamika that Hospice had been out to his house several times. Last PM he had worsened with his overall status and Anamika stated that Hospice encouraged him to come to the hospital. Anamika stated several times that Mc can't live alone as he cannot care for himself. #acute/chronic hypoxic respiratory failure - -acute component 2nd to volume overload from ESRD and having missed 2 weeks of HD sessions intentionally due to Hospice status -he has a rather large pleural effusion on the right side -I cannot rule out a RLL pneumonia but the right basilar findings are probably compressive atelectasis -cefepime being used to cover the urinary tract will cover the lungs nicely including pseudomonas coverage -cont BIPAP for now -urgent HD will be provided by Dr Randhawa from [facility] - patient did tell the ER attending and myself that he does want HD today -even from a palliative standpoint this will alleviate his dyspnea -no evidence of COPD exacerbation; defer on steroids #ESRD on HD typically Wed/Wed/Wednesday - -stopped 2 weeks ago due to transitioning to Hospice -Dr Yoandy Randhawa from [facility] consulted -patient to receive urgent HD today -- see above -will consult palliative care to determine pt's goals of care moving forward -- does he want to go back on Hospice? if yes - stop HD? #hyperkalemia - -2nd to ESRD and multiple missed HD sessions -s/p calcium & bicarbonate IV along with albuterol in ER -level already improved -HD will control this #chronic jovel catheter - -last exchange uncertain -may have UTI - see below -has had such for at least 1 year #possible catheter-associated UTI - -u/a may be suggestive of UTI -if UTI is present he is at right of pseudomonas, other gram negative pathogens, and gram positives as well -start with cefepime IV -follow blood/urine cx's #right-sided pleural effusion - -suspect 2nd to volume overload from ESRD -can't rule out other factors -would not pursue work-up unless he shifts away from Hospice and wants aggressive measures #flu-like symptoms - -respiratory Biofire sent/pending -if negative, and if he continues with diarrhea, check stool Biofire and c diff -UTI can cause generalized flu-like symptoms #CAD / h/o CABG / troponin elevation - -no evidence of ACS -troponin elevation likely due to myocardial demand ischemia in setting of respiratory failure and volume overload #T2DM - -cut lantus in 1/2 from 50 units/day to 25 units/day -novolog SSI #HTN - -resume home coreg, doxazosin, etc. #macular degeneration with legal blindness - -noted #abdominal distension - -CT a/p with enlarged gas-filled stomach - likely some of such is from aerophagia from BIPAP -also with ascites & body wall edema from his ESRD -can't rule out some distension from bowel issues/enteritis given the recent diarrhea #COPD on home O2 - -try to wean BIPAP down to his usual NC O2 2.5 liters #BPH with LUTS - -cont jovel -cont alpha domenico #thrombocytopenia - -chronic, dating back to earlier in 2024 -etiology uncertain -trend #acute metabolic encephalopathy - -likely multifactorial - acidosis from ESRD, infectious etiologies, hypoxia, etc. care d/w Dr Randhawa from [facility] care d/w pt's sister Anamika by phone History of Present Illness Chief Complaint: "I felt so terrible" Primary Care Provider: Anahi Casanova 85yo male with ESRD on HD M/W/F at the [facility], CAD s/p CABG 2003 at the [facility], h/o NSTEMI, T2DM, hypertension, macular degeneration (blind L eye, 50% visual loss in the right eye), peripheral neuropathy, COPD with 2.5 liters of NC O2 use at home, BPH with urinary obstruction managed with chronic Jovel catheter, hyperlipidemia, gout. Patient presents from home via EMS due to worsening shortness of breath and "feeling badly." During my assessment he has BIPAP on and it was rather difficult to communicate. However, he has had diarrhea for several days, body aches, fevers (uncertain temperature), chills, cough, headache, worsening dyspnea, abdominal distension, nausea, and poor appetite. He last ate a meal about 3-4 days ago. He reports that "hospice was out" to his home recently and "they didn't do anything for me." He was unable to elaborate. A note in his chart dated 09/20/[address] Pasha Ching stated that the patient had elected to stop dialysis treatments and to initiate hosp[facility]. Thus, he has NOT had any HD treatments since early September. When asked why he came to the hospital this am vs other days he simply said "I felt so badly" this morning. Allergies Allergy/AdvReac Type Severity Reaction Status Date / Time strawberry Allergy Intermediate hives Verified 07/24/25 08:00 Home Medications Medication Instructions Recorded Confirmed Type loratadine 10 mg tablet (Allergy 10 mg PO Q OTHER DAY 05/22/21 10/03/25 History Relief (loratadine)) magnesium oxide 420 mg tablet 420 mg PO DAILY 05/22/21 10/03/25 History omeprazole 20 mg capsule,delayed 20 mg PO BID 05/22/21 10/03/25 History release aspirin 81 mg tablet,delayed 81 mg PO DAILY 09/15/22 10/03/25 History release atorvastatin 80 mg tablet 80 mg PO HS 09/15/22 10/03/25 History doxazosin 4 mg tablet 8 mg PO BID 09/15/22 10/03/25 History fluticasone propionate 50 2 spray intranasal DAILY 09/15/22 10/03/25 History mcg/actuation nasal spray,suspension guaifenesin 200 mg tablet 400 mg PO TID PRN help thin mucous 09/15/22 10/03/25 History insulin aspart U-100 100 unit/mL 5 unit subcut TIDM 09/15/22 10/03/25 History (3 mL) subcutaneous pen (Novolog FlexPen U-100 Insulin aspart) meclizine 12.5 mg tablet 25 mg PO Q6H PRN Vertigo 09/15/22 10/03/25 History mometasone 220 mcg/actuation(60 2 inh inhalation BID 09/15/22 10/03/25 History doses) breath activated powder inhaler vit C 250 mg-vit E 90 mg-zinc 40 1 tab PO BID 09/15/22 10/03/25 History mg-copper 1 kg-[id number]-[id number] capsule (PreserVision AREDS-2) glucose 4 gram chewable tablet 16 g PO DIRECTED PRN 01/19/24 10/03/25 History hypoglycemia albuterol sulfate 90 mcg/actuation 2 puff inhalation QID PRN 02/14/24 10/03/25 History aerosol inhaler Shortness Of Breath Or Wheezing cholecalciferol (vitamin D3) 25 50 mcg PO DAILY 02/14/24 10/03/25 History mcg (1,000 unit) capsule acetaminophen 325 mg tablet 650 mg PO DAILY PRN Pain 12/14/24 10/03/25 History amlodipine 10 mg tablet 10 mg PO DAILY 12/14/24 10/03/25 History ascorbic acid (vitamin C) 500 mg 500 mg PO DAILY 12/14/24 10/03/25 History tablet carboxymethylcellulose sodium 0.5 0 drp ophthalmic (eye) BID 12/14/24 10/03/25 History % eye drops cinnamon bark 500 mg capsule 1,000 mg PO DAILY 12/14/24 10/03/25 History (Cinnamon) glucosamine sulfate 500 mg tablet 500 mg PO DAILY ##0 12/14/24 10/03/25 History (Glucosamine) nitroglycerin 0.4 mg sublingual 0.4 mg sublingual DIRECTED PRN 12/14/24 10/03/25 History tablet Chest Pain insulin glargine 100 unit/mL (3 50 unit subcut HS 03/29/25 10/03/25 History mL) subcutaneous pen vitamin B complex 1 tab PO DAILY 03/29/25 10/03/25 History bumetanide 2 mg tablet 2 mg PO [id number] 06/20/25 10/03/25 History sevelamer carbonate 800 mg tablet 800 mg PO TIDWMEAL 06/20/25 10/03/25 History tiotropium 2.5 mcg-olodaterol 2.5 2 puff inhalation DAILY 06/20/25 10/03/25 History mcg/actuation mist for inhalation (Stiolto Respimat) carvedilol 12.5 mg tablet 37.5 mg (3 x 12.5 mg) PO BIDM #60 06/22/25 10/03/25 Rx tabs colchicine 0.6 mg capsule 0.6 mg PO DIRECTED PRN gout 06/22/25 10/03/25 Rx flare #0 caps gabapentin 300 mg capsule 300 mg PO [id number]@1600 07/23/25 10/03/25 History lanolin alcohols-mineral 1 applic topical AMHS PRN Dry Skin 10/03/25 10/03/25 History oil-w.petrolatum-ceresin topical cream (Eucerin topical cream) oxycodone 5 mg tablet 5 mg PO TID PRN pain 10/03/25 10/03/25 History zinc oxide 20 % topical ointment 1 applic topical DAILY 10/03/25 10/03/25 History Past Med/Surg History Problem List (Updated 10/03/25 @ 11:44 by Wander De Jesus MD) Acute metabolic encephalopathy Counseling regarding advanced directives and goals of care Palliative care by specialist Lethargy Weakness generalized Hyperkalemia Acute on chronic hypoxic respiratory failure S/P vascular surgery "it didn't work, that's why im coming back for another surgery" Elbow pain, left Hypoxemia Contusion of head (Acute) Fall (Acute) End stage renal disease (Acute) Dyspnea (Acute) Congestive heart failure (Acute) Urinary retention (Acute) Vitamin D deficiency BPH (benign prostatic hyperplasia) Age-related macular degeneration Vertigo Blindness Medical History Hx of fall (06/20/25) fell out of bed, seen at [facility] er, contusion of head Age-related macular degeneration GERD (gastroesophageal reflux disease) Pulmonary hypertension mild to moderate on 2023 cardiac cath Thrombocytopenia Plt count 96,000 Hx of gout Osteoarthritis Chronic back pain Degenerative disc disease Poor historian did not know medication, for every med listed, states "I suppose"- states he has a nurse that puts the meds in a pill box for him On anticoagulant therapy Depression "situational" Hx of vertigo chronic, denies change or worsening Legally blind On home oxygen therapy 2lpm via NC when walking SOB (shortness of breath) on exertion chronic, denies change or worsening- wears O2 2L when ambulating Hx of non-ST elevation myocardial infarction (NSTEMI) not listed in cardio records-pt unsure of additional details-states was at least several years ago Hemodialysis patient M-W-F in [place] - follows with Dr. Ching Presence of permanent central venous catheter right chest wall for hemodialysis-patient states has left arm restriction End stage chronic kidney disease follows with [facility] Neurology- HD -W- at [place] Anemia T2DM (type 2 diabetes mellitus) Chronic heart failure with preserved ejection fraction Chronic indwelling Jovel catheter BPH loc w urin obs/LUTS Cardiomyopathy Insulin dependent diabetes mellitus COPD (chronic obstructive pulmonary disease) stable per pt;typically uses rescue inhaler every day- uses daily inhaler x 2- follows with [facility] Hyperlipidemia Hypertension Coronary artery disease s/p CABG x 2 2003 Macular degeneration Surgical History S/P dialysis catheter insertion (12/2024) [facility] History of surgery right ankle History of cystoscopy History of esophagogastroduodenoscopy (EGD) History of tonsillectomy S/P TURP "some kind of prostate surgery to open it up to go to the bathroom" -- no longer effective ([facility]-unsure of date ~) History of cardiac cath ~Nov 2024 at the [facility] - per patient "there are some blockages but they won't put stents in and will not do surgery, trying to treat with medication" History of colonoscopy Hx of CABG (2003) x2 vessel- follows with cardio at [facility] Hx of cholecystectomy (01/29/14) 01/29/2014 Family History Other No family history of adverse response to anesthesia Social History (Updated 10/03/25 @ 11:10 by Wander De Jesus MD) Smoking Status: Former smoker Tobacco Type: Cigarettes Second Hand Exposure: No; Do You Dip or Chew Tobacco: No; Hx Alcohol Use: No Hx Substance Use: No Preferred Language: Amharic Communication Ability: Effective Communication Ability Comment: unable to read due to his macular degeneration + legally blind. Visual Impairment: Limited Hearing Ability: Normal [employer] Required: No Beliefs That Will Affect Care: None marital status: Single marital status details: Current Living Situation: Alone Current Living Situation Comment: caregiver a few times per week and has neighbor that helps out current occupational status: retired current occupation: [employer] How many Children do You have: 2 How many Children do You have Comment: 1 daughter is ; estranged from his only son Feels Safe at Home: Yes Diet: diabetic caffeine: Yes Physical Activity Frequency: Does not Exercise Do you think of yourself as: straight/heterosexual Gender Identity: Male Assistive Devices: Glasses and Oxygen - at Night Review of Systems Review of Systems: gen - subjective fevers and chills; poor appetite for several days eyes - legally blind HENT - no URI symptoms CV - "had some pain when by breathing got bad"; none today; +edema of legs pulm - ongoing dyspnea, COONEY, cough GI - bloating, nausea - but no vomiting; last stool? - chronic jovel "for about a year" musculo - body aches "everywhere" neuro - headache (frontal) skin - no rash Physical Exam Physical Exam: gen - looks ill, laying in bed with BIPAP in place, answers questions but confused & poor historian eyes - pinpoint pupils b/l, worse on right HENT - MM very dry neck - no obvious JVD, ?supraclavicular node on right, no goiter heart - RRR, s1 s2, 2/6 systolic murmur LSB lungs - decreased BS right base, no rales, no wheeze; mild tachypnea abd - markedly distended, tympanic to percussion, nontender, BS+ but decreased, no HSM ext - edema from feet to thighs, 2-3+ b/l; pulses b/l feet 2+ skin - no rash but does have ecchymoses/bruising on left chest - 2nd to a fall?? neuro - no focal deficits; strength 5/5 x 4 exts; no facial droop; speech was clear; DTRs 2+ b/l arms Results & Data Results & Data Vital Signs (Past 12 Hours) Vital Signs Temp Pulse Pulse Resp BP BP Pulse Ox 10/03/25 07:05 95 H 17 190/118 H 96 10/03/25 05:58 91 H 10/03/25 05:53 10/03/25 05:53 10/03/25 05:50 94 H 26 H 98 10/03/25 05:48 36.7 C 94 H 31 H 158/76 H 97 O2 Del Method FiO2 10/03/25 07:05 BiPAP 10/03/25 05:58 10/03/25 05:53 BiPAP 10/03/25 05:53 BiPAP 10/03/25 05:50 40 10/03/25 05:48 BiPAP Laboratory Results Laboratory Results - last 24 hr 10/03/25 10/03/25 10/03/25 05:48 05:50 06:05 WBC 4.98 RBC 3.78 L Hgb 11.2 L Hct 35.9 L MCV 95.0 MCH 29.6 MCHC 31.2 L RDW Std Deviation 56.5 H RDW Coeff of Mariana 16.1 H Plt Count 122 L MPV 11.2 Immature Gran % (Auto) 0.8 Neut % (Auto) 81.4 Lymph % (Auto) 5.8 Dent % (Auto) 9.2 Eos % (Auto) 2.6 Baso % (Auto) 0.2 Neut # (Auto) 4.05 Lymph # (Auto) 0.29 L Dent # (Auto) 0.46 Eos # (Auto) 0.13 Baso # (Auto) 0.01 Immature Gran # (Auto) 0.04 PT 11.5 INR 1.1 VBG pH 7.22 L VBG pCO2 45 VBG pO2 44 VBG HCO3 18 VBG O2 Saturation 74.5 VBG Base Excess -9.1 Sodium 142 Potassium 5.6 H Chloride 113 H Carbon Dioxide 20 L Anion Gap 9 BUN 103 H Creatinine 5.39 H* Est Cr Clr Drug Dosing 12.9 eGFR 9.89 BUN/Creatinine Ratio 19.1 Glucose 118 H Lactate 0.7 Calcium 8.4 L Phosphorus 5.0 H Magnesium 2.1 Total Bilirubin 0.5 AST 13 ALT 20 Alkaline Phosphatase 99 Troponin I High Sens 146.9 H* B-Natriuretic Peptide 792 H Total Protein 6.6 Albumin 3.7 Globulin 2.9 Albumin/Globulin Ratio 1.3 Procalcitonin 1.10 H Urine Color Yellow Urine Appearance Clear Urine pH 5.0 Ur Specific Loyall 1.016 Urine Protein 2+ H Urine Glucose (UA) Negative Urine Ketones Trace H Urine Blood 1+ H Urine Nitrite Negative Urine Bilirubin Negative Urine Urobilinogen Negative Ur Leukocyte Esterase 2+ H Urine WBC (Auto) 11-20 H Urine RBC (Auto) 6-10 H U Hyaline Cast (Auto) 6-10 H U Epithel Cells (Auto) 0-2 Urine Bacteria (Auto) None Seen Granular Casts Present A 10/03/25 07:36 WBC RBC Hgb Hct MCV MCH MCHC RDW Std Deviation RDW Coeff of Mariana Plt Count MPV Immature Gran % (Auto) Neut % (Auto) Lymph % (Auto) Dent % (Auto) Eos % (Auto) Baso % (Auto) Neut # (Auto) Lymph # (Auto) Dent # (Auto) Eos # (Auto) Baso # (Auto) Immature Gran # (Auto) PT INR VBG pH VBG pCO2 VBG pO2 VBG HCO3 VBG O2 Saturation VBG Base Excess Sodium 143 Potassium 5.1 Chloride 114 H Carbon Dioxide 21 Anion Gap 8 BUN 99 H Creatinine 5.07 H* D Est Cr Clr Drug Dosing 13.8 eGFR 10.65 BUN/Creatinine Ratio 19.5 Glucose 160 H Lactate Calcium 8.4 L Phosphorus Magnesium Total Bilirubin AST ALT Alkaline Phosphatase Troponin I High Sens 135.6 H* B-Natriuretic Peptide Total Protein Albumin Globulin Albumin/Globulin Ratio Procalcitonin Urine Color Urine Appearance Urine pH Ur Specific L[place]all Urine Protein Urine Glucose (UA) Urine Ketones Urine Blood Urine Nitrite Urine Bilirubin Urine Urobilinogen Ur Leukocyte Esterase Urine WBC (Auto) Urine RBC (Auto) U Hyaline Cast (Auto) U Epithel Cells (Auto) Urine Bacteria (Auto) Granular Casts Urine Comment Adenovirus (PCR) B. pertussis DNA (PCR) B.parapertussis DNA PCR C. pneumoniae DNA (PCR) Coronavirus OC43 (PCR) Coronavirus HKU1 (PCR) Coronavirus 229E (PCR) SARS-CoV-2 (PCR) Coronavirus NL63 (PCR) Human Metapneumovir PCR Influenza Type B (PCR) M. pneumoniae (PCR) Parainfluenza 1 (PCR) Parainfluenza 2 (PCR) Parainfluenza 3 (PCR) Parainfluenza 4 (PCR) RSV (PCR) Entero/Rhino (PCR) Diagnostic Findings Chest X-Ray 10/03/25 05:45 EXAM: XR chest 1V portable CLINICAL HISTORY: Dyspnea TECHNIQUE: An X-ray image of the chest is obtained in AP projection. COMPARISON: 08/15/2025 CR. FINDINGS: Pulmonary Parenchyma: A right central venous catheter was noted with the tip at the cavoatrial junction. Opacification of the right lower zone suggests mild to moderate pleural effusion with associated atelectatic changes. Unchanged blunting of left CP angle likely small pleural effusion vs thickening. Heart and Mediastinum: Mild cardiomegaly. No mediastinal widening or masses. No hilar or mediastinal lymphadenopathy. Bony Thorax: Sternotomy sutures. Bony thorax appears intact without fractures or deformities. Degenerative changes in bilateral shoulder joints. Soft Tissues: Soft tissues overlying the chest wall are unremarkable. IMPRESSION: 1. A right central venous catheter was noted with the tip at the cavoatrial junction, unchanged. 2. Mild to moderate right pleural effusion with underlying atelectatic changes., New finding. 3. Unchanged blunting of left CP angle likely small pleural effusion vs thickening. 4. Clinical correlation is suggested. Electronically signed by Lior Jamil 10-03-2025 07:40 AM Abdomen/Pelvis CT 10/03/25 08:18 CT SCAN OF THE ABDOMEN AND PELVIS WITH IV CONTRAST CLINICAL HISTORY: Abdominal pain, diarrhea and abdominal distention. COMPARISON STUDY: CT of the abdomen and pelvis June 19, 2024. Renal ultrasound December 15, 2024. TECHNIQUE: Following the IV administration of 94 cc of Optiray 320, CT scan of the abdomen and pelvis is performed from the lung bases to the proximal femora. Images are reviewed in the axial, sagittal, and coronal planes. IV contrast was administered without complication. A dose lowering technique was utilized adhering to the principles of ALARA. CT DOSE: 1602.69 mGy.cm FINDINGS: There is moderate cardiomegaly and extensive coronary artery calcification. Moderate size right pleural effusion is partially imaged. There is associated right lower lobe compressive atelectasis. There is segmental atelectasis within the right middle lobe. There is a trace left pleural effusion. No pneumatosis, free air or portal venous gas is present. Mild biliary ductal dilatation is likely related to cholecystectomy. There are no hepatic lesions. Spleen, adrenal glands and pancreas are unremarkable. Marked right and moderate left renal cortical thinning are noted. Water attenuation bilateral renal lesions favor cysts. Dilatation of the right renal pelvis is unchanged. This is chronic. The prostate is enlarged, measuring 5.4 cm in transverse diameter. There is a Jovel balloon within the bladder. Body wall edema is present. There is a small amount of abdominal and pelvic ascites. There is no evidence for a bowel obstruction. The caliber and thickness of small and large bowel are normal. There is colonic diverticulosis without evidence for acute diverticulitis. No lymphadenopathy. There are no fluid collections. The appendix is normal. No acute fractures within the lumbar spine, pelvis or hips are identified. There is extensive aortoiliac atherosclerotic plaque. IMPRESSION: 1. No bowel junction. No bowel wall thickening. Colonic diverticulosis. No evidence for acute diverticulitis. 2. Partially visualized moderate size right pleural effusion. Associated right lower lobe compressive atelectasis. Segmental right middle lobe atelectasis. Trace left pleural effusion. 3. Small amount of abdominal and pelvic ascites. Body wall edema. 4. Marked right and moderate left renal cortical thinning. Chronic dilatation right renal pelvis. ACT 112: Negative or not required by law. Electronically signed by: Anastacio Aguilar M.D. 10/03/2025 9:03 AM ECG Additional Comments: EKG - my reading: NSR, minimal ST changes V4-V6, otherwise no ST changes Code Status & VTE Plan Code Status partial code - ok with intubation/mech ventilation but NO shocks/compressions PG Care Time/CCT Total # of Minutes Spent Total Time Spent with Patient: Total time spent is greater than 50% in coordination of care (as documented) at patient's floor/unit and/or counseling patient: Coding Level of Care Code 10787 INT INP/OBS CARE 3/75MIN Diagnoses Acute on chronic hypoxic respiratory failure J96.21 End stage renal disease N18.6 BPH (benign prostatic hyperplasia) N40.0 Chronic indwelling Jovel catheter Z97.8 Blindness H54.7 COPD (chronic obstructive pulmonary disease) J44.9 Hyperlipidemia E78.5 Hypertension I10 Coronary artery disease I25.10 Insulin dependent diabetes mellitus On home oxygen therapy Z99.81 Thrombocytopenia D69.6 GERD (gastroesophageal reflux disease) K21.9 Hyperkalemia E87.5 Acute metabolic encephalopathy G93.41
--- NOTE | 2025-10-03 07:40 | XRay Report ---
EXAM: XR chest 1V portable CLINICAL HISTORY: Dyspnea TECHNIQUE: An X-ray image of the chest is obtained in AP projection. COMPARISON: 08/15/2025 CR. FINDINGS: Pulmonary Parenchyma: A right central venous catheter was noted with the tip at the cavoatrial junction. Opacification of the right lower zone suggests mild to moderate pleural effusion with associated atelectatic changes. Unchanged blunting of left CP angle likely small pleural effusion vs thickening. Heart and Mediastinum: Mild cardiomegaly. No mediastinal widening or masses. No hilar or mediastinal lymphadenopathy. Bony Thorax: Sternotomy sutures. Bony thorax appears intact without fractures or deformities. Degenerative changes in bilateral shoulder joints. Soft Tissues: Soft tissues overlying the chest wall are unremarkable. IMPRESSION: 1. A right central venous catheter was noted with the tip at the cavoatrial junction, unchanged. 2. Mild to moderate right pleural effusion with underlying atelectatic changes., New finding. 3. Unchanged blunting of left CP angle likely small pleural effusion vs thickening. 4. Clinical correlation is suggested. Electronically signed by Lior Jamil 10-03-2025 07:40 AM
[2025-10-03 08:09] LABS: Anion Gap 8.0 (3-11); Blood Urea Nitrogen 99.0 mg/dl (6-23); Calcium 8.4 mg/dl (8.6-10.3); Carbon Dioxide 21.0 mmol/L (21-32); Chloride 114.0 mmol/L (98-107); Creatinine Clr Calc Pharmacy 13.8 ml/min; Glucose 160.0 mg/dl (70-99(Fasting)); Potassium 5.1 mmol/L (3.5-5.1); Sodium 143.0 mmol/L (136-145)
[2025-10-03] MEDS: OPTIRAY 320 100ml IV ONE (08:43)
--- NOTE | 2025-10-03 08:50 | Nephrology Consultation ---
Date of Consultation October 03, 2025 Assessment & Plan (1) End stage renal disease: Emergent hemodialysis was coordinated. Orders entered into the EHR and reviewed with the food service tray attendant. TDC used for HD by patient request. Goals of care were discussed with the patient. Medications are appropriate for IHD. (2) Hyperkalemia: Low K+ HD. EKG reviewed. HD ordered. (3) Acute on chronic hypoxic respiratory failure: Urgent HD arranged for management of volume overload. Remains on BIPAP with symptomatic improvement. (4) Hypertension: Antihypertensives to be restarted per prior Rx post HD. (5) Coronary artery disease: History of Present Illness Reason for Consultation: ESRD on HD Requesting Physician: Wander De Jesus Attending Physician: Wander De Jesus History of Present Illness Mr. Mc Garcia is an 85 year-old male with ESRD attributed to DKD. Ga was maintained on IHD at [facility] under the care of Dr. Ching. He completed a full dialysis treatment on September 19. Following this treatment, Ga decided to stop dialysis treatments. He had discussed goals of care with his PCP and Dr. Ching. [facility]. Ga presented to the ER at [facility] this morning with shortness of breath and weakness. Hospice staff were aware of his decision to pursue inpatient management. I discussed the patient with Dr. Abdulaziz Urias and Dr. Wander De Jesus. Nephrology consultation requested for urgent hemodialysis. Ga would like to change his goals of care and resume hemodialysis treatments. I discussed with staff from [facility] and reviewed with patient's history. Ga's primary reason expressed for starting HD was loss of dependence and the burden of traveling to treatment. care home or assisted living placement was dis cussed but Ga had initially refused. He is more receptive to this option now. Ga was seen and evaluated in the ER and during hemodialysis this AM. He has been placed on BIPAP for respiratory distress. Berg with ~500 ml of urine. EKG without acute ischemic changes. CXR demonstrating notable volume overload. Stat CT abdomen was obtained prior to HD. Ga is afebrile. Biofire pending. Medical history is notable for diabetes mellitus II requiring insulin, DKD + CRS, macular degeneration with legal blindness, peripheral neuropathy, ASCVD s/p CABG 2002, hypertension, COPD (supplemental O2 PRN), BPH with chronic indwelling Berg, hyperlipidemia, and gout. L BC AVF was created April 2025 with transposition performed July 2025. The fistula was placed by Dr. Hwang. The AVF is mature for use but Ga has refused cannulation due to pain. He has been dialyzing via a R IJ TDC. Ga denies any fevers. He reports feeling cold with chills. No rigors. Abdomen is notably distended and reports that it has been uncomfortable. He also describes several days or diarrhea. He was slightly confused during my assessment often repeating himself. During hemodialysis, he told me that he thought that he was in the [facility] dialysis unit and couldn't understand how he got there. In the ER, he seemed to believe that it had only been a few days since his last hemodialysis treatment. He was not able to tell me the date. Allergies Allergy/AdvReac Type Severity Reaction Status Date / Time strawberry Allergy Intermediate hives Verified 07/24/25 08:00 Home Medications Medication Instructions Recorded Confirmed Type loratadine 10 mg tablet (Allergy 10 mg PO Q OTHER DAY 05/22/21 10/03/25 History Relief (loratadine)) magnesium oxide 420 mg tablet 420 mg PO DAILY 05/22/21 10/03/25 History omeprazole 20 mg capsule,delayed 20 mg PO BID 05/22/21 10/03/25 History release aspirin 81 mg tablet,delayed 81 mg PO DAILY 09/15/22 10/03/25 History release atorvastatin 80 mg tablet 80 mg PO HS 09/15/22 10/03/25 History doxazosin 4 mg tablet 8 mg PO BID 09/15/22 10/03/25 History fluticasone propionate 50 2 spray intranasal DAILY 09/15/22 10/03/25 History mcg/actuation nasal spray,suspension guaifenesin 200 mg tablet 400 mg PO TID PRN help thin mucous 09/15/22 10/03/25 History insulin aspart U-100 100 unit/mL 5 unit subcut TIDM 09/15/22 10/03/25 History (3 mL) subcutaneous pen (Novolog FlexPen U-100 Insulin aspart) meclizine 12.5 mg tablet 25 mg PO Q6H PRN Vertigo 09/15/22 10/03/25 History mometasone 220 mcg/actuation(60 2 inh inhalation BID 09/15/22 10/03/25 History doses) breath activated powder inhaler vit C 250 mg-vit E 90 mg-zinc 40 1 tab PO BID 09/15/22 10/03/25 History mg-copper 1 [id number] capsule (PreserVision AREDS-2) glucose 4 gram chewable tablet 16 g PO DIRECTED PRN 01/19/24 10/03/25 History hypoglycemia albuterol sulfate 90 mcg/actuation 2 puff inhalation QID PRN 02/14/24 10/03/25 History aerosol inhaler Shortness Of Breath Or Wheezing cholecalciferol (vitamin D3) 25 50 mcg PO DAILY 02/14/24 10/03/25 History mcg (1,000 unit) capsule acetaminophen 325 mg tablet 650 mg PO DAILY PRN Pain 12/14/24 10/03/25 History amlodipine 10 mg tablet 10 mg PO DAILY 12/14/24 10/03/25 History ascorbic acid (vitamin C) 500 mg 500 mg PO DAILY 12/14/24 10/03/25 History tablet carboxymethylcellulose sodium 0.5 0 drp ophthalmic (eye) BID 12/14/24 10/03/25 History % eye drops cinnamon bark 500 mg capsule 1,000 mg PO DAILY 12/14/24 10/03/25 History (Cinnamon) glucosamine sulfate 500 mg tablet 500 mg PO DAILY ##0 12/14/24 10/03/25 History (Glucosamine) nitroglycerin 0.4 mg sublingual 0.4 mg sublingual DIRECTED PRN 12/14/24 10/03/25 History tablet Chest Pain insulin glargine 100 unit/mL (3 50 unit subcut HS 03/29/25 10/03/25 History mL) subcutaneous pen vitamin B complex 1 tab PO DAILY 03/29/25 10/03/25 History bumetanide 2 mg tablet 2 mg PO 4XWK 06/20/25 10/03/25 History sevelamer carbonate 800 mg tablet 800 mg PO TIDWMEAL 06/20/25 10/03/25 History tiotropium 2.5 mcg-olodaterol 2.5 2 puff inhalation DAILY 06/20/25 10/03/25 History mcg/actuation mist for inhalation (Stiolto Respimat) carvedilol 12.5 mg tablet 37.5 mg (3 x 12.5 mg) PO BIDM #60 06/22/25 10/03/25 Rx tabs colchicine 0.6 mg capsule 0.6 mg PO DIRECTED PRN gout 06/22/25 10/03/25 Rx flare #0 caps gabapentin 300 mg capsule 300 mg PO MoWeFr@1600 07/23/25 10/03/25 History lanolin alcohols-mineral 1 applic topical AMHS PRN Dry Skin 10/03/25 10/03/25 History oil-w.petrolatum-ceresin topical cream (Eucerin topical cream) oxycodone 5 mg tablet 5 mg PO TID PRN pain 10/03/25 10/03/25 History zinc oxide 20 % topical ointment 1 applic topical DAILY 10/03/25 10/03/25 History Patient History Medical History Hx of fall (06/20/25) fell out of bed, seen at [facility] er, contusion of head Age-related macular degeneration GERD (gastroesophageal reflux disease) Pulmonary hypertension mild to moderate on 2023 cardiac cath Thrombocytopenia Plt count 96,000 Hx of gout Osteoarthritis Chronic back pain Degenerative disc disease Poor historian did not know medication, for every med listed, states "I suppose"- states he has a nurse that puts the meds in a pill box for him On anticoagulant therapy Depression "situational" Hx of vertigo chronic, denies change or worsening Legally blind On home oxygen therapy 2lpm via NC when walking SOB (shortness of breath) on exertion chronic, denies change or worsening- wears O2 2L when ambulating Hx of non-ST elevation myocardial infarction (NSTEMI) not listed in cardio records-pt unsure of additional details-states was at least several years ago Hemodialysis patient M-W-F in [place] - follows with Dr. Ching Presence of permanent central venous catheter right chest wall for hemodialysis-patient states has left arm restriction End stage chronic kidney disease follows with [facility] Neurology- HD M-W- at [place] Anemia T2DM (type 2 diabetes mellitus) Chronic heart failure with preserved ejection fraction Chronic indwelling Berg catheter BPH loc w urin obs/LUTS Cardiomyopathy Insulin dependent diabetes mellitus COPD (chronic obstructive pulmonary disease) stable per pt;typically uses rescue inhaler every day- uses daily inhaler x 2- follows with [facility] Hyperlipidemia Hypertension Coronary artery disease s/p CABG x 2 2003 Macular degeneration Surgical History S/P dialysis catheter insertion (12/2024) [facility] History of surgery right ankle History of cystoscopy History of esophagogastroduodenoscopy (EGD) History of tonsillectomy S/P TURP "some kind of prostate surgery to open it up to go to the bathroom" -- no longer effective ([facility]-unsure of date ~) History of cardiac cath ~Nov 2024 at the [facility] - per patient "there are some blockages but they won't put stents in and will not do surgery, trying to treat with medication" History of colonoscopy Hx of CABG (2003) x2 vessel- follows with cardio at [facility] Hx of cholecystectomy (01/29/14) 01/29/2014 Family History Other No family history of adverse response to anesthesia Social History Smoking Status: Former smoker Tobacco Type: Cigarettes Second Hand Exposure: No; Do You Dip or Chew Tobacco: No; Hx Alcohol Use: No Hx Substance Use: No Preferred Language: Vietnamese Communication Ability: Effective Communication Ability Comment: unable to read due to his macular degeneration + legally blind. Visual Impairment: Limited Hearing Ability: Normal Personal Support Worker Required: No Beliefs That Will Affect Care: None marital status: Single Current Living Situation: Alone Current Living Situation Comment: caregiver a few times per week and has neighbor that helps out current occupational status: retired How many Children do You have: 2 Feels Safe at Home: Yes Diet: diabetic caffeine: Yes Physical Activity Frequency: Does not Exercise Do you think of yourself as: straight/heterosexual Gender Identity: Male Assistive Devices: Glasses and Oxygen - at Night Review of Systems Review of Systems: All systems reviewed & are unremarkable except as noted in HPI & below Constitutional: + fatigue and + weakness Respiratory: + cough and + dyspnea Physical Exam Constitutional: well developed, + acute distress, + ill appearing and + morbidly obese ENMT: NIPPV Neck: normal visual inspection, trachea midline and + thick neck RIJ TDC Respiratory: + tachypneic Auscultation: + diminish ed lung sounds, + rales and + rhonchi Cardiovascular: Rate/Rhythm: + tachycardic Heart Sounds: normal S1, normal S2 and + murmur Extremities: + edema and + AV fistula Gastrointestinal (Abdomen): Inspection/Auscultation: + abdomen distended Percussion/Palpation: + abdomen tender and + tympanic to percussion; no guarding and abdomen not rigid Musculoskeletal: Extremities: no cyanosis and no clubbing Skin: normal turgor; no lesions and no jaundice Neurologic: Motor/Sensory: no tremor and no asterixis Results & Data Vital Signs (Past 12 Hours) Vital Signs Temp Pulse Pulse Resp BP BP Pulse Ox 10/03/25 08:08 94 H 18 174/93 H 97 10/03/25 07:36 93 H 18 193/72 H 97 10/03/25 07:05 95 H 17 190/118 H 96 10/03/25 05:58 91 H 10/03/25 05:53 10/03/25 05:53 10/03/25 05:50 94 H 26 H 98 10/03/25 05:48 36.7 C 94 H 31 H 158/76 H 97 O2 Del Method FiO2 10/03/25 08:08 BiPAP 10/03/25 07:36 BiPAP 10/03/25 07:05 BiPAP 10/03/25 05:58 10/03/25 05:53 BiPAP 10/03/25 05:53 BiPAP 10/03/25 05:50 40 10/03/25 05:48 BiPAP Laboratory Results Laboratory Results - last 24 hr 10/03/25 10/03/25 10/03/25 05:48 05:50 06:05 WBC 4.98 RBC 3.78 L Hgb 11.2 L Hct 35.9 L MCV 95.0 MCH 29.6 MCHC 31.2 L RDW Std Deviation 56.5 H RDW Coeff of [place] 16.1 H Plt Count 122 L MPV 11.2 Immature Gran % (Auto) 0.8 Neut % (Auto) 81.4 Lymph % (Auto) 5.8 [place] % (Auto) 9.2 Eos % (Auto) 2.6 Baso % (Auto) 0.2 Neut # (Auto) 4.05 Lymph # (Auto) 0.29 L [place] # (Auto) 0.46 Eos # (Auto) 0.13 Baso # (Auto) 0.01 Immature Gran # (Auto) 0.04 PT 11.5 INR 1.1 VBG pH 7.22 L VBG pCO2 45 VBG pO2 44 VBG HCO3 18 VBG O2 Saturation 74.5 VBG Base Excess -9.1 Sodium 142 Potassium 5.6 H Chloride 113 H Carbon Dioxide 20 L Anion Gap 9 BUN 103 H Creatinine 5.39 H* Est Cr Clr Drug Dosing 12.9 eGFR 9.89 BUN/Creatinine Ratio 19.1 Glucose 118 H Lactate 0.7 Calcium 8.4 L Phosphorus 5.0 H Magnesium 2.1 Total Bilirubin 0.5 AST 13 ALT 20 Alkaline Phosphatase 99 Troponin I High Sens 146.9 H* B-Natriuretic Peptide 792 H Total Protein 6.6 Albumin 3.7 Globulin 2.9 Albumin/Globulin Ratio 1.3 Procalcitonin 1.10 H Urine Color Yellow Urine Appearance Clear Urine pH 5.0 Ur Specific [place] 1.016 Urine Protein 2+ H Urine Glucose (UA) Negative Urine Ketones Trace H Urine Blood 1+ H Urine Nitrite Negative Urine Bilirubin Negative Urine Urobilinogen Negative Ur Leukocyte Esterase 2+ H Urine WBC (Auto) 11-20 H Urine RBC (Auto) 6-10 H U Hyaline Cast (Auto) 6-10 H U Epithel Cells (Auto) 0-2 Urine Bacteria (Auto) None Seen Granular Casts Present A Urine Comment Adenovirus (PCR) Pending B. pertussis DNA (PCR) Pending B.parapertussis DNA PCR Pending C. pneumoniae DNA (PCR) Pending Coronavirus OC43 (PCR) Pending Coronavirus HKU1 (PCR) Pending Coronavirus 229E (PCR) Pending SARS-CoV-2 (PCR) Pending Coronavirus NL63 (PCR) Pending Hep Bs Antigen Pending Hep Bs Antibody Pending Hep Bs Antibody, Quant Pending Human Metapneumovir PCR Pending Influenza Type B (PCR) Pending M. pneumoniae (PCR) Pending Parainfluenza 1 (PCR) Pending Parainfluenza 2 (PCR) Pending Parainfluenza 3 (PCR) Pending Parainfluenza 4 (PCR) Pending RSV (PCR) Pending Entero/Rhino (PCR) Pending 10/03/25 07:36 WBC RBC Hgb Hct MCV MCH MCHC RDW Std Deviation RDW Coeff of [place] Plt Count MPV Immature Gran % (Auto) Neut % (Auto) Lymph % (Auto) [place] % (Auto) Eos % (Auto) Baso % (Auto) Neut # (Auto) Lymph # (Auto) [place] # (Auto) Eos # (Auto) Baso # (Auto) Immature Gran # (Auto) PT INR VBG pH VBG pCO2 VBG pO2 VBG HCO3 VBG O2 Saturation VBG Base Excess Sodium 143 Potassium 5.1 Chloride 114 H Carbon Dioxide 21 Anion Gap 8 BUN 99 H Creatinine 5.07 H* D Est Cr Clr Drug Dosing 13.8 eGFR 10.65 BUN/Creatinine Ratio 19.5 Glucose 160 H Lactate Calcium 8.4 L Phosphorus Magnesium Total Bilirubin AST ALT Alkaline Phosphatase Troponin I High Sens 135.6 H* B-Natriuretic Peptide Total Protein Albumin Globulin Albumin/Globulin Ratio Procalcitonin Urine Color Urine Appearance Urine pH Ur Specific [place] Urine Protein Urine Glucose (UA) Urine Ketones Urine Blood Urine Nitrite Urine Bilirubin Urine Urobilinogen Ur Leukocyte Esterase Urine WBC (Auto) Urine RBC (Auto) U Hyaline Cast (Auto) U Epithel Cells (Auto) Urine Bacteria (Auto) Granular Casts Urine Comment Adenovirus (PCR) B. pertussis DNA (PCR) B.parapertussis DNA PCR C. pneumoniae DNA (PCR) Coronavirus OC43 (PCR) Coronavirus HKU1 (PCR) Coronavirus 229E (PCR) SARS-CoV-2 (PCR) Coronavirus NL63 (PCR) Hep Bs Antigen Hep Bs Antibody Hep Bs Antibody, Quant Human Metapneumovir PCR Influenza Type B (PCR) M. pneumoniae (PCR) Parainfluenza 1 (PCR) Parainfluenza 2 (PCR) Parainfluenza 3 (PCR) Parainfluenza 4 (PCR) RSV (PCR) Entero/Rhino (PCR) Diagnostic Findings XR chest 1V portable TECHNIQUE: An X-ray image of the chest is obtained in AP projection. COMPARISON: 08/15/2025 CR. FINDINGS: Pulmonary Parenchyma: A right central venous catheter was noted with the tip at the cavoatrial junction. Opacification of the right lower zone suggests mild to moderate pleural effusion with associated atelectatic changes. Unchanged blunting of left CP angle likely small pleural effusion vs thickening. Heart and Mediastinum: Mild cardiomegaly. No mediastinal widening or masses. No hilar or mediastinal lymphadenopathy. Bony Thorax: Sternotomy sutures. Bony thorax appears intact without fractures or deformities. Degenerative changes in bilateral shoulder joints. Soft Tissues: Soft tissues overlying the chest wall are unremarkable. IMPRESSION: 1. A right central venous catheter was noted with the tip at the cavoatrial junction, unchanged. 2. Mild to moderate right pleural effusion with underlying atelectatic changes., New finding. 3. Unchanged blunting of left CP angle likely small pleural effusion vs thickening. PG Care Time/CCT Total # of Minutes Spent Total Time Spent with Patient: Total time spent is greater than 50% in coordination of care (as documented) at patient's floor/unit and/or counseling patient: Coding Level of Care Code 35968 IN/OBS CONSULT LVL 5,80M Diagnoses End stage renal disease N18.6 Hyperkalemia E87.5 Acute on chronic hypoxic respiratory failure J96.21 Hypertension I10 Coronary artery disease I25.10
--- NOTE | 2025-10-03 09:05 | CT Scan Report ---
CT SCAN OF THE ABDOMEN AND PELVIS WITH IV CONTRAST CLINICAL HISTORY: Abdominal pain, diarrhea and abdominal distention. COMPARISON STUDY: CT of the abdomen and pelvis June 19, 2024. Renal ultrasound December 15, 2024 . TECHNIQUE: Following the IV administration of 94 cc of Optiray 320, CT scan of the abdomen and pelvi s is performed from the lung bases to the proximal femora. Images are reviewed in the axial, sagittal , and coronal planes. IV contrast was administered without complication. A dose lowering technique wa s utilized adhering to the principles of ALARA. CT DOSE: 1602.69 mGy.cm FINDINGS: There is moderate cardiomegaly and extensive coronary artery calcification. Moderate size r ight pleural effusion is partially imaged. There is associated right lower lobe compressive atelectas is. There is segmental atelectasis within the right middle lobe. There is a trace left pleural effusi on. No pneumatosis, free air or portal venous gas is present. Mild biliary ductal dilatation is likel y related to cholecystectomy. There are no hepatic lesions. Spleen, adrenal glands and pancreas are u nremarkable. Marked right and moderate left renal cortical thinning are noted. Water attenuation bila teral renal lesions favor cysts. Dilatation of the right renal pelvis is unchanged. This is chronic. The prostate is enlarged, measuring 5.4 cm in transverse diameter. There is a Berg balloon within th e bladder. Body wall edema is present. There is a small amount of abdominal and pelvic ascites. There is no evidence for a bowel obstruction. The caliber and thickness of small and large bowel are lara l. There is colonic diverticulosis without evidence for acute diverticulitis. No lymphadenopathy. The re are no fluid collections. The appendix is normal. No acute fractures within the lumbar spine, pelv is or hips are identified. There is extensive aortoiliac atherosclerotic plaque. IMPRESSION: 1. No bowel junction. No bowel wall thickening. Colonic diverticulosis. No evidence for acute diverti culitis. 2. Partially visualized moderate size right pleural effusion. Associated right lower lobe compressive atelectasis. Segmental right middle lobe atelectasis. Trace left pleural effusion. 3. Small amount of abdominal and pelvic ascites. Body wall edema. 4. Marked right and moderate left renal cortical thinning. Chronic dilatation right renal pelvis. ACT 112: Negative or not required by law. Electronically signed by: Anastacio Aguilar M.D. 10/03/2025 9:03 AM
[2025-10-03 09:06] LABS: Chlamydia pneumoniae PCR Not Detected (NotDetected); Coronavirus 229E PCR Not Detected (NotDetected); Coronavirus CoV-2 (COVID19)PCR Not Detected (NotDetected); Coronavirus HKU1 PCR Not Detected (NotDetected); Coronavirus NL63 PCR Not Detected (NotDetected); Coronavirus OC43PCR Not Detected (NotDetected); Human Metapneumovirus PCR Not Detected (NotDetected); Parainfluenza Virus 1 PCR Not Detected (NotDetected); Parainfluenza Virus 2 PCR Not Detected (NotDetected); Parainfluenza Virus 3 PCR Not Detected (NotDetected); Parainfluenza Virus 4 PCR Not Detected (NotDetected); Respiratory Syncytial VirusPCR Not Detected (NotDetected); Rhinovirus/Enterovirus PCR Not Detected (NotDetected)
[2025-10-03] MEDS: ALBUT/IPRATROP 3MG/0.5MG NEB 3 ML VIAL ONE (09:30)
[2025-10-03] MEDS: ALBUTEROL 0.083% NEBU SOLN 3 ML VIAL ONE (09:30)
[2025-10-03 10:01] LABS: Hep B Surface Ag with confirm Negative (Negative)
[2025-10-03] MEDS ORDERED: NITROGLYCERIN SL 0.4 MG/TAB TAB SL PRN (10:01)
--- NOTE | 2025-10-03 10:17 | Palliative Care Consultation ---
Date of Consultation October 03, 2025 Assessment & Plan (1) Dyspnea: (2) Abdominal pain, generalized: (3) Weakness generalized: (4) Lethargy: (5) Palliative care by specialist: Spoke with pt's sister Anamika Talbot by phone. Introduced Palliative Medicine and explained our role in advanced care planning, symptom management and navigation through the progression of life limiting disease. Patient and/or family were receptive to palliative services for goals of care discussions. Reviewed we are different from hospice, a home health nurse visiting service. (6) Counseling regarding advanced directives and goals of care: Spoke with pt at bedside, he had just completed HD treatment removing 4100ml. He confirmed that he was living alone at home on hospice prior to admission. He shared understanding that he is in hospital because he needed HD. He was able to verbalize that he is dependent on HD to survive and that without it he "would ". He also shared memory of discussions with both his PCP and java technical architect prior to transition to hospice, but could not relay what has changed. He did share that he feels that he has no choice about dialysis and is feeling pressured to come to hospital because he has no one to stay with him and cannot afford a SNF. He said "I just feel so much pressure and can't afford it" referring to needing SNF placement. We briefly discussed hospice, his VA benefits for SNF placement, and code status. He did share that he does not want to prolong life and does not wish to be kept alive on machines, however he could not convey a clear understanding that HD is related to his current health and symptoms. He expressed fear of suffering alone if he does not accept HD and stated that the hospice home health aide did not help him feel better then questioned "what choice do I have?". Discussed options for ongoing care as continuing current course of treatment with HD, SNF placement and likely frequent readmissions IF we are able to discharge from hospital vs comfort driven approach to care in SNF. Encouraged Ga that whatever pathway he chooses, his symptoms will be treated and suffering minimized. Ga expressed understanding that he cannot safely live alone at this time. Shared with Ga that I had discussed his benefits with [facility] and they assured payment for room & board fees at SNF either way. I asked Ga to summarize our discussion and he was unable again stating that he was feeling too much "finance pressure" and asked to defer further discussion until his sister Zully is present. Spoke with pt's sister and only listed contact Anamika Talbot by phone. She expressed confusion that pt is in hospital and awareness that he had been at home with hospice care. She reports pt lives alone and has been getting progressively sicker since stopping HD. [place] and conversation was kept general and short due to her environment. Patient exhibits current lack of decisional capacity and requires a proxy for medical decisions. He lacks capacity based on the inability to convey understanding of personal PMHx, current medical condition, treatment options nor the risks / benefits/ potential outcomes of accepting/declining those options, and inability to make decisions based on such knowledge. Hospital does not have written documentation of patient wishes concerning his chosen proxy for medical decisions. Per PA [id number], in absence of written documentation of patient wishes, pt's proxy for medical decisions would be his adult siblings Anamika Talbot and Zully Wynn with equal authority. Anamika reports that Ga had completed HCPOA document indicating Zully as primary HCPOA. Anamika requests that all medical decisions be deferred to Zully. She was unable to share Zully's phone number with me while she was talking on the phone. She agreed to reach out to Zully and request that she bring HCPOA document with her when she next visits. Anamika reports that Zully lives locally and plans to visit with patient tomorrow. Between both discussions, 30 minutes spent in ACP today. Plan as above History of Present Illness Reason for Consultation: goals of care Requesting Physician: Wander De Jesus MD Attending Physician: Wander De Jesus MD History of Present Illness Mr. Mc Garcia is an 85 year-old male w/ PMHx notable for diabetes mellitus II requiring insulin, DKD + CRS, macular degeneration with legal blindness, peripheral neuropathy, ASCVD s/p CABG 2002, hypertension, COPD (supplemental O2 PRN), BPH with chronic indwelling Berg, hyperlipidemia, and gout. 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 He completed his last full dialysis treatment on September 19. Following this treatment, Ga decided to stop dialysis treatments and Hospice services were [facility] through the [facility] by his PCP. Ga presented to the ER at [facility] on 10/03/25 with shortness of breath and weakness. Hospice staff were aware of his decision to pursue inpatient management. Was admitted for emergent HD and was placed on BIPAP for respiratory distress. Berg with ~500 ml of urine. EKG without acute ischemic changes. CXR demonstrating notable volume overload. Stat CT abdomen was obtained prior to HD. Biofire pending. L BC AVF was created April 2025 with transposition performed July [address] Hwang. The AVF is mature for use but Ga has refused cannulation due to pain. He has been dialyzing via a R IJ TDC. Allergies Allergy/AdvReac Type Severity Reaction Status Date / Time strawberry Allergy Intermediate hives Verified 07/24/25 08:00 Home Medications Medication Instructions Recorded Confirmed Type loratadine 10 mg tablet (Allergy 10 mg PO Q OTHER DAY 05/22/21 10/03/25 History Relief (loratadine)) magnesium oxide 420 mg tablet 420 mg PO DAILY 05/22/21 10/03/25 History omeprazole 20 mg capsule,delayed 20 mg PO BID 05/22/21 10/03/25 History release aspirin 81 mg tablet,delayed 81 mg PO DAILY 09/15/22 10/03/25 History release atorvastatin 80 mg tablet 80 mg PO HS 09/15/22 10/03/25 History doxazosin 4 mg tablet 8 mg PO BID 09/15/22 10/03/25 History fluticasone propionate 50 2 spray intranasal DAILY 09/15/22 10/03/25 History mcg/actuation nasal spray,suspension guaifenesin 200 mg tablet 400 mg PO TID PRN help thin mucous 09/15/22 10/03/25 History insulin aspart U-100 100 unit/mL 5 unit subcut TIDM 09/15/22 10/03/25 History (3 mL) subcutaneous pen (Novolog FlexPen U-100 Insulin aspart) meclizine 12.5 mg tablet 25 mg PO Q6H PRN Vertigo 09/15/22 10/03/25 History mometasone 220 mcg/actuation(60 2 inh inhalation BID 09/15/22 10/03/25 History doses) breath activated powder inhaler vit C 250 mg-vit E 90 mg-zinc 40 1 tab PO BID 09/15/22 10/03/25 History mg-copper 1 dl-azegpk-jphkos capsule (PreserVision AREDS-2) glucose 4 gram chewable tablet 16 g PO DIRECTED PRN 01/19/24 10/03/25 History hypoglycemia albuterol sulfate 90 mcg/actuation 2 puff inhalation QID PRN 02/14/24 10/03/25 History aerosol inhaler Shortness Of Breath Or Wheezing cholecalciferol (vitamin D3) 25 50 mcg PO DAILY 02/14/24 10/03/25 History mcg (1,000 unit) capsule acetaminophen 325 mg tablet 650 mg PO DAILY PRN Pain 12/14/24 10/03/25 History amlodipine 10 mg tablet 10 mg PO DAILY 12/14/24 10/03/25 History ascorbic acid (vitamin C) 500 mg 500 mg PO DAILY 12/14/24 10/03/25 History tablet carboxymethylcellulose sodium 0.5 0 drp ophthalmic (eye) BID 12/14/24 10/03/25 History % eye drops cinnamon bark 500 mg capsule 1,000 mg PO DAILY 12/14/24 10/03/25 History (Cinnamon) glucosamine sulfate 500 mg tablet 500 mg PO DAILY ##0 12/14/24 10/03/25 History (Glucosamine) nitroglycerin 0.4 mg sublingual 0.4 mg sublingual DIRECTED PRN 12/14/24 10/03/25 History tablet Chest Pain insulin glargine 100 unit/mL (3 50 unit subcut HS 03/29/25 10/03/25 History mL) subcutaneous pen vitamin B complex 1 tab PO DAILY 03/29/25 10/03/25 History bumetanide 2 mg tablet 2 mg PO 4XWK 06/20/25 10/03/25 History sevelamer carbonate 800 mg tablet 800 mg PO TIDWMEAL 06/20/25 10/03/25 History tiotropium 2.5 mcg-olodaterol 2.5 2 puff inhalation DAILY 06/20/25 10/03/25 History mcg/actuation mist for inhalation (Stiolto Respimat) carvedilol 12.5 mg tablet 37.5 mg (3 x 12.5 mg) PO BIDM #60 06/22/25 10/03/25 Rx tabs colchicine 0.6 mg capsule 0.6 mg PO DIRECTED PRN gout 06/22/25 10/03/25 Rx flare #0 caps gabapentin 300 mg capsule 300 mg PO MoWeFr@1600 07/23/25 10/03/25 History lanolin alcohols-mineral 1 applic topical AMHS PRN Dry Skin 10/03/25 10/03/25 History oil-w.petrolatum-ceresin topical cream (Eucerin topical cream) oxycodone 5 mg tablet 5 mg PO TID PRN pain 10/03/25 10/03/25 History zinc oxide 20 % topical ointment 1 applic topical DAILY 10/03/25 10/03/25 History Patient History Medical History Hx of fall (06/20/25) fell out of bed, seen at [facility] er, contusion of head Age-related macular degeneration GERD (gastroesophageal reflux disease) Pulmonary hypertension mild to moderate on 2023 cardiac cath Thrombocytopenia Plt count 96,000 Hx of gout Osteoarthritis Chronic back pain Degenerative disc disease Poor historian did not know medication, for every med listed, states "I suppose"- states he has a nurse that puts the meds in a pill box for him On anticoagulant therapy Depression "situational" Hx of vertigo chronic, denies change or worsening Legally blind On home oxygen therapy 2lpm via NC when walking SOB (shortness of breath) on exertion chronic, denies change or worsening- wears O2 2L when ambulating Hx of non-ST elevation myocardial infarction (NSTEMI) not listed in cardio records-pt unsure of additional details-states was at least several years ago Hemodialysis patient M-W-F in [place] - follows with Dr. Ching Presence of permanent central venous catheter right chest wall for hemodialysis-patient states has left arm restriction End stage chronic kidney disease follows with [facility] Neurology- HD M-W-F at [place] Anemia T2DM (type 2 diabetes mellitus) Chronic heart failure with preserved ejection fraction Chronic indwelling Berg catheter BPH loc w urin obs/LUTS Cardiomyopathy Insulin dependent diabetes mellitus COPD (chronic obstructive pulmonary disease) stable per pt;typically uses rescue inhaler every day- uses daily inhaler x 2- follows with [facility] Hyperlipidemia Hypertension Coronary artery disease s/p CABG x 2 2003 Macular degeneration Surgical History S/P dialysis catheter insertion (12/2024) [facility] History of surgery right ankle History of cystoscopy History of esophagogastroduodenoscopy (EGD) History of tonsillectomy S/P TURP "some kind of prostate surgery to open it up to go to the bathroom" -- no longer effective ([facility]-unsure of date ~) History of cardiac cath ~[facility] [address] [facility] - per patient "there are some blockages but they won't put stents in and will not do surgery, trying to treat with medication" History of colonoscopy Hx of CABG (2003) x2 vessel- follows with cardio at [facility] Hx of cholecystectomy (01/29/14) 01/29/2014 Family History Other No family history of adverse response to anesthesia Social History (Updated 10/03/25 @ 11:10 by Wander De Jesus MD) Smoking Status: Former smoker Tobacco Type: Cigarettes Second Hand Exposure: No; Do You Dip or Chew Tobacco: No; Hx Alcohol Use: No Hx Substance Use: No Preferred Language: Polish Communication Ability: Effective Communication Ability Comment: unable to read due to his macular degeneration + legally blind. Visual Impairment: Limited Hearing Ability: Normal Legal Executive Required: No Beliefs That Will Affect Care: None marital status: Single marital status details: Current Living Situation: Alone Current Living Situation Comment: caregiver a few times per week and has neighbor that helps out current occupational status: retired current occupation: [employer] How many Children do You have: 2 How many Children do You have Comment: 1 daughter is ; estranged from his only son Feels Safe at Home: Yes Diet: diabetic caffeine: Yes Physical Activity Frequency: Does not Exercise Do you think of yourself as: straight/heterosexual Gender Identity: Male Assistive Devices: Glasses and Oxygen - at Night Review of Systems Review of Systems: All systems reviewed & are unremarkable except as noted in HPI & below Physical Exam Constitutional: well developed, + ill appearing, + morbidly obese and cooperative Neck: trachea midline, no thyromegaly Respiratory: normal respiratory effort Auscultation: + diminished lung sounds and + crackles Cardiovascular: RRR, no murmur, no edema Gastrointestinal (Abdomen): Inspection/Auscultation: + abdomen distended and + hyperactive bowel sounds Percussion/Palpation: + abdomen tender and + abdomen firm; no guarding Rectal Exam: + stool abnormal incontinent of large amounts of foul smelling liquid stool. Skin: no rashes, warm and dry + skin tightening and + jaundice Neurologic: moves all extremities, awake and + confused Psychiatric: Orientation: oriented to person and cooperative Eye Contact: + poor eye contact Affect: + anxious affect and + tearful affect Results & Data Vital Signs (Past 12 Hours) Vital Signs Temp Pulse Pulse Resp BP BP Pulse Ox 10/03/25 10:02 10/03/25 09:05 89 13 95 10/03/25 08:08 94 H 18 174/93 H 97 10/03/25 07:50 94 H 23 97 10/03/25 07:36 93 H 18 193/72 H 97 10/03/25 07:05 95 H 17 190/118 H 96 10/03/25 05:58 91 H 10/03/25 05:53 10/03/25 05:53 10/03/25 05:50 94 H 26 H 98 10/03/25 05:48 36.7 C 94 H 31 H 158/76 H 97 O2 Del Method FiO2 10/03/25 10:02 Room Air 10/03/25 09:05 40 10/03/25 08:08 BiPAP 10/03/25 07:50 40 10/03/25 07:36 BiPAP 10/03/25 07:05 BiPAP 10/03/25 05:58 10/03/25 05:53 BiPAP 10/03/25 05:53 BiPAP 10/03/25 05:50 40 10/03/25 05:48 BiPAP Laboratory Results Abnormal lab results 10/03/25 10/03/25 10/03/25 Range/Units 05:50 06:05 07:36 RBC 3.78 L (4.70-6.10) M/uL Hgb 11.2 L (14.0-18.0) g/dL Hct 35.9 L (42.0-52.0) % MCHC 31.2 L (32.0-36.0) g/dL RDW Std Deviation 56.5 H (36.4-46.3) fL RDW Coeff of [place] 16.1 H (11.5-14.5) % Plt Count 122 L (130-400) K/uL Lymph # (Auto) 0.29 L (1.20-3.40) K/uL VBG pH 7.22 L (7.36-7.41) Potassium 5.6 H (3.5-5.1) mmol/L Chloride 113 H 114 H (98-107) mmol/L Carbon Dioxide 20 L (21-32) mmol/L BUN 103 H 99 H (6-23) mg/dl Creatinine 5.39 H* 5.07 H* D (0.6-1.4) mg/dl Glucose 118 H 160 H (70-99(Fasting)) mg/dl Calcium 8.4 L 8.4 L (8.6-10.3) mg/dl Phosphorus 5.0 H (2.5-4.9) mg/dl Troponin I High Sens 146.9 H* 135.6 H* (0-20) pg/ml B-Natriuretic Peptide 792 H (0-100) pg/ml Procalcitonin 1.10 H (0-0.5) ng/ml Urine Protein 2+ H (Negative) Urine Ketones Trace H (Negative) Urine Blood 1+ H (Negative) Ur Leukocyte Esterase 2+ H (Negative) Urine WBC (Auto) 11-20 H (0-5) /hpf Urine RBC (Auto) 6-10 H (0-2) /hpf U Hyaline Cast (Auto) 6-10 H (0-2) /lpf Granular Casts Present A (None Prsent) /lpf Diagnostic Findings Chest X-Ray 10/03/25 05:45 EXAM: XR chest 1V portable CLINICAL HISTORY: Dyspnea TECHNIQUE: An X-ray image of the chest is obtained in AP projection. COMPARISON: 08/15/2025 CR. FINDINGS: Pulmonary Parenchyma: A right central venous catheter was noted with the tip at the cavoatrial junction. Opacification of the right lower zone suggests mild to moderate pleural effusion with associated atelectatic changes. Unchanged blunting of left CP angle likely small pleural effusion vs thickening. Heart and Mediastinum: Mild cardiomegaly. No mediastinal widening or masses. No hilar or mediastinal lymphadenopathy. Bony Thorax: Sternotomy sutures. Bony thorax appears intact without fractures or deformities. Degenerative changes in bilateral shoulder joints. Soft Tissues: Soft tissues overlying the chest wall are unremarkable. IMPRESSION: 1. A right central venous catheter was noted with the tip at the cavoatrial junction, unchanged. 2. Mild to moderate right pleural effusion with underlying atelectatic changes., New finding. 3. Unchanged blunting of left CP angle likely small pleural effusion vs thickening. 4. Clinical correlation is suggested. Electronically signed by Lior Jamil 10-03-2025 07:40 AM Abdomen/Pelvis CT 10/03/25 08:18 CT SCAN OF THE ABDOMEN AND PELVIS WITH IV CONTRAST CLINICAL HISTORY: Abdominal pain, diarrhea and abdominal distention. COMPARISON STUDY: CT of the abdomen and pelvis June 19, 2024. Renal ultrasound December 15, 2024. TECHNIQUE: Following the IV administration of 94 cc of Optiray 320, CT scan of the abdomen and pelvis is performed from the lung bases to the proximal femora. Images are reviewed in the axial, sagittal, and coronal planes. IV contrast was administered without complication. A dose lowering technique was utilized adhering to the principles of ALARA. CT DOSE: 1602.69 mGy.cm FINDINGS: There is moderate cardiomegaly and extensive coronary artery calcification. Moderate size right pleural effusion is partially imaged. There is associated right lower lobe compressive atelectasis. There is segmental atelectasis within the right middle lobe. There is a trace left pleural effusion. No pneumatosis, free air or portal venous gas is present. Mild biliary ductal dilatation is likely related to cholecystectomy. There are no hepatic lesions. Spleen, adrenal glands and pancreas are unremarkable. Marked right and moderate left renal cortical thinning are noted. Water attenuation bilateral renal lesions favor cysts. Dilatation of the right renal pelvis is unchanged. This is chronic. The prostate is enlarged, measuring 5.4 cm in transverse diameter. There is a Berg balloon within the bladder. Body wall edema is present. There is a small amount of abdominal and pelvic ascites. There is no evidence for a bowel obstruction. The caliber and thickness of small and large bowel are normal. There is colonic diverticulosis without evidence for acute diverticulitis. No lymphadenopathy. There are no fluid collections. The appendix is normal. No acute fractures within the lumbar spine, pelvis or hips are identified. There is extensive aortoiliac atherosclerotic plaque. IMPRESSION: 1. No bowel junction. No bowel wall thickening. Colonic diverticulosis. No evidence for acute diverticulitis. 2. Partially visualized moderate size right pleural effusion. Associated right lower lobe compressive atelectasis. Segmental right middle lobe atelectasis. Trace left pleural effusion. 3. Small amount of abdominal and pelvic ascites. Body wall edema. 4. Marked right and moderate left renal cortical thinning. Chronic dilatation right renal pelvis. ACT 112: Negative or not required by law. Electronically signed by: Anastacio Aguilar M.D. 10/03/2025 9:03 AM Medications Administered Current Inpatient Medications Acetaminophen (Acetaminophen 325 Mg Tab) 650 mg PO Q6H PRN PRN Reason: Pain or T>38 Stop: 11/02/25 10:00 Albuterol (Albuterol Hfa 8 Gm Inhaler) 2 puffs INH QID PRN PRN Reason: Shortness Of Breath Or Wheezing Stop: 11/02/25 10:00 Amlodipine Besylate (Amlodipine Besylate 5 Mg Tab) 10 mg PO DAILY AUDRA Stop: 11/02/25 10:00 Aspirin (Aspirin 81 Mg Ectab) 81 mg PO DAILY AUDRA Stop: 11/02/25 10:00 Atorvastatin Calcium (Atorvastatin 40 Mg Tab) 80 mg PO HS AUDRA Stop: 11/02/25 20:59 Carvedilol (Carvedilol 12.5 Mg Tab) 37.5 mg PO BIDM AUDRA Stop: 11/02/25 16:59 Doxazosin Mesylate (Doxazosin Mesylate 4 Mg Tab) 8 mg PO DAILY AUDRA Stop: 11/02/25 10:00 Fluticasone Propionate (Fluticasone Propionate Na Spr 16 Gm Btl) 2 sprays NA DAILY [facility] Stop: 11/02/25 10:00 Cefepime HCl (Maxipime 500mg) 500 mg in 5 mls @ 5 mls/min IV QPM AUDRA Stop: 10/13/25 20:59 Insulin Aspart (Insulin Aspart Per Unit Charge) 0 units SC ACHS AUDRA Stop: 11/02/25 11:29 Loratadine (Loratadine 10 Mg Tab) 10 mg PO Q2D AUDRA Stop: 11/02/25 10:00 Melatonin (Melatonin 3 Mg Tab) 3 mg PO HS PRN PRN Reason: Sleep Stop: 11/02/25 10:00 Morphine Sulfate (Morphine Sulfate 2 Mg/Ml Carp) 2 mg IV Q30M PRN PRN Reason: Chest Pain Stop: 10/17/25 10:00 Nitroglycerin (Nitroglycerin Sl 0.4 Mg/Tab Tab) 0.4 mg SL Q5M PRN PRN Reason: Chest Pain Stop: 11/02/25 10:00 Non-Formulary Medication (Carboxymethylcellulose Sodium) 1 drops OP BID AUDRA Stop: 11/02/25 10:00 Non-Formulary Medication (Insulin Glargine) 25 units SQ HS AUDR[facility] Stop: 11/02/25 20:59 Non-Formulary Medication (Tiotropium-Olodaterol [Stiolto Respimat]) 2 puffs INH DAILY [facility] Stop: 11/02/25 10:00 Non-Formulary Medication (Vit C,U-Sc-Ziexk-Lutein-Zeaxan [Preservision Areds-2]) 1 tab PO BID [facility] Stop: 11/02/25 10:00 Ondansetron HCl (Ondansetron Inj 2 Mg/Ml 2 Ml Vial) 4 mg IV Q6H PRN PRN Reason: Nausea Stop: 11/02/25 10:00 Pantoprazole Sodium (Pantoprazole 40 Mg Tab) 40 mg PO BID [facility] Stop: 11/02/25 10:00 Sevelamer Carbonate (Sevelamer Carbonate 800 Mg Tab) 800 mg PO TIDWMEAL [facility] Stop: 11/02/25 10:00 Vitamin D (Cholecalciferol 25 Mcg (1000 Units) Tab) 50 mcg PO DAILY [facility] Stop: 11/02/25 10:00 PG Care Time/CCT Total # of Minutes Spent Total Time Spent with Patient: Total time spent is greater than 50% in coordination of care (as documented) at patient's floor/unit and/or counseling patient: Advanced Care Planning 41986 Advanced Care Planning 30 [place] [address] IN/OBS CONSULT LVL 4,60M Patient Type New History Expanded Problem Focused Exam Expanded Problem Focused Medical Decision Making Moderate Complexity Diagnoses Dyspnea R06.00 Abdominal pain, generalized R10.84 Weakness generalized R53.1 Lethargy R53.83 Palliative care by specialist Z51.5 Counseling regarding advanced directives and goals of care Z71.89 Additional Codes Advanced Care Planning - 83331 Advanced Care Planning 30 Min: 90332 Advanced Care Planning 30 Min ([id number])
--- NOTE | 2025-10-03 13:31 | Communication Note ---
Date of Service: October 03, 2025 Spoke with Harini Still ([phone] ext [phone]) at [facility]. Ga is followed by [facility] PCP Shadia KOHLER ([phone] ext [phone]) has reportedly been living independently at home with [facility] ([phone]) since stopping HD don 09/20/25. She shared [facility] nursing notes from 10/01 morning home visit reporting patient confused, impulsive, and requiring constant supervision. Hospice nurse reportedly stayed with patient to ensure safety until 1600 when paid dividing machine operator arrived. Harini stated that their records show pt was taken to ED on morning of 10/02/25 and no further home visits are documented. Harini reports that pt was directed by hospice entrance attendant to go to ED to be evaluated for placement in SNF with hospice. Patient brought to ED on the morning of 10/03/25 after he called 911. According to Harini, patient qualifies for 90% service connection with benefit that will cover costs of SNF with hospice.
[2025-10-03] MEDS: INSULIN ASPART PER UNIT CHARGE SC SCH ×2 (15:28→17:22)
[2025-10-03] MEDS: NON-FORMULARY MEDICATION (Vit C,E-Zn-Coppr-Lutein-Zeaxan [Preservision Areds-2] 250-90-40- PO SCH (15:28)
[2025-10-03] MEDS: NON-FORMULARY MEDICATION (Carboxymethylcellulose Sodium 0.5 % Drops) OP SCH (15:28)
[2025-10-03] MEDS: SEVELAMER CARBONATE 800 MG TAB PO SCH (15:29)
[2025-10-03] MEDS: ASPIRIN 81 MG ECTAB PO SCH (15:51)
[2025-10-03] MEDS: CEFEPIME 500MG 500 MG/5 ML SYR IV STA (15:51)
[2025-10-03] MEDS: CHOLECALCIFEROL 25 MCG (1000 UNITS) TAB PO SCH (15:52)
[2025-10-03] MEDS: LORATADINE 10 MG TAB PO SCH (15:52)
[2025-10-03] MEDS: UMECLIDINIUM/VILANTEROL 62.5/25MCG 7 PUFFS/INHALER INH SCH (15:52)
[2025-10-03] MEDS: FLUTICASONE PROPIONATE NA SPR 16 GM BTL SCH (15:52)
[2025-10-03] MEDS: ATORVASTATIN 40 MG TAB PO SCH (20:37)
[2025-10-03] MEDS: LANTUS PER UNIT CHARGE SC SCH (21:00)
[2025-10-03] MEDS ORDERED: INSULIN GLARGINE 100 UNIT/ML SQ SCH (21:00)
[2025-10-03] MEDS ORDERED: INSULIN SQ SCH (21:00)
[2025-10-03] MEDS: CEFEPIME 500MG 500 MG/5 ML SYR IV SCH (21:29)
[2025-10-03] MEDS: ACETAMINOPHEN 325 MG TAB PO PRN (22:23)
[2025-10-03] MEDS: MELATONIN 3 MG TAB PO PRN (23:33)
[2025-10-04] MEDS: LANTUS PER UNIT CHARGE SC SCH (00:28)
[2025-10-04 00:46] LABS: Cdiff Toxin B Gene (2yr or >) Negative Cdiff Gene (Neg)
[2025-10-04 01:19] LABS: Adenovirus F 40/41 PCR Not Detected (NotDetected); Enteroaggregative E.coli(EAEC) Not Detected (NotDetected); Shiga-like Toxin E.coli (STEC) Not Detected (NotDetected); Vibrio species PCR Not Detected (NotDetected)
[2025-10-04 01:24] LABS: Campylobacter PCR DETECTED (NotDetected)
--- NOTE | 2025-10-04 12:44 | Nephrology Progress Note ---
Date of Service October 04, 2025 Assessment & Plan (1) End stage renal disease: Plan: Ga completed HD yesterday with ~4 L UF. He remains hypervolemic. Orders for HD were entered into the EHR and reviewed with the loading checker. Ga was seen and evaluated during treatment. TDC is functioning well. Ga has refused use of his AVF. He continues to struggle with goals of care but plans to continue dialysis at this time with hopes that it will help him feel better. He is struggle with acute GI illness (Campylobacter and norovirus) as well as significant volume overload. Goals of care were discussed with the patient. Medications are appropriate for IHD. I will make a determination tomorrow regarding timing of next dialysis treatment based on how today's treatment goes. (2) Hyperkalemia: Plan: Renal diet. Improving with clearance. (3) Acute on chronic hypoxic respiratory failure: Plan: HD today for additional UF as tolerated. (4) Hypertension: Plan: Amlodipine and carvedilol restarted. BP acceptable. (5) Coronary artery disease: (6) Counseling regarding advanced directives and goals of care: Plan: Palliative care consultation appreciated. At this time, Ga has stated that he plans to continue HD but overall goals are unclear. Moving toward SNF placement which Ga has expressed reservations regarding. (7) Abdominal pain, generalized: Plan: + Campylobacter and norovirus. Admission and Anticipated Discharge Date Admission Date: October 03, 2025 Subjective Ga was seen and evaluated during hemodialysis this AM. He does not feel well. He continues to struggle with dialysis. No fevers or chills. He did not sleep well. He describes dyspnea with minimal activity. He is very weak and his mouth is very dry. He expressed that he is struggling with whether to continue dialysis or stop treatments. He was agreeable to hemodialysis today. He is afraid of feeling miserable if he stops treatments. He tolerated HD yesterday without complications. He endorsed no specific concerns with hemodialysis today. Review of Systems Review of Systems: All systems reviewed & are unremarkable except as noted in HPI & below Physical Exam Constitutional: + ill appearing and + morbidly obese Neck: normal visual inspection, trachea midline and + thick neck Respiratory: normal respiratory effort Auscultation: + diminished lung sounds and + rales Cardiovascular: Rate/Rhythm: regular rate and regular rhythm Heart Sounds: normal S1, normal S2 and + murmur Extremities: + edema and + AV fistula Gastrointestinal (Abdomen): Inspection/Auscultation: + abdomen distended Percussion/Palpation: + tympanic to percussion; abdomen nontender, no guarding and abdomen not rigid Musculoskeletal: Extremities: no cyanosis and no clubbing Skin: normal turgor; no lesions and no jaundice Neurologic: Motor/Sensory: no tremor and no asterixis Results & Data Vital Signs (Past 12 Hours) Vital Signs Temp Pulse Pulse Pulse Resp BP BP 10/04/25 12:30 87 115/58 L 10/04/25 12:00 86 112/54 L 10/04/25 11:30 65 117/82 10/04/25 11:00 82 130/59 L 10/04/25 10:30 81 116/56 L 10/04/25 10:00 86 140/65 10/04/25 09:30 78 133/59 L 10/04/25 09:22 77 133/60 10/04/25 09:15 37.3 C 80 10/04/25 07:34 37.0 C 83 21 135/57 L 10/04/25 07:30 80 10/04/25 07:30 10/04/25 02:46 36.7 C 78 20 150/78 H Pulse Ox O2 Del Method O2 Flow Rate 10/04/25 12:30 10/04/25 12:00 10/04/25 11:30 10/04/25 11:00 10/04/25 10:30 10/04/25 10:00 10/04/25 09:30 10/04/25 09:22 10/04/25 09:15 10/04/25 07:34 90 Nasal Cannula 6 10/04/25 07:30 10/04/25 07:30 Oxymask 5 10/04/25 02:46 High Flow Nasal Cannula 5 Laboratory Results Laboratory Results - last 24 hr 10/03/25 10/03/25 10/03/25 16:38 23:23 23:39 POC Glucose 93 90 Stl C. cayetanensis PCR Not Detected Stool Rotavirus A PCR Not Detected Stl Adenov F 40/41 PCR Not Detected Stool Astrovirus (PCR) Not Detected Stool Campylobacter PCR DETECTED A* Stl C. diff Tox B Gene Negative Cdiff Gene Stl C. diff 027-NAP1-BI NEGATIVE Stool Cryptosporidium PCR Not Detected Stl E.coli Shiga Tox PCR Not Detected Stl Enterotoxigenic E PCR Not Detected Stool EPEC (PCR) Not Detected Stool EAEC (PCR) Not Detected Stl E. histolytica PCR Not Detected Stool Giardia Lamblia PCR Not Detected Stool Salmonella PCR Not Detected Stool Sapovirus (PCR) Not Detected Stl P. shigelloides PCR Not Detected Stl Shigella/EIEC PCR Not Detected St Y.enterocolitica PCR Not Detected Stool Vibrio (PCR) Not Detected Stl Vibrio cholerae PCR Not Detected Stl Norovirus GI/GII PCR DETECTED A* 10/04/25 06:33 POC Glucose 98 Stl C. cayetanensis PCR Stool Rotavirus A PCR Stl Adenov F 40/ PCR Stool Astrovirus (PCR) Stool Campylobacter PCR Stl C. diff Tox B Gene Stl C. diff 027-NAP1-BI Stool Cryptosporidium PCR Stl E.coli Shiga Tox PCR Stl Enterotoxigenic E PCR Stool EPEC (PCR) Stool EAEC (PCR) Stl E. histolytica PCR Stool Giardia Lamblia PCR Stool Salmonella PCR Stool Sapovirus (PCR) Stl P. shigelloides PCR Stl Shigella/EIEC PCR St Y.enterocolitica PCR Stool Vibrio (PCR) Stl Vibrio cholerae PCR Stl Norovirus GI/GII PCR PG Care Time/CCT Total # of Minutes Spent Total Time Spent with Patient: Total time spent is greater than 50% in coordination of care (as documented) at patient's floor/unit and/or counseling patient: Coding Level of Care Code 72631 SUB INP/OBS CARE 3/50MIN Diagnoses End stage renal disease N18.6 Hyperkalemia E87.5 Acute on chronic hypoxic respiratory failure J96.21 Hypertension I10 Coronary artery disease I25.10 Counseling regarding advanced directives and goals of care Z71.89 Abdominal pain, generalized R10.84
[2025-10-04] MEDS: INSULIN ASPART PER UNIT CHARGE SC SCH (13:20)
[2025-10-04] MEDS: AZITHROMYCIN 500 MG/255 ML BAG IV SCH (13:30)
--- NOTE | 2025-10-04 14:19 | Palliative Family Discussion ---
Date of Service October 04, 2025 Patient Directed Conference Time of Meetin:00 - 13:30 Participants: Jessica Frey AGACNP Patient participation: no Patient Support System: HCPOA/sister Zully Wynn and her spouse Other Healthcare Provider Participation: None Meeting Location: room 243 Advanced Directive available: yes If yes, descriptors: The patient's surrogate medical decision maker participated: Zully is HCPOA A family meeting was held for NAYA DOHERTY. This meeting was necessary for determining the appropriate course of treatment. Topics of Discussion Topics of Discussion: 1. Opportunity given for participants to speak and ask questions. Reassurance provided 2. Participants were assured of attention to patient comfort. 3. Typical trajectory of ESRD 4. [facility]/hospice care 5. code status 6. Support was provided for informed, good-renetta decisions. 7. Follow-up Outpatient: n/a 8. Plan of Care: DNR/DNI with plan for discharge to SNF with hospice through [facility] benefits We discussed at length the patient's acute and chronic medical conditions, general prognosis, treatment options, and goals of care. Zully shared confusion over hospitalization. She shared frustration with not knowing who/when Ga's care team is expected at house. She shared frustration that so many people have been coming and going in the house that they are confused. She questioned hospice care and stated that the patient's goal of enrolling with hospice was to avoid hospitalization and dialysis and concern that the hospice team was not aware of this. Helped Zully understand that Ga currently lacks decisional capacity and requires a proxy for medical decisions. He lacks capacity based on the inability to convey understanding of personal PMHx, current medical condition, treatment options nor the risks / benefits/ potential outcomes of accepting/declining those options, and inability to make decisions based on such knowledge. Hospital does not have written documentation of patient wishes concer chika his chosen proxy for medical decisions. Per PA [id number], in absence of written documentation of patient wishes, pt's proxy for medical decisions would be his adult siblings Anamika Talbot and Zully Wynn with equal authority. Zully provided CM with Ga's completed HCPOA document indicating Zully as primary HCPOA and living will confirming his wishes for DNR/DNI and comfort measures if faced with terminal disease. Discussed that although Ga can answer some complex questions, he lacks ability to associate cause and effect of his decisions. For instance, he does not understand that his kidneys have not improved and prolonging his life will require mcfp HD. Zully shared that Ga was clear about his wish to not pursue any further HD when his mind was clear. She shared that he spoke with both his sisters and his PCP and clearly understood that failure to continue HD would result in his and that is what he chose. Zully requested that Ga transition to [facility] as that was his wish when he did posess decisional capacity. SHe shared that her only concern is that he cannot continue to live independently and she is unable to provide the care necessary at home. She asked for referral for SNF placement with hospice care. We discussed changing code status to DNR/DNI and continuing current level of care through discharge and Zully agrees. She did request NO ESCALATION OF CARE at this time however is okay with HD continuing ONLY while hospitalized. She shared that if he were to decompensate while admitted she would want to transition to [facility] at that time. NO vasopressors, NO ICU level care. Offered anticipatory guidance. Discussed changes pt may move through in the dying process including but not limited to sleeping more, disorientation when awake, restlessness, diminished senses/inability to respond to stimulus although ability to be aware of them remains intact longer, and changes in body temperatures, skin changes/mottling/cyanosis, respiratory pattern changes, and oral secretions. Family verbalized understanding. The goal is to assure a peaceful . Time Involved in Meeting: I spent 60 minutes overall addressing this case: 5 in medical data review/discussion with referring provider(s) and/or preparation for the visit 30 in direct interaction with the patient's HCPOA 30 Advance Care Planning/Goals of Care discussions as detailed above in note (must be >16min) 10 in subsequent review and synthesis of assessment and plan 5 in communicating with other providers regarding the patient's case: primary team, ALISON, BSRN
[2025-10-04] MEDS ORDERED: ACETAMINOPHEN 325 MG TAB PO PRN (14:56)
--- NOTE | 2025-10-04 14:57 | Hospitalist Progress Note ---
Date of Service October 04, 2025 Assessment & Plan (1) Campylobacter enteritis: (2) Enteritis due to Norovirus: (3) Acute on chronic hypoxic respiratory failure: (4) Acute metabolic encephalopathy: (5) End stage renal disease: (6) BPH (benign prostatic hyperplasia): (7) Chronic indwelling Jovel catheter: (8) Blindness: (9) COPD (chronic obstructive pulmonary disease): (10) Hyperlipidemia: (11) Hypertension: (12) Coronary artery disease: (13) Insulin dependent diabetes mellitus: (14) On home oxygen therapy: (15) Thrombocytopenia: (16) GERD (gastroesophageal reflux disease): (17) Hyperkalemia: Plan 85yo male with ESRD on HD M/W/ at the [facility], CAD s/p CABG 2003 at the [facility], h/o NSTEMI, T2DM, hypertension, macular degeneration (blind L eye, 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 Presented from home via EMS after not having the last 2 weeks of HD sessions at his request as he wanted to transition to Hospice. By report he did indeed enroll in Hospice. #enteritis 2nd to norovirus + campylobacter - -contact precautions -azithromycin 500mg daily x 3 days for the campylobacter given the severity of his symptoms and immunocompromised status; his GI symptoms at this time are his biggest complaints -suppotive care -clear liquids as tolerated; advance when he is ready and/or desires more #acute/chronic hypoxic respiratory failure - -acute component 2nd to volume overload from ESRD and having missed 2 weeks of HD sessions intentionally due to Hospice status -he has a rather large pleural effusion on the right side -I cannot rule out a RLL pneumonia but the right basilar findings are probably compressive atelectasis -now off BIPAP and over to NC O2 s/p 2 HD sessions for volume control -no evidence of COPD exacerbation; defer on steroids -doubt pneumonia - will stop IV cefepime #ESRD on HD typically Wed/Wed/Wednesday - -stopped 2 weeks ago due to transition to Hospice -Dr Yoandy Randhawa from [facility] [place] Nephrology consulted and HD assistance appreciated -s/p 2 HD sessions since admission for volume control which has provided great relief of his dyspnea -appreciate palliative care assistance - -after today's session will likely not resume any further sessions unless he has significant dyspnea that cannot be controlled via other means #hyperkalemia - -2nd to ESRD and multiple missed HD sessions -s/p calcium & bicarbonate IV along with albuterol in ER at time of presentation -s/p 2 HD sessions -high K resolved #chronic jovel catheter - -last exchange uncertain -has had such for at least 1 year -urine cx negative #possible catheter-associated UTI - -ruled out - stop IV cefepime #right-sided pleural effusion - -suspect 2nd to volume overload from ESRD -can't rule out other factors but unlikely -would not pursue work-up/thoracentesis given likely transition to hospice #CAD / h/o CABG / troponin elevation - -no evidence of ACS -troponin elevation likely due to myocardial demand ischemia in setting of respiratory failure and volume overload #T2DM - -appetite is very poor -stop lantus -loose novolog SSI only at this time #HTN - -for now will cont coreg, doxazosin #macular degeneration with legal blindness - #abdominal distension - -2nd to norovirus & campylobacter enteritis -improved modestly today #COPD on home O2 - -BIPAP now off; we are back to NC O2 #BPH with LUTS - -cont jovel -cont alpha domenico for now #thrombocytopenia - -chronic, dating back to earlier in 2024 -etiology uncertain #acute metabolic encephalopathy - -likely multifactorial - acidosis and uremia from ESRD, infectious etiologies, hypoxia, etc. -improved today pt's sister Zully updated at bedside care d/w Lia Frey from palliative care appreciate Ms Frey & Dr Randhawa's assistance tomorrow can likely d/c tele Admission and Anticipated Discharge Date Admission Date: October 03, 2025 Subjective patient reports ongoing diarrhea - multiple episodes - since last pm he has ongoing abd pain & bloating reports low back pain he did eat some sherbet today but doesn't have a great appetite he is not short of breath today; this is improved s/p 2 HD sessions since admission during the visit his sister and [id number] were present we briefly discussed the events of earlier today including the ultimate pivot to hospice the goal is ultimately for Mr Garcia to go to local SNF with hospice in place Review of Systems Review of Systems: cv - no chest pain pulm - no dyspnea Physical Exam Physical Exam: gen - looks mildly better today; more awake/alert; more coherent; he admits he doesn't remember much from yesterday HENT - MM still dry neck - no obvious JVD heart - RRR, s1 s2, 2/6 systolic murmur LSB lungs - airation improved today; CTA b/l; no rales abd - distension is mildly better; nontender, BS+, no HSM ext - edema improved b/l shins/feet; pulses b/l feet 2+ Results & Data Results & Data Vital Signs (Past 12 Hours) Vital Signs Temp Pulse Pulse Pulse Resp BP BP 10/04/25 13:17 36.9 C 87 18 145/64 H 10/04/25 12:30 87 115/58 L 10/04/25 12:00 86 112/54 L 10/04/25 11:30 65 117/82 10/04/25 11:00 82 130/59 L 10/04/25 10:30 81 116/56 L 10/04/25 10:00 86 140/65 10/04/25 09:30 78 133/59 L 10/04/25 09:22 77 133/60 10/04/25 09:15 37.3 C 80 10/04/25 07:34 37.0 C 83 21 135/57 L 10/04/25 07:30 80 10/04/25 07:30 Pulse Ox O2 Del Method O2 Flow Rate 10/04/25 13:17 91 High Flow Nasal Cannula 6 10/04/25 12:30 10/04/25 12:00 10/04/25 11:30 10/04/25 11:00 10/04/25 10:30 10/04/25 10:00 10/04/25 09:30 10/04/25 09:22 10/04/25 09:15 10/04/25 07:34 90 Nasal Cannula 6 10/04/25 07:30 10/04/25 07:30 Oxymask 5 Laboratory Results Laboratory Results - last 24 hr 10/03/25 10/03/25 10/03/25 16:38 23:23 23:39 POC Glucose 93 90 Stl C. cayetanensis PCR Not Detected Stool Rotavirus A PCR Not Detected Stl Adenov F 40 PCR Not Detected Stool Astrovirus (PCR) Not Detected Stool Campylobacter PCR DETECTED A* Stl C. diff Tox B Gene Negative Cdiff Gene Stl C. diff 027-NAP1-BI NEGATIVE Stool Cryptosporidium PCR Not Detected Stl E.coli Shiga Tox PCR Not Detected Stl Enterotoxigenic E PCR Not Detected Stool EPEC (PCR) Not Detected Stool EAEC (PCR) Not Detected Stl E. histolytica PCR Not Detected Stool Giardia Lamblia PCR Not Detected Stool Salmonella PCR Not Detected Stool Sapovirus (PCR) Not Detected Stl P. shigelloides PCR Not Detected Stl Shigella/EIEC PCR Not Detected St Y.enterocolitica PCR Not Detected Stool Vibrio (PCR) Not Detected Stl Vibrio cholerae PCR Not Detected Stl Norovirus GI/GII PCR DETECTED A* 10/04/25 10/04/25 06:33 13:17 POC Glucose 98 83 Stl C. cayetanensis PCR Stool Rotavirus A PCR Stl Adenov F 40/41 PCR Stool Astrovirus (PCR) Stool Campylobacter PCR Stl C. diff Tox B Gene Stl C. diff 027-NAP1-BI Stool Cryptosporidium PCR Stl E.coli Shiga Tox PCR Stl Enterotoxigenic E PCR Stool EPEC (PCR) Stool EAEC (PCR) Stl E. histolytica PCR Stool Giardia Lamblia PCR Stool Salmonella PCR Stool Sapovirus (PCR) Stl P. shigelloides PCR Stl Shigella/EIEC PCR St Y.enterocolitica PCR Stool Vibrio (PCR) Stl Vibrio cholerae PCR Stl Norovirus GI/GII PCR PG Care Time/CCT Total # of Minutes Spent Total Time Spent with Patient: Total time spent is greater than 50% in coordination of care (as documented) at patient's floor/unit and/or counseling patient: Coding Level of Care Code 45146 SUB INP/OBS CARE 3/50MIN Diagnoses Campylobacter enteritis A04.5 Enteritis due to Norovirus A08.11 Acute on chronic hypoxic respiratory failure J96.21 Acute metabolic encephalopathy G93.41 End stage renal disease N18.6 BPH (benign prostatic hyperplasia) N40.0 Chronic indwelling Jovel catheter Z97.8 Blindness H54.7 COPD (chronic obstructive pulmonary disease) J44.9 Hyperlipidemia E78.5 Hypertension I10 Coronary artery disease I25.10 Insulin dependent diabetes mellitus On home oxygen therapy Z99.81 Thrombocytopenia D69.6 GERD (gastroesophageal reflux disease) K21.9 Hyperkalemia E87.5
[2025-10-04] MEDS: MoRPHine SULFATE 2 MG/ML CARP IV PRN (15:29)
[2025-10-04] MEDS ORDERED: Nursing to Pharmacy Communication SCH (16:30)
[2025-10-04] MEDS: COLESTIPOL HCL 1 GM TAB PO STA (18:19)
--- NOTE | 2025-10-05 06:12 | Electrocardiogram Report ---
Test Reason : Blood Pressure : */* mmHG Vent. Rate : 93 BPM Atrial Rate : 93 BPM P-R Int : 166 ms QRS Dur : 88 ms QT Int : 352 ms P-R-T Axes : 56 62 115 degrees QTcB Int : 437 ms Normal sinus rhythm Low voltage QRS Nonspecific T wave abnormality Abnormal ECG When compared with ECG of 03-Apr-2025 14:27, Vent. rate has increased by 34 bpm Nonspecific T wave abnormality now evident in Anterolateral leads Confirmed by Jeff Fuentes ([id number]) on 10/05/2025 6:12:20 AM Referred By: Confirmed By: Jeff Fuentes
--- NOTE | 2025-10-05 09:38 | Nephrology Progress Note ---
Date of Service October 05, 2025 Assessment & Plan (1) End stage renal disease: Plan: Ga completed HD yesterday with ~4.3 L UF. Volume status has significantly improved though he remains hypervolemic. His volume status is not bothering him at this time and he would prefer to hold off on additional dialysis at this time. No HD is planned for today. We will revisit dialysis treatments on a regular basis based on goals of care. Currently I believe Ga is moving toward hospice at a SNF. Palliative care and case management are working on this. If this changes, please let me know. In the interim, nephrology will continue to follow along and provide dialysis if the patient wishes. TDC has been functioning well. Ga has refused use of his AVF. Medications are appropriate for IHD. (2) Acute on chronic hypoxic respiratory failure: Plan: Improved. No HD planned for today. If Ga remains hospitalized, HD can be arranged as needed tomorrow to help with symptom burden. (3) Hypertension: Plan: Amlodipine and carvedilol restarted. BP acceptable. (4) Coronary artery disease: (5) Counseling regarding advanced directives and goals of care: Plan: Palliative care consultation appreciated. At this time, Ga has stated that he plans to continue HD but overall goals are unclear. Moving toward SNF placement which Ga has expressed reservations regarding. (6) Abdominal pain, generalized: Plan: + Campylobacter and norovirus. Admission and Anticipated Discharge Date Admission Date: October 03, 2025 Subjective No acute events overnight. No fevers or chills. Ga denies dyspnea. Diarrhea persists. Ga continues to endorse significant abdominal bloating and discomfort. He does not endorse pain. His focus remains on comfort and he feels the need to continue dialysis for this reason. During our conversation, he repeatedly told me that he does not ever want to feel as sick and miserable as he was when he presented to the hospital. He believes that dialysis has helped him feel better but he would prefer not to do dialysis today unless necessary. Each dialysis treatment is a burden and he expressed frustration with the quality of life on HD. I asked him if he would stop dialysis if he could be kept comfortable with the understanding that he may of renal failure in days to weeks and he told me that he would really need to talk to his sister and family -- "They are the ones that need convincing" and "I gotta do what you tell me to do because I don't want to be that sick again." Ga does acknowledge that he will of kidney failure if he stops dialysis. He told me that he knew this but he did not know what it would feel like when he started hospice initially. He is also resolved to SNF placement at this time. He told me that he plans on discussing goals of care with his sister today. I also discussed Ga's condition and goals of care with JOSE F Portillo this AM. Review of Systems Review of Systems: All systems reviewed & are unremarkable except as noted in HPI & below Physical Exam Constitutional: + acute distress and + morbidly obese Neck: normal visual inspection, trachea midline and + thick neck Respiratory: normal respiratory effort Auscultation: + diminished lung sounds and + rales (improved) Cardiovascular: Rate/Rhythm: regular rate and regular rhythm Heart Sounds: normal S1, normal S2 and + murmur Extremities: + edema and + AV fistula Gastrointestinal (Abdomen): Inspection/Auscultation: + abdomen distended Percussion/Palpation: + tympanic to percussion; abdomen nontender, no guarding and abdomen not rigid Musculoskeletal: Extremities: no cyanosis and no clubbing Skin: normal turgor; no lesions and no jaundice Neurologic: Motor/Sensory: no tremor and no asterixis Results & Data Vital Signs (Past 12 Hours) Vital Signs Temp Pulse Pulse Resp BP Pulse Ox O2 Del Method 10/05/25 09:06 High Flow Nasal Cannula 10/05/25 07:10 37.0 C 74 18 147/67 H 92 Nasal Cannula 10/05/25 02:50 36.8 C 69 18 139/62 93 Nasal Cannula 10/04/25 23:27 69 10/04/25 23:03 36.9 C 67 18 131/68 91 Nasal Cannula O2 Flow Rate 10/05/25 09:06 4 10/05/25 07:10 4 10/05/25 02:50 4 10/04/25 23:27 10/04/25 23:03 4 Laboratory Results Laboratory Results - last 24 hr 10/04/25 10/04/25 10/04/25 13:17 16:19 20:30 POC Glucose 83 123 H 101 H 10/05/25 07:38 POC Glucose 85 PG Care Time/CCT Total # of Minutes Spent Total Time Spent with Patient: Total time spent is greater than 50% in coordination of care (as documented) at patient's floor/unit and/or counseling patient: Coding Level of Care Code 94278 SUB INP/OBS CARE 350MIN Diagnoses End stage renal disease N18.6 Acute on chronic hypoxic respiratory failure J96.21 Hypertension I10 Coronary artery disease I25.10 Counseling regarding advanced directives and goals of care Z71.89 Abdominal pain, generalized R10.84
--- NOTE | 2025-10-05 13:24 | Palliative Care Progress Note ---
Date of Service October 05, 2025 Assessment & Plan (1) Dyspnea: (2) Abdominal pain, generalized: (3) Weakness generalized: (4) Lethargy: (5) Palliative care by specialist: Plan: Spoke with pt's sister Anamika Talbot by phone. Introduced Palliative Medicine and explained our role in advanced care planning, symptom management and navigation through the progression of life limiting disease. Patient and/or family were receptive to palliative services for goals of care discussions. Reviewed we are different from hospice, a home health nurse visiting service. (6) Counseling regarding advanced directives and goals of care: Plan: Today: met with pt at bedside, no visitors present. Discussed GOC with him for 30 minutes today. 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 He is a and had two children, his daughter at a young age and his son lives near [facility]. He has two grandchildren and two great grandchildren that he describes as his "whole world". He shared an understanding that he cannot live safely at home any more and expressed concern over cost involved with SNF. I again shared with him that VA benefits will likely cover normal out of pocket expenses for SNF. He shared relief with this knowledge. He again shared that being dependent on dialysis three days per week no longer offered him an acceptable quality of life. He shared that he would feel miserable and tired before HD, slightly better during, but then be exhausted for 24hrs before he needed to start this cycle over again. He shared a general fatigue and lethargy that dominated his life. He shared that he thinks the hospice team was not helping him at home the way he thought they would and he understands now that he cannot return home. He shared that he does not wish to prolong his life "if this is the best it will get". When asked if he would want dialysis if he could be kept comfortable with medications instead, he shared that he knows that hospice is what he wants but he is worried about dying during the holidays and his family having that as a holiday memory. Ga does acknowledge that he will of kidney failure if he stops dialysis and stated that if he needs another time at dialysis to get him past Zen he would be ok with that. He reinforced that he would like his care optimized while he is here in the hospital with hope for discharge to SNF with hospice. He is hopeful that discharge is delayed until after Zen, but understanding that this may not e possible. He shared that he will discuss this with Zully, his sister/HCPOA, when she visits next. 10/04: lengthy discussion held with pt's HCPOA, ultimately deciding to continue current level of care with HD on as needed basis but no escalation of care with plan for discharge to SNF with hospice - pending placement. provided Zully with a list of VA contracted SNF to choose from. (see Family meeting note from this date for details) 10/03:Spoke with pt at bedside, he had just completed HD treatment removing 4100ml. He confirmed that he was living alone at home on hospice prior to admission. He shared understanding that he is in hospital because he needed HD. He was able to verbalize that he is dependent on HD to survive and that without it he "would ". He also shared memory of discussions with both his PCP and lna prior to transition to hospice, but could not relay what has changed. He did share that he feels that he has no choice about dialysis and is feeling pressured to come to hospital because he has no one to stay with him and cannot afford a SNF. He said "I just feel so much pressure and can't afford it" referring to needing SNF placement. We briefly discussed hospice, his VA benefits for SNF placement, and code status. He did share that he does not want to prolong life and does not wish to be kept alive on machines, however he could not convey a clear understanding that HD is related to his current health and symptoms. He expressed fear of suffering alone if he does not accept HD and st ated that the clutch operator did not help him feel better then questioned "what choice do I have?". Discussed options for ongoing care as continuing current course of treatment with HD, SNF placement and likely frequent readmissions IF we are able to discharge from hospital vs comfort driven approach to care in SNF. Encouraged Ga that whatever pathway he chooses, his symptoms will be treated and suffering minimized. Ga expressed understanding that he cannot safely live alone at this time. Shared with Ga that I had discussed his benefits with VA and they assured payment for room & board fees at SNF either way. I asked Ga to summarize our discussion and he was unable again stating that he was feeling too much "finance pressure" and asked to defer further discussion until his sister Zully is present. Spoke with pt's sister and only listed contact Anamika Talbot by phone. She expressed confusion that pt is in hospital and awareness that he had been at home with hospice care. She reports pt lives alone and has been getting progressively sicker since stopping HD. [place] was in a shopping [place] and conversation was kept general and short due to her environment. Anamika requests that all medical decisions be deferred to Zully. She was unable to share Zully's phone number with me while she was talking on the phone. She agreed to reach out to Zully and request that she bring HCPOA document with her when she next visits. Anamika reports that Zully lives locally and plans to visit with patient tomorrow. Plan as above Admission and Anticipated Discharge Date Admission Date: October 03, 2025 Subjective Assessed pt at bedside, no visitors present. Ga was more awake and alert today. Oriented x4. MARITZA, VSS. Ga c/o not getting any sleep since admission as well as ongoing diarrhea and related discomfort from "feeling bloated and crampy". He also c/o poor appetite stating that he is afraid if he eats much it will worsen his diarrhea. Review of Systems Review of Systems: All systems reviewed & are unremarkable except as noted in Subjective Physical Exam Constitutional: well developed, + ill appearing, + morbidly obese and cooperative Neck: trachea midline, no thyromegaly Respiratory: normal respiratory effort Auscultation: + diminished lung sounds and + crackles Cardiovascular: RRR, no murmur, no edema Gastrointestinal (Abdomen): Inspection/Auscultation: + abdomen distended and + hyperactive bowel sounds Percussion/Palpation: + abdomen tender and + abdomen firm; no guarding Rectal Exam: + stool abnormal Skin: no rashes, warm and dry + skin tightening and + jaundice Neurologic: moves all extremities, awake and + confused Psychiatric: Orientation: oriented to person and cooperative Eye Contact: + poor eye contact Affect: + anxious affect and + tearful affect Results & Data Vital Signs (Past 12 Hours) Vital Signs Temp Pulse Pulse Pulse Resp BP Pulse Ox 10/05/25 11:27 36.8 C 64 22 131/61 92 10/05/25 09:06 10/05/25 08:00 72 10/05/25 07:10 37.0 C 74 18 147/67 H 92 10/05/25 02:50 36.8 C 69 18 139/62 93 O2 Del Method O2 Flow Rate 10/05/25 11:27 High Flow Nasal Cannula 5 10/05/25 09:06 High Flow Nasal Cannula 4 10/05/25 08:00 10/05/25 07:10 Nasal Cannula 4 10/05/25 02:50 Nasal Cannula 4 Laboratory Results Abnormal lab results 10/04/25 10/04/25 10/05/25 Range/Units 16:19 20:30 11:38 POC Glucose 123 H 101 H 128 H (70-99) mg/dl Diagnostic Findings Chest X-Ray 10/03/25 05:45 EXAM: XR chest 1V portable CLINICAL HISTORY: Dyspnea TECHNIQUE: An X-ray image of the chest is obtained in AP projection. COMPARISON: 08/15/2025 CR. FINDINGS: Pulmonary Parenchyma: A right central venous catheter was noted with the tip at the cavoatrial junction. Opacification of the right lower zone suggests mild to moderate pleural effusion with associated atelectatic changes. Unchanged blunting of left CP angle likely small pleural effusion vs thickening. Heart and Mediastinum: Mild cardiomegaly. No mediastinal widening or masses. No hilar or mediastinal lymphadenopathy. Bony Thorax: Sternotomy sutures. Bony thorax appears intact without fractures or deformities. Degenerative changes in bilateral shoulder joints. Soft Tissues: Soft tissues overlying the chest wall are unremarkable. IMPRESSION: 1. A right central venous catheter was noted with the tip at the cavoatrial junction, unchanged. 2. Mild to moderate right pleural effusion with underlying atelectatic changes., New finding. 3. Unchanged blunting of left CP angle likely small pleural effusion vs thickening. 4. Clinical correlation is suggested. Electronically signed by Lior Jamil 10-03-2025 07:40 AM Abdomen/Pelvis CT 10/03/25 08:18 CT SCAN OF THE ABDOMEN AND PELVIS WITH IV CONTRAST CLINICAL HISTORY: Abdominal pain, diarrhea and abdominal distention. COMPARISON STUDY: CT of the abdomen and pelvis June 19, 2024. Renal ultrasound December 15, 2024. TECHNIQUE: Following the IV administration of 94 cc of Optiray 320, CT scan of the abdomen and pelvis is performed from the lung bases to the proximal femora. Images are reviewed in the axial, sagittal, and coronal planes. IV contrast was administered without complication. A dose lowering technique was utilized adhering to the principles of ALARA. CT DOSE: 1602.69 mGy.cm FINDINGS: There is moderate cardiomegaly and extensive coronary artery calcification. Moderate size right pleural effusion is partially imaged. There is associated right lower lobe compressive atelectasis. There is segmental atelectasis within the right middle lobe. There is a trace left pleural effusion. No pneumatosis, free air or portal venous gas is present. Mild biliary ductal dilatation is likely related to cholecystectomy. There are no hepatic lesions. Spleen, adrenal glands and pancreas are unremarkable. Marked right and moderate left renal cortical thinning are noted. Water attenuation bilateral renal lesions favor cysts. Dilatation of the right renal pelvis is unchanged. This is chronic. The prostate is enlarged, measuring 5.4 cm in transverse diameter. There is a Berg balloon within the bladder. Body wall edema is present. There is a small amount of abdominal and pelvic ascites. There is no evidence for a bowel obstruction. The caliber and thickness of small and large bowel are normal. There is colonic diverticulosis without evidence for acute diverticulitis. No lymphadenopathy. There are no fluid collections. The appendix is normal. No acute fractures within the lumbar spine, pelvis or hips are identified. There is extensive aortoiliac atherosclerotic plaque. IMPRESSION: 1. No bowel junction. No bowel wall thickening. Colonic diverticulosis. No evidence for acute diverticulitis. 2. Partially visualized moderate size right pleural effusion. Associated right lower lobe compressive atelectasis. Segmental right middle lobe atelectasis. Trace left pleural effusion. 3. Small amount of abdominal and pelvic ascites. Body wall edema. 4. Marked right and moderate left renal cortical thinning. Chronic dilatation right renal pelvis. ACT 112: Negative or not required by law. Electronically signed by: Anastacio Aguilar M.D. 10/03/2025 9:03 AM Medications Administered Current Inpatient Medications Acetaminophen (Acetaminophen 325 Mg Tab) 650 mg PO Q6H PRN PRN Reason: mild Pain or T>38 Stop: 11/02/25 10:00 Albuterol (Albuterol Hfa 8 Gm Inhaler) 2 puffs INH QID PRN PRN Reason: Shortness Of Breath Or Wheezing Stop: 11/02/25 10:00 Amlodipine Besylate (Amlodipine Besylate 5 Mg Tab) 10 mg PO DAILY [facility] Stop: 11/02/25 10:00 Last Admin: 10/05/25 08:46 Dose: 10 mg Aspirin (Aspirin 81 Mg Ectab) 81 mg PO DAILY [facility] Stop: 11/02/25 10:00 Last Admin: 10/05/25 08:42 Dose: 81 mg Atorvastatin Calcium (Atorvastatin 40 Mg Tab) 80 mg PO HS [facility] Stop: 11/02/25 20:59 Last Admin: 10/04/25 21:52 Dose: 80 mg Carvedilol (Carvedilol 12.5 Mg Tab) 37.5 mg PO BIDM [facility] Stop: 11/02/25 16:59 Last Admin: 10/05/25 08:47 Dose: 37.5 mg Doxazosin Mesylate (Doxazosin Mesylate 4 Mg Tab) 8 mg PO DAILY [facility] Stop: 11/02/25 10:00 Last Admin: 10/05/25 08:44 Dose: 8 mg Fluticasone Propionate (Fluticasone Propionate Na Spr 16 Gm Btl) 2 sprays NA DAILY [facility] Stop: 11/02/25 10:00 Last Admin: 10/05/25 08:48 Dose: 2 sprays Azithromycin (Zithromax) 500 mg in 255 mls @ 127.5 mls/hr IV Q24H [facility] Stop: 10/07/25 08:59 Last Infusion: 10/05/25 11:00 Dose: Infused Insulin Aspart (Insulin Aspart Per Unit Charge) 0 units SC ACHS [facility] Stop: 11/03/25 11:29 Last Admin: 10/05/25 12:00 Dose: 2 units Loratadine (Loratadine 10 Mg Tab) 10 mg PO Q2D [facility] Stop: 11/02/25 10:00 Last Admin: 10/05/25 09:06 Dose: Not Given Melatonin (Melatonin 3 Mg Tab) 3 mg PO HS PRN PRN Reason: Sleep Stop: 11/02/25 10:00 Last Admin: 10/03/25 23:33 Dose: 3 mg Morphine Sulfate (Morphine Sulfate 2 Mg/Ml Carp) 2 mg IV Q30M PRN PRN Reason: Chest Pain Stop: 10/17/25 10:00 Morphine Sulfate (Morphine Sulfate 2 Mg/Ml Carp) 2 mg IV Q2H PRN PRN Reason: moderate/severe pain Stop: 10/18/25 14:54 Last Admin: 10/05/25 11:24 Dose: 2 mg Nitroglycerin (Nitroglycerin Sl 0.4 Mg/Tab Tab) 0.4 mg SL Q5M PRN PRN Reason: Chest Pain Stop: 11/02/25 10:00 Ondansetron HCl (Ondansetron Inj 2 Mg/Ml 2 Ml Vial) 4 mg IV Q6H PRN PRN Reason: Nausea Stop: 11/02/25 10:00 Pantoprazole Sodium (Pantoprazole 40 Mg Tab) 40 mg PO BID [facility] Stop: 11/02/25 10:00 Last Admin: 10/05/25 08:49 Dose: 40 mg Sevelamer Carbonate (Sevelamer Carbonate 800 Mg Tab) 800 mg PO TIDM [facility] Stop: 11/02/25 11:59 Last Admin: 10/05/25 12:03 Dose: 800 mg Umeclidinium/Vilanterol (Umeclidinium/Vilanterol 62.5/25mcg 7 Puffs/Inhaler) 1 puffs INH DAILY [facility] Stop: 11/02/25 10:29 Last Admin: 10/05/25 08:49 Dose: 1 puffs Vitamin D (Cholecalciferol 25 Mcg (1000 Units) Tab) 50 mcg PO DAILY [facility] Stop: 11/02/25 10:00 Last Admin: 10/05/25 08:42 Dose: 50 mcg PG Care Time/CCT Total # of Minutes Spent Total Time Spent with Patient: Total time spent is greater than 50% in coordination of care (as documented) at patient's floor/unit and/or counseling patient: Advanced Care Planning 77985 Advanced Care Planning 30 Min [place] [address] SUB INP/OBS CARE 2/35MIN Patient Type Established History Expanded Problem Focused Exam Expanded Problem Focused Medical Decision Making Moderate Complexity Diagnoses Dyspnea R06.00 Abdominal pain, generalized R10.84 Weakness generalized R53.1 Lethargy R53.83 Palliative care by specialist Z51.5 Counseling regarding advanced directives and goals of care Z71.89 Additional Codes Advanced Care Planning - 65680 Advanced Care Planning 30 Min: 40456 Advanced Care Planning 30 Min ([id number])
--- NOTE | 2025-10-05 19:19 | Hospitalist Progress Note ---
Date of Service October 05, 2025 Assessment & Plan (1) Campylobacter enteritis: (2) Enteritis due to Norovirus: (3) Acute on chronic hypoxic respiratory failure: (4) Acute metabolic encephalopathy: (5) End stage renal disease: (6) BPH (benign prostatic hyperplasia): (7) Chronic indwelling Jovel catheter: (8) Blindness: (9) COPD (chronic obstructive pulmonary disease): (10) Hyperlipidemia: (11) Hypertension: (12) Coronary artery disease: (13) Insulin dependent diabetes mellitus: (14) On home oxygen therapy: (15) Thrombocytopenia: (16) GERD (gastroesophageal reflux disease): (17) Hyperkalemia: Plan 85yo male with ESRD on HD M/W/ at the [facility], CAD s/p CABG 2003 at the [facility], h/o NSTEMI, T2DM, hypertension, macular degeneration (blind L eye, 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 Presented from home via EMS after not having the last 2 weeks of HD sessions at his request as he wanted to transition to Hospice. By report he did indeed enroll in Hospice. #enteritis 2nd to norovirus + campylobacter - -contact precautions -azithromycin 500mg daily x 3 days for the campylobacter given the severity of his symptoms and immunocompromised status; his GI symptoms have been his biggest complaints -day #2 today of azithromycin -supportive care -advance to full liquids today, then regular tomorrow as tolerated/as desired #acute/chronic hypoxic respiratory failure - -acute component 2nd to volume overload from ESRD and having missed 2 weeks of HD sessions intentionally due to Hospice status -he has a rather large pleural effusion on the right side -overall status improved -I cannot rule out a RLL pneumonia but the right basilar findings are probably compressive atelectasis -now off BIPAP and over to NC O2 s/p 2 HD sessions for volume control -no evidence of COPD exacerbation; defer on steroids -doubt pneumonia - abx stopped #ESRD on HD typically Wed/Wed/Wednesday - -stopped 2 weeks ago due to transition to Hospice [place] [facility] and HD assistance appreciated -s/p 2 HD sessions since admission for volume control which has provided great relief of his dyspnea -appreciate palliative care assistance - -no HD today or over the weekend -plan is to re-evaluate on Wednesday, 10/08 to determine if any further HD sessions will be needed for symptomatic relief/palliative care purposes -otherwise there is no plan to restart scheduled, 3 days/week HD sessions #hyperkalemia - -2nd to ESRD and multiple missed HD sessions -resolved s/p 2 HD treatments #chronic jovel catheter - -last exchange uncertain -has had a jovel for at least 1 year -urine cx negative -defer on exchanging the jovel since we are transitioning back to Hospice #possible catheter-associated UTI - -ruled out - stop IV cefepime #right-sided pleural effusion - -suspect 2nd to volume overload from ESRD -can't rule out other factors but unlikely -would not pursue work-up/thoracentesis given likely transition to hospice #CAD / h/o CABG / troponin elevation - -no evidence of ACS -troponin elevation likely due to myocardial demand ischemia in setting of respiratory failure and volume overload #T2DM - -appetite is very poor -stopped lantus -loose novolog SSI only at this time #HTN - -for now will cont coreg, doxazosin #macular degeneration with legal blindness #abdominal distension - -2nd to norovirus & campylobacter enteritis -improving distension #COPD on home O2 - -BIPAP now off; we are back to NC O2 #BPH with LUTS - -cont jovel -cont alpha domenico for now #thrombocytopenia - -chronic, dating back to earlier in 2024 -etiology uncertain #acute metabolic encephalopathy - -likely multifactorial - acidosis and uremia from ESRD, infectious etiologies, hypoxia, etc. -continues to improve pt's sister Zully updated at bedside yesterday care d/w Lia Frey from palliative care once again today appreciate Ms Frey & Dr Randhawa's assistance can d/c tele Admission and Anticipated Discharge Date Admission Date: October 03, 2025 Subjective pt has not had any stool today no vomiting abdomen overall feels a little better today back pain improved with pain meds no dyspnea at rest is interested in eating a little more tele wnl overnight Review of Systems Review of Systems: CV - no chest pain, no orthopnea pulm - no dyspnea GI - no pain Physical Exam Physical Exam: gen - awake/alert, comfortable, pleasant man HENT - MM still dry neck - no obvious JVD heart - RRR, s1 s2, 2/6 systolic murmur LSB lungs - CTA b/l abd - distension again improved today; nontender any location; BS+, no HSM ext - trace edema shins b/l, pulses b/l feet 2+ psych - awake, alert, oriented to person and place Results & Data Results & Data Vital Signs (Past 12 Hours) Vital Signs Temp Pulse Pulse Pulse Resp BP Pulse Ox 10/05/25 17:18 66 135/62 93 10/05/25 15:29 36.6 C 63 20 142/59 H 95 10/05/25 14:38 66 10/05/25 11:27 36.8 C 64 22 131/61 92 10/05/25 09:06 10/05/25 08:00 72 O2 Del Method O2 Flow Rate 10/05/25 17:18 High Flow Nasal Cannula 4 10/05/25 15:29 Nasal Cannula 5 10/05/25 14:38 10/05/25 11:27 High Flow Nasal Cannula 5 10/05/25 09:06 High Flow Nasal Cannula 4 10/05/25 08:00 Laboratory Results Laboratory Results - last 24 hr 10/04/25 10/05/25 10/05/25 20:30 07:38 11:38 POC Glucose 101 H 85 128 H 10/05/25 16:40 POC Glucose 98 PG Care Time/CCT Total # of Minutes Spent Total Time Spent with Patient: Total time spent is greater than 50% in coordination of care (as documented) at patient's floor/unit and/or counseling patient: Coding Level of Care Code 79088 SUB INP/OBS CARE 2/35MIN Diagnoses Campylobacter enteritis A04.5 Enteritis due to Norovirus A08.11 Acute on chronic hypoxic respiratory failure J96.21 Acute metabolic encephalopathy G93.41 End stage renal disease N18.6 BPH (benign prostatic hyperplasia) N40.0 Chronic indwelling Jovel catheter Z97.8 Blindness H54.7 COPD (chronic obstructive pulmonary disease) J44.9 Hyperlipidemia E78.5 Hypertension I10 Coronary artery disease I25.10 Insulin dependent diabetes mellitus On home oxygen therapy Z99.81 Thrombocytopenia D69.6 GERD (gastroesophageal reflux disease) K21.9 Hyperkalemia E87.5
[2025-10-06 07:28] LABS: Hematocrit (blood only) 31.3 % (42.0-52.0); Hemoglobin 9.9 g/dL (14.0-18.0)
[2025-10-06 07:50] LABS: Anion Gap 7.0 (3-11); Blood Urea Nitrogen 44.0 mg/dl (6-23); Calcium 8.1 mg/dl (8.6-10.3); Carbon Dioxide 26.0 mmol/L (21-32); Chloride 104.0 mmol/L (98-107); Creatinine Clr Calc Pharmacy 13.7 ml/min; Glucose 139.0 mg/dl (70-99(Fasting)); Potassium 3.8 mmol/L (3.5-5.1); Sodium 137.0 mmol/L (136-145)
[2025-10-06] MEDS: AZITHROMYCIN 250 MG TAB PO SCH (08:18)
--- NOTE | 2025-10-06 09:21 | Nephrology Progress Note ---
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 Patient had been on HD at [facility] but stopped treatment because he felt they were too burdensome. He was placed on hospice but later admitted to the hospital due to progressive dyspnea and a desire to resume treatments. R IJ TCC placed 12/19/[address] Hwang. Patient does have a left upper arm AV fistula in place but has d eclined allowing direct care staffer to access it. * Will provide HD today and attempt 2-3 L UF * Discussed dialysis at length with the patient today. He stated "I do not know if I want to stop or not". He is asking to continue dialysis while at the SNF to see if his condition improves. If not he will then consider transitioning to hospice care. (2) Acute on chronic hypoxic respiratory failure: Plan: * Improved. Will attempt 2-3 L UF with HD today (3) Counseling regarding advanced directives and goals of care: Plan: * Palliative care is assisting to define goals of care. Patient is accepting of SNF placement. He is now considering continuation of dialysis while at the SNF. (4) Abdominal pain, generalized: Plan: * + Campylobacter and norovirus. * Patient continues to experience diarrhea Admission and Anticipated Discharge Date Admission Date: October 03, 2025 Subjective Mr. Garcia was evaluated in his hospital room this morning. He was awaiting hemodialysis. Mr. Garcia was oriented to self, place and month. He complained of diarrhea and abdominal bloating but noted that his breathing had improved. He remained on O2 at 5 L/minute NC. He was anxious to have dialysis in order to improve his breathing. Review of Systems Constitutional: + fatigue and + weakness Eyes: no problem reported Ear, Nose, Mouth, Throat: no problem reported Respiratory: + cough and + dyspnea Cardiovascular: no chest pain and no palpitations Gastrointestinal: + bloating and + diarrhea/loose stools Integumentary: no rash Physical Exam Constitutional: not in distress Eyes: PERRL, conjunctivae normal, anicteric sclerae ENMT: external ear and nose normal, oropharynx normal Neck: trachea midline, no thyromegaly R IJ TCC with clean, dry dressing Respiratory: normal respiratory effort, lungs clear to auscultation (anteriorly) Cardiovascular: Rate/Rhythm: regular rate and regular rhythm Extremities: + edema (trace dependent edema) and + AV fistula (L upper arm AVF + bruit) Gastrointestinal (Abdomen): Inspection/Auscultation: + hypoactive bowel sounds Percussion/Palpation: no guarding Neurologic: Speech / Cognition: normal speech and normal cognition Results & Data Vital Signs (Past 12 Hours) Vital Signs Temp Pulse Resp BP Pulse Ox O2 Del Method O2 Flow Rate 10/05/25 22:45 36.8 C 66 18 141/64 H 92 High Flow Nasal Cannula 5 Laboratory Results Laboratory Results - last 24 hr 10/05/25 10/05/25 10/05/25 11:38 16:40 21:09 Hgb Hct Sodium Potassium Chloride Carbon Dioxide Anion Gap BUN Creatinine Est Cr Clr Drug Dosing eGFR BUN/Creatinine Ratio Glucose POC Glucose 128 H 98 127 H Calcium 10/06/25 06:52 Hgb 9.9 L Hct 31.3 L Sodium 137 Potassium 3.8 Chloride 104 Carbon Dioxide 26 Anion Gap 7 BUN 44 H Creatinine 4.60 H* Est Cr Clr Drug Dosing 13.7 eGFR 11.96 BUN/Creatinine Ratio 9.6 L Glucose 139 H POC Glucose Calcium 8.1 L PG Care Time/CCT Total # of Minutes Spent Total Time Spent with Patient: 50 minutes provided to review progress notes, laboratory data, palliative care recommendations, interview and examined patient, discuss goals of care, coordinate HD with on-call HD RN today, order am laboratory studies, update medical record. Coding Level of Care Code 33194 SUB INP/OBS CARE 3/50MIN Diagnoses End stage renal disease N18.6 Acute on chronic hypoxic respiratory failure J96.21 Counseling regarding advanced directives and goals of care Z71.89 Abdominal pain, generalized R10.84
[2025-10-06] MEDS: MoRPHine SULFATE 2 MG/ML CARP IV PRN (11:23)
[2025-10-06] MEDS: HYDROCODONE/ACETAMOPHEN 5/325MG TAB PO SCH (14:17)
[2025-10-06] MEDS: FAMOTIDINE 20MG IV PUSH 20 MG/5 ML SYR IV STA (16:55)
[2025-10-06] MEDS: ONDANSETRON INJ 2 MG/ML 2 ML VIAL IV PRN (16:55)
[2025-10-06] MEDS: PROMETHAZINE 6.25 MG/50.25 ML BAG IV PRN (17:33)
--- NOTE | 2025-10-06 18:57 | Hospitalist Progress Note ---
Date of Service October 06, 2025 Assessment & Plan (1) Campylobacter enteritis: (2) Enteritis due to Norovirus: (3) Acute on chronic hypoxic respiratory failure: (4) Acute metabolic encephalopathy: (5) End stage renal disease: (6) BPH (benign prostatic hyperplasia): (7) Chronic indwelling Jovel catheter: (8) Blindness: (9) COPD (chronic obstructive pulmonary disease): (10) Hyperlipidemia: (11) Hypertension: (12) Coronary artery disease: (13) Insulin dependent diabetes mellitus: (14) On home oxygen therapy: (15) Thrombocytopenia: (16) GERD (gastroesophageal reflux disease): (17) Hyperkalemia: Plan 85yo male with ESRD on HD M/W/ at the [facility], CAD s/p CABG 2003 at the [facility], h/o NSTEMI, T2DM, hypertension, macular degeneration (blind L eye, 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 Presented from home via EMS after not having the last 2 weeks of HD sessions at his request as he wanted to transition to Hospice. By report he did indeed enroll in Hospice. #enteritis 2nd to norovirus + campylobacter - -overall GI status seems to be improved; he is also more hungry and voicing he wants solids -cont contact precautions -azithromycin 500mg daily x 3 days for the campylobacter given the severity of his symptoms and immunocompromised status; his GI symptoms have been his biggest complaints -day #3 today of azithromycin -supportive care -advance to regular diet today #acute/chronic hypoxic respiratory failure - -acute component 2nd to volume overload from ESRD and having missed 2 weeks of HD sessions intentionally due to Hospice status -he has a rather large pleural effusion on the right side -overall status improved s/p HD x 3 sessions since admission -I cannot rule out a RLL pneumonia but the right basilar findings are probably compressive atelectasis -no evidence of COPD exacerbation; defer on steroids -doubt pneumonia - abx stopped #ESRD on HD typically Wed/Wed/Wednesday - -stopped 2 weeks ago due to transition to Hospice [place] [facility] [place] and HD assistance appreciated -s/p 3 HD sessions since admission for volume control which has provided great relief of his dyspnea -with respect to ongoing HD would only pursue more sessions if he wishes to extend his life OR for extreme dyspnea #hyperkalemia - -2nd to ESRD and multiple missed HD sessions -resolved s/p 3 HD treatments #chronic jovel catheter - -last exchange uncertain -has had a jovel for at least 1 year -urine cx negative -defer on exchanging the jovel since we are transitioning back to Hospice #possible catheter-associated UTI - -ruled out - stop IV cefepime #right-sided pleural effusion - -suspect 2nd to volume overload from ESRD -can't rule out other factors but unlikely -would not pursue work-up/thoracentesis given likely transition to hospice #CAD / h/o CABG / troponin elevation - -no evidence of ACS -troponin elevation likely due to myocardial demand ischemia in setting of respiratory failure and volume overload #T2DM - -appetite is very poor -stopped lantus -loose novolog SSI only at this time #HTN - -for now will cont coreg, doxazosin #macular degeneration with legal blindness #abdominal distension - -2nd to norovirus & campylobacter enteritis -improving distension #COPD on home O2 - -BIPAP now off; we are back to [place] O2 #BPH with LUTS - -cont jovel -cont alpha domenico for now #thrombocytopenia - -chronic, dating back to earlier in 2024 -etiology uncertain -no work-up at this time #acute metabolic encephalopathy - -likely multifactorial - acidosis and uremia from ESRD, infectious etiologies, hypoxia, etc. -continues to improve #low back pain - -I believe he forgets to ask for morphine IV prn for his back -thus, will place on norco 5's TID scheduled to give him some basal pain relief pt's sisters Zully and Anamika updated at bedside today appreciate Ms Frey & Dr Randhawa's/Jeane's assistance from nephrology dispo - SNF w/ hospice? Admission and Anticipated Discharge Date Admission Date: October 03, 2025 Subjective patient in good spirits during my visit he had an HD session this morning -I saw him post-HD he was asking for regular food no liquid stools today no vomiting continues to have low back pain - this is his largest complaint pt's 2 sisters Zully & Anamika at bedside during my rounds Review of Systems Review of Systems: CV - no chest pain pulm - some dyspnea at times Physical Exam Physical Exam: gen - awake/alert, lying flat in bed HENT - MM dry neck - no obvious JVD heart - RRR, s1 s2, 2/6 systolic murmur LSB lungs - CTA b/l abd - distension similar to yesterday but nontender; BS+, no HSM ext - no edema shins b/l, pulses b/l feet 2+ psych - awake, alert, oriented to person and place; in good spirits today Results & Data Results & Data Vital Signs (Past 12 Hours) Vital Signs Temp Pulse Pulse BP BP O2 Del Method O2 Flow Rate 10/06/25 12:40 36.8 C 63 138/64 10/06/25 12:30 63 131/57 L 10/06/25 12:00 60 139/62 10/06/25 11:30 60 124/58 L 10/06/25 11:00 63 138/62 10/06/25 10:30 62 128/61 10/06/25 10:00 63 124/56 L 10/06/25 09:36 61 141/65 H 10/06/25 09:31 36.7 C 63 10/06/25 08:00 High Flow Nasal Cannula 5 Laboratory Results Laboratory Results - last 24 hr 10/05/25 10/06/25 10/06/25 21:09 06:52 13:47 Hgb 9.9 L Hct 31.3 L Sodium 137 Potassium 3.8 Chloride 104 Carbon Dioxide 26 Anion Gap 7 BUN 44 H Creatinine 4.60 H* Est Cr Clr Drug Dosing 13.7 eGFR 11.96 BUN/Creatinine Ratio 9.6 L Glucose 139 H POC Glucose 127 H 92 Calcium 8.1 L 10/06/25 16:22 Hgb Hct Sodium Potassium Chloride Carbon Dioxide Anion Gap BUN Creatinine Est Cr Clr Drug Dosing eGFR BUN/Creatinine Ratio Glucose POC Glucose 134 H Calcium PG Care Time/CCT Total # of Minutes Spent Total Time Spent with Patient: Total time spent is greater than 50% in coordination of care (as documented) at patient's floor/unit and/or counseling patient: Coding Level of Care Code 61014 SUB INP/OBS CARE 235MIN Diagnoses Campylobacter enteritis A04.5 Enteritis due to Norovirus A08.11 Acute on chronic hypoxic respiratory failure J96.21 Acute metabolic encephalopathy G93.41 End stage renal disease N18.6 BPH (benign prostatic hyperplasia) N40.0 Chronic indwelling Jovel catheter Z97.8 Blindness H54.7 COPD (chronic obstructive pulmonary disease) J44.9 Hyperlipidemia E78.5 Hypertension I10 Coronary artery disease I25.10 Insulin dependent diabetes mellitus On home oxygen therapy Z99.81 Thrombocytopenia D69.6 GERD (gastroesophageal reflux disease) K21.9 Hyperkalemia E87.5
[2025-10-06] MEDS: PANTOprazole 40 MG/10 ML SYR IV SCH (19:44)
[2025-10-07] MEDS: MELATONIN 3 MG TAB PO ONE (00:54)
[2025-10-07 08:53] LABS: Hematocrit (blood only) 30.2 % (42.0-52.0); Hemoglobin 9.8 g/dL (14.0-18.0); Mean Corpuscular Hemoglobin 30.1 pg (25.0-34.0); Mean Corpuscular Volume 92.6 fL (80.0-100.0); Platelet Count 96 K/uL (130-400); RDW Standard Deviation 50.6 fL (36.4-46.3); Red Blood Count 3.26 M/uL (4.70-6.10); White Blood Count 4.13 K/ul (4.8-10.8)
--- NOTE | 2025-10-07 09:01 | Nephrology Progress Note ---
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 Patient had been on HD at [facility] but stopped treatment because he felt they were too burdensome. He was placed on hospice but later admitted to the hospital due to progressive dyspnea and a desire to resume treatments. R IJ TCC placed 12/19/[address] Hwang. Patient does have a left upper arm AV fistula in place but has d eclined allowing rn staffing to access it. * No acute indication for HD today. Will plan on HD tomorrow * Discussed dialysis at length with the patient today. He stated "I do not know if I want to stop or not". He is asking to continue dialysis while at the SNF to see if his condition improves. If not he will then consider transitioning to hospice care. (2) Acute on chronic hypoxic respiratory failure: Plan: * 2.5 L UF obtained w/ HD yesterday. Patient remains on O2 at 5L/min NC * Will order CXR today * Plan on HD tomorrow for continued UF (3) Counseling regarding advanced directives and goals of care: Plan: * Palliative care is assisting to define goals of care. Patient is accepting of SNF placement. He is now considering continuation of dialysis while at the SNF. (4) Abdominal pain, generalized: Plan: * + Campylobacter and norovirus. * Patient continues to experience diarrhea * Will order KUB x-ray to assess for ileus. Serum Mg and K are acceptable Admission and Anticipated Discharge Date Admission Date: October 03, 2025 Subjective Mr. Garcia was evaluated in his hospital room this morning. He completed HD yesterday for 2.5L UF. Mr. Garcia remains on O2 at 5 L/minute NC. His primary concern is abdominal distention/bloating. He is agreeable to HD tomorrow Review of Systems Constitutional: + fatigue and + weakness Eyes: no problem reported Ear, Nose, Mouth, Throat: no problem reported Respiratory: + cough and + dyspnea Cardiovascular: no chest pain and no palpitations Gastrointestinal: + bloating and + diarrhea/loose stools Integumentary: no rash Physical Exam Constitutional: not in distress Eyes: PERRL, conjunctivae normal, anicteric sclerae ENMT: external ear and nose normal, oropharynx normal Neck: trachea midline, no thyromegaly Respiratory: normal respiratory effort, lungs clear to auscultation (anteriorly) Cardiovascular: Rate/Rhythm: regular rate and regular rhythm Extremities: + edema (trace dependent edema) and + AV fistula (L upper arm AVF + bruit) Gastrointestinal (Abdomen): Inspection/Auscultation: + abdomen distended and + hypoactive bowel sounds Percussion/Palpation: no guarding Neurologic: Speech / Cognition: normal speech and normal cognition Results & Data Vital Signs (Past 12 Hours) Vital Signs Temp Pulse Resp BP Pulse Ox O2 Del Method O2 Flow Rate 10/07/25 07:32 36.8 C 63 15 145/63 H 95 High Flow Nasal Cannula 5 10/06/25 22:53 36.7 C 61 16 133/59 L 94 High Flow Nasal Cannula 5 10/06/25 22:45 High Flow Nasal Cannula 5 10/06/25 21:10 High Flow Nasal Cannula 5 Laboratory Results Laboratory Results - last 24 hr 10/06/25 10/06/25 10/06/25 13:47 16:22 21:01 WBC RBC Hgb Hct MCV MCH MCHC RDW Std Deviation RDW Coeff of Mariana Plt Count MPV Sodium Potassium Chloride Carbon Dioxide Anion Gap BUN Creatinine Est Cr Clr Drug Dosing eGFR BUN/Creatinine Ratio Glucose POC Glucose 92 134 H 143 H Calcium 10/07/25 10/07/25 07:38 08:36 WBC 4.13 L RBC 3.26 L Hgb 9.8 L Hct 30.2 L MCV 92.6 MCH 30.1 MCHC 32.5 RDW Std Deviation 50.6 H RDW Coeff of Mariana 14.9 H Plt Count 96 L MPV 12.0 Sodium Pending Potassium Pending Chloride Pending Carbon Dioxide Pending Anion Gap Pending BUN Pending Creatinine Pending Est Cr Clr Drug Dosing Pending eGFR Pending BUN/Creatinine Ratio Pending Glucose Pending POC Glucose 96 Calcium Pending Laboratory Results - last 24 hr 10/06/25 10/06/25 10/06/25 13:47 16:22 21:01 WBC RBC Hgb Hct MCV MCH MCHC RDW Std Deviation RDW Coeff of Mariana Plt Count MPV Sodium Potassium Chloride Carbon Dioxide Anion Gap BUN Creatinine Est Cr Clr Drug Dosing eGFR BUN/Creatinine Ratio Glucose POC Glucose 92 134 H 143 H Calcium 10/07/25 10/07/25 07:38 08:36 WBC 4.13 L RBC 3.26 L Hgb 9.8 L Hct 30.2 L MCV 92.6 MCH 30.1 MCHC 32.5 RDW Std Deviation 50.6 H RDW Coeff of [place] 14.9 H Plt Count 96 L MPV 12.0 Sodium 137 Potassium 3.6 Chloride 102 Carbon Dioxide 28 Anion Gap 7 BUN 35 H Creatinine 4.17 H D Est Cr Clr Drug Dosing 15.1 eGFR 13.46 BUN/Creatinine Ratio 8.4 L Glucose 126 H POC Glucose 96 Calcium 8.1 L PG Care Time/CCT Total # of Minutes Spent Total Time Spent with Patient: 50 minutes provided to review progress notes, laboratory data, palliative care recommendations, interview and examined patient, discuss goals of care, order CXR and KUB x-ray, order am laboratory studies, update medical record. Coding Level of Care Code 39982 SUB INP/OBS CARE 3/50MIN Diagnoses End stage renal disease N18.6 Acute on chronic hypoxic respiratory failure J96.21 Counseling regarding advanced directives and goals of care Z71.89 Abdominal pain, generalized R10.84
[2025-10-07 09:07] LABS: Anion Gap 7.0 (3-11); Blood Urea Nitrogen 35.0 mg/dl (6-23); Calcium 8.1 mg/dl (8.6-10.3); Carbon Dioxide 28.0 mmol/L (21-32); Chloride 102.0 mmol/L (98-107); Creatinine Clr Calc Pharmacy 15.1 ml/min; Glucose 126.0 mg/dl (70-99(Fasting)); Potassium 3.6 mmol/L (3.5-5.1); Sodium 137.0 mmol/L (136-145)
--- NOTE | 2025-10-07 11:03 | XRay Report ---
Technique: 2 frontal views of the chest were obtained Comparison is made to the prior examination dated 10/03/2025 Findings: There is right lower lobe and right upper lobe hazy opacification that could be due to either atelectasis or pneumonia. The heart size is within normal limits. There is an unchanged moderate sized right pleural effusion. No left pleural effusion or pneumothorax is seen. There is no definite pulmonary nodule. No fracture is noted. There is a right jugular central venous line with its tip in the SVC. Sternal wires are present Impression: 1. Moderate sized right pleural effusion 2. Right lung opacities that could be due to pneumonia ACT 112: Positive. There are findings on this exam that require communication between the performing entity and the patient following Patient Test Result Information Act ([place] ACT 112) guidelines. Electronically signed by Rupesh Perales 10-07-2025 11:00 AM
--- NOTE | 2025-10-07 11:03 | XRay Report ---
Clinical history: Abdominal distention 2 views of the abdomen were obtained Findings: There are mildly prominent air-filled loops of small and large bowel, which may be due to ileus. There is gastric gaseous distention. There is no definite sign of obstruction. No renal or ureteral calculi are seen. No foreign body is evident. No osseous abnormality is seen. A Berg catheter is present Impression: Suspected mild ileus ACT 112: Positive. There are findings on this exam that require communication between the performing entity and the patient following Patient Test Result Information Act ([place] ACT 112) guidelines. Electronically signed by Rupesh Perales 10-07-2025 11:01 AM
[2025-10-07] MEDS ORDERED: MoRPHine SULFATE 2 MG/ML CARP IV PRN (14:21)
--- NOTE | 2025-10-07 14:21 | Hospitalist Progress Note ---
Date of Service October 07, 2025 Assessment & Plan (1) Campylobacter enteritis: (2) Enteritis due to Norovirus: (3) Acute on chronic hypoxic respiratory failure: (4) Acute metabolic encephalopathy: (5) End stage renal disease: (6) BPH (benign prostatic hyperplasia): (7) Chronic indwelling Jovel catheter: (8) Blindness: (9) COPD (chronic obstructive pulmonary disease): (10) Hyperlipidemia: (11) Hypertension: (12) Coronary artery disease: (13) Insulin dependent diabetes mellitus: (14) On home oxygen therapy: (15) Thrombocytopenia: (16) GERD (gastroesophageal reflux disease): (17) Hyperkalemia: Plan 85yo male with ESRD on HD M/W/ at the [facility] [place], CAD s/p CABG 2003 at the [facility], [place], operated by [facility], h/o NSTEMI, T2DM, hypertension, macular degeneration (blind L eye, 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 Presented from home via EMS after not having the last 2 weeks of HD sessions at his request as he wanted to transition to Hospice. By report he did indeed enroll in Hospice early in September. #enteritis 2nd to norovirus + campylobacter - now with ileus - -seemed to have been improving yesterday, but worsened after he attempted to eat solids -abdomen now even more distended with refractory N/V, bloating, abd pain -appears to have ileus on KUB x-ray -cont contact precautions -s/p 3 days of azithromycin 500mg daily for the campylobacter -- complete & off abx -will schedule zofran 4mg q6h and have low-dose phenergan prn as back-up -could consider anti-psychotic use (zyprexa or haldol) for refractory symptoms -consider NG tube decompression as a last resort #acute/chronic hypoxic respiratory failure - -acute component 2nd to volume overload from ESRD and having missed 2 weeks of HD sessions intentionally due to Hospice status -he has a rather large pleural effusion on the right side that is probably also contributing -overall respiratory status had improved s/p HD x 3 sessions since admission, but now he is short of breath again - suspect from the massive abdominal distension pushing on the diaphragm -I cannot rule out a RLL pneumonia but the right basilar findings are probably compressive atelectasis -no evidence of COPD exacerbation; defer on steroids -doubt pneumonia - abx stopped #ESRD on HD typically Wed/Wed/Wednesday - -stopped 2 weeks ago due to transition to Hospice -Dr Yoandy Randhawa from [facility] [place] Nephrology consulted and HD assistance appreciated -s/p 3 HD sessions since admission for volume control which has provided great relief of his dyspnea -with respect to ongoing HD would only pursue more sessions if he wishes to extend his life OR for extreme dyspnea but I recommended to him and to his sister Anamika to skip additional sessions - I don't think he will feel much better with additional treatments -the GI issues are the big culprits #hyperkalemia - -2nd to ESRD and multiple missed HD sessions -resolved s/p 3 HD treatments #chronic jovel catheter - -last exchange uncertain -has had a jovel for at least 1 year -urine cx negative -defer on exchanging the jovel since we are transitioning back to Hospice #possible catheter-associated UTI - -ruled out - stopped IV cefepime #right-sided pleural effusion - -suspect 2nd to volume overload from ESRD -can't rule out other factors but unlikely -would not pursue work-up/thoracentesis given likely transition to hospice #CAD / h/o CABG / troponin elevation - -no evidence of ACS -troponin elevation likely due to myocardial demand ischemia in setting of respiratory failure and volume overload #T2DM - -appetite is very poor -stopped lantus -loose novolog SSI only at this time but stop all BSGs and insulin if we transition to full comfort care measures/inpatient hospice #HTN - -for now will cont coreg but hold her other BP meds to limit the # of PO meds he has to take #macular degeneration with legal blindness #abdominal distension - -2nd to norovirus & campylobacter enteritis -much worse today #COPD on home O2 - -BIPAP now off; we are back to PR O2 #BPH with LUTS - -cont jovel #thrombocytopenia - -chronic, dating back to earlier in 2024 -etiology uncertain -no work-up at this time #acute metabolic encephalopathy - -likely multifactorial - acidosis and uremia from ESRD, infectious etiologies, hypoxia, etc. -toxic effects from IV morphine, etc could also be contributing #low back pain - -I believe he forgets to ask for morphine IV prn for his back -d/c scheduled norco due to ileus; change to morphine IV 2mg q6h scheduled pt's sisters Zully and Anamika updated at bedside yesterday pt's sister Anamika updated by phone this evening recommended we transition to full comfort care measures appreciate Ms Frey & Dr Randhawa's/Jeane's assistance from nephrology dispo - I think we should strongly consider inpatient hospice status corresponded with Dr Ching from nephrology Admission and Anticipated Discharge Date Admission Date: October 03, 2025 Subjective yesterday after eating solids he had, by nursing report, severe projectile vomiting with severe nausea this also led to more bloating and abd discomfort he had nausea most of the rest of Wednesday he slept poorly overnight today - he continues with low back pain as well as persistent nausea he did vomit again after trying to eat carrots for lunch during the visit he said he simply felt poorly c/o lack of sleep, bloating, back pain, nausea we discussed the issues seen on KUB x-ray (ileus) and that trying to eat solids won't go well discussed scheduling zofran Q6h and scheduling morphine 2mg q6h to try and get ahead of these refractory symptoms he is hoping he can finally get some sleep Review of Systems 2 Review of Systems: cv - no chest pain pulm - ongoing dyspnea Physical Exam Physical Exam: gen - looks ill, looks uncomfortable, tired/drowsy HENT - MM dry neck - no obvious JVD heart - RRR, s1 s2, 2/6 systolic murmur LSB lungs - CTA b/l but decreased BS both bases abd - distension worse today, generalized tenderness, BS+, no HSM ext - no edema shins b/l, pulses b/l feet 2+ psych - oriented to person and place but quite fatigued Results & Data Results & Data Vital Signs (Past 12 Hours) Vital Signs Temp Pulse Resp BP Pulse Ox O2 Del Method O2 Flow Rate 10/07/25 08:30 High Flow Nasal Cannula 5 10/07/25 07:32 36.8 C 63 15 145/63 H 95 High Flow Nasal Cannula 5 Laboratory Results Laboratory Results - last 48 hr 10/06/25 10/06/25 10/06/25 13:47 16:22 21:01 WBC RBC Hgb Hct MCV MCH MCHC RDW Std Deviation RDW Coeff of Mariana Plt Count MPV Sodium Potassium Chloride Carbon Dioxide Anion Gap BUN Creatinine Est Cr Clr Drug Dosing eGFR BUN/Creatinine Ratio Glucose POC Glucose 92 134 H 143 H Calcium 10/07/25 10/07/25 10/07/25 07:38 08:36 11:36 WBC 4.13 L RBC 3.26 L Hgb 9.8 L Hct 30.2 L MCV 92.6 MCH 30.1 MCHC 32.5 RDW Std Deviation 50.6 H RDW Coeff of Mariana 14.9 H Plt Count 96 L MPV 12.0 Sodium 137 Potassium 3.6 Chloride 102 Carbon Dioxide 28 Anion Gap 7 BUN 35 H Creatinine 4.17 H D Est Cr Clr Drug Dosing 15.1 eGFR 13.46 BUN/Creatinine Ratio 8.4 L Glucose 126 H POC Glucose 96 160 H Calcium 8.1 L PG Care Time/CCT Total # of Minutes Spent Total Time Spent with Patient: Total time spent is greater than 50% in coordination of care (as documented) at patient's floor/unit and/or counseling patient: Coding Level of Care Code 40640 SUB INP/OBS CARE 3/50MIN Diagnoses Campylobacter enteritis A04.5 Enteritis due to Norovirus A08.11 Acute on chronic hypoxic respiratory failure J96.21 Acute metabolic encephalopathy G93.41 End stage renal disease N18.6 BPH (benign prostatic hyperplasia) N40.0 Chronic indwelling Jovel catheter Z97.8 Blindness H54.7 COPD (chronic obstructive pulmonary disease) J44.9 Hyperlipidemia E78.5 Hypertension I10 Coronary artery disease I25.10 Insulin dependent diabetes mellitus On home oxygen therapy Z99.81 Thrombocytopenia D69.6 GERD (gastroesophageal reflux disease) K21.9 Hyperkalemia E87.5
[2025-10-07] MEDS: MoRPHine SULFATE 2 MG/ML CARP IV SCH ×2 (14:51→20:59)
[2025-10-07] MEDS: ONDANSETRON INJ 2 MG/ML 2 ML VIAL IV SCH (16:33)
[2025-10-07 23:38] VITALS: PULSE 60
[2025-10-08] MEDS ORDERED: SODIUM CHLORIDE 0.9% 1,000 ML IV PRN (07:00)
--- NOTE | 2025-10-08 09:02 | Nephrology Progress Note ---
Date of Service October 08, 2025 Assessment & Plan (1) End stage renal disease: (2) Campylobacter enteritis: (3) Legally blind: (4) Palliative care by specialist: Plan EMR reviewed. Events of last evening noted. POC discussed w/ Dr. Hansen. Primary service has met with patient and his family. They have chosen to stop dialysis and transition to comfort measures. Will notify HD RN consulting engineer to stop treatments. No further nephrology testing or HD at this point. Will sign off. Please call if further assistance is needed Admission and Anticipated Discharge Date Admission Date: October 03, 2025 Results & Data Vital Signs (Past 12 Hours) Vital Signs Temp Pulse Pulse Resp BP Pulse Ox O2 Del Method 10/08/25 08:00 36.5 C 60 12 136/54 L 95 High Flow Nasal Cannula 10/07/25 23:37 36.5 C 60 20 148/63 H 92 High Flow Nasal Cannula O2 Flow Rate 10/08/25 08:00 5 10/07/25 23:37 5 Laboratory Results Laboratory Results - last 24 hr 10/07/25 10/07/25 10/07/25 08:36 11:36 16:36 Sodium 137 Potassium 3.6 Chloride 102 Carbon Dioxide 28 Anion Gap 7 BUN 35 H Creatinine 4.17 H D Est Cr Clr Drug Dosing 15.1 eGFR 13.46 BUN/Creatinine Ratio 8.4 L Glucose 126 H POC Glucose 160 H 145 H Calcium 8.1 L 10/07/25 10/08/25 20:43 07:42 Sodium Potassium Chloride Carbon Dioxide Anion Gap BUN Creatinine Est Cr Clr Drug Dosing eGFR BUN/Creatinine Ratio Glucose POC Glucose 138 H 152 H Calcium PG Care Time/CCT Total # of Minutes Spent Total Time Spent with Patient: 25 min provided reviewing EMR, palliative care notes and discussing POC w/ primary service Coding Level of Care Code 80242 SUB INP/OBS CARE 11/11MIN Diagnoses End stage renal disease N18.6 Campylobacter enteritis A04.5 Legally blind H54.8 Palliative care by specialist Z51.5
[2025-10-08] MEDS: EPOETIN ALFA 20,000 UNITS/ML VIAL IV ONE (10:37)
[2025-10-08 10:49] VITALS: O2SAT 91
[2025-10-08] MEDS ORDERED: SIMETHICONE 40 MG/0.6 ML 30ML PO PRN (11:44)
[2025-10-08] MEDS ORDERED: ATROPINE SULFATE 1% OP SOLN 5 ML BTL SL PRN (11:52)
[2025-10-08] MEDS ORDERED: ONDANSETRON INJ 2 MG/ML 2 ML VIAL IV PRN (11:52)
[2025-10-08] MEDS ORDERED: HYOSCYAMINE SULFATE 0.125 MG TAB SL PRN (11:52)
[2025-10-08] MEDS ORDERED: HALOPERIDOL ORAL SOLN 2 MG/ML PO PRN (11:52)
[2025-10-08] MEDS ORDERED: LORazepam Inj 0.5 MG in SYRINGE 0.25 ML IV PRN (11:52)
[2025-10-08] MEDS ORDERED: GLYCOPYRROLATE 0.2 MG/ML VIAL IV PRN (11:52)
--- NOTE | 2025-10-08 12:05 | Palliative Care Progress Note ---
Date of Service October 08, 2025 Assessment & Plan (1) Dyspnea: (2) Abdominal pain, generalized: (3) Weakness generalized: (4) Lethargy: (5) Palliative care by specialist: Plan: Palliative care will continue to follow for ongoing EOL pt care and family supp ort. (6) Counseling regarding advanced directives and goals of care: Plan: Spoke with patient about goals/ACP/ transition to TECHNOLOGY TRAINING ASSOCIATE from 10:00 - 10:30. No visitors present. We discussed pt's acute and chronic medical conditions, general prognosis, treatment options, and goals of care. Patient shared that although he had been hopeful to survive until after Zen, he is now feeling that "all this is doing is dragging out my pain". He c/o both pain and dyspnea 2/2 worsening abdominal distention. He was having difficulty with conversation due to frequent belching and retching. He shared that he is praying that he will soon and does not want any further HD as it is just prolonging his suffering. Ga shared that he has spoken with his sisters about he decision and they agree. Ultimately, Ga requests transition to comfort directed care begin now rather than delay until discharge to SNF. He understands that this will likely lead to his within days. (7) Comfort measures only status: Plan: Comfort plan of care parameters: 1. Patient/Family want hospice added to their care. 2. NO rehab/PT/OT 3. Strictly End of Life care only 4. NO escalation of care: do not increase oxygen, escalate therapies, etc. The focus is on comfort through end of life, assure this is accomplished with aggressive symptom management (i.e. relief of dyspnea, pain, etc.) 5. NO return to hospital 6. NO labs, imaging, surgery 7. Oral intake as desired for comfort and pleasure: NO dietary restriction, Allow permissive aspiration, do not withhold food or drink for concern of aspiration and allow PO for pleasure and comfort. 8. If difficulty urinating/commode/bedpan, ok to place Berg catheter for comfort/hygiene/skin protection AND/OR Continue Berg catheter for comfort/hygiene/skin protection 9. NO: calorie counts, artificial nutrition, feeding tubes or IV fluids EOL Symptom manamgement: Pain/dyspnea/tachypnea Dilaudid 0.5mg IVP PRN [id number] Consider titratable Dilaudid drip if pt requires >3 PRN doses in under two consecutive hours. Nausea/vomitting zofran 4mg IVP q4h PRN Simethecon PRN for gas pains Agitation ativan 0.5mg IVP q4h PRN Hyperactive delirium haldol 5mg IVP q6h PRN Secretions - if repositioning not effective robinul 0.4mg IV q4h PRN atropine SL 3 drops Q1h PRN Nursing care: Discontinue all medications not directed towards comfort. Detether pt from IV tubing, monitor cables, and check vitals once per shift. Please continue HFNC and titrate down as able for patient comfort. Use medications above PRN for dyspnea/tachypnea and do not increase oxygen once titrated down. Assess q1h for pain/dyspnea and treat accordingly. Plan as above Admission and Anticipated Discharge Date Admission Date: October 03, 2025 Subjective Assessed pt at bedside, no visitors present. Pt c/o intractable generalized abdominal pain and related SOB. His abd is visible more distended and firm. He has intractable nausea and frequent belching. He cannot speak in full sentences due to gagging/belching. He shared that he can only take small breaths due to bloating. At this time he is refusing venting NGT for comfort due to anticipatory anxiety about difficulty/pain of insertion. Review of Systems Review of Systems: All systems reviewed & are unremarkable except as noted in Subjective Physical Exam Constitutional: well developed, + ill appearing, + morbidly obese and cooperative Neck: trachea midline, no thyromegaly Respiratory: normal respiratory effort Auscultation: + diminished lung sounds and + crackles Cardiovascular: RRR, no murmur, no edema Gastrointestinal (Abdomen): Inspection/Auscultation: + abdomen distended and + hyperactive bowel sounds Percussion/Palpation: + abdomen tender and + abdomen firm; no guarding Rectal Exam: + stool abnormal Skin: no rashes, warm and dry + skin tightening and + jaundice Neurologic: moves all extremities, awake and + confused Psychiatric: Orientation: oriented to person and cooperative Eye Contact: + poor eye contact Affect: + anxious affect and + tearful affect Results & Data Vital Signs (Past 12 Hours) Vital Signs Temp Pulse Resp BP Pulse Ox O2 Del Method O2 Flow Rate 10/08/25 10:48 91 High Flow Nasal Cannula 6 10/08/25 08:00 36.5 C 60 12 136/54 L 95 High Flow Nasal Cannula 5 Laboratory Results No further labs or diagnostics in concert with comfort directed care. Diagnostic Findings Abdomen/Pelvis CT 10/03/25 08:18 CT SCAN OF THE ABDOMEN AND PELVIS WITH IV CONTRAST CLINICAL HISTORY: Abdominal pain, diarrhea and abdominal distention. COMPARISON STUDY: CT of the abdomen and pelvis June 19, 2024. Renal ultrasound December 15, 2024. TECHNIQUE: Following the IV administration of 94 cc of Optiray 320, CT scan of the abdomen and pelvis is performed from the lung bases to the proximal femora. Images are reviewed in the axial, sagittal, and coronal planes. IV contrast was administered without complication. A dose lowering technique was utilized adhering to the principles of ALARA. CT DOSE: 1602.69 mGy.cm FINDINGS: There is moderate cardiomegaly and extensive coronary artery calcification. Moderate size right pleural effusion is partially imaged. There is associated right lower lobe compressive atelectasis. There is segmental atelectasis within the right middle lobe. There is a trace left pleural effusion. No pneumatosis, free air or portal venous gas is present. Mild biliary ductal dilatation is likely related to cholecystectomy. There are no hepatic lesions. Spleen, adrenal glands and pancreas are unremarkable. Marked right and moderate left renal cortical thinning are noted. Water attenuation bilateral renal lesions favor cysts. Dilatation of the right renal pelvis is unchanged. This is chronic. The prostate is enlarged, measuring 5.4 cm in transverse diameter. There is a Berg balloon within the bladder. Body wall edema is present. There is a small amount of abdominal and pelvic ascites. There is no evidence for a bowel obstruction. The caliber and thickness of small and large bowel are normal. There is colonic diverticulosis without evidence for acute diverticulitis. No lymphadenopathy. There are no fluid collections. The appendix is normal. No acute fractures within the lumbar spine, pelvis or hips are identified. There is extensive aortoiliac atherosclerotic plaque. IMPRESSION: 1. No bowel junction. No bowel wall thickening. Colonic diverticulosis. No evidence for acute diverticulitis. 2. Partially visualized moderate size right pleural effusion. Associated right lower lobe compressive atelectasis. Segmental right middle lobe atelectasis. Trace left pleural effusion. 3. Small amount of abdominal and pelvic ascites. Body wall edema. 4. Marked right and moderate left renal cortical thinning. Chronic dilatation right renal pelvis. ACT 112: Negative or not required by law. Electronically signed by: Anastacio Aguilar M.D. 10/03/2025 9:03 AM Chest X-Ray 10/07/25 09:49 Technique: 2 frontal views of the chest were obtained Comparison is made to the prior examination dated 10/03/2025 Findings: There is right lower lobe and right upper lobe hazy opacification that could be due to either atelectasis or pneumonia. The heart size is within normal limits. There is an unchanged moderate sized right pleural effusion. No left pleural effusion or pneumothorax is seen. There is no definite pulmonary nodule. No fracture is noted. There is a right jugular central venous line with its tip in the SVC. Sternal wires are present Impression: 1. Moderate sized right pleural effusion 2. Right lung opacities that could be due to pneumonia ACT 112: Positive. There are findings on this exam that require communication between the performing entity and the patient following Patient Test Result Information Act ([place] ACT 112) guidelines. Electronically signed by Rupesh Perales 10-07-2025 11:00 AM KUB X-Ray 10/07/25 09:49 Clinical history: Abdominal distention 2 views of the abdomen were obtained Findings: There are mildly prominent air-filled loops of small and large bowel, which may be due to ileus. There is gastric gaseous distention. There is no definite sign of obstruction. No renal or ureteral calculi are seen. No foreign body is evident. No osseous abnormality is seen. A Berg catheter is present Impression: Suspected mild ileus ACT 112: Positive. There are findings on this exam that require communication between the performing entity and the patient following Patient Test Result Information Act ([place] ACT 112) guidelines. Electronically signed by Rupesh Perales 10-07-2025 11:01 AM Medications Administered Current Inpatient Medications Acetaminophen (Acetaminophen 325 Mg Tab) 650 mg PO Q6H PRN PRN Reason: mild Pain or T>38 Stop: 11/02/25 10:00 Albuterol (Albuterol Hfa 8 Gm Inhaler) 2 puffs INH QID PRN PRN Reason: Shortness Of Breath Or Wheezing Stop: 11/02/25 10:00 Amlodipine Besylate (Amlodipine Besylate 5 Mg Tab) 10 mg PO DAILY AUDRA Stop: 11/02/25 10:00 Last Admin: 12/21/25 07:58 Dose: 10 mg Atropine Sulfate (Atropine Sulfate 1% Op Soln 5 Ml Btl) 4 drops SL Q1H PRN PRN Reason: Secretions or pulm congestion Stop: 11/07/25 11:51 Carvedilol (Carvedilol 12.5 Mg Tab) 37.5 mg PO BIDM [facility] Stop: 11/02/25 16:59 Last Admin: 10/08/25 08:22 Dose: 37.5 mg Doxazosin Mesylate (Doxazosin Mesylate 4 Mg Tab) 8 mg PO DAILY [facility] Stop: 11/02/25 10:00 Last Admin: 10/07/25 07:55 Dose: 8 mg Glycopyrrolate (Glycopyrrolate 0.2 Mg/Ml Vial) 0.4 mg IV Q4H PRN PRN Reason: Rattling Secretions or Pulm Congestion Stop: 11/07/25 11:51 Haloperidol (Haloperidol Oral Soln 2 Mg/Ml) 0.5 mg PO Q4H PRN PRN Reason: Anxiety/Agitation Stop: 11/07/25 11:51 Hydromorphone HCl (Hydromorphone Inj 0.5 Mg/0.5 Ml Syr) 0.5 mg IV Q1H PRN PRN Reason: Pain or Respiratory Distress Stop: 10/22/25 11:51 Hyoscyamine (Hyoscyamine Sulfate 0.125 Mg Tab) 0.125 mg SL Q4H PRN PRN Reason: Secretions or Pulm Congestion Stop: 11/07/25 11:51 Promethazine HCl (Phenergan) 6.25 mg in 50.25 mls @ 201 mls/hr IV Q6H PRN PRN Reason: Nausea And Vomiting Stop: 11/05/25 16:26 Last Infusion: 10/06/25 17:59 Dose: Infused Pantoprazole Sodium (Protonix) 40 mg in 10 mls @ 5 mls/min IV BID [facility] Stop: 11/05/25 20:59 Last Admin: 10/08/25 10:53 Dose: 5 mls/min Lorazepam 0.5 mg/ Syringe 0.5 mls @ 2 mls/min IV Q4H PRN PRN Reason: Anxiety/Agitation Stop: 11/07/25 11:51 Insulin Aspart (Insulin Aspart Per Unit Charge) 0 units [facility] Stop: 11/03/25 11:29 Last Admin: 10/08/25 08:31 Dose: 2 units Melatonin (Melatonin 3 Mg Tab) 3 mg PO HS PRN PRN Reason: Sleep Stop: 11/02/25 10:00 Last Admin: 10/07/25 20:56 Dose: 3 mg Nitroglycerin (Nitroglycerin Sl 0.4 Mg/Tab Tab) 0.4 mg SL Q5M PRN PRN Reason: Chest Pain Stop: 11/02/25 10:00 Ondansetron HCl (Ondansetron Inj 2 Mg/Ml 2 Ml Vial) 4 mg IV Q6H AUDRA Stop: 11/06/25 16:59 Last Admin: 10/08/25 10:53 Dose: 4 mg Ondansetron HCl (Ondansetron Inj 2 Mg/Ml 2 Ml Vial) 4 mg IV Q4H PRN PRN Reason: Nausea &/or Vomiting Stop: 11/07/25 11:51 Sevelamer Carbonate (Sevelamer Carbonate 800 Mg Tab) 800 mg PO TIDM AUDRA Stop: 11/02/25 11:59 Last Admin: 10/07/25 11:59 Dose: 800 mg Simethicone (Simethicone 40 Mg/0.6 Ml 30ml) 40 mg PO Q6H PRN PRN Reason: Flatulence Stop: 11/07/25 11:43 Umeclidinium/Vilanterol (Umeclidinium/Vilanterol 62.5/25mcg 7 Puffs/Inhaler) 1 puffs INH DAILY AUDRA Stop: 11/02/25 10:29 Last Admin: 10/08/25 08:21 Dose: 1 puffs PG Care Time/CCT Total # of Minutes Spent Total Time Spent with Patient: Total time spent is greater than 50% in coordination of care (as documented) at patient's floor/unit and/or counseling patient: Advanced Care Planning 18376 Advanced Care Planning 30 Min [place] [address] SUB INP/OBS CARE 2/35MIN Patient Type Established History Problem Focused Exam Problem Focused Medical Decision Making Moderate Complexity Diagnoses Dyspnea R06.00 Abdominal pain, generalized R10.84 Weakness generalized R53.1 Lethargy R53.83 Palliative care by specialist Z51.5 Counseling regarding advanced directives and goals of care Z71.89 Comfort measures only status Z51.5 Additional Codes Advanced Care Planning - 43627 Advanced Care Planning 30 Min: 08484 Advanced Care Planning 30 Min ([id number])
[2025-10-08] MEDS: ALBUTEROL HFA 8 GM INHALER INH PRN (12:10)
[2025-10-08] MEDS: SIMETHICONE 40 MG/0.6 ML 30ML PO ONE (12:10)
[2025-10-08 12:57] VITALS: BP 130/50; RESP 24; TEMP 97.9
[2025-10-08] MEDS: HYDROmorphone INJ 0.5 MG/0.5 ML SYR IV PRN (13:53)
--- NOTE | 2025-10-08 16:23 | Discharge Summary ---
Discharge Summary Date of Service date of admission - October 03, 2025 date of discharge - October 08, 2025 Principal Dx & Hospital Course #1 = Principal Diagnosis (1) Campylobacter enteritis: (2) Enteritis due to Norovirus: (3) Acute on chronic hypoxic respiratory failure: (4) Acute metabolic encephalopathy: (5) End stage renal disease: (6) BPH (benign prostatic hyperplasia): (7) Chronic indwelling Jovel catheter: (8) Blindness: (9) COPD (chronic obstructive pulmonary disease): (10) Hyperlipidemia: (11) Hypertension: (12) Coronary artery disease: (13) Insulin dependent diabetes mellitus: (14) On home oxygen therapy: (15) Thrombocytopenia: (16) GERD (gastroesophageal reflux disease): (17) Hyperkalemia: Plan 85yo male with ESRD on HD M/W/ at the [facility], CAD s/p CABG 2003 at the [facility], h/o NSTEMI, T2DM, hypertension, macular degeneration (blind L eye, 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 Presented from home via EMS after not having the last 2 weeks of HD sessions at his request as he wanted to transition to Hospice. By report he did indeed enroll in Hospice early in September. #enteritis 2nd to norovirus + campylobacter - present on admission - now with ileus - -was slowly improving from a GI standpoint with decreased stooling, no further nausea, and increasing tolerance to clear liquids -diet was slowly advanced, but his GI symptoms worsened after he attempted to eat solids -after eating solids his abdomen became even more distended with refractory nausea, vomiting, bloating, and pain -KUB x-ray showed an ileus -he was s/p 3 days of azithromycin 500mg daily for the campylobacter -with his worsening GI symptoms he ultimately required scheduled zofran 4mg q6h and have low-dose phenergan prn as back-up -consideration to NG tube placement for decompression was deemed a last resort action and thus was not pursued #acute/chronic hypoxic respiratory failure - present on admission - -acute component initially 2nd to volume overload from ESRD and having missed 2 weeks of HD sessions intentionally due to Hospice status -he has a rather large pleural effusion on the right side that is probably also contributing -overall respiratory status had improved s/p HD x 3 sessions since admission, but now he is short of breath again - suspect from the massive abdominal distension pushing on the diaphragm -could not rule out a RLL pneumonia but the right basilar findings on imaging were probably compressive atelectasis from the pleural effusion -no evidence of COPD exacerbation while here - thus, systemic steroids deferred #ESRD on HD typically Wed/Wed/Wednesday - -stopped HD 2 weeks prior to admission due to transition to Hospice -[facility] Nephrology consulted and HD assistance given -s/p 3 HD sessions since admission for volume control which provided great relief of his dyspnea -on 10/07-10/08 it was decided no further HD treatments would be pursued as he had significant global decline and focus would be solely on comfort/pain control/symptom control #hyperkalemia - present on admission - -2nd to ESRD and multiple missed HD sessions -resolved s/p 3 HD treatments #chronic jovel catheter - -has had a jovel for at least 1 year -urine cx negative -deferred exchanging the jovel since we transitioned back to Hospice #possible catheter-associated UTI - -ruled out - stopped IV antibiotics #right-sided pleural effusion - -suspect 2nd to volume overload from ESRD -can't rule out other factors but unlikely -work-up/thoracentesis not pursued given transition to hospice #CAD / h/o CABG / troponin elevation - -no evidence of ACS while here -troponin elevation likely due to myocardial demand ischemia in setting of respiratory failure and volume overload #T2DM - -all insulin therapy stopped #HTN -all BP meds stopped #macular degeneration with legal blindness #abdominal distension - -2nd to norovirus & campylobacter enteritis #COPD on home O2 #BPH with LUTS - -cont jovel #thrombocytopenia - -chronic, dating back to earlier in 2024 #acute metabolic encephalopathy - -likely multifactorial - acidosis and uremia from ESRD, infectious etiologies, hypoxia, etc. -toxic effects from IV morphine, etc could also have contributed #transition to inpatient hospice status - -palliative care was heavily involved in Mr Garcia's hospitalization given that he had been enrolled in hospice for about 2 weeks prior to this admission -palliative care worked with the patient & his family to determine next steps for his care -initially the goal was for him to transition to hospice at a shelter facility -however, on 10/07 and 10/08, he had significant worsening in his abdominal bloating, abdominal pain, nausea, vomiting, back pain, and other symptoms -at that time symptom control became more challenging, and on 10/08 [facility] was consulted to determine if he was a candidate for inpatient Hospice status -he was indeed deemed a candidate for inpatient Hospice services and thus is being discharged then readmitted under Hospice care Admission HPI Per Admitting Provider 85yo male with ESRD on HD M/W/F at the [facility] [place], CAD s/p CABG 2003 at the [facility], h/o NSTEMI, T2DM, hypertension, macular degeneration (blind L eye, 50% visual loss in the right eye), peripheral neuropathy, COPD with 2.5 liters of NC O2 use at home, BPH with urinary obstruction managed with chronic Jovel catheter, hyperlipidemia, gout. Patient presents from home via EMS due to worsening shortness of breath and "feeling badly." During my assessment he has BIPAP on and it was rather difficult to communicate. However, he has had diarrhea for several days, body aches, fevers (uncertain temperature), chills, cough, headache, worsening dyspnea, abdominal distension, nausea, and poor appetite. He last ate a meal about 3-4 days ago. He reports that "hospice was out" to his home recently and "they didn't do anything for me." He was unable to elaborate. A note in his chart dated 09/20/[address] Pasha Ching stated that the patient had elected to stop dialysis treatments and to initiate hosp[facility]. Thus, he has NOT had any HD treatments since early September. When asked why he came to the hospital this am vs other days he simply said "I felt so badly" this morning. Discharge Exam gen - looks ill, looks uncomfortable, tired/drowsy but does wake up and answer questions; upon awakening he c/o pain HENT - MM dry neck - no obvious JVD heart - RRR, s1 s2, 2/6 systolic murmur LSB lungs - CTA b/l but decreased BS both bases - worse on right abd - distension significantly worse today, generalized tenderness, BS+, no HSM ext - no edema shins b/l, pulses b/l feet 2+ psych - oriented to person and place Discharge Plan Discharge Items Patient Disposition: Hospice - Medical Facility Reason For Visit: ACUTE/CHRONIC HYPOXIC RESP FAILURE Discharge Diagnosis: acute/chronic hypoxic respiratory failure campylobacter enteritis norovirus enteritis volume overload 2nd to ESRD ileus transition to hospice Condition on Discharge: Serious Activity: As commented below Non-emergency contact: Primary Care Provider Call non-emergency contact if: you have any medication questions Follow-up/Referrals: Anahi Casanova C.R.N.PBrayden [Primary Care Provider] - Diet: Clear liquid Addtl Attending Provider Instructions: Mr Garcia is being discharged to inpatient hospice status at [facility]. Pending Studies at Discharge: No Stand-Alone Forms: My [facility] Skilled Items Patient informed of condition?: Yes DNR: Yes Discharge Level of Care: Other Communicable Disease: Yes Discharge Prognosis: Deteriorating Lines: Peripheral IV Urinary Catheter: Yes Medications and DC Order Prescriptions: Continued albuterol sulfate 90 mcg/actuation HFA aerosol inhaler 2 puff inhalation QID PRN (Reason: Shortness Of Breath Or Wheezing) acetaminophen 325 mg Tablet 650 mg PO DAILY PRN (Reason: Pain) nitroglycerin 0.4 mg Tablet, Sublingual 0.4 mg sublingual DIRECTED PRN (Reason: Chest Pain) Stiolto Respimat 2.5-2.5 mcg/actuation Mist 2 puff INHALATION DAILY Discontinued omeprazole 20 mg capsule,delayed release(DR/EC) 20 mg PO BID Rx Instructions: take 30 min before a meal magnesium oxide 420 mg tablet 420 mg PO DAILY loratadine [Allergy Relief (loratadine)] 10 mg tablet 10 mg PO Q OTHER DAY cholecalciferol (vitamin D3) 25 mcg (1,000 unit) capsule 50 mcg PO DAILY doxazosin 4 mg Tablet 8 mg PO BID atorvastatin 80 mg Tablet 80 mg PO HS aspirin 81 mg Tablet,Delayed Release (Dr/Ec) 81 mg PO DAILY fluticasone propionate 50 mcg/actuation [place],Suspension 2 spray INTRANASAL DAILY Rx Instructions: administer into each nostril mometasone 220 mcg/ actuation (60) Aerosol Powdr Breath Activated 2 inh INHALATION BID meclizine 12.5 mg Tablet 25 mg PO Q6H PRN (Reason: Vertigo) PreserVision AREDS-2 250-90-40-1 mg Capsule 1 tab PO BID insulin aspart U-100 [Novolog FlexPen U-100 Insulin] 100 unit/mL (3 mL) Insulin Pen 5 unit SUBCUT TIDM guaifenesin 200 mg Tablet 400 mg PO TID PRN (Reason: help thin mucous) glucose 4 gram Tablet,Chewable 16 g PO DIRECTED PRN (Reason: hypoglycemia ) Patient Comments: Original Directions: Chew 16gm by mouth as needed. Currently listed as on hold, no restart date listed on medication list. 06/20/25 Rx Instructions: Low blood sugar or for blood sugar less than 70 gabapentin 300 mg capsule 300 mg PO MoWeFr@1600 zinc oxide 20 % Ointment 1 applic TOPICAL DAILY Eucerin Cream 1 applic TOPICAL AMHS PRN (Reason: Dry Skin) oxycodone 5 mg tablet 5 mg PO TID PRN (Reason: pain) glucosamine sulfate [Glucosamine] 500 mg Tablet 500 mg PO DAILY Qty: 0 Patient Comments: "I gave the list of surgical medication instructions to [facility] RN who takes care of all my medications for me" Rx Instructions: dose not listed ascorbic acid (vitamin C) 500 mg Tablet 500 mg PO DAILY cinnamon bark [Cinnamon] 500 mg Capsule 1,000 mg PO DAILY amlodipine 10 mg tablet 10 mg PO DAILY carboxymethylcellulose sodium 0.5 % Drops 0 drp OPHTHALMIC (EYE) BID Patient Comments: 10/03- last filled 04/12/25 [facility] vitamin B complex Tablet 1 tab PO DAILY insulin glargine 100 unit/mL (3 mL) Insulin Pen 50 unit SUBCUT HS Rx Instructions: pt states 46 units at night bumetanide 2 mg Tablet 2 mg PO [id number] Patient Comments: Last filled 04/03/25 x60 day supply Rx Instructions: Take on Wednesday, Wednesday, and Wednesday. Do NOT take on Days sevelamer carbonate 800 mg tablet 800 mg PO TIDWMEAL colchicine 0.6 mg capsule 0.6 mg PO DIRECTED PRN (Reason: gout flare) Qty: 0 0RF Rx Instructions: take 1 tablet by mouth every day as directed. take 2 tablets within 12 hours of gout flare, then take 1 tablet 1 hour latermax 3 tablets in 1 hour after the initial tablets on day 1 then starting day #2 take 1 tablet daily for 5 days for gout carvedilol 12.5 mg Tablet 37.5 mg PO BIDM Qty: 60 0RF Discharge Orders: Discharge Order (Routine); Ordered 10/08/25 Ordered By: Wander De Jesus Admission Data Admit Date/Time: 10/03/25 08:10 Attending Provider: Wander De Jesus Admit Provider: Wander De Jesus Primary Care Provider: Anahi Casanova Other Providers: [facility]; Yoandy Randhawa; Wander De Jesus; Lia Frey; [facility] Stay Data Consultations 10/03/25 07:16 Consult Nephrology Routine 10/03/25 08:13 Consult Palliative Care Routine Diagnostic Imagining Performed Chest X-Ray 10/03/25 05:45 EXAM: XR chest 1V portable CLINICAL HISTORY: Dyspnea TECHNIQUE: An X-ray image of the chest is obtained in AP projection. COMPARISON: 08/15/2025 CR. FINDINGS: Pulmonary Parenchyma: A right central venous catheter was noted with the tip at the cavoatrial junction. Opacification of the right lower zone suggests mild to moderate pleural effusion with associated atelectatic changes. Unchanged blunting of left CP angle likely small pleural effusion vs thickening. Heart and Mediastinum: Mild cardiomegaly. No mediastinal widening or masses. No hilar or mediastinal lymphadenopathy. Bony Thorax: Sternotomy sutures. Bony thorax appears intact without fractures or deformities. Degenerative changes in bilateral shoulder joints. Soft Tissues: Soft tissues overlying the chest wall are unremarkable. IMPRESSION: 1. A right central venous catheter was noted with the tip at the cavoatrial junction, unchanged. 2. Mild to moderate right pleural effusion with underlying atelectatic changes., New finding. 3. Unchanged blunting of left CP angle likely small pleural effusion vs thickening. 4. Clinical correlation is suggested. Electronically signed by Lior Jamil 10-03-2025 07:40 AM Abdomen/Pelvis CT 10/03/25 08:18 CT SCAN OF THE ABDOMEN AND PELVIS WITH IV CONTRAST CLINICAL HISTORY: Abdominal pain, diarrhea and abdominal distention. COMPARISON STUDY: CT of the abdomen and pelvis June 19, 2024. Renal ultrasound December 15, 2024. TECHNIQUE: Following the IV administration of 94 cc of Optiray 320, CT scan of the abdomen and pelvis is performed from the lung bases to the proximal femora. Images are reviewed in the axial, sagittal, and coronal planes. IV contrast was administered without complication. A dose lowering technique was utilized adhering to the principles of ALARA. CT DOSE: 1602.69 mGy.cm FINDINGS: There is moderate cardiomegaly and extensive coronary artery calcification. Moderate size right pleural effusion is partially imaged. There is associated right lower lobe compressive atelectasis. There is segmental atele ctasis within the right middle lobe. There is a trace left pleural effusion. No pneumatosis, free air or portal venous gas is present. Mild biliary ductal dilatation is likely related to cholecystectomy. There are no hepatic lesions. Spleen, adrenal glands and pancreas are unremarkable. Marked right and moderate left renal cortical thinning are noted. Water attenuation bilateral renal lesions favor cysts. Dilatation of the right renal pelvis is unchanged. This is chronic. The prostate is enlarged, measuring 5.4 cm in transverse diameter. There is a Jovel balloon within the bladder. Body wall edema is present. There is a small amount of abdominal and pelvic ascites. There is no evidence for a bowel obstruction. The caliber and thickness of small and large bowel are normal. There is colonic diverticulosis without evidence for acute diverticulitis. No lymphadenopathy. There are no fluid collections. The appendix is normal. No acute fractures within the lumbar spine, pelvis or hips are marcin ntified. There is extensive aortoiliac atherosclerotic plaque. IMPRESSION: 1. No bowel junction. No bowel wall thickening. Colonic diverticulosis. No evidence for acute diverticulitis. 2. Partially visualized moderate size right pleural effusion. Associated right lower lobe compressive atelectasis. Segmental right middle lobe atelectasis. Trace left pleural effusion. 3. Small amount of abdominal and pelvic ascites. Body wall edema. 4. Marked right and moderate left renal cortical thinning. Chronic dilatation right renal pelvis. ACT 112: Negative or not required by law. Electronically signed by: Anastacio Aguilar M.D. 10/03/2025 9:03 AM Chest X-Ray 10/07/25 09:49 Technique: 2 frontal views of the chest were obtained Comparison is made to the prior examination dated 10/03/2025 Findings: There is right lower lobe and right upper lobe hazy opacification that could be due to either atelectasis or pneumonia. The heart size is within normal limits. There is an unchanged moderate sized right pleural effusion. No left pleural effusion or pneumothorax is seen. There is no definite pulmonary nodule. No fracture is noted. There is a right jugular central venous line with its tip in the SVC. Sternal wires are present Impression: 1. Moderate sized right pleural effusion 2. Right lung opacities that could be due to pneumonia ACT 112: Positive. There are findings on this exam that require communication between the performing entity and the patient following Patient Test Result Information Act ([place] ACT 112) guidelines. Electronically signed by Rupesh Perales 10-07-2025 11:00 AM KUB X-Ray 10/07/25 09:49 Clinical history: Abdominal distention 2 views of the abdomen were obtained Findings: There are mildly prominent air-filled loops of small and large bowel, which may be due to ileus. There is gastric gaseous distention. There is no definite sign of obstruction. No renal or ureteral calculi are seen. No foreign body is evident. No osseous abnormality is seen. A Jovel catheter is present Impression: Suspected mild ileus ACT 112: Positive. There are findings on this exam that require communication between the performing entity and the patient following Patient Test Result Information Act ([place] ACT 112) guidelines. Electronically signed by Rupesh Perales 10-07-2025 11:01 AM Pending Results Patient Have Any Pending Studies at Discharge: No Discharge Instructions Given to Patient (Per Discharging Provider) Mr Garcia is being discharged to inpatient hospice status at [facility]. Total Time Total Time Spent Total Time Spent (In Minutes): 45 Coding Level of Care Code 40387 INP/OBS DISCH >30 MIN Diagnoses Campylobacter enteritis A04.5 Enteritis due to Norovirus A08.11 Acute on chronic hypoxic respiratory failure J96.21 Acute metabolic encephalopathy G93.41 End stage renal disease N18.6 BPH (benign prostatic hyperplasia) N40.0 Chronic indwelling Jovel catheter Z97.8 Blindness H54.7 COPD (chronic obstructive pulmonary disease) J44.9 Hyperlipidemia E78.5 Hypertension I10 Coronary artery disease I25.10 Insulin dependent diabetes mellitus On home oxygen therapy Z99.81 Thrombocytopenia D69.6 GERD (gastroesophageal reflux disease) K21.9 Hyperkalemia E87.5
== END 2025-10-08 16:49 | disposition hospice, inpatient (51) | DRG 189 ==
LOC: ED 05:41 → EDINP 08:10 → 2S 14:13 → 3E 10-06 22:41